=== PATIENT | female | born 1935 | race Caucasian/White ===

== ENCOUNTER → 2017-11-30 15:26 | Outpatient (CLI) | payer MEDICARE, OTHER, SELFPAY ==
[2017-11-30 17:16] LABS: ALT 29 U/L (12-78); AST 21 U/L (15-37); Albumin 3.9 g/dL (3.4-5.0); Alkaline Phosphatase 59 U/L (46-116); Amylase 102 U/L (25-115); Anion Gap 7.5 mmol/L (3-11); BUN 20 mg/dL (7-18); Bilirubin, Total 0.5 mg/dL (0.2-1.0); CO2 27.5 mmol/L (21.0-32.0); Calcium 9.3 mg/dL (8.5-10.1); Chloride 103 mmol/L (98-107); Estimated GFR 53.08 (mL/min/1.73m2); Glucose 88 mg/dL (70-100); Lipase 180 U/L (73-393); Magnesium 2.6 mg/dL (1.8-2.4); Potassium 4.2 mmol/L (3.5-5.1); Sodium 138 mmol/L (136-145); TSH (W/Ref FT4) 1.77 uIU/mL (0.358-3.74); Total Protein 6.9 g/dL (6.4-8.2)
[2017-11-30 17:19] LABS: Abs Immature Grans 0.01 k/cumm (0.0-0.09); Absolute Basophil Count 0.04 k/cumm (0.0-0.2); Absolute Eosinophil Count 0.11 k/cumm (0.0-0.7); Absolute Lymphocyte Count 2.36 k/cumm (1.2-3.4); Absolute Monocyte Count 0.49 k/cumm (0.11-0.7); Absolute Neutrophil Count 2.89 k/cumm (1.2-6.7); Basophils % 0.7; Eosinophils % 1.9; HCT 38.2 % (36.0-46.0); HGB 12.8 g/dL (12.0-15.5); Immature Grans % 0.2; Mean Corp. HGB Concentration 33.5 g/dL (32.0-36.0); Mean Corpuscular Hemoglobin 32.2 pg (27.0-33.0); Monocytes % 8.3; Neutrophils % 48.9; Platelet Count 210 x1000/uL (130-400); RBC 3.98 m/cumm (4.00-5.20); RBC Distribution Width 13.2 % (11.7-14.6)
[2017-12-01 16:42] LABS: CRP, High Sensitivity 0.15 mg/L
== END ==
PROVIDERS: PCP Family Medicine; Visit Provider Nurse Practitioner Adult Health
DX: R10.9 Unspecified abdominal pain (principal); R11.0 Nausea; R10.12 Left upper quadrant pain; R61 Generalized hyperhidrosis; I10 Essential (primary) hypertension; N18.9 Chronic kidney disease, unspecified; R53.83 Other fatigue
CPT/HCPCS: 36415; 80053; 83690; 86141; 82150; 83735; 84443; 85025

== ENCOUNTER → 2017-12-07 10:30 | Outpatient (CLI) | payer MEDICARE, OTHER, SELFPAY | PROVIDERS: PCP Family Medicine; Visit Provider Nurse Practitioner Gerontology | DX: N32.89 Other specified disorders of bladder (principal); R31.9 Hematuria, unspecified | CPT/HCPCS: 81003; 99213 ==

== ENCOUNTER → 2017-12-16 14:33 | Outpatient (CLI) | payer MEDICARE, OTHER, SELFPAY ==
--- NOTE | 2017-12-16 14:33 | DI.REPORT_ITS ---
SYMPTOMS/DIAGNOSIS: RADICULOPATHY, M54.17 LUMBOSACRAL SPINE: Five views were obtained. There is mild disc space narrowing at L 4 - 5 and L 5 - S 1. There are prominent hypertrophic degenerative changes involving the facet joints in the mid to lower lumbar spine. There is minimal pseudospondylolisthesis of L 4 on L 5. No evidence of spondylolysis. The intervertebral disc spaces appear narrowed throughout the lumbar region. CONCLUSION: DJD of the lumbar spine.
== END ==
PROVIDERS: PCP Family Medicine; Visit Provider Student in an Organized Health Care Education/Training Program
DX: M54.17 Radiculopathy, lumbosacral region (principal); M51.17 Intervertebral disc disorders with radiculopathy, lumbosacral region
CPT/HCPCS: 72110

== ENCOUNTER 2018-03-15 07:14 | Outpatient (CLI) | payer MEDICARE, OTHER, SELFPAY ==
[2018-03-15 07:46] LABS: HGB 13.1 g/dL (12.0-15.5); Mean Corp. HGB Concentration 32.8 g/dL (32.0-36.0); Mean Corpuscular Hemoglobin 31.6 pg (27.0-33.0); Mean Corpuscular Volume 96.4 fL (80-95); Mean Platelet Volume 10.2 fL (8.0-11.0); Platelet Count 212 x1000/uL (130-400); RBC 4.15 m/cumm (4.00-5.20); RBC Distribution Width 12.8 % (11.7-14.6); White Blood Cell Count 4.87 k/cumm (4.4-10.8)
[2018-03-15 09:10] LABS: Anion Gap 8.2 mmol/L (3-11); BUN 21 mg/dL (7-18); CO2 28.8 mmol/L (21.0-32.0); CREATININE 0.97 mg/dL (0.55-1.02); Calcium 9.8 mg/dL (8.5-10.1); Chloride 106 mmol/L (98-107); Cholesterol 201 mg/dL (50-200); Estimated GFR 54.98 (mL/min/1.73m2); Glucose 88 mg/dL (70-100); HDL Cholesterol 73 mg/dL (40-60); LDL CHOLESTEROL 113 mg/dL (<100); Potassium 4.4 mmol/L (3.5-5.1); Sodium 143 mmol/L (136-145); Triglyceride 118 mg/dL (30-150)
== END 2018-03-15 07:34 ==
PROVIDERS: PCP Student in an Organized Health Care Education/Training Program; Visit Provider Student in an Organized Health Care Education/Training Program
DX: I10 Essential (primary) hypertension (principal); Z13.220 Encounter for screening for lipoid disorders; R53.83 Other fatigue; R00.2 Palpitations
CPT/HCPCS: 36415; 80048; 80061; 83721; 85027

== ENCOUNTER 2018-07-06 04:50 | Emergency (ER) | payer MEDICARE, OTHER, SELFPAY ==
[2018-07-06 04:54] VITALS: BP 143/67; PULSE 96; RESP 22; TEMP 36.7; O2SAT 99
--- NOTE | 2018-07-06 05:00 | W.ED.GENAD ---
Discharge Plan Disposition Patient Disposition: HOME Condition: Stable Discharge Details Chief Complaint: Palpitatns Clinical Impression: Ventricular ectopic beats Primary Care Provider: Dyan Puga ED Provider: Salvador Bejarano Home Meds and New Rx's Prescriptions: No Action losartan 50 mg tablet 50 mg PO DAILY Qty: 90 RF: 3 atorvastatin 20 mg tablet 20 mg PO .daily at bedtime Qty: 90 RF: 3 cholecalciferol (vitamin D3) 1,000 UNIT tablet 1,000 unit PO DAILY RF: 0 calcium carbonate [Tums] 200 MG tablet,chewable 200 mg PO PRN RF: 0 mirtazapine 7.5 mg tablet 7.5 mg PO .daily at bedtime Qty: 90 RF: 3 amlodipine 2.5 mg tablet 2.5 mg PO DAILY Qty: 90 RF: 3 metoprolol tartrate 25 mg tablet 25 mg PO BID Qty: 180 RF: 3 aspirin [Aspirin Low-Strength] 81 MG tablet,chewable 81 mg PO DAILY RF: 0 Fish Oil 500 MG capsule,delayed release(DR/EC) 1,000 mg PO DAILY RF: 0 Discharge Instructions Additional Instructions: You were found to have premature ventricular beats on your ekg and monitor. This is likely causing your symptoms Your lab work did not show any concerning findings Follow up with your trim setter If you feel your symptoms are worsening, if you have difficulty breathing or chest pain return to the emergency department Medical Decision Making 82 yo female with hx of htn, hld, gerd, who comes in with cc of palpitations. She states since last night she has had a sensation of her heart skipping beats. She has had this in the past per pt with negative outpatient holters. She denies any chest pain, sob, dizziness or lightheadedness. Tele and ekg shows sinus rhythm with ectopic ventricular beats that I suspect is what is causing her symptoms. No chest pain or pressure and appears in no distress, laughing during exam, so doubt entities such as acs or PE. Will eval for electrolyte abnormalities and monitor pt's lab work shows no acute findings. She remains stable with only ectopic ventricular beats on tele. Will have her f/u with her trim setter, return precautions given. Do not feel holter indicated given she has had this in the past and her tele here showed the reason why she was having her palpitations Differential Diagnosis ectopic ventricular beats, pvc's, afib, Lab Data Lab results reviewed: Yes I reviewed the patient's lab results. ECG Data Attestation: I personally reviewed and interpreted this ECG (s) as follows: Prior ECG tracings: available for review Interpretation: sinus rhythm, rate of 90, pr 206, no acute st t wave changes, frequent ectopic ventricular beats HPI General Mode of arrival: ambulatory. Date/Time Provider Initiated Documentation: 07/06/18 04:52. Limitations to Documentation: no limitations. Information obtained by: patient. History of Present Illness 82 year old F presents to the emergency department with the chief complaint of palpitations, described as mild, and is localized to the chest. Patient reports no radiation. Patient started experiencing this day(s) (1) and it has been intermittent. No relieving factors improve symptom(s), No exacerbating factors reported . Patient notes no other symptoms.. Patient did receive the following treatments prior to arrival, none Related Data Home Medications Medication Instructions Recorded Confirmed aspirin [Aspirin Low-Strength] 81 mg PO DAILY 08/18/14 07/06/18 omega 1-mnq-xaq-fish oil [Fish Oil] 1,000 mg PO DAILY 08/18/14 07/06/18 cholecalciferol (vitamin D3) 1,000 unit PO DAILY 09/05/14 07/06/18 calcium carbonate [Tums] 200 mg PO PRN tab.chew 01/02/16 07/06/18 atorvastatin 20 mg tablet 20 mg PO .daily at bedtime #90 tab 12/29/17 07/06/18 losartan 50 mg tablet 50 mg PO DAILY #90 tab 12/29/17 07/06/18 mirtazapine 7.5 mg tablet 7.5 mg PO .daily at bedtime #90 tab 02/05/18 07/06/18 amlodipine 2.5 mg tablet 2.5 mg PO DAILY #90 tab-cap 05/14/18 07/06/18 metoprolol tartrate 25 mg tablet 25 mg PO BID #180 tab-cap 05/14/18 07/06/18 Previous Rx's Medication Instructions Recorded atorvastatin 20 mg tablet 20 mg PO .daily at bedtime #90 tab 12/29/17 losartan 50 mg tablet 50 mg PO DAILY #90 tab 12/29/17 mirtazapine 7.5 mg tablet 7.5 mg PO .daily at bedtime #90 tab 02/05/18 amlodipine 2.5 mg tablet 2.5 mg PO DAILY #90 tab-cap 05/14/18 metoprolol tartrate 25 mg tablet 25 mg PO BID #180 tab-cap 05/14/18 Allergies Allergy/AdvReac Type Severity Reaction Status Date / Time Penicillins Allergy Intermediate mouth Verified 07/06/18 04:59 swells Sulfa (Sulfonamide Allergy Intermediate mouth Verified 07/06/18 04:59 Antibiotics) swells adhesive AdvReac Intermediate rash and Verified 07/06/18 04:59 blisters amoxicillin AdvReac Intermediate Swelling/Ed Verified 07/06/18 04:59 aleksandr amoxicillin trihydrate AdvReac Intermediate Swelling/Ed Verified 07/06/18 04:59 [From Prevpac] aleksandr clarithromycin [From Biaxin] AdvReac Unknown Verified 07/06/18 04:59 ibandronate sodium AdvReac Unknown Verified 07/06/18 04:59 [From Boniva] lansoprazole [From Prevpac] AdvReac Unknown Verified 07/06/18 04:59 lisinopril AdvReac Unknown Verified 07/06/18 04:59 General Stated Complaint: Palpitatns RAJESH: 3 Review of Systems Review of Systems All systems reviewed & are unremarkable except as noted in HPI and below Constitutional Denies chills and Denies fever(s) ENT Denies change in voice Cardiovascular Denies chest pain and Denies dyspnea Respiratory Denies cough and Denies dyspnea Gastrointestinal Denies abdominal pain, Denies nausea and Denies vomiting Integumentary/Breasts Denies rash Psychiatric Denies depression PFSH Medical History H/O echocardiogram (Resolved) Surgical History Arthroplasty of knee (~2008) EGD (02/26/16) Vaginal hysterectomy (~2005) colonoscopy (02/26/16) Family History Mother Essential hypertension Heart disease Father Essential hypertension Heart disease Maternal Grandfather FH: mental illness Heart disease Maternal Aunt FH: mental illness Social History household members: spouse marital status details: Callie current occupational status: retired Smoking and Tabacco status: Never alcohol intake: never substance use type: does not use Exam Const General: no acute distress Orientation: alert HENMT Head: normal to inspection Ears: external ears normal General nose exam: external nose normal Mouth: moist mucous membranes Eyes General: appearance normal, both eyes and all related structures Neck Neck: normal visual inspection Resp Effort & Inspection: normal respiratory effort and able to speak in complete sentences Cardio Rate: regular rate Skin General skin exam: no rashes or lesions noted Neuro General: alert and oriented x3 Extrem General: normal to inspection Psych Mental Status: mental status grossly normal Course Vital Signs Temperature 36.7 C 07/06/18 04:54 Pulse 96 H 07/06/18 04:54 Respiratory Rate 22 07/06/18 04:54 Blood Pressure 143/67 H 07/06/18 04:54 Pulse Oximetry 99 07/06/18 04:54 Temperature 36.7 C 07/06/18 04:54 Temperature Source Skin 07/06/18 04:54 Pulse 96 H 07/06/18 04:54 Respiratory Rate 22 07/06/18 04:54 Respiratory Effort 07/06/18 04:57 Blood Pressure 143/67 H 07/06/18 04:54 Blood Pressure Position Sitting 07/06/18 04:54 Pulse Oximetry 99 07/06/18 04:54 Oxygen Delivery Method Room Air 07/06/18 04:54 Oxygen Flow Rate 0 07/06/18 04:54 Pain Level 0 07/06/18 04:54
[2018-07-06 05:02] VITALS: BP 143/61; PULSE 83; PULSE 84; RESP 23; O2SAT 97
--- NOTE | 2018-07-06 05:05 | ED.GENADUL_ITS ---
Discharge Plan Disposition Patient Disposition: HOME Condition: Stable Discharge Details Chief Complaint: Palpitatns Clinical Impression: Ventricular ectopic beats Primary Care Provider: Dyan Puga ED Provider: Salvador Bejarano Home Meds and New Rx's Prescriptions: No Action losartan 50 mg tablet 50 mg PO DAILY Qty: 90 RF: 3 atorvastatin 20 mg tablet 20 mg PO .daily at bedtime Qty: 90 RF: 3 cholecalciferol (vitamin D3) 1,000 UNIT tablet 1,000 unit PO DAILY RF: 0 calcium carbonate [Tums] 200 MG tablet,chewable 200 mg PO PRN RF: 0 mirtazapine 7.5 mg tablet 7.5 mg PO .daily at bedtime Qty: 90 RF: 3 amlodipine 2.5 mg tablet 2.5 mg PO DAILY Qty: 90 RF: 3 metoprolol tartrate 25 mg tablet 25 mg PO BID Qty: 180 RF: 3 aspirin [Aspirin Low-Strength] 81 MG tablet,chewable 81 mg PO DAILY RF: 0 Fish Oil 500 MG capsule,delayed release(DR/EC) 1,000 mg PO DAILY RF: 0 Discharge Instructions Additional Instructions: You were found to have premature ventricular beats on your ekg and monitor. This is likely causing your symptoms Your lab work did not show any concerning findings Follow up with your awake overnight monitor If you feel your symptoms are worsening, if you have difficulty breathing or chest pain return to the emergency department Medical Decision Making 82 yo female with hx of htn, hld, gerd, who comes in with cc of palpitations. She states since last night she has had a sensation of her heart skipping beats. She has had this in the past per pt with negative outpatient holters. She denies any chest pain, sob, dizziness or lightheadedness. Tele and ekg shows sinus rhythm with ectopic ventricular beats that I suspect is what is causing her symptoms. No chest pain or pressure and appears in no distress, laughing during exam, so doubt entities such as acs or PE. Will eval for electrolyte abnormalities and monitor pt's lab work shows no acute findings. She remains stable with only ectopic ventricular beats on tele. Will have her f/u with her awake overnight monitor, return precautions given. Do not feel holter indicated given she has had this in the past and her tele here showed the reason why she was having her palpitations Differential Diagnosis ectopic ventricular beats, pvc's, afib, Lab Data Lab results reviewed: Yes I reviewed the patient's lab results. ECG Data Attestation: I personally reviewed and interpreted this ECG (s) as follows: Prior ECG tracings: available for review Interpretation: sinus rhythm, rate of 90, pr 206, no acute st t wave changes, frequent ectopic ventricular beats HPI General Mode of arrival: ambulatory . Date/Time Provider Initiated Documentation: 07/06/18 04:52 . Limitations to Documentation: no limitations . Information obtained by: patient . History of Present Illness 82 year old F presents to the emergency department with the chief complaint of palpitations, described as mild, and is localized to the chest. Patient reports no radiation. Patient started experiencing this day(s) (1) and it has been intermittent. No relieving factors improve symptom(s), No exacerbating factors reported . Patient notes no other symptoms.. Patient did receive the following treatments prior to arrival, none Related Data Home Medications Medication Instructions Recorded Confirmed aspirin [Aspirin Low-Strength] 81 mg PO DAILY 08/18/14 07/06/18 omega 8-epm-lkm-fish oil [Fish Oil] 1,000 mg PO DAILY 08/18/14 07/06/18 cholecalciferol (vitamin D3) 1,000 unit PO DAILY 09/05/14 07/06/18 calcium carbonate [Tums] 200 mg PO PRN tab.chew 01/02/16 07/06/18 atorvastatin 20 mg tablet 20 mg PO .daily at bedtime #90 tab 12/29/17 07/06/18 losartan 50 mg tablet 50 mg PO DAILY #90 tab 12/29/17 07/06/18 mirtazapine 7.5 mg tablet 7.5 mg PO .daily at bedtime #90 tab 02/05/18 07/06/18 amlodipine 2.5 mg tablet 2.5 mg PO DAILY #90 tab-cap 05/14/18 07/06/18 metoprolol tartrate 25 mg tablet 25 mg PO BID #180 tab-cap 05/14/18 07/06/18 Previous Rx's Medication Instructions Recorded atorvastatin 20 mg tablet 20 mg PO .daily at bedtime #90 tab 12/29/17 losartan 50 mg tablet 50 mg PO DAILY #90 tab 12/29/17 mirtazapine 7.5 mg tablet 7.5 mg PO .daily at bedtime #90 tab 02/05/18 amlodipine 2.5 mg tablet 2.5 mg PO DAILY #90 tab-cap 05/14/18 metoprolol tartrate 25 mg tablet 25 mg PO BID #180 tab-cap 05/14/18 Allergies Allergy/AdvReac Type Severity Reaction Status Date / Time Penicillins Allergy Intermediate mouth Verified 07/06/18 04:59 swells Sulfa (Sulfonamide Allergy Intermediate mouth Verified 07/06/18 04:59 Antibiotics) swells adhesive AdvReac Intermediate rash and Verified 07/06/18 04:59 blisters amoxicillin AdvReac Intermediate Swelling/Ed Verified 07/06/18 04:59 aleksandr amoxicillin trihydrate AdvReac Intermediate Swelling/Ed Verified 07/06/18 04:59 [From Prevpac] aleksandr clarithromycin [From Biaxin] AdvReac Unknown Verified 07/06/18 04:59 ibandronate sodium AdvReac Unknown Verified 07/06/18 04:59 [From Boniva] lansoprazole [From Prevpac] AdvReac Unknown Verified 07/06/18 04:59 lisinopril AdvReac Unknown Verified 07/06/18 04:59 General Stated Complaint: Palpitatns RAJESH: 3 Review of Systems Review of Systems All systems reviewed & are unremarkable except as noted in HPI and below Constitutional Denies chills and Denies fever(s) ENT Denies change in voice Cardiovascular Denies chest pain and Denies dyspnea Respiratory Denies cough and Denies dyspnea Gastrointestinal Denies abdominal pain, Denies nausea and Denies vomiting Integumentary/Breasts Denies rash Psychiatric Denies depression PFSH Medical History H/O echocardiogram (Resolved) Surgical History Arthroplasty of knee (~2008) EGD (02/26/16) Vaginal hysterectomy (~2005) colonoscopy (02/26/16) Family History Mother Essential hypertension Heart disease Father Essential hypertension Heart disease Maternal Grandfather FH: mental illness Heart disease Maternal Aunt FH: mental illness Social History household members: spouse marital status details: Callie current occupational status: retired Smoking and Tabacco status: Never alcohol intake: never substance use type: does not use Exam Const General: no acute distress Orientation: alert HENMT Head: normal to inspection Ears: external ears normal General nose exam: external nose normal Mouth: moist mucous membranes Eyes General: appearance normal, both eyes and all related structures Neck Neck: normal visual inspection Resp Effort & Inspection: normal respiratory effort and able to speak in complete sentences Cardio Rate: regular rate Skin General skin exam: no rashes or lesions noted Neuro General: alert and oriented x3 Extrem General: normal to inspection Psych Mental Status: mental status grossly normal Course Vital Signs Temperature 36.7 C 07/06/18 04:54 Pulse 96 H 07/06/18 04:54 Respiratory Rate 22 07/06/18 04:54 Blood Pressure 143/67 H 07/06/18 04:54 Pulse Oximetry 99 07/06/18 04:54 Temperature 36.7 C 07/06/18 04:54 Temperature Source Skin 07/06/18 04:54 Pulse 96 H 07/06/18 04:54 Respiratory Rate 22 07/06/18 04:54 Respiratory Effort 07/06/18 04:57 Blood Pressure 143/67 H 07/06/18 04:54 Blood Pressure Position Sitting 07/06/18 04:54 Pulse Oximetry 99 07/06/18 04:54 Oxygen Delivery Method Room Air 07/06/18 04:54 Oxygen Flow Rate 0 07/06/18 04:54 Pain Level 0 07/06/18 04:54
[2018-07-06] MEDS: Normal Saline Flush 10 ML SYR IVP (05:11)
[2018-07-06 05:13] LABS: Abs Immature Grans 0.02 k/cumm (0.0-0.09); Absolute Basophil Count 0.04 k/cumm (0.0-0.2); Absolute Lymphocyte Count 2.89 k/cumm (1.2-3.4); Absolute Monocyte Count 0.54 k/cumm (0.11-0.7); Absolute Neutrophil Count 2.32 k/cumm (1.2-6.7); Basophils % 0.7; Eosinophils % 3.3; HCT 39.4 % (36.0-46.0); HGB 13.3 g/dL (12.0-15.5); Immature Grans % 0.3; Lymphocytes % 48.1; Mean Corp. HGB Concentration 33.8 g/dL (32.0-36.0); Mean Corpuscular Volume 94.7 fL (80-95); Mean Platelet Volume 10.1 fL (8.0-11.0); Neutrophils % 38.6; Platelet Count 231 x1000/uL (130-400); RBC 4.16 m/cumm (4.00-5.20); White Blood Cell Count 6.01 k/cumm (4.4-10.8)
[2018-07-06 05:17] VITALS: BP 132/68; PULSE 75; PULSE 77; RESP 32; O2SAT 98
[2018-07-06 05:29] LABS: ALT 24 U/L (12-78); AST 18 U/L (15-37); Albumin 3.7 g/dL (3.4-5.0); Alkaline Phosphatase 67 U/L (46-116); Anion Gap 9.9 mmol/L (3-11); BUN 23 mg/dL (7-18); Bilirubin, Total 0.6 mg/dL (0.2-1.0); CO2 28.1 mmol/L (21.0-32.0); Calcium 9.8 mg/dL (8.5-10.1); Chloride 104 mmol/L (98-107); Estimated GFR 43.01 (mL/min/1.73m2); Glucose 107 mg/dL (70-100); Potassium 3.8 mmol/L (3.5-5.1); Sodium 142 mmol/L (136-145); Total Protein 6.9 g/dL (6.4-8.2); Troponin I < 0.02 ng/mL (0.00-0.06)
[2018-07-06 05:31] VITALS: BP 121/90; PULSE 69; PULSE 80; RESP 15
== END 2018-07-06 05:45 | disposition home or self-care (01) ==
PROVIDERS: Emergency Provider Emergency Medicine; PCP Student in an Organized Health Care Education/Training Program
DX: I49.3 Ventricular premature depolarization (principal); I10 Essential (primary) hypertension
CPT/HCPCS: 36415; 80053; 93005; 99284; 83735; 84484; 85025; 93010; 99283; J3490

== ENCOUNTER → 2018-08-04 10:54 | Outpatient (BNVA) | payer MEDICARE, OTHER, SELFPAY | PROVIDERS: PCP Student in an Organized Health Care Education/Training Program; Visit Provider Nurse Practitioner Gerontology | DX: R31.29 Other microscopic hematuria (principal); R19.7 Diarrhea, unspecified | CPT/HCPCS: 81003; 99213 ==

== ENCOUNTER 2019-01-17 08:36 | Outpatient (CLI) | payer MEDICARE, OTHER, SELFPAY ==
[2019-01-17 09:04] LABS: HCT 37.7 % (36.0-46.0); HGB 12.4 g/dL (12.0-15.5); Mean Corp. HGB Concentration 32.9 g/dL (32.0-36.0); Mean Corpuscular Hemoglobin 31.4 pg (27.0-33.0); Mean Corpuscular Volume 95.4 fL (80-95); Platelet Count 240 x1000/uL (130-400); RBC 3.95 m/cumm (4.00-5.20); White Blood Cell Count 4.71 k/cumm (4.4-10.8)
[2019-01-17 10:07] LABS: ALT 27 U/L (14-59); AST 19 U/L (15-37); Albumin 3.5 g/dL (3.4-5.0); Alkaline Phosphatase 60 U/L (46-116); Anion Gap 7.1 mmol/L (3-11); BUN 19 mg/dL (7-18); Bilirubin, Total 0.6 mg/dL (0.2-1.0); CO2 26.9 mmol/L (21.0-32.0); CREATININE 1.06 mg/dL (0.55-1.02); Calcium 9.4 mg/dL (8.5-10.1); Chloride 108 mmol/L (98-107); Estimated GFR 49.51 (mL/min/1.73m2); Glucose 94 mg/dL (70-100); Magnesium 2.2 mg/dL (1.8-2.4); Potassium 4.7 mmol/L (3.5-5.1); Sodium 142 mmol/L (136-145); TSH (W/Ref FT4) 1.56 uIU/mL (0.36-3.74); Total Protein 6.4 g/dL (6.4-8.2)
[2019-01-19 11:26] LABS: IgA 66 mg/dL (85-499); Interpretation SEE COMMENTS; Tissue Transglutaminase IgA <1.2 U/mL (<4.0)
[2019-01-22 21:10] LABS: Gliadin (Deamidated) Ab, IgG <10.0 U
== END 2019-01-17 08:56 ==
PROVIDERS: PCP Nurse Practitioner Adult Health; Visit Provider Nurse Practitioner Adult Health
DX: I10 Essential (primary) hypertension (principal); R00.2 Palpitations; R19.7 Diarrhea, unspecified; E78.5 Hyperlipidemia, unspecified; D80.2 Selective deficiency of immunoglobulin A [IgA]
CPT/HCPCS: 36415; 80053; 82784; 83516; 85027; 83735; 84443

== ENCOUNTER 2019-01-18 01:19 | Outpatient (CLI) | payer MEDICARE, OTHER, SELFPAY ==
--- NOTE | 2019-01-18 13:00 | DI.MAMMO_ITS ---
EXAM: MG MAMMO SCREENING CLINICAL HISTORY: screening cancer, Z12.31. TECHNIQUE: Mammograms were interpreted according to the usual protocol including computer analysis w [employer] CAD system, tomosynthesis and C-view imaging. COMPARISON: No exams were available for comparison FINDINGS: The breast tissue is of moderate radiodensity. There is no mass and there are no suspicious calcifica tions and there has been no appreciable interval change when compared with prior images. IMPRESSION: No evidence of malignancy. Category 1, yearly screening mammography is recommended. BI-RADS categor y B. BI-RADS Cat 1 - Negative Breast Density - Category B - Scattered areas of fibroglandular density
[2019-01-19 11:52] LABS: Campylobacter PCR SEE COMMENTS; Salmonella PCR SEE COMMENTS; Shiga Toxin PCR SEE COMMENTS; Shigella/Enteroinvasive Ecoli SEE COMMENTS
== END 2019-01-18 01:39 ==
PROVIDERS: PCP Nurse Practitioner Adult Health; Visit Provider Student in an Organized Health Care Education/Training Program
DX: Z12.31 Encounter for screening mammogram for malignant neoplasm of breast (principal); R19.7 Diarrhea, unspecified
CPT/HCPCS: 77063; 77067; 87046; 87329; 87505; 83630; 87206

== ENCOUNTER 2019-05-26 07:56 | Emergency (ER) | payer MEDICARE, OTHER, SELFPAY ==
[2019-05-26] VITALS (8 sets, daily range): BP systolic 108–173; BP diastolic 53–93; PULSE 55–83; RESP 18; TEMP 36.8; O2SAT 96–99
--- NOTE | 2019-05-26 08:13 | ED.GENADUL_ITS ---
Discharge Plan Disposition Patient Disposition: HOME Condition: Good Discharge Details Chief Complaint: Abd Prob Clinical Impression: Diarrhea, Nausea Primary Care Provider: Ginette Vaca ED Provider: Charlene Tellez Home Meds and New Rx's Prescriptions: New ondansetron 4 mg tablet,disintegrating 4 mg PO Q6H PRN (Reason: nausea and vomiting) Qty: 10 RF: 0 Continued magnesium oxide 400 mg capsule 400 mg PO DAILY RF: 0 atorvastatin 20 mg tablet 20 mg PO .daily at bedtime Qty: 90 RF: 3 losartan 50 mg tablet 50 mg PO DAILY Qty: 90 RF: 3 Metamucil (sugar) Powder 1 tbs PO DAILY RF: 0 cholecalciferol (vitamin D3) 1,000 UNIT tablet 1,000 unit PO DAILY RF: 0 calcium carbonate [Tums] 200 MG tablet,chewable 200 mg PO PRN RF: 0 mirtazapine 7.5 mg tablet 7.5 mg PO .daily at bedtime Qty: 90 RF: 3 amlodipine 2.5 mg tablet 2.5 mg PO DAILY Qty: 90 RF: 3 metoprolol tartrate 25 mg tablet 25 mg PO BID Qty: 180 RF: 3 aspirin [Aspirin Low-Strength] 81 MG tablet,chewable 81 mg PO DAILY RF: 0 Fish Oil 500 MG capsule,delayed release(DR/EC) 1,000 mg PO DAILY RF: 0 Discharge Instructions Instructions: Acute Nausea and Vomiting (ED), Chronic Diarrhea (ED) Additional Instructions: Encourage water intake. You may use the Zofran as prescribed if you have any recurrence of your nausea. Please follow-up with primary care in 1 week for reevaluation. You may contact gastroenterology to see if this sooner appointment is available. If you develop fever/chills, abdominal pain or other new/worsening symptoms please seek care urgently once again. Referrals: Ginette Vaca, REGIONAL WILDLIFE AGENT [Primary Care Provider] - Discharge Data Discharge Date/Time-TO BE ENTERED AT DEPARTURE: 05/26/19 10:34 Medical Decision Making Patient is a pleasant 83-year-old female presents today with chief complaint of chronic diarrhea. She reports she is had diarrhea for the past 7 months. Reports that she had 1 bowel movement today but only is able to control the number of bowel movement she has per day with oral Metamucil. She is also had some nausea the Betagan approximately 5 months ago but increased in recent days. She has been evaluated by her primary care historically including stool studies. She has been referred to gastroenterology and has an appointment with them on 04/08/2020. States associated with this diarrhea, she has had chronic left-sided abdominal tenderness. Last had CT imaging on 06/10/2017. At that time, patient did have incidental finding of small quantity of free fluid in the pelvis. On exam, patient appears in no acute distress. She is hypertensive with a blood pressure of 173/84, vital signs otherwise within normal limits. Patient has no discomfort with palpation of the area of discomfort but she does indicate the entire left side of the abdomen is area of discomfort. Lungs are clear, normal cardiac exam. This patient has had chronic diarrhea, will perform laboratory evaluation primarily to evaluate for any electrolyte abnormalities. As the patient's diarrhea is relatively well controlled at this time with Metamucil, we will not repeat any stool studies. No recent travel. No recent antibiotics. With the chronic left-sided abdominal pain, we did discuss imaging which patient declines. Prefers to wait for the GI appointment on 09 June. EKG was reviewed by Dr. Garcia. Patient's normal sinus rhythm no acute ischemic changes noted. T wave depressions are noted but this is stable compared to EKG dated 06/2018. Labs reviewed. No acute abnormalities are noted. Urine was reviewed. Patient does have trace leukocyte esterase, few epithelial cells moderate bacteria. Again, I reviewed urinary symptoms and patient continues to decline any of these. I do not feel that treating her for UTI is appropriate at this time and will wait with culture pending. We will contact her with any positive results. She will contact gastroenterology to see if she can move up her upcoming appointment. Patient continues to decline any imaging. She was given return precautions. Will prescribe Zofran in the event that nausea recurs. All of her questions concerns were addressed and she is agreement this plan. HPI General Mode of arrival: ambulatory . Date/Time Provider Initiated Documentation: 05/26/19 08:13 . Limitations to Documentation: no limitations . Information obtained by: patient, RN notes reviewed and old records reviewed . History of Present Illness 83 year old F presents to the emergency department with the chief complaint of nausea and diarrhea, described as moderate (denies any pain, 1 episode of diarrhea today, not currently nauseated), and is loca lized to the abdomen. Patient reports no radiation. Patient started experiencing this month(s) (7) and it has been constant. No relieving factors improve symptom(s), No exacerbating factors reported . Patient notes nausea/vomiting (endorses nausea, primarily at night, no vomiting); denies chest pain, cough, diaphoresis, fever/chills, loss of appetite, rash, shortness of breath and weakness. Patient did receive the following treatments prior to arrival, none Related Data Home Medications Medication Instructions Recorded Confirmed Fish Oil 1,000 mg PO DAILY 08/18/14 05/26/19 aspirin [Aspirin Low-Strength] 81 mg PO DAILY 08/18/14 05/26/19 cholecalciferol (vitamin D3) 1,000 unit PO DAILY 09/05/14 05/26/19 calcium carbonate [Tums] 200 mg PO PRN tab.chew 01/02/16 05/26/19 magnesium oxide 400 mg PO DAILY cap 07/12/18 05/26/19 atorvastatin 20 mg tablet 20 mg PO .daily at bedtime #90 tab 01/07/19 05/26/19 losartan 50 mg tablet 50 mg PO DAILY #90 tab 01/07/19 05/26/19 mirtazapine 7.5 mg tablet 7.5 mg PO .daily at bedtime #90 tab 01/27/19 05/26/19 psyllium seed (sugar) 1 tbs PO DAILY 02/11/19 05/26/19 amlodipine 2.5 mg tablet 2.5 mg PO DAILY #90 tab-cap 04/22/19 05/26/19 metoprolol tartrate 25 mg tablet 25 mg PO BID #180 tab-cap 04/22/19 05/26/19 ondansetron 4 mg PO Q6H PRN #10 tab 05/26/19 Previous Rx's Medication Instructions Recorded atorvastatin 20 mg tablet 20 mg PO .daily at bedtime #90 tab 01/07/19 losartan 50 mg tablet 50 mg PO DAILY #90 tab 01/07/19 mirtazapine 7.5 mg tablet 7.5 mg PO .daily at bedtime #90 tab 01/27/19 amlodipine 2.5 mg tablet 2.5 mg PO DAILY #90 tab-cap 04/22/19 metoprolol tartrate 25 mg tablet 25 mg PO BID #180 tab-cap 04/22/19 ondansetron 4 mg PO Q6H PRN #10 tab 05/26/19 Allergies Allergy/AdvReac Type Severity Reaction Status Date / Time Penicillins Allergy Intermediate mouth Verified 05/06/19 14:12 swells Sulfa (Sulfonamide Allergy Intermediate mouth Verified 05/06/19 14:12 Antibiotics) swells adhesive AdvReac Intermediate rash and Verified 05/06/19 14:12 blisters amoxicillin AdvReac Intermediate Swelling/Ed Verified 05/06/19 14:12 aleksandr amoxicillin trihydrate AdvReac Intermediate Swelling/Ed Verified 05/06/19 14:12 [From Prevpac] aleksandr clarithromycin [From Biaxin] AdvReac Unknown Verified 05/06/19 14:12 ibandronate sodium AdvReac Unknown Verified 05/06/19 14:12 [From Boniva] lansoprazole [From Prevpac] AdvReac Unknown Verified 05/06/19 14:12 lisinopril AdvReac Unknown Verified 05/06/19 14:12 General Stated Complaint: Abd Prob RAJESH: 3 Review of Systems Constitutional Constitutional: Reports as per HPI, Denies chills, Denies fatigue, Denies fever(s) and Denies headache(s) ENT Ears, Nose, Mouth, and Throat: Denies headache(s) Cardiovascular Cardiovascular: Reports as per HPI, Denies chest pain and Denies dyspnea Respiratory Respiratory: Reports as per HPI, Denies cough and Denies dyspnea Gastrointestinal Gastrointestinal: Reports as per HPI Musculoskeletal Musculoskeletal: Reports as per HPI and Denies back pain Integumentary/Breasts Skin/Breast: Reports as per HPI and Denies rash Neurologic Neurologic: Reports as per HPI and Denies headache(s) Endocrine Endocrine: Denies fatigue [facility] Medical History Anxiety (Inactive 07/17/17) Tolerating Lexapro, Exercising more which seems to help general anxiousness (06/2017). Bladder spasm (Inactive 06/03/17) Diarrhea (Acute) 11/2018--persistent, Metamucil 12/2018--stool studies NEG 01/2019--monitor,improved on metamucil H/O echocardiogram (Resolved) 11/02/12 preserved LV, EF 65% Microscopic hematuria (Inactive) Saw urol, ok 08/2018, ik Sinoatrial node dysfunction (Inactive 08/29/14) Surgical History Arthroplasty of knee (~2008) left colonoscopy (02/26/16) EGD (02/26/16) Vaginal hysterectomy (~2005) Social History Smoking/Tobacco Use Status: Never Alcohol Intake: never Drug use: Never Substance use type: does not use Household members: spouse and other Housing: house Communication Needs: Hard of Hearing Do you need help understanding health information?: Never What type of physical activity do you participate in: walking Frequency: 5-6 times per week Exam Const General: cooperative, healthy appearing, comfortable, no acute distress and well developed Nutritional Appearance: average body habitus and well nourished Orientation: alert and awake HENMT Head: normal to inspection Mouth: moist mucous membranes Resp Effort & Inspection: normal respiratory effort, able to speak in complete sentences and no respiratory distress Auscultation: clear to auscultation bilaterally, no rales, no rhonchi and no wheezes Cardio Rate: regular rate Rhythm: regular rhythm Heart Sounds: S1 normal and S2 normal GI Inspection: normal to inspection Palpation: soft, no hepatosplenomegaly, not firm, no guarding, not rigid and nontender Percussion: normal to percussion Auscultation: normal bowel sounds Back/Spine/Pelvis Back: no CVA tenderness Skin General skin exam: no rashes or lesions noted Trauma: no lacerations or abrasions Neuro General: alert and awake Cognition: normal cognition Speech: speech normal Gait: normal gait Psych Appearance: grossly normal and well kempt Mental Status: mental status grossly normal Speech and Movement: speech and movement normal Course Vital Signs Vital signs: Vital Signs Temperature 36.8 C 05/26/19 08:01 Pulse 83 05/26/19 08:01 Respiratory Rate 18 05/26/19 08:01 Blood Pressure 173/84 H 05/26/19 08:01 Pulse Oximetry 98 05/26/19 08:01 Temperature 36.8 C 05/26/19 08:01 Temperature Source Skin 05/26/19 08:01 Pulse 83 05/26/19 08:01 Respiratory Rate 18 05/26/19 08:01 Blood Pressure 173/84 H 05/26/19 08:01 Pulse Oximetry 98 05/26/19 08:01 Oxygen Delivery Method Room Air 05/26/19 08:01 Oxygen Flow Rate 0 05/26/19 08:01 Pain Level 0 05/26/19 08:01
[2019-05-26] MEDS: Normal Saline Flush 10 ML SYR IVP (08:49)
[2019-05-26] MEDS: Normal Saline 1,000 ML 500 ML IV (08:49)
[2019-05-26 08:59] LABS: Abs Immature Grans 0.01 k/cumm (0.0-0.09); Absolute Basophil Count 0.04 k/cumm (0.0-0.2); Absolute Eosinophil Count 0.08 k/cumm (0.0-0.7); Absolute Lymphocyte Count 1.22 k/cumm (1.2-3.4); Absolute Neutrophil Count 2.47 k/cumm (1.2-6.7); Eosinophils % 1.9; HCT 40.7 % (36.0-46.0); HGB 13.6 g/dL (12.0-15.5); Immature Grans % 0.2 %; Lymphocytes % 29.6; Mean Corp. HGB Concentration 33.4 g/dL (32.0-36.0); Mean Corpuscular Hemoglobin 31.8 pg (27.0-33.0); Mean Corpuscular Volume 95.1 fL (80-95); Mean Platelet Volume 10.2 fL (8.0-11.0); Monocytes % 7.3; Platelet Count 249 x1000/uL (130-400); RBC 4.28 m/cumm (4.00-5.20); RBC Distribution Width 13.2 % (11.7-14.6); White Blood Cell Count 4.12 k/cumm (4.4-10.8)
[2019-05-26 09:15] LABS: ALT 26 U/L (14-59); AST 21 U/L (15-37); Albumin 3.7 g/dL (3.4-5.0); Alkaline Phosphatase 58 U/L (46-116); Anion Gap 7.8 mmol/L (3-11); BUN 16 mg/dL (7-18); Bilirubin, Total 0.6 mg/dL (0.2-1.0); CO2 29.2 mmol/L (21.0-32.0); CREATININE 0.99 mg/dL (0.55-1.02); Calcium 9.7 mg/dL (8.5-10.1); Chloride 105 mmol/L (98-107); Estimated GFR 53.57 (mL/min/1.73m2); Glucose 115 mg/dL (74-106); Magnesium 2.1 mg/dL (1.8-2.4); Potassium 4.4 mmol/L (3.5-5.1); Sodium 142 mmol/L (136-145); Total Protein 6.9 g/dL (6.4-8.2)
[2019-05-26 09:16] LABS: Troponin I < 0.05 ng/Ml (<0.06)
[2019-05-26 09:59] LABS: Bilirubin Negative (Negative); Blood Negative (Negative); Clarity Clear (Clear); Glucose Negative (Negative); Ketones Negative (Negative); Leukocyte Esterase Trace (Negative); Nitrite Negative (Negative); Urobilinogen 0.2 EU/dL (Up TO 0.2); pH 8.5 (5-8)
[2019-05-26 10:24] LABS: Bacteria Moderate HPF (Negative); C & S Indicated? Yes; Casts Negative LPF (Negative); Crystals Few Amorphous HPF (Negative); Epithelial Cells Few HPF (Negative); Mucus Negative (Negative); Other Cells Negative (Negative)
== END 2019-05-26 10:34 | disposition home or self-care (01) ==
PROVIDERS: Emergency Provider Physician Assistant; PCP Nurse Practitioner Adult Health
DX: R11.0 Nausea (principal); R19.7 Diarrhea, unspecified
CPT/HCPCS: 36415; 80053; 93005; 96360; 99284; 81003; 81015; 83735; 84484; 85025; 87086; 93010

== ENCOUNTER → 2019-09-20 10:14 | Outpatient (BNVA) | payer MEDICARE, OTHER, SELFPAY | PROVIDERS: PCP Nurse Practitioner Adult Health; Visit Provider Nurse Practitioner Gerontology | DX: R10.32 Left lower quadrant pain (principal); R31.29 Other microscopic hematuria | CPT/HCPCS: 81003; 99213 ==

== ENCOUNTER 2019-09-23 07:12 | Emergency (ER) | payer MEDICARE, OTHER, SELFPAY ==
[2019-09-23 07:16] VITALS: BP 156/66; PULSE 65; RESP 18; TEMP 36.7; O2SAT 96
--- NOTE | 2019-09-23 07:25 | W.ED.GENAD ---
Discharge Plan Disposition Patient Disposition: HOME Condition: Stable Discharge Details Chief Complaint: Orthopedic Clinical Impression: Back pain Primary Care Provider: Ginette Vaca ED Provider: Georges Crawford Home Meds and New Rx's Prescriptions: New gabapentin 100 mg capsule 100 mg PO TID Qty: 20 RF: 0 lidocaine [Lidoderm] 5 % adhesive patch,medicated 1 patch TP DAILY Qty: 7 RF: 0 Continued magnesium oxide 400 mg capsule 400 mg PO DAILY RF: 0 atorvastatin 20 mg tablet 20 mg PO .daily at bedtime Qty: 90 RF: 3 losartan 50 mg tablet 50 mg PO DAILY Qty: 90 RF: 3 Metamucil (sugar) Powder 1 tbs PO DAILY RF: 0 dicyclomine 20 mg tablet 20 mg PO QID RF: 0 cholecalciferol (vitamin D3) 1,000 UNIT tablet 1,000 unit PO DAILY RF: 0 calcium carbonate [Tums] 200 MG tablet,chewable 200 mg PO PRN RF: 0 mirtazapine 7.5 mg tablet 7.5 mg PO .daily at bedtime Qty: 90 RF: 3 amlodipine 2.5 mg tablet 2.5 mg PO DAILY Qty: 90 RF: 3 metoprolol tartrate 25 mg tablet 25 mg PO BID Qty: 180 RF: 3 aspirin [Aspirin Low-Strength] 81 MG tablet,chewable 81 mg PO DAILY RF: 0 Fish Oil 500 MG capsule,delayed release(DR/EC) 1,000 mg PO DAILY RF: 0 Discharge Instructions Instructions: Back Pain (ED) Additional Instructions: Gabapentin taper, Lidoderm patch, [id number] Tylenol as directed for discomfort. Gentle stretching as tolerated. Cool and/or warm compresses every 2 hours for 20 minutes. Please watch for new or worsening symptoms and return to the ER for any concerns. I would like you to reach out to your primary care provider later today or tomorrow for prompt outpatient reevaluation. I would discuss at that time outpatient physical therapy as it seems that this has helped you in the past. Medical Decision Making <Brian Patel MD - Last Filed: 09/23/19 07:57> Patient presenting with left lower lumbar pain and hip pain that is chronic but has become worse and now seems associated with a sharp stabbing intermittent pain which certainly sounds neuropathic. In review of her records she has had problems like this in the past. She has had benefit from physical therapy. She denies any recent trauma. She did try some Tylenol and [id number] pain patches. She is unsure the name of the pain patches. She presents this morning because she is unable to tolerate the pain especially the sharp stabbing pain. Will give more Tylenol as she only took 325 this morning. Will try Lidoderm patch here. Will start low-dose gabapentin. Will obtain x-ray of the LS-spine and pelvis left hip to rule out any evidence of metastatic disease. 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 There is no history of cancer but given the continuous/insidious constant pain reasonable for plain films. Care will be signed over to RAINA Crawford to follow-up on films and response to medications. Medical Records Medical records reviewed: Yes I reviewed the patient's medical records. <RAINA Chen - Last Filed: 09/23/19 09:22> I assumed care of this pleasant 83-year-old female from Dr. Patel at shift change. She reports chronic back issues, however worse over the last few days, she reports that this may have occurred when trying to open a stuck window. She reports that this feels like her nerve pain. She denies any abdominal pain, chest pain. Reports that that pain is primarily in her back and hip, does not radiate down her entire leg. Denies numbness, tingling, weakness. Plain films pending, she was given low-dose gabapentin, Lidoderm patch. Upon my evaluation patient is resting comfortably, head normocephalic, moist mucous membranes, heart regular rate and rhythm, lungs clear to auscultation, abdomen soft, nontender, no pulsatile mass. Patient with mild lower left lumbar discomfort to palpation, no midline point tenderness. There is no erythema, warmth, ecchymosis. Bilateral negative straight leg raise. Subjectively she reports feeling significant improvement with the Lidoderm patch and gabapentin. X-rays of lumbar spine read as showing no changes, no acute abnormality by virtual radiology. X-ray of left hip and pelvis read by radiology as mild to moderate degenerative changes, no acute abnormality. I discussed the x-ray with patient. She is relieved and has no additional questions or concerns. She is able to ambulate slowly but steadily here in the ER. Reports that her pain has improved. Will follow through with the initial plan set forth by Dr. Patel, will provide gabapentin taper, prescription for Lidoderm patches, and patient will contact her primary care provider later today or tomorrow for prompt outpatient reevaluation. She understands that she may need a refill of her medications and she has responded well to physical therapy in the past. Upon discharge patient appears well, nontoxic, neurologically intact, no acute distress. Ambulates steadily. Medical Records Medical records reviewed: Yes I reviewed the patient's medical records. HPI <Brian Patel MD - Last Filed: 09/23/19 07:57> General Mode of arrival: ambulatory. Date/Time Provider Initiated Documentation: 09/23/19 07:21. Limitations to Documentation: no limitations. Information obtained by: patient, RN notes reviewed and old records reviewed. HPI Narrative: Patient presents to ED with worsening left-sided lumbar pain and hip pain. Patient reports increasing pain with sharp shooting pain intermittently in the left lower back/left buttock area. She denies any numbness, weakness, bladder or bowel dysfunction. She denies any abdominal pain. She has had previous problems with similar pain over the years. Tried [id number] pain patches and did take a Tylenol this morning. She is called primary care but they were not able to get her in. 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 She has difficulty getting around because of the pain and is now walking with a limp. She denies any direct trauma or falls. Related Data Home Medications Medication Instructions Recorded Confirmed Fish Oil 1,000 mg PO DAILY 08/18/14 09/23/19 aspirin [Aspirin Low-Strength] 81 mg PO DAILY 08/18/14 09/23/19 cholecalciferol (vitamin D3) 1,000 unit PO DAILY 09/05/14 09/23/19 calcium carbonate [Tums] 200 mg PO PRN tab.chew 01/02/16 09/23/19 magnesium oxide 400 mg PO DAILY cap 07/12/18 09/23/19 atorvastatin 20 mg tablet 20 mg PO .daily at bedtime #90 tab 01/07/19 09/23/19 losartan 50 mg tablet 50 mg PO DAILY #90 tab 01/07/19 09/23/19 mirtazapine 7.5 mg tablet 7.5 mg PO .daily at bedtime #90 tab 01/27/19 09/23/19 psyllium seed (sugar) 1 tbs PO DAILY 02/11/19 09/23/19 amlodipine 2.5 mg tablet 2.5 mg PO DAILY #90 tab-cap 04/22/19 09/23/19 metoprolol tartrate 25 mg tablet 25 mg PO BID #180 tab-cap 04/22/19 09/23/19 dicyclomine 20 mg tablet 20 mg PO QID tab 08/19/19 09/23/19 gabapentin 100 mg PO TID #20 cap 09/23/19 lidocaine [Lidoderm] 1 patch TP DAILY #7 each 09/23/19 Previous Rx's Medication Instructions Recorded atorvastatin 20 mg tablet 20 mg PO .daily at bedtime #90 tab 01/07/19 losartan 50 mg tablet 50 mg PO DAILY #90 tab 01/07/19 mirtazapine 7.5 mg tablet 7.5 mg PO .daily at bedtime #90 tab 01/27/19 amlodipine 2.5 mg tablet 2.5 mg PO DAILY #90 tab-cap 04/22/19 metoprolol tartrate 25 mg tablet 25 mg PO BID #180 tab-cap 04/22/19 gabapentin 100 mg PO TID #20 cap 09/23/19 lidocaine [Lidoderm] 1 patch TP DAILY #7 each 09/23/19 Allergies Allergy/AdvReac Type Severity Reaction Status Date / Time Penicillins Allergy Intermediate mouth Verified 09/23/19 07:19 swells Sulfa (Sulfonamide Allergy Intermediate mouth Verified 09/23/19 07:19 Antibiotics) swells adhesive AdvReac Intermediate rash and Verified 09/23/19 07:19 blisters amoxicillin AdvReac Intermediate Swelling/Ed Verified 09/23/19 07:19 aleksandr amoxicillin trihydrate AdvReac Intermediate Swelling/Ed Verified 09/23/19 07:19 [From Prevpac] aleksandr clarithromycin [From Biaxin] AdvReac Unknown Verified 09/23/19 07:19 ibandronate sodium AdvReac Unknown Verified 09/23/19 07:19 [From Boniva] lansoprazole [From Prevpac] AdvReac Unknown Verified 09/23/19 07:19 lisinopril AdvReac Unknown Verified 09/23/19 07:19 General Stated Complaint: Orthopedic RAJESH: 4 Review of Systems <Brian Patel MD - Last Filed: 09/23/19 07:57> Narrative: As documented in HPI otherwise negative as below. Const: no fever, chills, weakness Resp: no cough, SOB, pleuritic pain CV: no CP, diaphoresis, edema, syncope GI: no abdominal pain, nausea, vomiting, diarrhea Neuro: no headache, numbness, focal weakness, confusion PFSH <Brian Patel MD - Last Filed: 09/23/19 07:57> Medical History Anxiety (Inactive 07/17/17) Tolerating Lexapro, Exercising more which seems to help general anxiousness (06/2017). Bladder spasm (Inactive 06/03/17) Diarrhea (Acute) 11/2018--persistent, Metamucil 12/2018--stool studies NEG 01/2019--monitor,improved on metamucil 05/2019--GI stool studies again NEG 05/2019--CT-abd/pelvis NEG for acute GI issues ([facility]) H/O echocardiogram (Resolved) 11/02/12 preserved LV, EF 65% Microscopic hematuria (Inactive) Saw urol, ok 08/2018, ik Sinoatrial node dysfunction (Inactive 08/29/14) Surgical History Arthroplasty of knee (~2008) left colonoscopy (02/26/16) EGD (02/26/16) Vaginal hysterectomy (~2005) Social History Smoking/Tobacco Use Status: Never Alcohol Intake: never Drug use: Never Substance use type: does not use Household members: spouse and other Housing: house Communication Needs: Hard of Hearing Do you need help understanding health information?: Never What type of physical activity do you participate in: walking Frequency: 5-6 times per week Do you feel safe at home: Yes Do you feel safe in your relationship?: Yes Exam <Brian Patel MD - Last Filed: 09/23/19 07:57> Narrative Exam Narrative: Vitals: Afebrile. Slightly elevated blood pressure. Otherwise normal vitals normal room air pulse ox. Const: WDWN elderly female in NAD. HEENT: NC/AT. Normal facial exam. Eyes: Normal conjunctiva and sclera. Neck: Supple. Trachea midline. Lungs: Normal respiratory effort. Back: No midline tenderness. Minimal tenderness left lower lumbar area. Neuro: A+O x 3. Normal speech, mentation. Ambulates with limp. Cranial nerves II - XII grossly intact. 5 out of 5 strength in lower extremities. Normal sensation. No saddle anesthesia. Ext: No C/C/E. Skin: Warm and dry without rash. Course <Brian Patel MD - Last Filed: 09/23/19 07:57> Vital Signs Vital signs: Vital Signs Temperature 98.1 F 09/23/19 07:16 Pulse 65 09/23/19 07:16 Respiratory Rate 18 09/23/19 07:16 Blood Pressure 156/66 H 09/23/19 07:16 Pulse Oximetry 96 09/23/19 07:16 Temperature 98.1 F 09/23/19 07:16 Temperature Source Skin 09/23/19 07:16 Pulse 65 09/23/19 07:16 Respiratory Rate 18 09/23/19 07:16 Respiratory Effort Non-Labored 09/23/19 07:22 Blood Pressure 156/66 H 09/23/19 07:16 Blood Pressure Position Sitting 09/23/19 07:16 Pulse Oximetry 96 09/23/19 07:16 Oxygen Delivery Method Room Air 09/23/19 07:16 Oxygen Flow Rate 0 09/23/19 07:16 Pain Level 6 09/23/19 07:16 Sign Out <Brian Patel MD - Last Filed: 09/23/19 07:57> Sign Out Data: Sign Out Comment: follow up on imaging/pain relief Last updated by Brian Patel MD at 09/23/19 08:10
[2019-09-23] MEDS: Lidocaine 5% Patch 1 PATCH TP (07:45)
[2019-09-23] MEDS: Acetaminophen 500 MG TAB PO (07:47)
[2019-09-23] MEDS: Gabapentin 100 MG CAP PO (07:47)
--- NOTE | 2019-09-23 07:52 | DI.RAD_ITS ---
EXAM: XR HIP LT COMPLETE AP PELVIS INDICATION: worsening pain. COMPARISON: CR LUMBAR SPINE COMPLETE from 12/16/2017 TECHNIQUE: 2D digital imaging was performed. FINDINGS: No fracture or dislocation is seen. The there is bilateral acetabular spurring, left greater than ri ght. There is slight hip joint space narrowing. Spurring is also seen at the pubic symphysis and SI joints. IMPRESSION: Rhgg-ez-wexifgce degenerative changes. No acute abnormality. DATA REPOSITORY: RADIATION DOSE DELIVERED:
--- NOTE | 2019-09-23 07:54 | DI.RAD_ITS ---
EXAM: XR LUMBAR SPINE AP, LAT CLINICAL HISTORY: worsening pain TECHNIQUE: 2D digital imaging was performed. COMPARISON: CR LUMBAR SPINE COMPLETE from 12/16/2017 FINDINGS: No compression fracture is seen. Facet degenerative changes and degenerative disc changes are again noted. The facet degenerative changes are greatest at L4-5, causing mild anterolisthesis. Small en dplate osteophytes are seen throughout. There has been no change from the previous exam. Spurring i s also noted at the SI joints. IMPRESSION: Degenerative changes. No acute abnormality.
--- NOTE | 2019-09-23 08:28 | DI.VRAD_ITS ---
PROCEDURE INFORMATION: Exam: XR Lumbosacral Spine, 2 or 3 Views Exam date and time: 09/23/2019 7:54 AM Age: 83 years old Clinical indication: Low back pain; Patient HX: Worsening pain TECHNIQUE: Imaging protocol: XR of the lumbosacral spine, 2 or 3 views. COMPARISON: CR LUMBAR SPINE COMPLETE 12/16/2017 2:36 PM FINDINGS: Vertebrae: Moderate degenerative disc disease diffusely reflected as decrease in disc space height and anterior endplate osteophytosis. No spondylolisthesis No pars defect. No fracture. Moderate facet hypertrophic changes most pronounced L3-L4, L4-L5, L5-S1. Mild 4 mm degenerative anterior listhesis of L4 with respect to L5 Soft tissues: Normal. IMPRESSION: Moderate diffuse degenerative disc disease. Dictated and Authenticated by: Clarence Sims MD. Ordering:CARMEN Torres MD
--- NOTE | 2019-09-23 08:29 | DI.VRAD_ITS ---
PROCEDURE INFORMATION: Exam: XR Left Hip with Pelvis when Performed Exam date and time: 09/23/2019 7:52 AM Age: 83 years old Clinical indication: Hip pain; Left hip; Patient HX: Worsening pain TECHNIQUE: Imaging protocol: XR Left hip with pelvis when performed. Views: 2 or 3 views. COMPARISON: No relevant prior studies available. FINDINGS: Bones/joints: osseous structures of the pelvis without an acute process. rami are intact. Sacroiliac joints without separation/diastases/fracture. Iliac bones unremarkable/noncontributory Degenerative changes within the visualized portions of the caudal aspect of the lumbar spine. Mild degenerative changes within the hip including mild joint space narrowing and early osteophyte formation. No fracture. The trabecular stress markings normal. Soft tissues: Unremarkable. IMPRESSION: Mild degenerative changes within the hip. Dictated and Authenticated by: Clarence Sims MD. Ordering:CARMEN Torres MD
== END 2019-09-23 09:30 | disposition home or self-care (01) ==
PROVIDERS: Emergency Provider Physician Assistant; PCP Nurse Practitioner Adult Health
DX: M54.5 Low back pain (principal); M25.552 Pain in left hip
CPT/HCPCS: 99284; 72100; 73502

== ENCOUNTER 2019-12-24 13:44 | Emergency (ER) | payer MEDICARE, OTHER, SELFPAY ==
[2019-12-24] VITALS (18 sets, daily range): BP systolic 120–152; BP diastolic 52–86; PULSE 80–103; RESP 8–20; TEMP 37; O2SAT 96–100
--- NOTE | 2019-12-24 13:45 | RT.EKG_ITS ---
APPROVED REPORT Exam: Resting ECG Patient Location: E HR:91 bpm ECG Measurements Heart Rate 91 AXIS CO 217 P 35 QRSd 85 QRS -9 QT 366 T 47 QTc 452 Conclusion Sinus rhythm...normal P axis, V-rate 60- 99 Prolonged CO interval...CO >215, V-rate 91-120
--- NOTE | 2019-12-24 13:50 | ED.GENADUL_ITS ---
Discharge Plan Disposition Patient Disposition: HOME Condition: Stable Discharge Details Chief Complaint: Abd Prob Clinical Impression: Abdominal pain, No ST-T wave changes on electrocardiography, Dehydration Primary Care Provider: Ginette Vaca ED Provider: Charlene Tellez Home Meds and New Rx's Prescriptions: Continued magnesium oxide 400 mg capsule 400 mg PO DAILY RF: 0 atorvastatin 20 mg tablet 20 mg PO .daily at bedtime Qty: 90 RF: 3 losartan 50 mg tablet 50 mg PO DAILY Qty: 90 RF: 3 cholecalciferol (vitamin D3) 1,000 UNIT tablet 1,000 unit PO DAILY RF: 0 mirtazapine 7.5 mg tablet 7.5 mg PO .daily at bedtime Qty: 90 RF: 3 amlodipine 2.5 mg tablet 2.5 mg PO DAILY Qty: 90 RF: 3 metoprolol tartrate 25 mg tablet 25 mg PO BID Qty: 180 RF: 3 dicyclomine 10 mg capsule 10 mg PO .2-3X/DAY PRNRF: 0 aspirin [Aspirin Low-Strength] 81 MG tablet,chewable 81 mg PO DAILY RF: 0 Fish Oil 500 MG capsule,delayed release(DR/EC) 1,000 mg PO DAILY RF: 0 Discharge Instructions Instructions: Dehydration (ED), Abdominal Pain (ED) Additional Instructions: Please encourage water intake. Your imaging is reassuring here today. You have some dehydration on your labs. Also have some red blood cells in your urine. Please follow-up with your primary care to have this reevaluated. You have some change in your EKG at this time, your history and exam are not consistent with you having a heart attack. However, I would like for you to follow-up closely with your primary care and plastic sheeting cutter. I have asked her care management to recheck to Dr. Vang to see if you can combine your upcoming echocardiogram with a stress test. Please do not hesitate to reach out to our care managers or your plastic sheeting cutter to discuss this further. If you develop shortness of breath, chest pain, palpitations, increased abdominal pain or other new/worsening symptom please seek care urgently once again. The seem quite stressed today, please try to partake in activities that you enjoy, try to reduce stress as much as possible, and close contact with your children. Referrals: Ginette Vaca, [facility] [Primary Care Provider] - Discharge Data Discharge Date/Time-TO BE ENTERED AT DEPARTURE: 12/24/19 16:52 Medical Decision Making Patient is a pleasant 84-year-old female presenting today with chief complaint of left-sided abdominal pain began yesterday. Pain is been intermittent. She denies any nausea vomiting. States she chronically has loose stools and these are unchanged. No hematemesis, melena, hematochezia. She is not currently endorsing any discomfort. No change in her appetite. She denies any chest pain or shortness of breath. However, she does report that she did have an episode of palpitations last night during which time my heart was racing a mile a minute. She states that she has had this issue multiple times historically and has discussed this with the plastic sheeting cutter with no known diagnosis. She states that this episode was no different than her previous and that it did spontaneously resolve. She also is reporting generalized fatigue but no focal neurologic complaint. On exam, patient is resting comfortably. Her lungs are clear. She does have a systolic murmur but this was noted in her chart from previous. Abdominal exam is benign. No CVA tenderness. No evidence of abnormality on her skin. Neuro exam is intact. EKG was reviewed by Dr. Garcia. Patient does have ST depressions that do appear to be new compared to previous. She is not endorsing any chest pain or shortness of breath. Pain is not near the chest or epigastric region, much more inferior and lateral. However, I will plan for troponin for further evaluation. Patient is scheduled for outpatient echo in the end of December. Labs reviewed, CBC without significant abnormality. CMP signficiant for elevated creatinine at 1.18. She has been elevated like this historically and is receiving hydration currently. FINDINGS: Liver: The hepatic dome is not completely included on the exam. As shown no abnormalities are seen. Gallbladder and bile ducts: Gallbladder partially contracted. Pancreas: Normal. No ductal dilation. Spleen: Normal. No splenomegaly. Adrenals: Normal. No mass. Kidneys and ureters: Normal. No hydronephrosis. Stomach and bowel: Unremarkable. No obstruction. No mucosal thickening. Appendix: No evidence of appendicitis. Intraperitoneal space: Trace free fluid seen in the deep pelvis. Vasculature: Moderate atherosclerotic change seen in the vasculature. Lymph nodes: Unremarkable. No enlarged lymph nodes. Bladder: There has been interval development of inferior, mild eventration of the bladder which is more distended on the current exam than prior study. Reproductive: Status post hysterectomy. Bones/joints: Lumbar spondylosis with lower lumbar stenosis. Soft tissues: There is a small, fat containing left inferior spigelian hernia series 5, images [id number]. There is no soft tissue stranding. This is unchanged from previous exam. IMPRESSION: 1. Trace free fluid seen in the deep pelvis. This was present on previous exam, uncertain etiology. 2. Small, fat containing left inferior spigelian hernia. No definite evidence to suggest strangulation. UA significant for RBCs. Again, patient has no CVA tenderness. I discussed with patient and advised she f/u with PCP regarding this. I rechecked with lab multiple times, there was a delay in the troponin being completed. Troponin <0.05. Discussed labs with the patient. Discussed imaging findings. We discussed her elevated creatinine. Discussed the RBCs noted in the urine. Lipase is normal, no leukocytosis. Reevaluated and reexamined the patient. She remains completely asymptomatic. Is now reporting I think is just my nerves. Her did pass away recently she states that this is increased her anxiety and has made her worry much more. She states I could cry all the time and does become quite teary on exam. However, she is also quick to report that she does have good family support. She is not a threat to herself or others at this time. Seems more situational and she is seem to be well aware of this. She continues to deny any SOB or CP. In regard to the palpitations she experienced, this sounds to be a clinical clearing issue and was unchanged from her normal. I did discuss with her the change of the EKG in the setting of her palpitations that she continues to report that these are normal for her. I do feel the patient would benefit from continued monitoring for this but feel that likely a longer. Of evaluation, such as a ZIO Patch, would likely be of benefit. I have also recommended stress testing. Patient follows with cardiology at [facility]. She does have upcoming echo for continued monitoring of her murmur. She would like to be able to combine echo as well as a stress test, have asked her respiratory care specialist to help with this. Patient was given strict return precautions. I did encourage good social behaviors and encouraged him to try to find more hobbies to keep her busy. All of her questions and concerns were addressed and she is in agreement this plan. HPI General Mode of arrival: ambulatory . Date/Time Provider Initiated Documentation: 12/24/19 13:50 . Limitations to Documentation: no limitations . Information obtained by: patient, RN notes reviewed and old records reviewed . HPI Narrative: Patient is a very pleasant 84-year-old female presenting to complaint of left sided abdominal pain. She reports the pain began last night, has been intermittent. Currently, her pain is improved. She denies any fevers or chills. She does report that she has chronic gurgling in her stomach which she states is been follow-up the results. No change in appetite. Urinating. No change in bowel habits. She does report that she has chronically loose stools. No blood in her stool. She denies any dysuria, increased frequency urgency of urination. Patient also reports that she had episode of palpitations last night. States that these lasted a few minutes and resolve spontaneously. Reports that this did wake her up from sleep. States that she has these intermittently and has had these for the past several years. Reports that she does routinely see cardiology, scheduled for an echocardiogram at the end of next month. She denies any chest pain or shortness of breath. This is not changed from her baseline does not seem to be a complaint of hers today. Past surgical history pertinent for hysterectomy. Past medical history significant for CKD, GERD, hyperlipidemia, hypertension, diarrhea, palpitations. Patient is not anticoagulated. No recent change in medications. She denies any alcohol intake. Has had normal p.o. intake throughout the course the day today. She also reports that she has had some fatigue noted today, denies any focal weakness, headache, visual changes. Related Data Home Medications Medication Instructions Recorded Confirmed Fish Oil 1,000 mg PO DAILY 08/18/14 10/24/19 aspirin [Aspirin Low-Strength] 81 mg PO DAILY 08/18/14 10/24/19 cholecalciferol (vitamin D3) 1,000 unit PO DAILY 09/05/14 12/24/19 magnesium oxide 400 mg PO DAILY cap 07/12/18 12/24/19 atorvastatin 20 mg tablet 20 mg PO .daily at bedtime #90 tab 01/07/19 10/24/19 losartan 50 mg tablet 50 mg PO DAILY #90 tab 01/07/19 12/24/19 mirtazapine 7.5 mg tablet 7.5 mg PO .daily at bedtime #90 tab 01/27/19 12/24/19 amlodipine 2.5 mg tablet 2.5 mg PO DAILY #90 tab-cap 04/22/19 10/24/19 metoprolol tartrate 25 mg tablet 25 mg PO BID #180 tab-cap 04/22/19 12/24/19 dicyclomine 10 mg capsule 10 mg PO .2-3X/DAY PRN cap 10/26/19 12/24/19 Previous Rx's Medication Instructions Recorded atorvastatin 20 mg tablet 20 mg PO .daily at bedtime #90 tab 01/07/19 losartan 50 mg tablet 50 mg PO DAILY #90 tab 01/07/19 mirtazapine 7.5 mg tablet 7.5 mg PO .daily at bedtime #90 tab 01/27/19 amlodipine 2.5 mg tablet 2.5 mg PO DAILY #90 tab-cap 04/22/19 metoprolol tartrate 25 mg tablet 25 mg PO BID #180 tab-cap 04/22/19 Allergies Allergy/AdvReac Type Severity Reaction Status Date / Time Penicillins Allergy Intermediate mouth Verified 12/24/19 14:33 swells Sulfa (Sulfonamide Allergy Intermediate mouth Verified 12/24/19 14:33 Antibiotics) swells adhesive AdvReac Intermediate rash and Verified 12/24/19 14:33 blisters amoxicillin AdvReac Intermediate Swelling/Ed Verified 12/24/19 14:33 aleksandr amoxicillin trihydrate AdvReac Intermediate Swelling/Ed Verified 12/24/19 14:33 [From Prevpac] aleksandr clarithromycin [From Biaxin] AdvReac Unknown Verified 12/24/19 14:33 ibandronate sodium AdvReac Unknown Verified 12/24/19 14:33 [From Boniva] lansoprazole [From Prevpac] AdvReac Unknown Verified 12/24/19 14:33 lisinopril AdvReac Unknown Verified 12/24/19 14:33 General RAJESH: 4 Review of Systems Constitutional Constitutional: Reports as per HPI, Denies chills, Denies fatigue, Denies fever(s) and Denies headache(s) ENT Ears, Nose, Mouth, and Throat: Denies headache(s) Cardiovascular Cardiovascular: Reports as per HPI, Denies chest pain, Reports palpitations, D enies dyspnea and Denies dyspnea on exertion Respiratory Respiratory: Reports as per HPI, Denies cough, Denies pain with cough, Denies dyspnea, Denies dyspnea on exertion and Denies wheezing Gastrointestinal Gastrointestinal: Reports as per HPI Musculoskeletal Musculoskeletal: Reports as per HPI and Denies back pain Integumentary/Breasts Skin/Breast: Reports as per HPI and Denies rash Neurologic Neurologic: Reports as per HPI and Denies headache(s) Endocrine Endocrine: Denies fatigue and Reports palpitations Allergic/Immunologic Allergic/Immunologic: Denies wheezing PFSH Medical History Anxiety (Inactive 07/17/17) Tolerating Lexapro, Exercising more which seems to help general anxiousness (06/2017). Bladder spasm (Inactive 06/03/17) CKD (chronic kidney disease) (Chronic 08/29/14) moderately decreased GFR from old records RH Diarrhea (Acute) 11/2018--persistent, Metamucil 12/2018--stool studies NEG 01/2019--monitor,improved on metamucil 05/2019--GI stool studies again NEG 05/2019--CT-abd/pelvis NEG for acute GI issues ([facility]) DJD (degenerative joint disease), lumbar (Chronic 04/17/15) Moderate DJD lumbar region. GERD (gastroesophageal reflux disease) (Chronic 08/29/14) 03/14/16 reflux esophagitis- Dr Mccracken EGD. Tolerates TUMs. H/O echocardiogram (Resolved) 11/02/12 preserved LV, EF 65% Hip pain, left (Acute) X-ray 08/2019; mild to mod OA Hyperlipidemia (Chronic 08/29/14) Hypertension (Chronic 08/29/14) meds tolerated Impacted cerumen of both ears (Inactive) Microscopic hematuria (Inactive) Saw urol, ok 08/2018, ik Sinoatrial node dysfunction (Inactive 08/29/14) Surgical History Arthroplasty of knee (~2008) left colonoscopy (02/26/16) EGD (02/26/16) Vaginal hysterectomy (~2005) Family History Mother , age 94 Essential hypertension Heart disease Father , heart issues at age 70. Essential hypertension Heart disease Maternal Grandfather FH: mental illness Heart disease spent life in [facility] Maternal Aunt FH: mental illness anxiety and depression electric shock therapy Social History Smoking/Tobacco Use Status: Never Drug use: Never Substance use type: does not use Household members: spouse and other Housing: house Communication Needs: Hard of Hearing Do you need help understanding health information?: Never What type of physical activity do you participate in: walking Frequency: 5-6 times per week Do you feel safe at home: Yes Do you feel safe in your relationship?: Yes Exam Const General: cooperative, healthy appearing, comfortable, no acute distress and well developed Nutritional Appearance: average body habitus and well nourished Orientation: alert and awake [facility] Head: normal to inspection, normocephalic and atraumatic Ears: hearing grossly normal bilaterally Face and sinus: normal facial exam Mouth: oral mucosae normal and moist mucous membranes Teeth and gingiva: dentition normal Throat: posterior oropharynx normal Eyes General: appearance normal, both eyes and all related structures Resp Effort & Inspection: normal respiratory effort, able to speak in complete sentences and no respiratory distress Auscultation: clear to auscultation bilaterally, no rales, no rhonchi and no wheezes Cardio Rate: regular rate Rhythm: regular rhythm Heart Sounds: S1 normal, S2 normal and murmur GI Inspection: normal to inspection, no visible herniation and no visible pulsation Palpation: soft, no hepatosplenomegaly, not firm, no guarding, no hernias, not rigid and nontender Percussion: normal to percussion Auscultation: normal bowel sounds Abdomen image: 1. area indicated for pain, none elicited with palpation Back/Spine/Pelvis Back: no CVA tenderness Skin General skin exam: no rashes or lesions noted Trauma: no lacerations or abrasions Neuro General: patient alert, patient awake and patient oriented x3 Cranial Nerves: CN's II-XI intact bilaterally Cognition: normal cognition Speech: speech normal Gait: normal gait Motor: muscle tone normal throughout, strength 5/5 throughout, no pronator drift, no movement abnormalities noted and no fasciculations Extrem General: normal to inspection, full ROM, capillary refill normal, no joint enlargement, no clubbing, cyanosis or edema, no calf tenderness and normal gait Psych Appearance: grossly normal and well kempt Mental Status: mental status grossly normal Speech and Movement: speech and movement normal
--- NOTE | 2019-12-24 14:00 | RT.EKG_ITS ---
APPROVED REPORT Exam: Resting ECG Patient Location: E HR:83 bpm ECG Measurements Heart Rate 83 AXIS ND 226 P 25 QRSd 85 QRS -3 QT 366 T 37 QTc 430 Conclusion Sinus rhythm...normal P axis, V-rate 60- 99 Prolonged ND interval...ND >220, V-rate 50- [address] dep v4-6
--- NOTE | 2019-12-24 14:00 | DI.CT_ITS ---
EXAM: CT ABDOMEN PELVIS W CLINICAL HISTORY: left sided pain TECHNIQUE: Imaging Protocol: Axial computed tomography images with coronal and sagittal reformatted images were created and reviewed CONTRAST MATERIAL: Intravenous: Omnipaque 350 Contrast volume:100 mL Oral: No COMPARISON: CT ABD/PELVIS WO W CONTRAST from 06/10/2017 FINDINGS: Patient motion artifact. ABDOMEN: Lung Bases: Normal where visualized. Liver: Normal density. No measurable mass. The dome of the liver was not included on this examination . Portal, Superior Mesenteric, and Splenic Veins: Unremarkable. Gallbladder and Biliary Tract: No radiodense calculus or dilation. Pancreas: Normal density, no abnormal calcifications or inflammatory process. Spleen: Normal. Adrenals: No masses seen. Kidneys: Normal size, contour and axis. No radiodense stones or obstructive uropathy. No masses seen. Abdominal Aorta: Abdominal portion non-dilated. Atherosclerosis. Bowel: No obstruction or bowel wall thickening. No evidence of acute appendicitis. Peritoneal Cavity: Trace amount of free fluid in the pelvis. No pneumoperitoneum. Lymph Nodes: Within normal limits. Bones: Degenerative changes in the spine. Grade 1 pseudo spondylolisthesis of L4 on L5. Soft Tissues: Small fat containing left lower anterior abdominal wall hernia. This is unchanged. PELVIS: Bladder: Symmetric distention, no gross wall thickening. Reproductive Organs: Status post hysterectomy. Lymph Nodes: Within normal limits. Bones: Please see above. IMPRESSION: No acute abdominal or pelvic process. RADIATION DOSE DELIVERED: 825.87mGy.cm Total DLP DATA REPOSITORY: All CT scans at this facility are submitted to the National Radiology Data Registry (NRDR) Dose Index Registry (DIR) with the [employer] (ACR). RADIATION OPTIMIZATION: All CT scans at this facility use at least one of these dose optimization te chniques: automated exposure control; mA and/or kV adjustment per patient size (includes targeted exa ms where dose is matched to clinical indication); or iterative reconstruction.
[2019-12-24 14:20] LABS: Abs Immature Grans 0.02 10^3/uL (0.0-0.06); Absolute Basophil Count 0.05 10^3/uL (0.0-0.2); Absolute Eosinophil Count 0.06 10^3/uL (0.0-0.7); Absolute Lymphocyte Count 1.98 10^3/uL (1.2-3.4); Absolute Monocyte Count 0.49 10^3/uL (0.1-0.8); Absolute Neutrophil Count 4.07 10^3/uL (1.2-6.7); Basophils % 0.7; Eosinophils % 0.9; HCT 40.5 % (36.0-46.0); HGB 13.5 g/dL (11.2-15.7); Immature Grans % 0.3; Lymphocytes % 29.7; MCH 31.5 pg (27.0-33.0); MCHC 33.3 % (32.0-36.0); MCV 94.6 fL (80-95); MPV 10.3 fL (8.0-11.0); Monocytes % 7.3; Neutrophils % 61.1; Nucleated RBC 0 %; Platelet Count 248 10^3/uL (130-400); RBC 4.28 10^6/uL (3.93-5.22); RDW 12.8 % (11.7-14.6); RDW-SD 44.4 fL; WBC 6.67 10^3/uL (4.4-10.8)
[2019-12-24] MEDS: Lactated Ringers 1,000 ML 125 ML IV (14:24)
[2019-12-24 14:36] LABS: ALT 27 U/L (14-59); AST 18 U/L (15-37); Albumin 3.8 g/dL (3.4-5.0); Alkaline Phosphatase 68 U/L (46-116); Anion Gap 9.7 mmol/L (3-11); BUN 16 mg/dL (7-18); Bilirubin, Total 0.5 mg/dL (0.2-1.0); CO2 27.3 mmol/L (21.0-32.0); CREATININE 1.18 mg/dL (0.55-1.02); Calcium 9.7 mg/dL (8.5-10.1); Chloride 103 mmol/L (98-107); Estimated GFR 43.64 (mL/min/1.73m2); Glucose 122 mg/dL (74-106); Lipase 123 U/L (73-393); Potassium 3.7 mmol/L (3.5-5.1); Sodium 140 mmol/L (136-145); Total Protein 7.2 g/dL (6.4-8.2)
[2019-12-24 14:57] LABS: Bilirubin Negative (Negative); Blood Small (Negative); Clarity Clear (Clear); Glucose Negative (Negative); Ketones Negative (Negative); Leukocyte Esterase Negative (Negative); Nitrite Negative (Negative); Specific Gravity 1.025 (1.005-1.025); Urobilinogen 0.2 EU/dL (Up TO 0.2)
[2019-12-24] MEDS: Omnipaque 350 MG/ML 100 ML BTL IJ (15:04)
[2019-12-24] MEDS: Normal Saline - Diluent 50 ML VIAL IV (15:05)
[2019-12-24] MEDS: Normal Saline Flush 10 ML SYR IVP (15:05)
[2019-12-24 15:11] LABS: Bacteria Negative HPF (Negative); C & S Indicated? No; Casts Negative LPF (Negative); Crystals Negative HPF (Negative); Epithelial Cells Few HPF (Negative); Mucus Negative (Negative); Other Cells Negative (Negative); WBC 0-2 HPF (0-5)
--- NOTE | 2019-12-24 15:37 | DI.VRAD_ITS ---
PROCEDURE INFORMATION: Exam: CT Abdomen And Pelvis With Contrast Exam date and time: 12/24/2019 2:12 PM Age: 84 years old Clinical indication: Other: Lt sided anterior pain TECHNIQUE: Imaging protocol: Computed tomography of the abdomen and pelvis with intravenous contrast. Contrast material: OMNIPAQUE 350; Contrast volume: 100 ml; Contrast route: INTRAVENOUS (IV); COMPARISON: CT ABD/PELVIS WO W CONTRAST 06/10/2017 9:06 AM FINDINGS: Liver: The hepatic dome is not completely included on the exam. As shown no abnormalities are seen. Gallbladder and bile ducts: Gallbladder partially contracted. Pancreas: Normal. No ductal dilation. Spleen: Normal. No splenomegaly. Adrenals: Normal. No mass. Kidneys and ureters: Normal. No hydronephrosis. Stomach and bowel: Unremarkable. No obstruction. No mucosal thickening. Appendix: No evidence of appendicitis. Intraperitoneal space: Trace free fluid seen in the deep pelvis. Vasculature: Moderate atherosclerotic change seen in the vasculature. Lymph nodes: Unremarkable. No enlarged lymph nodes. Bladder: There has been interval development of inferior, mild eventration of the bladder which is more distended on the current exam than prior study. Reproductive: Status post hysterectomy. Bones/joints: Lumbar spondylosis with lower lumbar stenosis. Soft tissues: There is a small, fat containing left inferior spigelian hernia series 5, images [id number]. There is no soft tissue stranding. This is unchanged from previous exam. IMPRESSION: 1. Trace free fluid seen in the deep pelvis. This was present on previous exam, uncertain etiology. 2. Small, fat containing left inferior spigelian hernia. No definite evidence to suggest strangulation. Dictated and Authenticated by: Brea Phillips MD. Ordering:ARTHUR Chang MD
--- NOTE | 2019-12-24 16:25 | NUR.NOTE ---
Referral to Care Management to get appt with Cardiology [facility]. Dr. Balderas.Nursing Note:
[2019-12-24 16:31] LABS: Troponin I < 0.05 ng/mL (<0.06)
--- NOTE | 2019-12-26 13:14 | CMPROGNOTE_ITS ---
- If Service Date Differs Date of service: 12/26/19 Time of Service: 13:14 Care Management Progress Note At the request of ED provider, CM contacts Dr. Browne, psychiatric specialist, to ask if the upcoming echocardiogram can be combined with a stress test. His office will outreach to patient directly to further discuss.
== END 2019-12-24 16:52 | disposition home or self-care (01) ==
PROVIDERS: Emergency Provider Physician Assistant; PCP Nurse Practitioner Adult Health
DX: E86.0 Dehydration (principal); R94.31 Abnormal electrocardiogram [ECG] [EKG]; R10.12 Left upper quadrant pain; R00.2 Palpitations; I12.9 Hypertensive chronic kidney disease with stage 1 through stage 4 chronic kidney disease, or unspecified chronic kidney disease; N18.9 Chronic kidney disease, unspecified
CPT/HCPCS: 36415; 80053; 83690; 93005; 96360; 96361; 99285; 74177; 81003; 81015; 84484; 85025; 93010; 99284; J3490

== ENCOUNTER 2020-01-05 03:03 | Outpatient (CLI) | payer MEDICARE, OTHER, SELFPAY ==
[2020-01-05 11:14] LABS: Bilirubin Negative (Negative); Blood Trace-intact (Negative); Clarity Clear (Clear); Glucose Negative (Negative); Ketones Negative (Negative); Leukocyte Esterase Negative (Negative); Nitrite Negative (Negative); Specific Gravity 1.015 (1.005-1.025); Urobilinogen 0.2 EU/dL (Up TO 0.2)
[2020-01-05 11:25] LABS: Bacteria Negative HPF (Negative); C & S Indicated? No; Casts Negative LPF (Negative); Crystals Negative HPF (Negative); Epithelial Cells Few HPF (Negative); Mucus Negative (Negative); WBC 0-2 HPF (0-5)
== END 2020-01-05 03:23 ==
PROVIDERS: PCP Nurse Practitioner Adult Health; Visit Provider Nurse Practitioner Adult Health
DX: R31.29 Other microscopic hematuria (principal)
CPT/HCPCS: 81003; 81015

== ENCOUNTER 2020-02-10 11:12 | Outpatient (REF) | payer MEDICARE, OTHER, SELFPAY ==
[2020-02-10 12:41] LABS: Bilirubin Negative (Negative); Blood Trace-intact (Negative); Clarity Clear (Clear); Glucose Negative (Negative); Ketones Negative (Negative); Leukocyte Esterase Negative (Negative); Nitrite Negative (Negative); Urobilinogen 0.2 EU/dL (Up TO 0.2)
[2020-02-10 12:57] LABS: Epithelial Cells Few HPF (Negative); WBC 0-2 HPF (0-5)
[2020-02-10 12:58] LABS: Bacteria Rare HPF (Negative); Crystals Negative HPF (Negative); Mucus Negative (Negative); Other Cells Rare Transitional (Negative)
[2020-02-10 12:59] LABS: C & S Indicated? No; Casts Negative LPF (Negative)
== END 2020-02-10 11:32 ==
LOC: LBN 11:12
PROVIDERS: PCP Nurse Practitioner Adult Health; Visit Provider Nurse Practitioner Adult Health
DX: R31.29 Other microscopic hematuria (principal)
CPT/HCPCS: 81003; 81015

== ENCOUNTER 2020-05-11 11:01 | Outpatient (REF) | payer MEDICARE, OTHER, SELFPAY ==
[2020-05-11 14:07] LABS: HCT 40.3 % (36.0-46.0); HGB 13.4 g/dL (11.2-15.7); MCH 31.5 pg (27.0-33.0); MCHC 33.3 % (32.0-36.0); MCV 94.6 fL (80-95); MPV 11.3 fL (8.0-11.0); Platelet Count 288 10^3/uL (130-400); RBC 4.26 10^6/uL (3.93-5.22); RDW 12.8 % (11.7-14.6); RDW-SD 44.6 fL; WBC 6.46 10^3/uL (4.4-10.8)
[2020-05-11 14:46] LABS: ALT 24 U/L (14-59); AST 15 U/L (15-37); Albumin 3.9 g/dL (3.4-5.0); Alkaline Phosphatase 67 U/L (46-116); Anion Gap 7.2 mmol/L (3-11); BUN 15 mg/dL (7-18); Bilirubin, Total 0.7 mg/dL (0.2-1.0); CO2 28.8 mmol/L (21.0-32.0); CREATININE 1.09 mg/dL (0.55-1.02); Calcium 10.1 mg/dL (8.5-10.1); Chloride 101 mmol/L (98-107); Estimated GFR 47.82 (mL/min/1.73m2); Glucose 115 mg/dL (74-106); Potassium 4.9 mmol/L (3.5-5.1); Sodium 137 mmol/L (136-145); Total Protein 7.2 g/dL (6.4-8.2)
== END 2020-05-11 11:21 ==
LOC: LBO 11:01
PROVIDERS: PCP Nurse Practitioner Adult Health; Visit Provider Nurse Practitioner Adult Health
DX: R19.7 Diarrhea, unspecified (principal); K21.9 Gastro-esophageal reflux disease without esophagitis; M47.816 Spondylosis without myelopathy or radiculopathy, lumbar region; Z51.81 Encounter for therapeutic drug level monitoring
CPT/HCPCS: 80053; 85027

== ENCOUNTER 2020-05-15 10:11 | Outpatient (REF) | payer MEDICARE, OTHER, SELFPAY ==
[2020-05-17 14:59] LABS: Helicobacter pylori Ag, Feces Negative (Negative)
== END 2020-05-15 10:31 ==
LOC: LBN 10:11
PROVIDERS: PCP Nurse Practitioner Adult Health; Visit Provider Nurse Practitioner Adult Health
DX: R19.7 Diarrhea, unspecified (principal); K21.9 Gastro-esophageal reflux disease without esophagitis
CPT/HCPCS: 87338

== ENCOUNTER → 2020-09-25 13:18 | Outpatient (BNVA) | payer MEDICARE, OTHER, SELFPAY | PROVIDERS: PCP Nurse Practitioner Adult Health; Referring Provider Nurse Practitioner Adult Health; Visit Provider Nurse Practitioner Gerontology | DX: R31.29 Other microscopic hematuria (principal) | CPT/HCPCS: 81003; 99214 ==

== ENCOUNTER 2020-09-25 18:09 | Outpatient (REF) | payer MEDICARE, OTHER, SELFPAY ==
[2020-09-25 16:14] LABS: Bilirubin Negative (Negative); Blood Trace-intact (Negative); Clarity Clear (Clear); Glucose Negative (Negative); Ketones Negative (Negative); Leukocyte Esterase Negative (Negative); Nitrite Negative (Negative); Specific Gravity 1.015 (1.005-1.025); Urobilinogen 0.2 EU/dL (Up TO 0.2)
[2020-09-25 16:25] LABS: Bacteria Negative HPF (Negative); C & S Indicated? No; Casts Negative LPF (Negative); Crystals Negative HPF (Negative); Epithelial Cells Rare HPF (Negative); Mucus Negative (Negative); Other Cells Negative (Negative); RBC 0-2 HPF (0-2); WBC 0-2 HPF (0-5)
== END 2020-09-25 18:10 | disposition home or self-care (01) ==
LOC: LBN 18:09
PROVIDERS: PCP Nurse Practitioner Adult Health; Visit Provider Nurse Practitioner Gerontology
DX: R31.21 Asymptomatic microscopic hematuria (principal)
CPT/HCPCS: 81003; 81015

== ENCOUNTER 2020-11-01 02:50 | Outpatient (CLI) | payer MEDICARE, OTHER, SELFPAY ==
[2020-11-01 07:21] LABS: Abs Immature Grans 0.01 10^3/uL (0.0-0.06); Absolute Basophil Count 0.05 10^3/uL (0.0-0.2); Absolute Lymphocyte Count 1.69 10^3/uL (1.2-3.4); Absolute Monocyte Count 0.48 10^3/uL (0.1-0.8); Basophils % 1.1; Eosinophils % 4.4; HCT 39.8 % (36.0-46.0); HGB 13.2 g/dL (11.2-15.7); Immature Grans % 0.2; Lymphocytes % 37.3; MCH 31.2 pg (27.0-33.0); MCHC 33.2 % (32.0-36.0); MCV 94.1 fL (80-95); MPV 9.7 fL (8.0-11.0); Monocytes % 10.6; Neutrophils % 46.4; Nucleated RBC 0 %; Platelet Count 209 10^3/uL (130-400); RBC 4.23 10^6/uL (3.93-5.22); RDW 12.9 % (11.7-14.6); RDW-SD 44.6 fL; WBC 4.53 10^3/uL (4.4-10.8)
[2020-11-01 08:42] LABS: Calculated LDL 101 mg/dL (<100); Cholesterol 208 mg/dL (<200); HDL Cholesterol 85 mg/dL (40-60); Triglyceride 114 mg/dL (<150)
[2020-11-02 11:36] LABS: Lyme Ab w Rflx to Lyme Confirm Negative (Negative)
[2020-11-03 00:02] LABS: Anaplasma phagocytophilum Negative (Negative); B. miyamotoi PCR Negative (Negative); Babesia divergens/MO-1 Negative (Negative); Babesia duncani Negative (Negative); Babesia microti Negative (Negative); Ehrlichia chaffeensis Negative (Negative); Ehrlichia ewingii/canis Negative (Negative); Ehrlichia muris eauclairensis Negative (Negative)
== END 2020-11-01 02:51 | disposition home or self-care (01) ==
LOC: LBO 02:50
PROVIDERS: PCP Nurse Practitioner Adult Health; Visit Provider Nurse Practitioner Adult Health
DX: E78.5 Hyperlipidemia, unspecified (principal); M47.816 Spondylosis without myelopathy or radiculopathy, lumbar region; R53.83 Other fatigue; R68.83 Chills (without fever); W57.XXXA Bitten or stung by nonvenomous insect and other nonvenomous arthropods, initial encounter; S30.861A Insect bite (nonvenomous) of abdominal wall, initial encounter
CPT/HCPCS: 36415; 80061; 87798; 85025; 86618

== ENCOUNTER 2020-12-10 02:05 | Outpatient (CLI) | payer MEDICARE, OTHER, SELFPAY ==
--- NOTE | 2020-12-10 06:45 | DI.RAD_ITS ---
Exam(s) XR KNEE LT 3V AP,LAT,LILLIANA EXAM: XR KNEE LT 3V AP,LAT,LILLIANA CLINICAL HISTORY: worsening knee pain, impaiRED GAIT,M25.562,R26.89,H/O OA SPINE,SI AND LT. TECHNIQUE: 2D digital imaging was performed. COMPARISON: No exams were available for comparison FINDINGS: There is no evidence of fracture or obvious joint effusion. However, there are advanced degenerative changes in the medial compartment with almost [id number] apposition and marginal osteophytes. Lat eral compartment exhibits normal height. Moderate degenerative changes in the patellofemoral compart ment are noted. Bone density is age-appropriate. No ominous osseous lesions evident. IMPRESSION: DATA REPOSITORY: RADIATION DOSE DELIVERED:
== END 2020-12-10 02:25 ==
PROVIDERS: PCP Nurse Practitioner Adult Health; Visit Provider Nurse Practitioner Adult Health
DX: M17.12 Unilateral primary osteoarthritis, left knee (principal); R26.89 Other abnormalities of gait and mobility
CPT/HCPCS: 73562

== ENCOUNTER 2020-12-21 01:59 | Outpatient (CLI) | payer MEDICARE, OTHER, SELFPAY ==
[2020-12-22 17:34] LABS: COVID-19 RT-PCR UVMMC Result Positive (Negative)
== END 2020-12-21 02:00 | disposition home or self-care (01) ==
LOC: LBO 01:59
PROVIDERS: PCP Nurse Practitioner Adult Health; Visit Provider Family Medicine
DX: Z20.822 Contact with and (suspected) exposure to COVID-19 (principal)
CPT/HCPCS: U0003; U0005

== ENCOUNTER 2021-01-04 07:39 | Emergency (ER) | payer MEDICARE, OTHER, SELFPAY ==
[2021-01-04 07:44] VITALS: BP 154/90; PULSE 105; RESP 18; TEMP 36.4; O2SAT 97
--- NOTE | 2021-01-04 07:56 | W.ED.GENAD ---
Discharge Plan Disposition Patient Disposition: HOME Condition: Improving Discharge Details Clinical Impression: Diarrhea Primary Care Provider: Ginette Vaca ED Provider: Nawaf Ware Home Meds and New Rx's Prescriptions: New ciprofloxacin HCl 250 mg tablet 250 mg PO BID 3 Days Qty: 6 RF: 0 Continued magnesium oxide 400 mg capsule 400 mg PO DAILY RF: 0 dicyclomine 10 mg capsule 10 mg PO TID Qty: 90 RF: 3 atorvastatin 20 mg tablet 20 mg PO .daily at bedtime Qty: 90 RF: 3 losartan 50 mg tablet 50 mg PO DAILY Qty: 90 RF: 3 amlodipine 2.5 mg tablet 2.5 mg PO DAILY Qty: 90 RF: 3 metoprolol tartrate 25 mg tablet 25 mg PO BID Qty: 180 RF: 3 cholecalciferol (vitamin D3) 1,000 UNIT tablet 1,000 unit PO DAILY RF: 0 aspirin [Aspirin Low-Strength] 81 MG tablet,chewable 81 mg PO DAILY RF: 0 Fish Oil 500 MG capsule,delayed release(DR/EC) 1,000 mg PO DAILY RF: 0 mirtazapine 7.5 mg tablet 7.5 mg PO QHS RF: 0 Discharge Instructions Instructions: Acute Diarrhea (ED) Additional Instructions: Please take ciprofloxacin twice daily as prescribed for 3 days. [place] diet. Please follow-up with primary care if not improving in 5 days for recheck. Return to the emergency department for any acute concerns. Medical Decision Making 85-year-old female who has had weeks of progressive upper quadrant/left flank discomfort now with worsening left abdomen and back discomfort over a few days, and worse last night, who was seen in clinic yesterday with plans for outpatient CT to rule out diverticulitis. She presents slightly tachycardic with reproducible pain in her left upper quadrant. Would consider diverticulitis, pyelonephritis, must rule out mass. IV access established, screening labs obtained patient referred for CT imaging Urinalysis appears contaminated mixed cells, negative nitrite. Laboratories otherwise note normal CBC, reassuring chemistries, noted BUN 18, creatinine 1.2, normal LFTs. Imaging: No acute inflammatory or other process appreciated. Repeat urinalysis does not reveal acute cystitis. Patient subsequently developed fairly profuse diarrhea. Fecal lactoferrin ordered and is pending. Discussed with her they would consider this a complicated diarrhea and will treat with 3 days of azithromycin. She will follow-up with primary care. We discussed that she has no resolution of symptoms that she should consider further work-up/consultation with surgery for colonoscopy. [facility] General Mode of arrival: ambulatory. Date/Time Provider Initiated Documentation: 01/04/21 07:46. Limitations to Documentation: no limitations. Information obtained by: patient. History of Present Illness 85 year old F presents to the emergency department with the chief complaint of Left side back and abdomen pain, described as moderate, Quality is described as dull, and is localized to the back, abdomen and left. Patient started experiencing this week(s) and it has been intermittent. other things that improve symptom(s), (Positioning) Patient notes other (Loose stools). Patient did receive the following treatments prior to arrival, none Related Data Home Medications Medication Instructions Recorded Confirmed Fish Oil 1,000 mg PO DAILY 08/18/14 01/04/21 aspirin [Aspirin Low-Strength] 81 mg PO DAILY 08/18/14 01/04/21 cholecalciferol (vitamin D3) 1,000 unit PO DAILY 09/05/14 01/04/21 magnesium oxide 400 mg PO DAILY cap 07/12/18 01/04/21 metoprolol tartrate 25 mg tablet 25 mg PO BID #180 tab-cap 07/09/20 01/04/21 amlodipine 2.5 mg tablet 2.5 mg PO DAILY #90 tab-cap 01/03/21 01/04/21 atorvastatin 20 mg tablet 20 mg PO .daily at bedtime #90 tab 01/03/21 01/04/21 dicyclomine 10 mg capsule 10 mg PO TID #90 cap 01/03/21 01/03/21 losartan 50 mg tablet 50 mg PO DAILY #90 tab 01/03/21 01/04/21 ciprofloxacin HCl 250 mg PO BID 3 Days #6 tab 01/04/21 mirtazapine 7.5 mg PO QHS 01/04/21 01/04/21 Previous Rx's Medication Instructions Recorded metoprolol tartrate 25 mg tablet 25 mg PO BID #180 tab-cap 07/09/20 amlodipine 2.5 mg tablet 2.5 mg PO DAILY #90 tab-cap 01/03/21 atorvastatin 20 mg tablet 20 mg PO .daily at bedtime #90 tab 01/03/21 dicyclomine 10 mg capsule 10 mg PO TID #90 cap 01/03/21 losartan 50 mg tablet 50 mg PO DAILY #90 tab 01/03/21 ciprofloxacin HCl 250 mg PO BID 3 Days #6 tab 01/04/21 Allergies Allergy/AdvReac Type Severity Reaction Status Date / Time Penicillins Allergy Intermediate mouth Verified 01/04/21 07:49 swells Sulfa (Sulfonamide Allergy Intermediate mouth Verified 01/04/21 07:49 Antibiotics) swells adhesive AdvReac Intermediate rash and Verified 01/04/21 07:49 blisters amoxicillin AdvReac Intermediate Swelling/Ed Verified 01/04/21 07:49 aleksandr amoxicillin trihydrate AdvReac Intermediate Swelling/Ed Verified 01/04/21 07:49 [From Prevpac] aleksandr clarithromycin [From Biaxin] AdvReac Unknown Verified 01/04/21 07:49 ibandronate sodium AdvReac Unknown Verified 01/04/21 07:49 [From Boniva] lansoprazole [From Prevpac] AdvReac Unknown Verified 01/04/21 07:49 lisinopril AdvReac Unknown Verified 01/04/21 07:49 General Stated Complaint: Abd Prob RAJESH: 3 Review of Systems Narrative: Plan for outpatient CT in 10 days at yesterday's clinic visit. No respiratory symptoms.7 systems reviewed and otherwise neg PFSH Medical History Abdominal pain, left upper quadrant Worse @ night, described as busy carrying on and discomfort vs pain .. concerning as she does not complain Acute stasis dermatitis of left lower extremity Anxiety (07/17/17) Mirtazapine helpful; H/O Lexapro use Bladder spasm (06/03/17) Bunion of left foot Cardiac murmur (03/15/15) CKD (chronic kidney disease) (08/29/14) moderately decreased GFR from old records RH Diarrhea 11/2018--persistent, Metamucil 12/2018--stool studies NEG 01/2019--monitor,improved on metamucil 05/2019--GI stool studies again NEG 05/2019--CT-abd/pelvis NEG for acute GI issues ([facility]) DJD (degenerative joint disease), lumbar (04/17/15) Moderate DJD lumbar region. GERD (gastroesophageal reflux disease) (08/29/14) 03/14/16 reflux esophagitis- Dr Mccracken EGD. Tolerates TUMs. H/O echocardiogram 11/02/12 preserved LV, EF 65% Hip pain, left X-ray 08/2019; mild to mod OA Hyperlipidemia (08/29/14) Hypertension (08/29/14) Impacted cerumen of both ears Microscopic hematuria Saw urol, ok 08/2018, [place] Osteoarthritis of left knee Posterior tibial tendon dysfunction (PTTD) of both lower extremities Sinoatrial node dysfunction (08/29/14) Tinea pedis Tinea unguium Surgical History Arthroplasty of knee (~2008) left colonoscopy (02/26/16) EGD (02/26/16) Vaginal hysterectomy (~2005) Family History Mother , age 94 Essential hypertension Heart disease Father , heart issues at age 70. Essential hypertension Heart disease Maternal Grandfather FH: mental illness Heart disease spent life in [facility] Maternal Aunt FH: mental illness anxiety and depression electric shock therapy Social History Smoking/Tobacco Use Status: Never Smoking risk assessment performed?: Yes Alcohol Intake: current Alcohol Intake frequency: holidays/special occasions only Drug use: Never Substance use type: does not use Household members: spouse and other Housing: house Communication Needs: Hard of Hearing Do you need help understanding health information?: Never What type of physical activity do you participate in: walking Frequency: 5-6 times per week Do you feel safe at home: Yes Do you feel safe in your relationship?: Yes Exam Narrative Exam Narrative: GEN: awake, alert, oriented 3. Pleasant, well groomed, interactive. HEAD: Normocephalic, atraumatic ENT: Mucous membranes moist, oropharynx unremarkable, External ear exam unremarkable EYES: PERRL, EOMI NECK: Full ROM, no JOHNNIE, no menigismus CHEST/RESP: Nontender, clear to auscultation bilateral, no wheeze/rhonchi/rales CARDIOVASCULAR: RRR, no murmur, rub tamra. 2+ Rad pulse bilateral ABDOMEN: Soft, left lower quadrant and left upper quadrant tenderness to palpation, no mass. +Bowel sounds EXT: Full ROM, no edema, no rash Neuro: Grossly normal neurologic exam, conversant, interactive. Psych: Speech fluent, thoughts congruent, affect normal Course Vital Signs Vital signs: Vital Signs Temperature 36.4 C L 01/04/21 07:44 Pulse 105 H 01/04/21 07:44 Respiratory Rate 18 01/04/21 07:44 Blood Pressure 154/90 H 01/04/21 07:44 Pulse Oximetry 97 01/04/21 07:44 Temperature 36.4 C L 01/04/21 07:44 Temperature Source Temporal Artery Scan 01/04/21 07:44 Pulse 105 H 01/04/21 07:44 Respiratory Rate 18 01/04/21 07:44 Respiratory Effort Non-Labored 01/04/21 07:50 Blood Pressure 154/90 H 01/04/21 07:44 Blood Pressure Position Sitting 01/04/21 07:44 Pulse Oximetry 97 01/04/21 07:44 Oxygen Delivery Method Room Air 01/04/21 07:44 Oxygen Flow Rate 0 01/04/21 07:44 Pain Level 5 01/04/21 07:44
--- NOTE | 2021-01-04 08:00 | DI.CT_ITS ---
Exam(s) CT ABDOMEN PELVIS W EXAM: CT ABDOMEN PELVIS W CLINICAL HISTORY: L: flank, LUQ pain, diarrhea. TECHNIQUE: Imaging Protocol: Axial computed tomography images with coronal and sagittal reformatted images were created and reviewed CONTRAST MATERIAL: Intravenous: Omnipaque 350 Contrast volume:100 ml Oral: yes / COMPARISON: CT CT ABDOMEN PELVIS W from 12/24/2019 FINDINGS: ABDOMEN: Lung Bases: Normal where visualized. Liver: Normal density. No measurable mass. Gallbladder and biliary tract: No radiodense calculus or dilation. Pancreas: Normal density, no abnormal calcifications or inflammatory process. Spleen: Normal. Kidneys: Normal size, contour and axis. No radiodense stones or obstructive uropathy. No masses seen. Adrenal glands: No masses seen. Abdominal Aorta: Abdominal portion non-dilated. PELVIS: Bladder: No gross wall thickening. No calculi.No focal mass. Bowel: Contrast in stomach, small bowel and ascending colon. Descending and sigmoid colon empty. No obstruction or bowel wall thickening. Peritoneal cavity: No ascites, collection or mesenteric inflammatory response. Bones: Degenerative changes. Within normal limits for age. Reproductive organs: Status post hysterectomy. Lymph nodes: Unremarkable. Impression: Unremarkable CT scan of the abdomen and pelvis. RADIATION DOSE DELIVERED: 825.13mGy.cm Total DLP DATA REPOSITORY: All CT scans at this facility are submitted to the National Radiology Data Registry (NRDR) Dose Index Registry (DIR) with the [employer] ([employer]). RADIATION OPTIMIZATION: All CT scans at this facility use at least one of these dose optimization te chniques: automated exposure control; mA and/or kV adjustment per patient size (includes targeted exa ms where dose is matched to clinical indication); or iterative reconstruction.
[2021-01-04 08:25] LABS: Abs Immature Grans 0.02 10^3/uL (0.0-0.06); Absolute Basophil Count 0.05 10^3/uL (0.0-0.2); Absolute Eosinophil Count 0.07 10^3/uL (0.0-0.7); Absolute Lymphocyte Count 1.62 10^3/uL (1.2-3.4); Absolute Monocyte Count 0.44 10^3/uL (0.1-0.8); Basophils % 0.8; Eosinophils % 1.2; HCT 39.1 % (36.0-46.0); HGB 13.2 g/dL (11.2-15.7); Immature Grans % 0.3; MCH 31.5 pg (27.0-33.0); MCHC 33.8 % (32.0-36.0); MCV 93.3 fL (80-95); MPV 9.8 fL (8.0-11.0); Monocytes % 7.3; Neutrophils % 63.4; Nucleated RBC 0 %; Platelet Count 308 10^3/uL (130-400); RBC 4.19 10^6/uL (3.93-5.22); RDW 12.6 % (11.7-14.6); RDW-SD 43.6 fL
[2021-01-04 08:29] LABS: Bilirubin Negative (Negative); Blood Small (Negative); Clarity Sl Cloudy (Clear); Glucose Negative (Negative); Ketones Trace mg/dL (Negative); Leukocyte Esterase Trace (Negative); Nitrite Negative (Negative); Urobilinogen 0.2 EU/dL (Up TO 0.2); pH 6.5 (5-8)
[2021-01-04 08:33] LABS: Magnesium 2.3 mg/dL (1.8-2.4)
[2021-01-04 08:36] LABS: ALT 24 U/L (14-59); AST 18 U/L (15-37); Alkaline Phosphatase 74 U/L (46-116); Anion Gap 7.1 mmol/L (3-11); BUN 15 mg/dL (7-18); Bilirubin, Total 0.9 mg/dL (0.2-1.0); CO2 28.9 mmol/L (21.0-32.0); CREATININE 1.2 mg/dL (0.55-1.02); Calcium 9.9 mg/dL (8.5-10.1); Chloride 101 mmol/L (98-107); Glucose 164 mg/dL (74-106); Potassium 3.8 mmol/L (3.5-5.1); Sodium 137 mmol/L (136-145); Total Protein 7.7 g/dL (6.4-8.2)
[2021-01-04 08:40] LABS: RBC 0-2 HPF (0-2); WBC 0-2 HPF (0-5)
[2021-01-04 08:41] LABS: Bacteria Few HPF (Negative); Crystals Negative HPF (Negative); Epithelial Cells Moderate HPF (Negative); Mucus Moderate (Negative)
[2021-01-04 08:42] LABS: C & S Indicated? No/Sq. Contamination
[2021-01-04] MEDS: Omnipaque 350 MG/ML 50 ML BTL PO (08:43)
[2021-01-04] MEDS: Breeza Beverage 473 ML BTL PO ×2 (08:43→08:44)
[2021-01-04 09:15] VITALS: BP 153/74; PULSE 67; RESP 18; TEMP 36.3; O2SAT 98
[2021-01-04] MEDS: Omnipaque 350 MG/ML 100 ML BTL IJ (09:52)
[2021-01-04] MEDS: Normal Saline 1,000 ML 125 ML IV (10:08)
[2021-01-04 10:53] LABS: Bilirubin Negative (Negative); Blood Trace-intact (Negative); Clarity Clear (Clear); Glucose Negative (Negative); Ketones Negative (Negative); Leukocyte Esterase Negative (Negative); Nitrite Negative (Negative); Specific Gravity 1.015 (1.005-1.025); Urobilinogen 0.2 EU/dL (Up TO 0.2); pH 7.5 (5-8)
[2021-01-04 11:08] LABS: Bacteria Rare HPF (Negative); C & S Indicated? No; Casts Negative LPF (Negative); Crystals Negative HPF (Negative); Epithelial Cells Negative HPF (Negative); Mucus Negative (Negative); Other Cells Negative (Negative); RBC 0-2 HPF (0-2); WBC Negative HPF (0-5)
[2021-01-04 12:00] VITALS: BP 130/52; PULSE 77; RESP 18; O2SAT 99
[2021-01-04] MEDS: Ciprofloxacin 250 MG TAB PO (12:03)
== END 2021-01-04 12:30 | disposition home or self-care (01) ==
PROVIDERS: Emergency Provider Emergency Medicine; PCP Nurse Practitioner Adult Health
DX: R19.7 Diarrhea, unspecified (principal); R10.12 Left upper quadrant pain
CPT/HCPCS: 36415; 80053; 96360; 96361; 99285; 74177; 81003; 81015; 83630; 83735; 85025; 99284; J3490; Q9967

== ENCOUNTER 2021-01-20 16:12 | Emergency (ER) | payer MEDICARE, OTHER, SELFPAY ==
[2021-01-20 16:17] VITALS: BP 151/86; PULSE 98; RESP 18; TEMP 36.8; O2SAT 97
--- NOTE | 2021-01-20 16:30 | RT.EKG_ITS ---
APPROVED REPORT Exam: Resting ECG Reason for Exam: LUQ pain Patient Location: E HR:87 bpm ECG Measurements Heart Rate 87 AXIS AR 222 P 43 QRSd 87 QRS -7 QT 352 T 45 QTc 423 Conclusion Sinus rhythm...normal P axis, V-rate 60- 99 Prolonged AR interval...AR >220, V-rate 50- 90 Abnrm T, consider ischemia, anterolateral lds...T <-0.20mV, I aVL V2-V6
--- NOTE | 2021-01-20 16:46 | ED.GENADUL_ITS ---
Discharge Plan Disposition Patient Disposition: HOME Condition: Stable Discharge Details Clinical Impression: Weakness, Abdominal pain Primary Care Provider: Ginette Vaca ED Provider: Georges Crawford Home Meds and New Rx's Prescriptions: Continued magnesium oxide 400 mg capsule 400 mg PO DAILY RF: 0 dicyclomine 10 mg capsule 10 mg PO TID Qty: 90 RF: 3 metoprolol tartrate 25 mg tablet 25 mg PO BID Qty: 180 RF: 3 cholecalciferol (vitamin D3) 1,000 UNIT tablet 1,000 unit PO DAILY RF: 0 ciclopirox 0.77 % cream 1 applic topical BID RF: 0 aspirin [Aspirin Low-Strength] 81 MG tablet,chewable 81 mg PO DAILY RF: 0 Fish Oil 500 MG capsule,delayed release(DR/EC) 1,000 mg PO DAILY RF: 0 No Action atorvastatin 20 mg tablet 20 mg PO .daily at bedtime Qty: 90 RF: 3 losartan 50 mg tablet 50 mg PO DAILY Qty: 90 RF: 3 amlodipine 2.5 mg tablet 2.5 mg PO DAILY Qty: 90 RF: 3 trazodone 50 mg tablet 25 - 50 mg PO QHS PRN (Reason: sleep) Qty: 30 RF: 0 Discharge Instructions Instructions: Weakness (ED), Abdominal Pain (ED) Additional Instructions: Laboratory values today do not reveal any obvious emergent process. Your urinalysis is pending a culture, you are currently asymptomatic and we will only treat if your culture is positive. Please watch for new or worsening symptoms and return to the ER for any concerns. Otherwise follow-up with your primary care provider tomorrow as already scheduled, please discuss a GI consultation at that time given your primary concern is left upper quadrant pain and you are concerned this may be related to your stomach Discharge Data Discharge Date/Time-TO BE ENTERED AT DEPARTURE: 01/20/21 20:25 Medical Decision Making 85-year-old female with multiple comorbidities, with multiple vague symptoms persistent for 1 month, told this was residual symptoms from her COVID-19 infection. She is in the process of establishing a GI referral and she has a primary care provider appointment tomorrow for presents tonight for further evaluation. She currently has no pain whatsoever. Clinically she appears well, nontoxic, and is afebrile, O2 sats 97% on room air, abdomen is soft, nontender, nonsurgical. Given her complaint of left upper quadrant discomfort, in the setting of already having a thorough abdominal work-up, I would like to repeat those labs also obtain a cardiac work-up and D-dimer for potential referred pleuritic pain, PE, etc. She is agreeable to this plan. Given the duration of her symptoms I believe a single troponin is reasonable. Given she is currently without discomfort, no medications given Laboratory values are grossly unremarkable. No leukocytosis or anemia, D-dimer is within normal range, will not pursue CTA, electrolytes unremarkable, creatinine 1.1 with a GFR of 47.21, troponin less than 0.05, urinalysis negative nitrate, small leuk esterase, 10-20 white cells, few epithelials, culture pen ding. Patient denies any lower abdominal pain, nausea, vomiting, dysuria or hematuria. No urinary tract infection-like symptoms, will await culture before treating with antibiotics. Discussed her work-up here in the ER, she is relieved, and comfortable discharge. She has follow-up with her primary care provider tomorrow. She remains asymptomatic. Clinically she appears well, nontoxic. Standard discharge and return precautions provided. This documentation was generated using [employer] dictation system, please disregard any oddities of phrase or misspellings. Medical Records Medical records reviewed: Yes I reviewed the patient's medical records. Imaging Data Radiologic Study: Attestation: I personally reviewed and interpreted this imaging study as follows: Imaging: X-Ray Radiologist's impression: PROCEDURE INFORMATION: Exam: XR Chest Exam date and time: 01/20/2021 17:15 Age: 85 years old Clinical indication: Left-sided; Patient HX: Luq pain. TECHNIQUE: Imaging protocol: XR of the chest. Views: 2 views. COMPARISON: CR ABD FLAT UPRIGHT PA CHEST 04/03/2017 09:56 FINDINGS: Lungs: No consolidation. Pleural spaces: No pleural effusion. No pneumothorax. Heart/Mediastinum: No significant cardiomegaly. Vasculature: Tortuous aorta. Bones/joints: No acute fracture. Intraperitoneal space: No pneumoperitoneum under the diaphragm. IMPRESSION: No acute cardiopulmonary pathology. Lab Data Lab results reviewed: Yes I reviewed the patient's lab results. Labs: 01/20/21 17:40 Urine - Reflex from Ua Urine Culture - Pending Laboratory Tests Range/Units 01/20/21 01/20/21 01/20/21 17:35 17:35 17:35 WBC (4.4-10.8) 10^3/uL 6.43 RBC (3.93-5.22) 10^6/uL 4.06 Hgb (11.2-15.7) g/dL 12.7 Hct (36.0-46.0) % 38.2 MCV (80-95) fL 94.1 MCH (27.0-33.0) pg 31.3 MCHC (32.0-36.0) % 33.2 RDW (11.7-14.6) % 13.1 Plt Count (130-400) 10^3/uL 217 MPV (8.0-11.0) fL 9.8 Immature Gran % 0.3 Neutrophils % 61.0 Lymphocytes % 28.1 Monocytes % 8.2 Eosinophils % 1.6 Basophils % 0.8 Nucleated RBC % % 0 Absolute Neutrophils (1.2-6.7) 10^3/uL 3.92 Absolute Lymphocytes (1.2-3.4) 10^3/uL 1.81 Absolute Monocytes (0.1-0.8) 10^3/uL 0.53 Absolute Eosinophils (0.0-0.7) 10^3/uL 0.10 Absolute Basophils (0.0-0.2) 10^3/uL 0.05 D-Dimer (<500) ng/mlFEU 446 Sodium (136-145) mmol/L 136 Potassium (3.5-5.1) mmol/L 3.8 Chloride (98-107) mmol/L 100 Carbon Dioxide (21.0-32.0) mmol/L 30.4 Anion Gap (3-11) mmol/L 5.6 BUN (7-18) mg/dL 14 Creatinine (0.55-1.02) mg/dL 1.1 H Estimated GFR/1.73 m2 (mL/min/1.73m2) 47.21 Glucose (74-106) mg/dL 103 Calcium (8.5-10.1) mg/dL 10.0 Total Bilirubin (0.2-1.0) mg/dL 0.6 AST (15-37) U/L 15 ALT (14-59) U/L 23 Alkaline Phosphatase (46-116) U/L 60 Troponin I (<0.06) ng/mL < 0.05 Total Protein (6.4-8.2) g/dL 7.2 Albumin (3.4-5.0) g/dL 3.9 Lipase (73-393) U/L 112 Urine Color (Yellow) Urine Clarity (Clear) Urine pH (5-8) Ur Specific [place] (1.005-1.025) Urine Protein (Negative) mg/dL Urine Ketones (Negative) mg/dL Urine Blood (Negative) Urine Nitrite (Negative) Urine Bilirubin (Negative) Urine Urobilinogen (Up TO 0.2) EU/dL Ur Leukocyte Esterase (Negative) Urine RBC (0-2) HPF Urine WBC (0-5) HPF Ur Epithelial Cells (Negative) HPF Urine Crystals (Negative) HPF Urine Bacteria (Negative) HPF Urine Casts (Negative) LPF Urine Mucus (Negative) Ur Culture Indicated? Urine Glucose (Negative) mg/dL Range/Units 01/20/21 17:40 WBC (4.4-10.8) 10^3/uL RBC (3.93-5.22) 10^6/uL Hgb (11.2-15.7) g/dL Hct (36.0-46.0) % MCV (80-95) fL MCH (27.0-33.0) pg MCHC (32.0-36.0) % RDW (11.7-14.6) % Plt Count (130-400) 10^3/uL MPV (8.0-11.0) fL Immature Gran % Neutrophils % Lymphocytes % Monocytes % Eosinophils % Basophils % Nucleated RBC % % Absolute Neutrophils (1.2-6.7) 10^3/uL Absolute Lymphocytes (1.2-3.4) 10^3/uL Absolute Monocytes (0.1-0.8) 10^3/uL Absolute Eosinophils (0.0-0.7) 10^3/uL Absolute Basophils (0.0-0.2) 10^3/uL D-Dimer (<500) ng/mlFEU Sodium (136-145) mmol/L Potassium (3.5-5.1) mmol/L Chloride (98-107) mmol/L Carbon Dioxide (21.0-32.0) mmol/L Anion Gap (3-11) mmol/L BUN (7-18) mg/dL Creatinine (0.55-1.02) mg/dL Estimated GFR/1.73 m2 (mL/min/1.73m2) Glucose (74-106) mg/dL Calcium (8.5-10.1) mg/dL Total Bilirubin (0.2-1.0) mg/dL AST (15-37) U/L ALT (14-59) U/L Alkaline Phosphatase (46-116) U/L Troponin I (<0.06) ng/mL Total Protein (6.4-8.2) g/dL Albumin (3.4-5.0) g/dL Lipase (73-393) U/L Urine Color (Yellow) Yellow Urine Clarity (Clear) Clear Urine pH (5-8) 6.0 Ur Specific [place] (1.005-1.025) 1.015 Urine Protein (Negative) mg/dL Negative Urine Ketones (Negative) mg/dL Negative Urine Blood (Negative) Small H Urine Nitrite (Negative) Negative Urine Bilirubin (Negative) Negative Urine Urobilinogen (Up TO 0.2) EU/dL 0.2 Ur Leukocyte Esterase (Negative) Small H Urine RBC (0-2) HPF 3-5 H Urine WBC (0-5) HPF 10-20 H Ur Epithelial Cells (Negative) HPF Few Urine Crystals (Negative) HPF Negative Urine Bacteria (Negative) HPF Moderate Urine Casts (Negative) LPF 0-2 Hyaline Urine Mucus (Negative) Negative Ur Culture Indicated? Yes Urine Glucose (Negative) mg/dL Negative ECG Data Attestation: I personally reviewed and interpreted this ECG (s) as follows: Interpretation: Please see official report by Dr. Garcia. Sinus rhythm, ventricular rate of 87. Prolonged PA interval. Nonspecific T wave abnormal HPI General Mode of arrival: ambulatory . Date/Time Provider Initiated Documentation: 01/20/21 16:38 . Limitations to Documentation: no limitations . Information obtained by: patient . HPI Narrative: This is an 85-year-old female, past medical history that includes anxiety, bladder spasms, CKD, GERD, hyperlipidemia, hypertension, COVID-19, presents to the ER for evaluation today complaining of left upper quadrant pain for 1 month, worse when she lies down, reports increased belching and flatulence, a bad taste in her mouth, generalized weakness and fatigue. Patient states that she has been evaluated in the ER and by her primary care provider for this, she was told that it is likely just lingering effects of her COVID-19 infection. Patient is concerned that there is something specifically going on with her stomach, states that she is in the process of a GI referral through her primary care provider, who she is actually scheduled to be seen by tomorrow. She has already had CT imaging of her abdomen pelvis without any etiology of her symptoms. Patient denies any pain currently. Denies any new or changing symptoms over the past month. She denies headache, fever, chest pain, breath, cough, diarrhea or constipation Related Data Home Medications Medication Instructions Recorded Confirmed Fish Oil 1,000 mg PO DAILY 08/18/14 01/21/21 aspirin [Aspirin Low-Strength] 81 mg PO DAILY 08/18/14 01/21/21 cholecalciferol (vitamin D3) 1,000 unit PO DAILY 09/05/14 01/21/21 magnesium oxide 400 mg PO DAILY cap 07/12/18 01/21/21 metoprolol tartrate 25 mg tablet 25 mg PO BID #180 tab-cap 07/09/20 01/21/21 dicyclomine 10 mg capsule 10 mg PO TID #90 cap 01/03/21 01/21/21 ciclopirox 0.77 % topical cream 1 applic TOPICAL BID 01/17/21 01/21/21 amlodipine 2.5 mg tablet 2.5 mg PO DAILY #90 tab-cap 01/21/21 01/21/21 atorvastatin 20 mg tablet 20 mg PO .daily at bedtime #90 tab 01/21/21 01/21/21 losartan 50 mg tablet 50 mg PO DAILY #90 tab 01/21/21 01/21/21 trazodone 50 mg tablet 25 - 50 mg PO QHS PRN #30 tab 01/21/21 01/21/21 Previous Rx's Medication Instructions Recorded metoprolol tartrate 25 mg tablet 25 mg PO BID #180 tab-cap 07/09/20 dicyclomine 10 mg capsule 10 mg PO TID #90 cap 01/03/21 amlodipine 2.5 mg tablet 2.5 mg PO DAILY #90 tab-cap 01/21/21 atorvastatin 20 mg tablet 20 mg PO .daily at bedtime #90 tab 01/21/21 losartan 50 mg tablet 50 mg PO DAILY #90 tab 01/21/21 trazodone 50 mg tablet 25 - 50 mg PO QHS PRN #30 tab 01/21/21 Allergies Allergy/AdvReac Type Severity Reaction Status Date / Time Penicillins Allergy Intermediate mouth Verified 01/21/21 09:12 swells Sulfa (Sulfonamide Allergy Intermediate mouth Verified 01/21/21 09:12 Antibiotics) swells adhesive AdvReac Intermediate rash and Verified 01/21/21 09:12 blisters amoxicillin AdvReac Intermediate Swelling/Ed Verified 01/21/21 09:12 aleksandr amoxicillin trihydrate AdvReac Intermediate Swelling/Ed Verified 01/21/21 09:12 [From Prevpac] aleksandr clarithromycin [From Biaxin] AdvReac Unknown Verified 01/21/21 09:12 ibandronate sodium AdvReac Unknown Verified 01/21/21 09:12 [From Boniva] lansoprazole [From Prevpac] AdvReac Unknown Verified 01/21/21 09:12 lisinopril AdvReac Unknown Verified 01/21/21 09:12 General Stated Complaint: Abd Prob RAJESH: 3 Review of Systems Constitutional Constitutional: Reports fatigue, Denies fever(s) and Denies headache(s) ENT Ears, Nose, Mouth, and Throat: Denies headache(s) and Denies neck pain Cardiovascular Cardiovascular: Denies chest pain and Denies dyspnea Respiratory Respiratory: Denies cough and Denies dyspnea Gastrointestinal Gastrointestinal: Reports abdominal pain, Reports belching, Denies nausea and Denies vomiting Genitourinary Genitourinary: Denies dysuria Musculoskeletal Musculoskeletal: Denies back pain, Denies myalgias, Denies neck pain, Denies numbness and Denies tingling Integumentary/Breasts Skin/Breast: Denies rash Neurologic Neurologic: Denies headache(s), Denies numbness, Denies tingling and Reports weakness (Generalized) Endocrine Endocrine: Reports fatigue Hematologic/Lymphatic Hematologic/Lymphatic: Denies easy bleeding and Denies easy bruising [facility] Medical History Abdominal pain, left upper quadrant Worse @ night, described as busy carrying on and discomfort vs pain Acute stasis dermatitis of left lower extremity Anxiety (07/17/17) Mirtazapine helpful; H/O Lexapro use Bladder spasm (06/03/17) Bunion of left foot Cardiac murmur (03/15/15) CKD (chronic kidney disease) (08/29/14) moderately decreased GFR from old records RH COVID-19 12/21/2020 Diarrhea 11/2018--persistent, Metamucil 12/2018--stool studies NEG 01/2019--monitor,improved on metamucil 05/2019--GI stool studies again NEG 05/2019--CT-abd/pelvis NEG for acute GI issues ([facility]) DJD (degenerative joint disease), lumbar (04/17/15) Moderate DJD lumbar region. GERD (gastroesophageal reflux disease) (08/29/14) 03/14/16 reflux esophagitis- Dr Mccracken EGD. Tolerates TUMs. H/O echocardiogram 11/02/12 preserved LV, EF 65% Hip pain, left X-ray 08/2019; mild to mod OA Hyperlipidemia (08/29/14) Hypertension (08/29/14) Impacted cerumen of both ears Microscopic hematuria Saw urol, [place] 08/2018, [place] Osteoarthritis of left knee Posterior tibial tendon dysfunction (PTTD) of both lower extremities Sinoatrial node dysfunction (08/29/14) Tinea pedis Tinea unguium Surgical History Arthroplasty of knee (~2008) left colonoscopy (02/26/16) EGD (02/26/16) Vaginal hysterectomy (~2005) Family History Mother , age 94 Essential hypertension Heart disease Father , heart issues at age 70. Essential hypertension Heart disease Maternal Grandfather FH: mental illness Heart disease spent life in the [facility] Maternal Aunt FH: mental illness anxiety and depression electric shock therapy Social History Smoking/Tobacco Use Status: Never Smoking risk assessment performed?: Yes Alcohol Intake: current Alcohol Intake frequency: holidays/special occasions only Drug use: Never Substance use type: does not use Household members: spouse and other Housing: house Communication Needs: Hard of Hearing Do you need help understanding health information?: Never What type of physical activity do you participate in: walking Frequency: 5-6 times per week Do you feel safe at home: Yes Do you feel safe in your relationship?: Yes Exam Const General: cooperative, healthy appearing, comfortable and no acute distress Orientation: alert, awake and oriented x3 HENMT Head: normal to inspection, normocephalic and atraumatic Face and sinus: normal facial exam Mouth: moist mucous membranes Eyes General: appearance normal, both eyes and all related structures Conjunctivae: conjunctivae normal Neck Neck: normal visual inspection, full ROM, trachea midline, supple and nontender Resp Effort & Inspection: normal respiratory effort and able to speak in complete sentences Auscultation: clear to auscultation bilaterally Cardio Rate: regular rate Rhythm: regular rhythm GI Palpation: soft, not firm, no guarding, no pulsatile masses and nontender Auscultation: normal bowel sounds Back/Spine/Pelvis Back: No back tenderness Skin General skin exam: no rashes or lesions noted Neuro General: patient alert, patient awake, moves all extremities and no focal motor deficits Cognition: normal cognition Speech: speech normal Gait: normal gait Motor: muscle tone normal throughout Sensory Exam: no sensory deficits noted Extrem General: normal to inspection, full ROM and capillary refill normal Psych Appearance: grossly normal Mental Status: mental status grossly normal Course Vital Signs Vital signs: Vital Signs Temperature 36.8 C 01/20/21 16:17 Pulse 98 H 01/20/21 16:17 Respiratory Rate 18 01/20/21 16:17 Blood Pressure 151/86 H 01/20/21 16:17 Pulse Oximetry 97 01/20/21 16:17 Temperature 36.8 C 01/20/21 16:17 Temperature Source Temporal Artery Scan 01/20/21 16:17 Pulse 98 H 01/20/21 16:17 Respiratory Rate 18 01/20/21 16:17 Respiratory Effort Non-Labored 01/20/21 16:23 Blood Pressure 151/86 H 01/20/21 16:17 Blood Pressure Position Sitting 01/20/21 16:17 Pulse Oximetry 97 01/20/21 16:17 Oxygen Delivery Method Room Air 01/20/21 16:17 Oxygen Flow Rate 0 01/20/21 16:17 Pain Level 3 01/20/21 16:17
[2021-01-20 17:45] LABS: Abs Immature Grans 0.02 10^3/uL (0.0-0.06); Absolute Basophil Count 0.05 10^3/uL (0.0-0.2); Absolute Lymphocyte Count 1.81 10^3/uL (1.2-3.4); Absolute Monocyte Count 0.53 10^3/uL (0.1-0.8); Absolute Neutrophil Count 3.92 10^3/uL (1.2-6.7); Basophils % 0.8; Eosinophils % 1.6; HCT 38.2 % (36.0-46.0); HGB 12.7 g/dL (11.2-15.7); Immature Grans % 0.3; Lymphocytes % 28.1; MCH 31.3 pg (27.0-33.0); MCHC 33.2 % (32.0-36.0); MCV 94.1 fL (80-95); MPV 9.8 fL (8.0-11.0); Monocytes % 8.2; Nucleated RBC 0 %; Platelet Count 217 10^3/uL (130-400); RBC 4.06 10^6/uL (3.93-5.22); RDW 13.1 % (11.7-14.6); RDW-SD 45.2 fL; WBC 6.43 10^3/uL (4.4-10.8)
[2021-01-20] MEDS: Normal Saline 1,000 ML 1000 ML IV (17:49)
[2021-01-20 17:56] LABS: Bilirubin Negative (Negative); Blood Small (Negative); Clarity Clear (Clear); Glucose Negative (Negative); Ketones Negative (Negative); Leukocyte Esterase Small (Negative); Nitrite Negative (Negative); Specific Gravity 1.015 (1.005-1.025); Urobilinogen 0.2 EU/dL (Up TO 0.2)
[2021-01-20 17:59] LABS: ALT 23 U/L (14-59); AST 15 U/L (15-37); Albumin 3.9 g/dL (3.4-5.0); Alkaline Phosphatase 60 U/L (46-116); Anion Gap 5.6 mmol/L (3-11); BUN 14 mg/dL (7-18); Bilirubin, Total 0.6 mg/dL (0.2-1.0); CO2 30.4 mmol/L (21.0-32.0); CREATININE 1.1 mg/dL (0.55-1.02); Chloride 100 mmol/L (98-107); Estimated GFR 47.21 (mL/min/1.73m2); Glucose 103 mg/dL (74-106); Lipase 112 U/L (73-393); Potassium 3.8 mmol/L (3.5-5.1); Sodium 136 mmol/L (136-145); Total Protein 7.2 g/dL (6.4-8.2)
[2021-01-20 18:00] LABS: Troponin I < 0.05 ng/mL (<0.06)
--- NOTE | 2021-01-20 18:05 | DI.RAD_ITS ---
Exam(s) XR CHEST 2V PA LATERAL EXAM: XR CHEST 2V PA LATERAL CLINICAL HISTORY: LUQ pain. TECHNIQUE: 2D digital imaging was performed. COMPARISON: CR ABD FLAT UPRIGHT PA CHEST from 04/03/2017 FINDINGS: Heart size is normal. The mediastinum is not widened. Lungs are clear. No infiltrates nor pleural effusions. IMPRESSION: No acute pulmonary findings.No significant change compared to March 2017. DATA REPOSITORY: RADIATION DOSE DELIVERED:
[2021-01-20 18:06] LABS: Bacteria Moderate HPF (Negative); C & S Indicated? Yes; Casts 0-2 Hyaline LPF (Negative); Crystals Negative HPF (Negative); Epithelial Cells Few HPF (Negative); Mucus Negative (Negative)
[2021-01-20 18:17] LABS: D-Dimer 446 ng/mlFEU (<500)
[2021-01-20 18:31] VITALS: BP 155/67; PULSE 84; RESP 15; TEMP 36.6; O2SAT 99
--- NOTE | 2021-01-20 19:10 | DI.VRAD_ITS ---
PROCEDURE INFORMATION: Exam: XR Chest Exam date and time: 01/20/2021 17:15 Age: 85 years old Clinical indication: Left-sided; Patient HX: Luq pain. TECHNIQUE: Imaging protocol: XR of the chest. Views: 2 views. COMPARISON: CR ABD FLAT UPRIGHT PA CHEST 04/03/2017 09:56 FINDINGS: Lungs: No consolidation. Pleural spaces: No pleural effusion. No pneumothorax. Heart/Mediastinum: No significant cardiomegaly. Vasculature: Tortuous aorta. Bones/joints: No acute fracture. Intraperitoneal space: No pneumoperitoneum under the diaphragm. IMPRESSION: No acute cardiopulmonary pathology. Dictated and Authenticated by: Iris Do MD. Ordering:KRYSTIN Su MD
[2021-01-20 19:41] VITALS: BP 145/60; PULSE 84; RESP 16; TEMP 36.6; O2SAT 98
== END 2021-01-20 20:25 | disposition home or self-care (01) ==
PROVIDERS: Emergency Provider Physician Assistant; PCP Nurse Practitioner Adult Health
DX: R53.1 Weakness (principal); R10.12 Left upper quadrant pain
CPT/HCPCS: 36415; 80053; 83690; 93005; 96360; 99284; 71046; 81003; 81015; 84484; 85025; 85379; 87086; 93010

== ENCOUNTER → 2021-03-04 08:51 | Outpatient (BNVA) | payer MEDICARE, OTHER, SELFPAY | PROVIDERS: PCP Nurse Practitioner Adult Health; Referring Provider Nurse Practitioner Adult Health; Visit Provider Student in an Organized Health Care Education/Training Program | DX: M17.12 Unilateral primary osteoarthritis, left knee (principal) | CPT/HCPCS: 99214 ==

== ENCOUNTER 2021-04-03 21:39 | Emergency (ER) | payer MEDICARE, OTHER, SELFPAY ==
[2021-04-03] VITALS (20 sets, daily range): BP systolic 132–162; BP diastolic 56–117; PULSE 74–92; RESP 11–26; TEMP 36.7; O2SAT 97–100
--- NOTE | 2021-04-03 21:15 | RT.EKG_ITS ---
APPROVED REPORT Exam: Resting ECG Reason for Exam: dizzy Patient Location: E HR:85 bpm ECG Measurements Heart Rate 85 AXIS KS 218 P 49 QRSd 86 QRS -10 QT 356 T 35 QTc 423 Conclusion Sinus rhythm...normal P axis, V-rate 60- 99 Borderline prolonged KS interval...KS >212, V-rate 50- 90. Sinus. No STEMI. I have reviewed and interpreted ECG and agree with software generated interpretation.
--- NOTE | 2021-04-03 21:46 | ED.GENADUL_ITS ---
Discharge Plan Disposition Patient Disposition: HOME Condition: Stable Discharge Details Clinical Impression: Lightheadedness, Acute UTI Primary Care Provider: Ginette Vaca ED Provider: Benjie Ash Home Meds and New Rx's Prescriptions: New levofloxacin 750 mg tablet 750 mg PO DAILY 4 Days Qty: 4 RF: 0 Continued magnesium oxide 400 mg capsule 400 mg PO DAILY RF: 0 metoprolol tartrate 25 mg tablet 25 mg PO BID Qty: 180 RF: 3 atorvastatin 20 mg tablet 20 mg PO .daily at bedtime Qty: 90 RF: 3 Hold Instructions: Home Medication placed on hold at Doctor's office losartan 50 mg tablet 50 mg PO DAILY Qty: 90 RF: 3 amlodipine 2.5 mg tablet 2.5 mg PO DAILY Qty: 90 RF: 3 trazodone 50 mg tablet 25 - 50 mg PO QHS PRN (Reason: sleep) Qty: 30 RF: 0 mirtazapine 7.5 mg tablet 37.5 mg PO DAILY RF: 0 dicyclomine 10 mg capsule 10 mg PO BID Qty: 90 RF: 0 cholecalciferol (vitamin D3) 1,000 UNIT tablet 1,000 unit PO DAILY RF: 0 omeprazole 40 mg capsule,delayed release(DR/EC) 40 mg PO DAILY RF: 0 Hold Instructions: Home Medication placed on hold at Doctor's office ondansetron HCl [Zofran] 4 mg tablet 4 mg PO QHS RF: 0 Hold Instructions: Home Medication placed on hold at Doctor's office aspirin [Aspirin Low-Strength] 81 MG tablet,chewable 81 mg PO DAILY RF: 0 Fish Oil 500 MG capsule,delayed release(DR/EC) 1,000 mg PO DAILY RF: 0 Discharge Instructions Instructions: Urinary Tract Infection in Women (ED) Additional Instructions: At this time you have evidence of a mild urinary tract infection. This is likely the primary cause of your mild weakness. Please stay well-hydrated, drink cranberry juice concentrate, and take the antibiotic as directed. The antibiotic has been sent to your pharmacy on file. You can pick it up tomorrow. If you notice any worsening of your symptoms, or any new symptoms such as vomiting, diarrhea, fever, chills, shortness of breath, chest pain, numbness, weakness, or fainting , please return immediately to the emergency department for reevaluation. Please follow up with your primary care provider as soon as possible for reassessment and reevaluation. As always, it was a pleasure participating in your medical care today. Referrals: iGnette Vaca NP [Primary Care Provider] - Discharge Data Discharge Date/Time-TO BE ENTERED AT DEPARTURE: 04/04/21 02:10 Medical Decision Making <RAINA Chen - Last Filed: 04/04/21 17:13> This is a 85-year-old female, presenting reporting feeling lightheadedness, generalized weakness, simply not feeling herself. She denies recent illness or trauma. She denies headache, dizziness, vertigo-like symptoms, visual changes, neck pain, fever, chest pain, shortness of breath, focal weakness. Symptoms have been present for at least 2 weeks. Patient denies any significant cardiac history, she is not anticoagulated, no history of TIA or CVA. Clinically she appears well, nontoxic and is neurologically intact. She presents slightly hypertensive at 150/72 pulse in the 90s, afebrile, O2 sat 100% on room air. Will obtain head CT given her complaints of low low suspicion for CVA or TIA. We will also obtain a cardiac work-up given she reports increased palpitations. Will obtain routine medical screening laboratory values as well as a urinalysis for potential UTI. Given her increase in palpitations and her vagueness of the exact timeline of her symptoms, I do believe obtaining a delta troponin is reasonable. Patient is comfortable with this plan and has no additional questions or concerns. Initial laboratory values do not reveal any obvious emergent process. Patient is requesting a drink of water, tolerates p.o. intake without difficulty. She is agreeable to awaiting a delta troponin. At this time awaiting urinalysis, CT imaging of the brain, and trial ambulation. Patient does state that she feels well enough to be discharged home and would prefer to go home as opposed to be admitted if at all possible. She appears well, nontoxic, neurologically intact. No focal weakness identified. We did discuss a Holter monitor. Patient states that she has worn a Holter monitor before but had difficulty with it because she is allergic to adhesives. She is willing to discuss a Holter monitor again with her primary care provider. Medical Records Medical records reviewed: Yes I reviewed the patient's medical records. Lab Data Lab results reviewed: Yes I reviewed the patient's lab results. Labs: 04/03/21 23:25 Urine - Reflex from Ua Urine Culture - Pending Laboratory Tests Range/Units 04/03/21 04/03/21 04/03/21 21:50 21:50 21:50 WBC (4.4-10.8) 10^3/uL 7.97 RBC (3.93-5.22) 10^6/uL 3.89 L Hgb (11.2-15.7) g/dL 12.4 Hct (36.0-46.0) % 37.3 MCV (80-95) fL 95.9 H MCH (27.0-33.0) pg 31.9 MCHC (32.0-36.0) % 33.2 RDW (11.7-14.6) % 13.2 Plt Count (130-400) 10^3/uL 254 MPV (8.0-11.0) fL 9.8 Immature Gran % 0.3 Neutrophils % 52.0 Lymphocytes % 35.8 Monocytes % 8.0 Eosinophils % 3.4 Basophils % 0.5 Nucleated RBC % % 0 Absolute Neutrophils (1.2-6.7) 10^3/uL 4.15 Absolute Lymphocytes (1.2-3.4) 10^3/uL 2.85 Absolute Monocytes (0.1-0.8) 10^3/uL 0.64 Absolute Eosinophils (0.0-0.7) 10^3/uL 0.27 Absolute Basophils (0.0-0.2) 10^3/uL 0.04 Sodium (136-145) mmol/L 138 Potassium (3.5-5.1) mmol/L 3.9 Chloride (98-107) mmol/L 102 Carbon Dioxide (21.0-32.0) mmol/L 29.9 Anion Gap (3-11) mmol/L 6.1 BUN (7-18) mg/dL 20 H Creatinine (0.55-1.02) mg/dL 1.1 H Estimated GFR/1.73 m2 (mL/min/1.73m2) 47.21 Glucose (74-106) mg/dL 115 H Calcium (8.5-10.1) mg/dL 9.6 Magnesium (1.8-2.4) mg/dL 2.4 Total Bilirubin (0.2-1.0) mg/dL 0.3 AST (15-37) U/L 16 ALT (14-59) U/L 27 Alkaline Phosphatase (46-116) U/L 71 Troponin I (<0.06) ng/mL < 0.05 Total Protein (6.4-8.2) g/dL 7.1 Albumin (3.4-5.0) g/dL 3.7 TSH (0.36-3.74) uIU/mL 3.41 Urine Color (Yellow) Urine Clarity (Clear) Urine pH (5-8) Ur Specific [place] (1.005-1.025) Urine Protein (Negative) mg/dL Urine Ketones (Negative) mg/dL Urine Blood (Negative) Urine Nitrite (Negative) Urine Bilirubin (Negative) Urine Urobilinogen (Up TO 0.2) EU/dL Ur Leukocyte Esterase (Negative) Urine RBC (0-2) HPF Urine WBC (0-5) HPF Ur Epithelial Cells (Negative) HPF Urine Crystals (Negative) HPF Urine Bacteria (Negative) HPF Urine Casts (Negative) LPF Urine Mucus (Negative) Ur Culture Indicated? Urine Glucose (Negative) mg/dL Range/Units 04/03/21 04/04/21 23:25 00:55 WBC (4.4-10.8) 10^3/uL RBC (3.93-5.22) 10^6/uL Hgb (11.2-15.7) g/dL Hct (36.0-46.0) % MCV (80-95) fL MCH (27.0-33.0) pg MCHC (32.0-36.0) % RDW (11.7-14.6) % Plt Count (130-400) 10^3/uL MPV (8.0-11.0) fL Immature Gran % Neutrophils % Lymphocytes % Monocytes % Eosinophils % Basophils % Nucleated RBC % % Absolute Neutrophils (1.2-6.7) 10^3/uL Absolute Lymphocytes (1.2-3.4) 10^3/uL Absolute Monocytes (0.1-0.8) 10^3/uL Absolute Eosinophils (0.0-0.7) 10^3/uL Absolute Basophils (0.0-0.2) 10^3/uL Sodium (136-145) mmol/L Potassium (3.5-5.1) mmol/L Chloride (98-107) mmol/L Carbon Dioxide (21.0-32.0) mmol/L Anion Gap (3-11) mmol/L BUN (7-18) mg/dL Creatinine (0.55-1.02) mg/dL Estimated GFR/1.73 m2 (mL/min/1.73m2) Glucose (74-106) mg/dL Calcium (8.5-10.1) mg/dL Magnesium (1.8-2.4) mg/dL Total Bilirubin (0.2-1.0) mg/dL AST (15-37) U/L ALT (14-59) U/L Alkaline Phosphatase (46-116) U/L Troponin I (<0.06) ng/mL < 0.05 Total Protein (6.4-8.2) g/dL Albumin (3.4-5.0) g/dL TSH (0.36-3.74) uIU/mL Urine Color (Yellow) Yellow Urine Clarity (Clear) Clear Urine pH (5-8) 7.0 Ur Specific [place] (1.005-1.025) 1.020 Urine Protein (Negative) mg/dL Negative Urine Ketones (Negative) mg/dL Negative Urine Blood (Negative) Trace-intact H Urine Nitrite (Negative) Negative Urine Bilirubin (Negative) Negative Urine Urobilinogen (Up TO 0.2) EU/dL 0.2 Ur Leukocyte Esterase (Negative) Small H Urine RBC (0-2) HPF 3-5 H Urine WBC (0-5) HPF 5-10 Ur Epithelial Cells (Negative) HPF Few Urine Crystals (Negative) HPF Negative Urine Bacteria (Negative) HPF Moderate Urine Casts (Negative) LPF Negative Urine Mucus (Negative) Negative Ur Culture Indicated? Yes Urine Glucose (Negative) mg/dL Negative ECG Data Attestation: I personally reviewed and interpreted this ECG (s) as follows: Interpretation: Please see official report by Dr. Leija. Sinus rhythm, ventricular rate of 85. Borderline prolonged NC interval. No STEMI <Benjie Ash DO - Last Filed: 04/04/21 01:20> 1:45 AM Patient was signed out to me by my colleague Georges Crawford, please refer to his HPI, physical exam, assessment and plan. At time of signout we are awaiting urinalysis, reassessment and repeat troponin. Repeat troponin is returned unremarkable. Patient has no chest pain whatsoever. EKG shows no evidence of STEMI. After hydration the patient is feeling much better. She ambulated around the emergency department well without any signs of weakness, focal deficit, ataxia, or neurologic abnormality. Patient feels well and would like to go home. Urinalysis has returned and shows evidence of a mild urinary tract infection. Patient does have multiple antibiotic allergies. We will give levofloxacin has the antibiotic of choice at this time. QTC is normal for the patient. We will send prescription for Levaquin to her pharmacy. With no signs of significant abnormality, neurologic deficit, or others concerning clinical exam findings including sepsis or severe systemic illness I do feel that the patient at this time is appropriate for discharge home. Patient agrees with this plan. Discussed red flags which to return. I have extensively reviewed the treatment plan and discharge instructions with the patient. I have addressed all patient concerns at this time. The patient was made aware of what symptoms to monitor for that would warrant a return to the emergency department. Discussed the plan with the patient, they demonstrate verbal understanding and agreement with our assessment and plan at this time. The documentation in this chart was dictated using [facility] dictation software. Please excuse any dictation errors. HPI <RAINA Chen - Last Filed: 04/04/21 17:13> General Mode of arrival: EMS . Date/Time Provider Initiated Documentation: 04/03/21 21:42 . Limitations to Documentation: no limitations . Information obtained by: patient and EMS . HPI Narrative: This is an 85-year-old female, past medical history that includes anxiety, GERD, hypertension, palpitations, not anticoagulated, presenting to the ER via EMS for evaluation reporting lightheadedness fairly consistently over the past roughly 2 weeks. Unfortunately she is a vague historian and has a hard time explaining exactly what she feels. Upon further discussion she is reporting that she simply does not feel like herself and has generalized weakness but no focal this. She denies recent illness or trauma. She denies any headache, visual changes, sensation of the room spinning, neck pain, chest pain, shortness of breath abdominal pain, nausea, vomiting, dysuria, numbness, tingling, focal weakness. Nothing makes her symptoms worse or better. Patient states that her symptoms have not caused her to fall. She denies any symptoms like this previously. She has not contacted her primary care provider for these ongoing symptoms. She denies having taken any [id number] medications for her ongoing symptoms. Patient does tell me that she has a history of palpitations and feels like she is having more frequent palpitations as of late. Related Data Home Medications Medication Instructions Recorded Confirmed Fish Oil 1,000 mg PO DAILY 08/18/14 04/03/21 aspirin [Aspirin Low-Strength] 81 mg PO DAILY 08/18/14 04/03/21 cholecalciferol (vitamin D3) 1,000 unit PO DAILY 09/05/14 04/03/21 magnesium oxide 400 mg PO DAILY cap 07/12/18 04/03/21 metoprolol tartrate 25 mg tablet 25 mg PO BID #180 tab-cap 07/09/20 04/03/21 amlodipine 2.5 mg tablet 2.5 mg PO DAILY #90 tab-cap 01/21/21 04/03/21 atorvastatin 20 mg tablet 20 mg PO .daily at bedtime #90 tab 01/21/21 04/03/21 losartan 50 mg tablet 50 mg PO DAILY #90 tab 01/21/21 04/03/21 trazodone 50 mg tablet 25 - 50 mg PO QHS PRN #30 tab 01/21/21 04/03/21 omeprazole 40 mg capsule,delayed 40 mg PO DAILY 01/23/21 03/28/21 release ondansetron HCl 4 mg tablet 4 mg PO QHS tab 02/04/21 03/28/21 dicyclomine 10 mg capsule 10 mg PO BID #90 cap 02/18/21 04/03/21 mirtazapine 7.5 mg tablet 37.5 mg PO DAILY tab 02/18/21 03/28/21 levofloxacin 750 mg PO DAILY 4 Days #4 tab 04/04/21 Previous Rx's Medication Instructions Recorded metoprolol tartrate 25 mg tablet 25 mg PO BID #180 tab-cap 07/09/20 amlodipine 2.5 mg tablet 2.5 mg PO DAILY #90 tab-cap 01/21/21 atorvastatin 20 mg tablet 20 mg PO .daily at bedtime #90 tab 01/21/21 losartan 50 mg tablet 50 mg PO DAILY #90 tab 01/21/21 trazodone 50 mg tablet 25 - 50 mg PO QHS PRN #30 tab 01/21/21 dicyclomine 10 mg capsule 10 mg PO BID #90 cap 02/18/21 levofloxacin 750 mg PO DAILY 4 Days #4 tab 04/04/21 Allergies Allergy/AdvReac Type Severity Reaction Status Date / Time Penicillins Allergy Intermediate mouth Verified 04/03/21 21:37 swells Sulfa (Sulfonamide Allergy Intermediate mouth Verified 04/03/21 21:37 Antibiotics) swells adhesive AdvReac Intermediate rash and Verified 04/03/21 21:37 blisters amoxicillin AdvReac Intermediate Swelling/Ed Verified 04/03/21 21:37 aleksandr amoxicillin trihydrate AdvReac Intermediate Swelling/Ed Verified 04/03/21 21:37 [From Prevpac] aleksandr clarithromycin [From Biaxin] AdvReac Unknown Verified 04/03/21 21:37 ibandronate sodium AdvReac Unknown Verified 04/03/21 21:37 [From Boniva] lansoprazole [From Prevpac] AdvReac Unknown Verified 04/03/21 21:37 lisinopril AdvReac Unknown Verified 04/03/21 21:37 General Stated Complaint: Dizzy/Sync RAJESH: 3 Review of Systems <RAINA Chen - Last Filed: 04/04/21 17:13> Constitutional Constitutional: Denies fatigue, Denies fever(s), Denies frequent falls and Denies headache(s) Eyes Eyes: Denies change in vision ENT Ears, Nose, Mouth, and Throat: Denies vertigo, Denies dizziness, Denies headache(s), Denies neck pain and Denies disequilibrium Cardiovascular Cardiovascular: Denies chest pain, Denies syncope and Denies dyspnea Respiratory Respiratory: Denies cough and Denies dyspnea Gastrointestinal Gastrointestinal: Denies abdominal pain, Denies nausea and Denies vomiting Genitourinary Genitourinary: Denies dysuria Musculoskeletal Musculoskeletal: Denies abnormal gait, Denies back pain, Denies neck pain, Denies numbness and Denies tingling Integumentary/Breasts Skin/Breast: Denies rash Neurologic Neurologic: Denies abnormal speech, Denies abnormal gait, Denies confusion, Denies vertigo, Denies dizziness, Denies syncope, Denies frequent falls, Denies headache(s), Denies lack of coordination, Denies numbness, Denies tingling, Denies disequilibrium and Reports weakness (Generalized) Psychiatric Psychiatric: Denies confusion Endocrine Endocrine: Denies fatigue Hematologic/Lymphatic Hematologic/Lymphatic: Denies easy bleeding and Denies easy bruising PFSH <RAINA Chen - Last Filed: 04/04/21 17:13> Medical History Acute stasis dermatitis of left lower extremity Bladder spasm (06/03/17) Bunion of left foot Cardiac murmur (03/15/15) H/O echocardiogram 11/02/12 preserved LV, EF 65% Impacted cerumen of both ears Microscopic hematuria Saw urol, [place] 08[place], [place] Posterior tibial tendon dysfunction (PTTD) of both lower extremities Sinoatrial node dysfunction (08/29/14) Tinea pedis Tinea unguium Surgical History colonoscopy (02/26/16) EGD (02/26/16) Vaginal hysterectomy (~2005) Family History Mother , age 94 Essential hypertension Heart disease Father , heart issues at age 70. Essential hypertension Heart disease Maternal Grandfather FH: mental illness Heart disease spent life in [facility] Maternal Aunt FH: mental illness anxiety and depression electric shock therapy Social History Smoking/Tobacco Use Status: Never Smoking risk assessment performed?: Yes Alcohol Intake: current Alcohol Intake frequency: holidays/special occasions only Drug use: Never Substance use type: does not use Household members: spouse and other Housing: house Communication Needs: Hard of Hearing Do you need help understanding health information?: Never What type of physical activity do you participate in: walking Frequency: 5-6 times per week Do you feel safe at home: Yes Do you feel safe in your relationship?: Yes Exam <RAINA Chen - Last Filed: 04/04/21 17:13> Const General: cooperative, healthy appearing, comfortable and no acute distress Orientation: alert, awake and oriented x3 HENMT Head: normal to inspection, normocephalic and atraumatic Ears: hearing grossly normal bilaterally Face and sinus: normal facial exam Mouth: moist mucous membranes Throat: posterior oropharynx normal Eyes General: appearance normal, both eyes and all related structures Alignment and Position: alignment normal Periorbital: periorbital findings normal Eyelids: eyelids normal Conjunctivae: conjunctivae normal Sclera: sclerae normal Cornea: corneas normal Pupils: PERRL EOM: EOM intact bilaterally Direct ophthalmoscopy: normal light reflex Neck Neck: normal visual inspection, full ROM, no meningeal signs, trachea midline, supple and nontender Resp Effort & Inspection: normal respiratory effort and able to speak in complete sentences Auscultation: clear to auscultation bilaterally Cardio Rate: regular rate Rhythm: regular rhythm GI Palpation: soft, not firm, no guarding, no pulsatile masses and nontender Back/Spine/Pelvis Back: No back tenderness Skin General skin exam: no rashes or lesions noted Neuro General: patient alert, patient awake, patient oriented x3, moves all extremities and no focal motor deficits Cranial Nerves: CN's II-XI intact bilaterally Cognition: normal cognition Speech: speech normal Motor: muscle tone normal throughout, strength 5/5 throughout, no pronator drift, no movement abnormalities noted and no fasciculations Sensory Exam: no sensory deficits noted Coordination: Does not sway with eyes open Extrem General: normal to inspection, full ROM, capillary refill normal, no pedal edema and no calf tenderness Psych Appearance: grossly normal Mental Status: mental status grossly normal Course <RAINA Chen - Last Filed: 04/04/21 17:13> Vital Signs Vital signs: Vital Signs Temperature 36.7 C 04/03/21 21:32 Pulse 92 H 04/03/21 21:32 Respiratory Rate 18 04/03/21 21:32 Blood Pressure 150/72 H 04/03/21 21:32 Pulse Oximetry 100 04/03/21 21:32 Temperature 36.7 C 04/03/21 21:32 Pulse 92 H 04/03/21 21:32 Respiratory Rate 16 04/03/21 21:41 Respiratory Effort Non-Labored 04/03/21 21:41 Blood Pressure 150/72 H 04/03/21 21:32 Pulse Oximetry 100 04/03/21 21:32 Pain Level 5 04/03/21 21:32 Sign Out <RAINA Chen - Last Filed: 04/04/21 17:13> Sign Out Data: Sign Out Comment: Reports lightheadedness, generalized weakness, and increased palpitations for the last 2 weeks or so. Work-up thus far benign. Patient is neurologically intact. Awaiting urinalysis, head CT, and delta troponin. Patient will likely benefit from a trial ambulation, reevaluation and if steady with a negative work-up likely can be discharged with close outpatient follow-up Last updated by Georges Crawford PA at 04/03/21 23:26
[2021-04-03 21:59] LABS: Abs Immature Grans 0.02 10^3/uL (0.0-0.06); Absolute Basophil Count 0.04 10^3/uL (0.0-0.2); Absolute Eosinophil Count 0.27 10^3/uL (0.0-0.7); Absolute Lymphocyte Count 2.85 10^3/uL (1.2-3.4); Absolute Monocyte Count 0.64 10^3/uL (0.1-0.8); Absolute Neutrophil Count 4.15 10^3/uL (1.2-6.7); Basophils % 0.5; Eosinophils % 3.4; HCT 37.3 % (36.0-46.0); HGB 12.4 g/dL (11.2-15.7); Immature Grans % 0.3; Lymphocytes % 35.8; MCH 31.9 pg (27.0-33.0); MCHC 33.2 % (32.0-36.0); MCV 95.9 fL (80-95); MPV 9.8 fL (8.0-11.0); Nucleated RBC 0 %; Platelet Count 254 10^3/uL (130-400); RBC 3.89 10^6/uL (3.93-5.22); RDW 13.2 % (11.7-14.6); RDW-SD 46.9 fL; WBC 7.97 10^3/uL (4.4-10.8)
--- NOTE | 2021-04-03 22:00 | DI.CT_ITS ---
Exam(s) CT HEAD WO EXAM: CT HEAD WO CLINICAL HISTORY: Lightheaded, general weakness. TECHNIQUE: Imaging Protocol: Axial computed tomography images with coronal and sagittal reformatted images were created and reviewed COMPARISON: CT HEAD WITHOUT CONTRAST from 04/02/2015 FINDINGS: There are no skull fractures nor fluid in the visualized paranasal sinuses. There is no evidence of intracranial hemorrhage, mass effect, or shift of midline structures. There are no extra-axial fluid collections. The ventricles are not enlarged or shifted and there is no blo od within the ventricular system nor within the basal cisterns. Mild symmetrical periventricular hypodensity consistent with chronic small vessel disease IMPRESSION: No acute intracranial findings on this noninfused CT scan of the brain. RADIATION DOSE DELIVERED: 780.6mGy.cm Total DLP DATA REPOSITORY: All CT scans at this facility are submitted to the National Radiology Data Registry (NRDR) Dose Index Registry (DIR) with the [employer] (A[employer]). RADIATION OPTIMIZATION: All CT scans at this facility use at least one of these dose optimization te chniques: automated exposure control; mA and/or kV adjustment per patient size (includes targeted exa ms where dose is matched to clinical indication); or iterative reconstruction.
[2021-04-03 22:37] LABS: ALT 27 U/L (14-59); AST 16 U/L (15-37); Albumin 3.7 g/dL (3.4-5.0); Alkaline Phosphatase 71 U/L (46-116); Anion Gap 6.1 mmol/L (3-11); BUN 20 mg/dL (7-18); Bilirubin, Total 0.3 mg/dL (0.2-1.0); CO2 29.9 mmol/L (21.0-32.0); CREATININE 1.1 mg/dL (0.55-1.02); Calcium 9.6 mg/dL (8.5-10.1); Chloride 102 mmol/L (98-107); Estimated GFR 47.21 (mL/min/1.73m2); Glucose 115 mg/dL (74-106); Magnesium 2.4 mg/dL (1.8-2.4); Potassium 3.9 mmol/L (3.5-5.1); Sodium 138 mmol/L (136-145); Total Protein 7.1 g/dL (6.4-8.2)
[2021-04-03 22:38] LABS: Troponin I < 0.05 ng/mL (<0.06)
[2021-04-03 22:42] LABS: TSH (W/Ref FT4) 3.41 uIU/mL (0.36-3.74)
--- NOTE | 2021-04-03 23:05 | DI.VRAD_ITS ---
PROCEDURE INFORMATION: Exam: CT Head Without Contrast Exam date and time: 04/03/2021 10:08 PM Age: 85 years old Clinical indication: Other: Lightheaded, general weakness TECHNIQUE: Imaging protocol: Computed tomography of the head without contrast. COMPARISON: CT HEAD WITHOUT CONTRAST 04/02/2015 11:17 AM FINDINGS: Brain: Slight prominence of cerebral sulci reflects cerebral atrophy. Poorly marginated hypodensities seen throughout the deep and periventricular white matter of both cerebral hemispheres are consistent with microvascular ischemic changes. Brainstem and cerebellum are normal in appearance and there is no evidence of acute infarct or recent intracranial hemorrhage. Cerebral ventricles: No midline shift or hydrocephalus. Paranasal sinuses: Paranasal sinuses are clear throughout and their bony margins are intact at the levels imaged. Mastoid air cells: Normally pneumatized and clear bilaterally. Bones/joints: Bony calvarium and skull base are intact and no acute fractures are detected. Soft tissues: Unremarkable. IMPRESSION: Mild cerebral atrophy and probable microvascular ischemic changes with no evidence of acute infarct, recent hemorrhage or hydrocephalus. No acute intracranial process is detected. Dictated and Authenticated by: Jose Diallo MD. Ordering:KRYSTIN Su MD
[2021-04-03 23:33] LABS: Bilirubin Negative (Negative); Blood Trace-intact (Negative); Clarity Clear (Clear); Glucose Negative (Negative); Ketones Negative (Negative); Leukocyte Esterase Small (Negative); Nitrite Negative (Negative); Urobilinogen 0.2 EU/dL (Up TO 0.2)
[2021-04-03 23:46] LABS: Bacteria Moderate HPF (Negative); C & S Indicated? Yes; Casts Negative LPF (Negative); Crystals Negative HPF (Negative); Epithelial Cells Few HPF (Negative); Mucus Negative (Negative)
[2021-04-04] VITALS (7 sets, daily range): BP systolic 132–143; BP diastolic 60–68; PULSE 78–90; RESP 10–19; O2SAT 96–100
[2021-04-04] MEDS: levoFLOXacin 750 MG/150 ML BAG 100 MG IVPB (00:10)
[2021-04-04 01:13] LABS: Troponin I < 0.05 ng/mL (<0.06)
== END 2021-04-04 02:10 | disposition home or self-care (01) ==
PROVIDERS: Physician Assistant; Emergency Provider Student in an Organized Health Care Education/Training Program; PCP Nurse Practitioner Adult Health
DX: R42 Dizziness and giddiness (principal); N39.0 Urinary tract infection, site not specified; I10 Essential (primary) hypertension; R53.1 Weakness; R00.2 Palpitations
CPT/HCPCS: 80053; 93005; 96365; 96366; 99284; 70450; 81003; 81015; 83735; 84443; 84484; 85025; 87086; 93010; J1956

== ENCOUNTER 2021-07-12 09:27 | Outpatient (CLI) | payer MEDICARE, OTHER, SELFPAY ==
--- NOTE | 2021-07-12 09:15 | DI.RAD_ITS ---
Exam(s) XR KNEE LT 3V AP,LAT,LILLIANA EXAM: XR KNEE LT 3V AP,LAT,LILLIANA CLINICAL HISTORY: L knee pain TECHNIQUE: COMPARISON: CR XR KNEE LT 3V AP,LAT,LILLIANA from 12/10/2020 FINDINGS: Four views were obtained. There is severe loss of the cartilaginous joint space of the medial tibiof emoral joint. There is subchondral bony sclerosis and irregularity of the articular surfaces of the femur and tibia appears to be present. There are mild marginal osteophytes. Mild marginal osteophytes also noted at patellofemoral joint. No gross joint effusion seen. IMPRESSION: DJD predominantly involving medial tibiofemoral joint. RADIATION DOSE DELIVERED: Total DLP
== END 2021-07-12 09:28 | disposition home or self-care (01) ==
LOC: DIORS 09:27
PROVIDERS: PCP Nurse Practitioner Adult Health; Referring Provider Nurse Practitioner Adult Health; Visit Provider Physician Assistant
DX: M25.562 Pain in left knee (principal); M17.12 Unilateral primary osteoarthritis, left knee; D17.23 Benign lipomatous neoplasm of skin and subcutaneous tissue of right leg
CPT/HCPCS: 20610; 73562; 99214; J1040

== ENCOUNTER 2021-07-15 16:21 | Outpatient (REF) | payer MEDICARE, OTHER, SELFPAY ==
[2021-07-15 19:51] LABS: Calculated LDL 112 mg/dL (<100); Cholesterol 238 mg/dL (<200); HDL Cholesterol 87 mg/dL (40-60); Triglyceride 195 mg/dL (<150)
== END 2021-07-15 16:22 | disposition home or self-care (01) ==
LOC: LBN 16:21
PROVIDERS: PCP Nurse Practitioner Adult Health; Visit Provider Nurse Practitioner Adult Health
DX: E78.5 Hyperlipidemia, unspecified (principal)
CPT/HCPCS: 80061

== ENCOUNTER → 2021-09-30 09:34 | Outpatient (BNVA) | payer MEDICARE, OTHER, SELFPAY | PROVIDERS: PCP Nurse Practitioner Adult Health; Referring Provider Nurse Practitioner Adult Health; Visit Provider Urology | DX: R31.29 Other microscopic hematuria (principal) | CPT/HCPCS: 81003; 99213 ==

== ENCOUNTER 2021-12-07 06:55 | Emergency (ER) | payer MEDICARE, OTHER, SELFPAY ==
--- NOTE | 2021-12-07 07:00 | RT.EKG_ITS ---
APPROVED REPORT Exam: Resting ECG Reason for Exam: weakness Patient Location: E HR:90 bpm ECG Measurements Heart Rate 90 AXIS AR 242 P 48 QRSd 85 QRS -4 QT 340 T 66 QTc 416 Conclusion Sinus rhythm...normal P axis, V-rate 60- 99 Prolonged AR interval...AR >220, V-rate 50- 90 Physician: no stemi, minimal ant/lat depressions. No elevations
[2021-12-07 07:04] VITALS: BP 149/64; PULSE 99; RESP 18; TEMP 36.7; O2SAT 99
[2021-12-07 07:07] VITALS: RESP 18
--- NOTE | 2021-12-07 07:08 | W.ED.GENAD ---
Discharge Plan Disposition Patient Disposition: STILL A PATIENT Condition: Stable Discharge Details Chief Complaint: GenMedical Clinical Impression: Abdominal discomfort Primary Care Provider: Ginette Vaca ED Provider: Benjie Ash Home Meds and New Rx's Prescriptions: No Action magnesium oxide 400 mg capsule 400 mg PO DAILY famotidine [Pepcid AC] 20 mg tablet 20 mg PO DAILY escitalopram oxalate [Lexapro] 5 mg tablet 5 mg PO DAILY Qty: 90 0RF Rx Instructions: Take (1) daily x 1 week, then (2) daily and check in with PCP metoprolol tartrate 25 mg tablet 25 mg PO BID Qty: 180 3RF dicyclomine 10 mg capsule 10 mg PO BID Qty: 180 3RF Rx Instructions: per GI atorvastatin 20 mg tablet 20 mg PO DAILY Hold Instructions: Home Medication placed on hold at Doctor's office amlodipine 2.5 mg tablet 2.5 mg PO DAILY Qty: 90 3RF Rx Instructions: For Blood pressure mirtazapine 7.5 mg tablet 3.75 mg PO DAILY Qty: 45 1RF Rx Instructions: pt takes 1/2 at hs prn. losartan 50 mg tablet 50 mg PO DAILY Qty: 90 3RF cholecalciferol (vitamin D3) 1,000 UNIT tablet 1,000 unit PO DAILY aspirin [Aspirin Low-Strength] 81 MG tablet,chewable 81 mg PO DAILY Fish Oil 500 MG capsule,delayed release(DR/EC) 1,000 mg PO DAILY Medical Decision Making This is an 86-year-old female with a past medical history of arthritis, mild anxiety, GERD, hypertension, high cholesterol, chronic kidney disease, who presents today for evaluation of weakness and nondescript abdominal findings. Patient is a good historian but very poor at describing how she feels. She states that for the last week or so she has had a feeling in her stomach that she describes as feeling sick. However she very specifically denies nausea, vomiting, stabbing pain, burning pain, aching pain, bloating. She states she does feel intermittent shortness of breath. The sick feeling sometimes slightly goes towards the epigastric region but she denies any chest pain, chest tightness, or chest heaviness. She states that the sick feeling sometimes feels like a heaviness but it is notably nonexertional related. It is not worsened with activity or improved by rest. There does not appear to be a food related component. She denies any urinary discomfort, frequency, or dysuria. She was seen by her primary care provider within the last month or 2, at which time there was some concern for mild gastric irritation, potentially secondary to her anxiety, but no other significant abnormalities were noted on exam at that time. Patient also states that she feels generally weak. She states that she is able to perform all of her activities fine, but she just feels like she is weak in general with life. She denies any other complaints. She is notably unable to add any other specific focuses or descriptors to her current history. Exam demonstrates a remarkably well-appearing 86-year-old female, no significant abnormalities noted on exam. Peripheral pulses are all intact, no pitting edema. No signs of acute surgical abdomen, minimal achiness on palpation of the abdomen. Differential is broad, unsure if this is an atypical cardiac etiology, intestinal problem, pancreatitis, or UTI. AAA is less likely on the differential based on benign component of exam. We will gently rehydrate, I will perform a bedside ultrasound to evaluate for any clear abnormality for the heart or aorta, we will evaluate for metabolic causes of weakness. We will monitor closely and reassess. Patient demonstrates no focal neurologic deficits on exam otherwise, and no clinical evidence of stroke at this time. 8:56 AM Patient feels well, she has her symptoms notably improved after GI cocktail. Laboratory work-up demonstrates normal CBC, D-dimer mildly elevated, electrolytes normal, renal function normal, Troponin normal, EKG stable. Thyroid function normal. Urinalysis negative aside from mild RBCs. COVID test is negative. The elevated D-dimer, the RBCs noted in the urine, I do feel that CT imaging is indicated at this time however my differential is certainly higher for just mild gastric irritation as she had notable improvement after the GI cocktail. CT scan has been ordered, patient will be signed out to my colleague Dr. Nawaf Ware for follow-up on imaging. However if she continues to feel well, with her negative work-up, negative cardiac work-up so far, I do feel that discharge would be a reasonable option if the CT imaging is unremarkable. HPI General Date/Time Provider Initiated Documentation: 12/07/21 06:57. HPI Narrative: This is an 86-year-old female with a past medical history of arthritis, mild anxiety, GERD, hypertension, high cholesterol, chronic kidney disease, who presents today for evaluation of weakness and nondescript abdominal findings. Patient is a good historian but very poor at describing how she feels. She states that for the last week or so she has had a feeling in her stomach that she describes as feeling sick. However she very specifically denies nausea, vomiting, stabbing pain, burning pain, aching pain, bloating. She states she does feel intermittent shortness of breath. The sick feeling sometimes slightly goes towards the epigastric region but she denies any chest pain, chest tightness, or chest heaviness. She states that the sick feeling sometimes feels like a heaviness but it is notably nonexertional related. It is not worsened with activity or improved by rest. There does not appear to be a food related component. She denies any urinary discomfort, frequency, or dysuria. She was seen by her primary care provider within the last month or 2, at which time there was some concern for mild gastric irritation, potentially secondary to her anxiety, but no other significant abnormalities were noted on exam at that time. Patient also states that she feels generally weak. She states that she is able to perform all of her activities fine, but she just feels like she is weak in general with life. She denies any other complaints. She is notably unable to add any other specific focuses or descriptors to her current history. Related Data Home Medications Medication Instructions Recorded Confirmed aspirin 81 mg chewable tablet 81 mg PO DAILY 08/18/14 12/07/21 (Aspirin Low-Strength) omega 3-dha 60 mg-epa 90 mg-fish 1,000 mg PO DAILY 08/18/14 12/07/21 oil 500 mg capsule, delayed release (Fish Oil) cholecalciferol (vitamin D3) 25 1,000 unit PO DAILY 09/05/14 12/07/21 mcg (1,000 unit) tablet magnesium oxide 400 mg PO DAILY 07/12/18 12/07/21 amlodipine 2.5 mg tablet 2.5 mg PO DAILY #90 tab-caps 01/21/21 12/07/21 mirtazapine 7.5 mg tablet 3.75 mg PO DAILY #45 tabs 04/15/21 12/02/21 atorvastatin 20 mg tablet 20 mg PO DAILY 07/15/21 12/07/21 dicyclomine 10 mg capsule 10 mg PO BID #180 caps 07/15/21 12/07/21 metoprolol tartrate 25 mg tablet 25 mg PO BID #180 tab-caps 07/15/21 12/07/21 famotidine 20 mg tablet (Pepcid AC) 20 mg PO DAILY 11/13/21 12/07/21 losartan 50 mg tablet 50 mg PO DAILY #90 tabs 11/22/21 12/07/21 escitalopram oxalate 5 mg tablet 5 mg PO DAILY #90 tabs 12/02/21 12/02/21 (Lexapro) Previous Rx's Medication Instructions Recorded amlodipine 2.5 mg tablet 2.5 mg PO DAILY #90 tab-caps 01/21/21 mirtazapine 7.5 mg tablet 3.75 mg PO DAILY #45 tabs 04/15/21 dicyclomine 10 mg capsule 10 mg PO BID #180 caps 07/15/21 metoprolol tartrate 25 mg tablet 25 mg PO BID #180 tab-caps 07/15/21 losartan 50 mg tablet 50 mg PO DAILY #90 tabs 11/22/21 escitalopram oxalate 5 mg tablet 5 mg PO DAILY #90 tabs 12/02/21 (Lexapro) Allergies Allergy/AdvReac Type Severity Reaction Status Date / Time Penicillins Allergy Intermediate mouth Verified 12/02/21 13:57 swells Sulfa (Sulfonamide Allergy Intermediate mouth Verified 12/02/21 13:57 Antibiotics) swells adhesive AdvReac Intermediate rash and Verified 12/02/21 13:57 blisters amoxicillin AdvReac Intermediate Swelling/Ed Verified 12/02/21 13:57 aleksandr amoxicillin trihydrate AdvReac Intermediate Swelling/Ed Verified 12/02/21 13:57 [From Prevpac] aleksandr clarithromycin [From Biaxin] AdvReac Unknown Verified 12/02/21 13:57 ibandronate sodium AdvReac Unknown Verified 12/02/21 13:57 [From Boniva] lansoprazole [From Prevpac] AdvReac Unknown Verified 12/02/21 13:57 lisinopril AdvReac Unknown Verified 12/02/21 13:57 General Stated Complaint: GenMedical RAJESH: 2 Review of Systems All systems reviewed & are unremarkable except as noted in HPI and below PFSH All Active Problems (Updated 12/07/21 @ 08:58 by Benjie Ash DO) Abdominal discomfort (Acute) Queasiness (Acute) Nervously anxious (Acute) Gastro-esophageal reflux disease without esophagitis (Chronic) 01/23/21-[facility] GI note: unspecified whether esophagitis present. 03/14/16 reflux esophagitis- Dr Mccracken EGD. Tolerates TUMs. Osteoarthritis of left knee (Acute) Injection: 07/12/2021 Arthritis of left sacroiliac joint (Acute) Advance directive in chart (Acute) DNR/DNI; would want antibiotics Microscopic hematuria (Chronic) Urology, [place] 08/2019; managing Anxiety (Chronic 07/17/17) Mirtazapine helpful; H/O Lexapro use Hip pain, left (Acute) X-ray 08/2019; mild to mod OA CKD (chronic kidney disease) (Chronic 08/29/14) moderately decreased GFR from old records RH DJD (degenerative joint disease), lumbar (Chronic 04/17/15) Moderate DJD lumbar region. 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 No treatment Sensorineural hearing loss, bilateral Sinoatrial node dysfunction (08/29/14) Sleep disorder mirtazepine helping Tinea pedis Tinea unguium Surgical History colonoscopy (02/26/16) EGD (02/26/16) Vaginal hysterectomy (~2005) Family History Mother , age 94 Essential hypertension Heart disease Father , heart issues at age 70. Essential hypertension Heart disease Maternal Grandfather FH: mental illness Heart disease spent life in [facility] Maternal Aunt FH: mental illness anxiety and depression electric shock therapy Social History Smoking/Tobacco Use Status: Never Smoking risk assessment performed?: Yes Alcohol Intake: current Alcohol Intake frequency: holidays/special occasions only Drug use: Never Substance use type: does not use Household members: spouse and other Housing: house Communication Needs: Hard of Hearing Do you need help understanding health information?: Never What type of physical activity do you participate in: walking Frequency: 5-6 times per week Do you feel safe at home: Yes Do you feel safe in your relationship?: Yes Exam Narrative Exam Narrative: 1.Const: Well-nourished, Well-developed, appearing stated age 2.Eyes: PERRL, no conjunctival injection, and symmetrical lids. 3.ENT: Atraumatic external nose and ears. Moist MM. Neck: Symmetric, trachea midline, No thyromegaly. 4.CVS: +S1/S2, No murmurs or gallops. Peripheral pulses 2+ and equal in all extremities. Brisk capillary refill in all extremities. 5.RESP: Unlabored respiratory effort. Clear to auscultation bilaterally. No wheezes rales or rhonchi 6.GI: Soft, Nontender/Nondistended, No hepatosplenomegaly. No guarding or rebound. Minimal achiness on deep palpation of the mid abdominal region. No large pulsatile mass that I can palpate, but she does have something slightly firm in the umbilical region on deep palpation. This may be just her bony structures in her aorta in general. No pain or McBurney's point, negative Chong sign. 7.MSK: Normocephalic/Atraumatic, Extremities w/o deformity or ttp No cyanosis or clubbing, Normal movement of all extremities, no pitting edema, no calf tenderness 8.Skin: Warm, Dry. No rashes or lesions. 9.Neuro: quality assurance director II-XII grossly intact. Sensation grossly intact, no focal neurologic deficits. 10.Psych: (AAO) x3. Appropriate mood and affect Course Vital Signs Vital signs: Vital Signs Temperature 36.7 C 12/07/21 07:04 Pulse 99 H 12/07/21 07:04 Respiratory Rate 18 12/07/21 07:04 Blood Pressure 149/64 H 12/07/21 07:04 Pulse Oximetry 99 12/07/21 07:04 Temperature 36.7 C 12/07/21 07:04 Temperature Source Temporal Artery Scan 12/07/21 07:04 Pulse 99 H 12/07/21 07:04 Respiratory Rate 18 12/07/21 07:04 Blood Pressure 149/64 H 12/07/21 07:04 Blood Pressure Position Sitting 12/07/21 07:04 Pulse Oximetry 99 12/07/21 07:04 Oxygen Delivery Method Room Air 12/07/21 07:04 Oxygen Flow Rate 0 12/07/21 07:04 Pain Level 0 12/07/21 07:04
[2021-12-07] MEDS: Normal Saline 1,000 ML 1000 ML IV (07:23)
[2021-12-07 07:34] LABS: Source Nasal/Nares
[2021-12-07 07:38] LABS: Abs Immature Grans 0.02 10^3/uL (0.0-0.06); Absolute Basophil Count 0.06 10^3/uL (0.0-0.2); Absolute Lymphocyte Count 1.95 10^3/uL (1.2-3.4); Absolute Monocyte Count 0.36 10^3/uL (0.1-0.8); Absolute Neutrophil Count 2.47 10^3/uL (1.2-6.7); Basophils % 1.2; HCT 39.3 % (36.0-46.0); HGB 13.3 g/dL (11.2-15.7); Immature Grans % 0.4; Lymphocytes % 38.5; MCH 31.8 pg (27.0-33.0); MCHC 33.8 % (32.0-36.0); MCV 94 fL (80-95); MPV 9.9 fL (8.0-11.0); Monocytes % 7.1; Neutrophils % 48.8; Platelet Count 226 10^3/uL (130-400); RBC 4.18 10^6/uL (3.93-5.22); RDW-SD 45.3 fL; WBC 5.06 10^3/uL (4.4-10.8)
[2021-12-07 07:48] LABS: Bilirubin Negative (Negative); Blood Small (Negative); Clarity Clear (Clear); Glucose Negative (Negative); Ketones Negative (Negative); Leukocyte Esterase Trace (Negative); Nitrite Negative (Negative); Specific Gravity 1.025 (1.005-1.025); Urobilinogen 0.2 EU/dL (Up TO 0.2); pH 6.5 (5-8)
[2021-12-07 07:56] LABS: Bacteria Few HPF (Negative); C & S Indicated? No/Sq. Contamination; Casts Negative LPF (Negative); Crystals Negative HPF (Negative); Epithelial Cells Moderate HPF (Negative); Mucus Trace (Negative)
[2021-12-07 08:00] LABS: ALT 21 U/L (14-59); AST 15 U/L (15-37); Albumin 3.8 g/dL (3.4-5.0); Alkaline Phosphatase 65 U/L (46-116); BUN 15 mg/dL (7-18); Bilirubin, Total 0.7 mg/dL (0.2-1.0); Calcium 9.5 mg/dL (8.5-10.1); Chloride 105 mmol/L (98-107); Estimated GFR 52.57 (mL/min/1.73m2); Glucose 125 mg/dL (74-106); Lipase 120 U/L (73-393); Potassium 3.8 mmol/L (3.5-5.1); Sodium 142 mmol/L (136-145); TSH (W/Ref FT4) 1.83 uIU/mL (0.36-3.74); Total Protein 7.2 g/dL (6.4-8.2); Troponin I < 50 ng/L (<or=60)
[2021-12-07 08:05] LABS: D-Dimer 676 ng/mlFEU (<500)
[2021-12-07 08:16] LABS: COVID-19 PCR Negative (Negative)
[2021-12-07] MEDS: Omnipaque 350 MG/ML 100 ML BTL IJ (09:11)
[2021-12-07] MEDS: Normal Saline Flush 10 ML SYR IVP (09:12)
--- NOTE | 2021-12-07 09:12 | DI.CT_ITS ---
Exam(s) CT THORAX ABDOMEN CTA EXAM: CT THORAX ABDOMEN CTA CLINICAL HISTORY: sob, epigastric abdominal pain, elevated d-dimer. TECHNIQUE: Imaging Protocol: Axial CT angiography was performed with multi-slice acquisition and m ulti-planar and/or 3D reconstructions. CONTRAST MATERIAL: Intravenous: Omnipaque 350 Contrast volume:100 cc Oral: / no COMPARISON: CT CT ABDOMEN PELVIS W from 01/04/2021 FINDINGS: CHEST: Pulmonary Arteries: No evidence of filling defect to suggest pulmonary emboli. Tracheobronchial tree: Patent where visualized. Mediastinum and [place]: No dominant adenopathy or fluid collection. Pulmonary parenchyma: No consolidation or dominant measurable mass. No architectural distortion. Pleura: No effusion or pneumothorax. Heart: The heart is mildly dilated. Mild coronary artery calcifications are seen. Aorta: There is motion at the aortic root. There is no evidence of dissection. Thoracic aorta non-d ilated. Bones: Degenerative changes. ABDOMEN Abdomen: Celiac axis/mesenteric arteries: No evidence of occlusion or significant stenosis. Renal Arteries: No evidence of occlusion or significant stenosis. There is a single renal artery per fusing each kidney. Aorta: Atherosclerotic calcification. No evidence of occlusion or significant stenosis. No aneurysm or dissection. ABDOMEN: Liver: Normal density. No measurable mass. Portal, Superior Mesenteric, and Splenic Veins: Unremarkable. Gallbladder and Biliary Tract: No radiodense calculus or dilation. Pancreas: Normal density, no abnormal calcifications or inflammatory process. Spleen: Normal. Adrenals: No masses seen. Kidneys: Normal size, contour and axis. No radiodense stones or obstructive uropathy. No masses seen. Bowel: No obstruction or bowel wall thickening. No evidence of appendicitis. Peritoneal Cavity: No ascites, collection or mesenteric inflammatory response. Lymph Nodes: Within normal limits. Bones: Degenerative disc changes and facet degenerative changes. Degenerative spondylolisthesis at L 4-5. Soft Tissues: Unremarkable. IMPRESSION: No evidence of pulmonary emboli, aortic dissection or aneurysm. Atherosclerotic changes greater in t he abdominal aorta. No significant luminal narrowing. Branch vessels are patent . RADIATION DOSE DELIVERED: 600.89mGy.cm Total DLP DATA REPOSITORY: All CT scans at this facility are submitted to the National Radiology Data Registry (NRDR) Dose Index Registry (DIR) with the [employer] (ACR). RADIATION OPTIMIZATION: All CT scans at this facility use at least one of these dose optimization te chniques: automated exposure control; mA and/or kV adjustment per patient size (includes targeted exa ms where dose is matched to clinical indication); or iterative reconstruction.
--- NOTE | 2021-12-07 09:27 | DI.VRAD_ITS ---
PROCEDURE INFORMATION: Preliminary report Exam: CTA Chest With Contrast CTA Abdomen With Contrast Exam date and time: 12/07/2021 9:02 AM Age: 86 years old Clinical indication: Fever and other: SOB, epigastric abdominal pain, elevated d-dimer TECHNIQUE: Imaging protocol: Computed tomographic angiography of the chest with contrast. Computed tomographic angiography of the abdomen with contrast. 3D rendering (Not supervised by radiologist): MIP and/or 3D reconstructed images were created by the technologist. Radiation optimization: All CT scans at this facility use at least one of these dose optimization techniques: automated exposure control; mA and/or kV adjustment per patient size (includes targeted exams where dose is matched to clinical indication); or iterative reconstruction. Contrast material: OMNIPAQUE 350; Contrast volume: 100 ml; Contrast route: INTRAVENOUS (IV); COMPARISON: CT ABDOMEN PELVIS W 01/04/2021 9:56 AM FINDINGS: VASCULATURE: Pulmonary arteries: No pulmonary embolus in the opacified pulmonary arteries. Thoracic aorta: Uniform opacification of the ectatic thoracic aorta, without focal aneurysm or dissection. Abdominal aorta: No abdominal aortic aneurysm. Vascular calcification. Patency of the celiac, mesenteric, renal, and common iliac arteries. CHEST: Lungs: Interstitial prominence and mild dependent airspace disease. Pleural spaces: No significant pleural effusion. Heart: No cardiomegaly or significant coronary artery calcification. ABDOMEN AND PELVIS: Liver: Fatty infiltration of the liver. Gallbladder and bile ducts: Unremarkable gallbladder. Pancreas: No pancreatic mass or ductal dilatation. Spleen: No splenomegaly. Adrenal glands: Unremarkable adrenals. Kidneys and ureters: Normal renal morphology. No hydronephrosis. Stomach and bowel: Wall thickening in the nondistended stomach. Prominent stool. Diverticula. Radiopaque tablet in the transverse colon. Intraperitoneal space: No free fluid in the visualized abdomen. Lymph nodes: Subcentimeter lymph nodes. Bones/joints: Schmorl's nodes. Degenerative change , disc bulging, and scoliosis. Grade 1 anterolisthesis of L4 on L5. Soft tissues: Small umbilical hernia. IMPRESSION: 1. No pulmonary embolus in the opacified pulmonary arteries. 2. No aortic aneurysm. 3. Additional findings as described above. Dictated and Authenticated by: Jacob Gutierrez MD. Ordering:NAHUM Waldrop MD
[2021-12-07 10:03] VITALS: BP 142/105; PULSE 88; RESP 16; TEMP 36.4; O2SAT 98
--- NOTE | 2021-12-07 10:24 | ED.PROG_ITS ---
Date of service: 12/07/21 Time of Service: 10:24 Medical Decision Making Received signout from Dr. Ash. Please see his note regarding details of initial presentation, exam and plan of care. Underwent CT imaging which showed no PE, no aortic aneurysm, note of wall thickening in the nondistended stomach. Prominent stool present. Repeat troponin negative, pt remains better. Will DC to home. Sign Out Sign Out Data: Sign Out Comment: Abdominal discomfort. Improved after GI cocktail. Work-up benign. Pending CT scan. Last updated by Benjie Ash DO at 12/07/21 09:00 Discharge Plan Disposition Patient Disposition: HOME Condition: Stable Discharge Details Clinical Impression: Abdominal discomfort Primary Care Provider: Ginette Vaca ED Provider: Nawaf Ware Home Meds and New Rx's Prescriptions: Continued magnesium oxide 400 mg capsule 400 mg PO DAILY famotidine [Pepcid AC] 20 mg tablet 20 mg PO DAILY escitalopram oxalate [Lexapro] 5 mg tablet 5 mg PO DAILY Qty: 90 0RF Rx Instructions: Take (1) daily x 1 week, then (2) daily and check in with PCP metoprolol tartrate 25 mg tablet 25 mg PO BID Qty: 180 3RF dicyclomine 10 mg capsule 10 mg PO BID Qty: 180 3RF Rx Instructions: per GI atorvastatin 20 mg tablet 20 mg PO DAILY Hold Instructions: Home Medication placed on hold at Doctor's office amlodipine 2.5 mg tablet 2.5 mg PO DAILY Qty: 90 3RF Rx Instructions: For Blood pressure mirtazapine 7.5 mg tablet 3.75 mg PO DAILY Qty: 45 1RF Rx Instructions: pt takes 1/2 at hs prn. losartan 50 mg tablet 50 mg PO DAILY Qty: 90 3RF cholecalciferol (vitamin D3) 1,000 UNIT tablet 1,000 unit PO DAILY aspirin [Aspirin Low-Strength] 81 MG tablet,chewable 81 mg PO DAILY Fish Oil 500 MG capsule,delayed release(DR/EC) 1,000 mg PO DAILY Discharge Instructions Additional Instructions: May continue Tums if needed. Sebastian diet today. Home to rest. Continue all routine medication Discharge Data Discharge Date/Time-TO BE ENTERED AT DEPARTURE: 12/07/21 11:27
[2021-12-07 11:00] LABS: Troponin I < 50 ng/L (<or=60)
[2021-12-07 11:23] VITALS: BP 148/56; PULSE 68; RESP 16; TEMP 36.4; O2SAT 99
== END 2021-12-07 11:27 | disposition home or self-care (01) ==
PROVIDERS: Student in an Organized Health Care Education/Training Program; Emergency Provider Emergency Medicine; PCP Nurse Practitioner Adult Health
DX: R06.02 Shortness of breath (principal); R10.13 Epigastric pain; R79.1 Abnormal coagulation profile; R53.1 Weakness
CPT/HCPCS: 36415; 71275; 74175; 80053; 83690; 87635; 93005; 96361; 99284; 99285; 81003; 81015; 84443; 84484; 85025; 85379; 93010; J3490

== ENCOUNTER 2022-05-30 11:00 | Outpatient (CLI) | payer MEDICARE, OTHER, SELFPAY ==
--- NOTE | 2022-05-30 10:45 | DI.RAD_ITS ---
Exam(s) XR KNEE RT 3V AP,LAT,LILLIANA EXAM: XR KNEE RT 3V AP,LAT,LILLIANA CLINICAL HISTORY: right knee pain. TECHNIQUE: 2D digital imaging was performed. COMPARISON: CR XR KNEE LT 3V AP,LAT,LILLIANA from 07/12/2021 FINDINGS: 3 views There no evidence of fracture. Small joint effusion noted. Mild narrowing of the medial compartment noted and marginal osteophytes. Lateral compartment exhibits normal height. Minimal degenerative c hanges patellofemoral compartment. IMPRESSION: Mild joint space narrowing of the medial compartment. Small joint effusion. DATA REPOSITORY: RADIATION DOSE DELIVERED:
== END 2022-05-30 11:01 | disposition home or self-care (01) ==
LOC: DIORS 11:01
PROVIDERS: PCP Nurse Practitioner Adult Health; Referring Provider Nurse Practitioner Adult Health; Visit Provider Physician Assistant
DX: M17.11 Unilateral primary osteoarthritis, right knee (principal)
CPT/HCPCS: 20610; 73562; J1040

== ENCOUNTER 2022-07-01 02:17 | Outpatient (CLI) | payer MEDICARE, OTHER, SELFPAY ==
--- NOTE | 2022-07-01 07:45 | DI.DEXA_ITS ---
Exam(s) XR DEXA BONE DENSITY W/WO HUGO EXAM: XR DEXA BONE DENSITY W/WO HUGO CLINICAL HISTORY: assess bones,SCREENING FOR OSTEOPOROSIS IN POSTMENOPAUSAL WOMAN,Z78.0 TECHNIQUE: Routine DEXA evaluation of the lumbar spine, hip, or forearm. COMPARISON: No exams were available for comparison FINDINGS: Performed on a Hologic unit. Lateral image: No compression fracture evident. Lumbar Spine total T-score: -0.9 Hip total T-score:2.4 Independent reading at the level of the femoral neck yields T-score of -2.8 Forearm total T-score: -2.2 IMPRESSION: Bone mineral density measures in the osteopenia range. Fracture risk is moderate. Note: Any spine fracture indicates 5x risk for subsequent spine fracture and 2x risk for subsequent h ip fracture. World Health Organization criteria for BMD interpretation classify patients: Normal...... T- Score at or above -1.0 Osteopenic... T- Score between -1.0 and -2.5 Osteoporosis... T-Score at or below -2.5
== END 2022-07-01 02:37 ==
LOC: DI 02:17
PROVIDERS: PCP Nurse Practitioner Adult Health; Visit Provider Nurse Practitioner Adult Health
DX: M85.88 Other specified disorders of bone density and structure, other site (principal); Z78.0 Asymptomatic menopausal state
CPT/HCPCS: 77080

== ENCOUNTER → 2022-07-11 10:15 | Outpatient (BNVA) | payer MEDICARE, OTHER, SELFPAY | PROVIDERS: PCP Nurse Practitioner Adult Health; Referring Provider Nurse Practitioner Adult Health; Visit Provider Student in an Organized Health Care Education/Training Program | DX: M17.11 Unilateral primary osteoarthritis, right knee (principal) | CPT/HCPCS: 20610; J1040 ==

== ENCOUNTER 2022-07-16 03:03 | Outpatient (CLI) | payer MEDICARE, OTHER, SELFPAY ==
[2022-07-16 08:31] LABS: Anion Gap 5.8 mmol/L (3-11); BUN 18 mg/dL (7-18); CO2 31.2 mmol/L (21.0-32.0); CREATININE 1.1 mg/dL (0.55-1.02); Calcium 10.1 mg/dL (8.5-10.1); Calculated LDL 143 mg/dL (<100); Chloride 102 mmol/L (98-107); Cholesterol 271 mg/dL (<200); Estimated GFR 48.94 (mL/min/1.73m2); Glucose 103 mg/dL (74-106); HDL Cholesterol 98 mg/dL (40-60); Magnesium 2.4 mg/dL (1.8-2.4); Potassium 4.2 mmol/L (3.5-5.1); Sodium 139 mmol/L (136-145); Triglyceride 152 mg/dL (<150)
== END 2022-07-16 03:04 | disposition home or self-care (01) ==
LOC: LBO 03:04
PROVIDERS: PCP Nurse Practitioner Adult Health; Referring Provider Nurse Practitioner Adult Health; Visit Provider Nurse Practitioner Adult Health
DX: E78.5 Hyperlipidemia, unspecified (principal); I10 Essential (primary) hypertension; F41.8 Other specified anxiety disorders; K21.9 Gastro-esophageal reflux disease without esophagitis; N18.31 Chronic kidney disease, stage 3a
CPT/HCPCS: 36415; 80048; 80061; 82306; 83735

== ENCOUNTER → 2022-07-25 10:00 | Outpatient (BNVA) | payer MEDICARE, OTHER, SELFPAY | PROVIDERS: PCP Nurse Practitioner Adult Health; Referring Provider Nurse Practitioner Adult Health; Visit Provider Student in an Organized Health Care Education/Training Program | DX: M17.11 Unilateral primary osteoarthritis, right knee (principal) | CPT/HCPCS: 99213 ==

== ENCOUNTER 2022-09-17 02:18 | Outpatient (CLI) | payer MEDICARE, OTHER, SELFPAY ==
--- NOTE | 2022-09-17 07:45 | DI.MRI_ITS ---
Exam(s) MR LOWER JOINT RT WO EXAM: MR LOWER JOINT RT WO CLINICAL HISTORY: degenerative joint disease of right knee,M17.11 TECHNIQUE: Multiplanar multisequence MRI of the knee was performed. COMPARISON: CR XR KNEE RT 3V AP,LAT,LILLIANA from 05/30/2022 FINDINGS: EFFUSION: There is a prominent knee joint effusion. Synovial thickening is noted. No Michele cyst in the popliteal fossa there is subcutaneous edema anterior to the lower patella and patellar ligament. MARROW:There is prominent subarticular bone edema evident in the medial femoral condyle and subjacent medial tibial plateau. No abnormal intraosseous signal in the subarticular lateral femoral condyle lateral tibial plateau nor in the patella. However, there is a non expansile bone lesion in the post erior aspect of the metaphysis of the distal femur which is probably a non enchondroma, this measurin g approximately 1.4 x 1 point 3 cm. No cortical breakthrough at this level. No other osseous lesion s identified. PATELLOFEMORAL COMPARTMENT: The quadriceps tendon is intact. The patellar ligament is intact. There is relative preservation of the thickness of the retropatellar cartilage.No osteochondral defec t at this level. No intraosseous signal to suggest recent patellar dislocation. CRUCIATE LIGAMENTS: The anterior cruciate ligament is intact.The posterior cruciate ligament is intac t. MEDIAL COMPARTMENT/MEDIAL MENISCUS: There is tear of the posterior horn of the medial meniscus althou gh correlation to prior instrumentation-surgery recommended. There is extrusion of the anterior horn .. There is significant full-thickness cartilage loss over the medial femoral condyle and a large chondr al defect/osteochondral defect which measures slightly over 1 cm wide by a 2.2 cm AP x 0.3 cm deep. There is prominent overlying subarticular edema in the medial condyle. Also small subarticular cysts averaging 2 millimeters size noted in the medial condyle at this level. Cartilage loss is also seen over the subjacent tibial plateau and bone edema in the medial tibial plateau is also noted. Margin al osteophytes noted medial compartment MEDIAL COLLATERAL LIGAMENT: Partial tearing anteriorly in the region of attachment to the outer aspec t of the medial femoral condyle. LATERAL COMPARTMENT/LATERAL MENISCUS: There is no evidence of lateral meniscal tear.Minimal cartilage loss. No large chondral defects. No osteochondral defects. No osteophytes. ILIOTIBIAL BAND: Intact LATERAL COLLATERAL LIGAMENT COMPLEX: The fibular collateral ligament is intact. The biceps femoris t endon is intact.Popliteus muscle and tendon are intact. IMPRESSION: 1. The main findings here in the medial compartment where there is prominent tear of the posterior ho rn medial meniscus and a large overlying osteochondral defect in the main weight-bearing surface of t he medial femoral condyle with abundant subarticular edema at this level, both in the medial femoral condyle and in the underlying medial tibial plateau. Some extrusion of the anterior horn of medial m eniscus noted. 2. No tears of the lateral meniscus and there are minimal if any significant degenerative changes in the lateral compartment. 3. Partial tearing of the superior aspect of the MCL noted. Lateral collateral ligament complex is i ntact. 4. There are no cruciate ligament tears. Iliotibial band is intact. 5. Prominent joint effusion with synovial thickening evident. DATA REPOSITORY:
== END 2022-09-17 02:38 ==
LOC: DI 02:18
PROVIDERS: PCP Nurse Practitioner Adult Health; Visit Provider Student in an Organized Health Care Education/Training Program
DX: M17.11 Unilateral primary osteoarthritis, right knee (principal); S83.231A Complex tear of medial meniscus, current injury, right knee, initial encounter; M25.461 Effusion, right knee; X58.XXXA Exposure to other specified factors, initial encounter
CPT/HCPCS: 73721

== ENCOUNTER → 2022-09-24 13:22 | Outpatient (BNVA) | payer MEDICARE, OTHER, SELFPAY | PROVIDERS: PCP Nurse Practitioner Adult Health; Referring Provider Nurse Practitioner Adult Health; Visit Provider Student in an Organized Health Care Education/Training Program | DX: M17.11 Unilateral primary osteoarthritis, right knee (principal); M17.12 Unilateral primary osteoarthritis, left knee | CPT/HCPCS: 20610; 99214; J1030 ==

== ENCOUNTER → 2022-10-20 09:32 | Outpatient (BNVA) | payer MEDICARE, OTHER, SELFPAY | PROVIDERS: PCP Nurse Practitioner Adult Health; Visit Provider Student in an Organized Health Care Education/Training Program | DX: M17.11 Unilateral primary osteoarthritis, right knee (principal) | CPT/HCPCS: 99213 ==

== ENCOUNTER 2022-11-20 06:11 | Emergency (ER) | payer MEDICARE, OTHER, SELFPAY ==
[2022-11-20 06:14] VITALS: BP 170/87; PULSE 107; RESP 16; TEMP 36.6; O2SAT 95
--- NOTE | 2022-11-20 06:15 | DI.RAD_ITS ---
Exam(s) XR KNEE RT 3V AP,LAT,LILLIANA EXAM: XR KNEE RT 3V AP,LAT,LILLIANA CLINICAL HISTORY: right lateral knee pain after fall. TECHNIQUE: 2D digital imaging was performed. COMPARISON: CR XR KNEE RT 3V AP,LAT,LILLIANA from 05/30/2022 FINDINGS: 3 views No evidence of acute fracture. Prominent joint effusion noted. There is advanced narrowing of the medial compartment noted and there is a prominent osteochondral de fect at the articular surface of medial femoral condyle, as described on recent MRI. Lateral compart ment exhibits normal height. IMPRESSION: Degenerative changes in the medial compartment. Large osteochondral defect again noted in the medial compartment there is a large pleural effusion. Please see MRI report of 09/17/2022. DATA REPOSITORY: RADIATION DOSE DELIVERED:
--- NOTE | 2022-11-20 06:15 | DI.RAD_ITS ---
Exam(s) XR TIB/FIB RT EXAM: XR TIB/FIB RT CLINICAL HISTORY: Pain. TECHNIQUE: 2D digital imaging was performed. COMPARISON: No exams were available for comparison FINDINGS: Two views. Osteochondral defect in the medial femoral condyle articular surface noted. Previously documented. Significant narrowing of the medial compartment of the knee noted. There are no fractures of the tib ial plateau. No other osseous findings. IMPRESSION: As above. Please note that the entire ankle is not included in the field of view here. If clinicall y indicated dedicated ankle study can be performed. DATA REPOSITORY: RADIATION DOSE DELIVERED:
--- NOTE | 2022-11-20 06:20 | ED.GENADUL_ITS ---
Discharge Plan Disposition Patient Disposition: Home Condition: Good Discharge Details Chief Complaint: Orthopedic Clinical Impression: Contusion of knee, right Primary Care Provider: Ginette Vaca ED Provider: Benjie Ash Home Meds and New Rx's Prescriptions: No Action magnesium oxide 400 mg capsule 400 mg PO DAILY mirtazapine 7.5 mg tablet 3.75 mg PO DAILY PRN (Reason: anxiety or diff sleeping) Qty: 45 3RF amlodipine 2.5 mg tablet 2.5 mg PO DAILY Qty: 90 3RF Rx Instructions: For Blood pressure escitalopram oxalate 5 mg tablet 5 mg PO DAILY Qty: 90 3RF atorvastatin 20 mg tablet 20 mg PO DAILY Qty: 90 3RF Hold Instructions: Home Medication placed on hold at Doctor's office omeprazole 20 mg capsule,delayed release(DR/EC) 20 mg PO DAILY Qty: 90 3RF Rx Instructions: Take in AM on empty stomach, 30min prior to food and other medications. losartan 50 mg tablet 50 mg PO DAILY Qty: 90 3RF metoprolol tartrate 25 mg tablet 25 mg PO BID Qty: 180 3RF cholecalciferol (vitamin D3) 1,000 UNIT tablet 1,000 unit PO DAILY ibuprofen [Advil Liqui-Gel] 200 mg capsule 200 mg PO Q6H PRN dicyclomine 10 mg capsule 10 mg PO BID Qty: 180 3RF Rx Instructions: per GI aspirin [Aspirin Low-Strength] 81 MG tablet,chewable 81 mg PO DAILY Fish Oil 500 MG capsule,delayed release(DR/EC) 1,000 mg PO DAILY Discharge Instructions Instructions: Contusion in Adults (ED) Additional Instructions: At this time the x-ray shows no evidence of fracture. You have certainly bruised the knee though. With your previous injuries to the knee it is likely that you will have some moderate soreness for quite some time. However if the pain is not improving at all after 1 or 2 weeks of Tylenol, ice, and use of crutches as needed, then you may need further radiographic imaging with MRI for further assessment. If you notice any worsening of your symptoms, or any new symptoms such as vomiting, diarrhea, fever, chills, shortness of breath, chest pain, numbness, weakness, or fainting , please return immediately to the emergency department for reevaluation. Please follow up with your primary care provider as soon as possible for reassessment and reevaluation. As always, it was a pleasure participating in your medical care today. Referrals: Ginette Vaca, SURGICAL GARMENT INSPECTOR [Primary Care Provider] - Medical Decision Making This is an 87-year-old female with a past medical history of arthritis, mild anxiety, GERD, hypertension, high cholesterol, chronic kidney disease, who presents today for right knee pain. The patient states that last night she was walking up a hill slipped and hit her right knee. She has had pain ever since. Pain was slightly improved with Tylenol. Pain is made worse with movement. She denies any numbness or tingling. She did not hit anything else. She did not hit her head neck chest abdomen or pelvis or upper extremities. No other complaints at this time. M demonstrates tenderness at the proximal fibula as well as the lateral aspect of the right knee. No significant joint instability. Concern for sprain, contusion, or fracture. We will get x-ray to rule out fracture. Will give Tylenol for pain. 7:43 AM X-ray shows no evidence of acute process on the knee. Questionable medial malleolus fracture however patient has no tenderness there whatsoever. Symptoms clinically inconsistent with fracture. Patient does have evidence of an osteochondral injury to the medial femoral condyle, as seen on previous MRI, it is otherwise stable. Patient has no medial tenderness. Tenderness is located on the lateral aspect. X-rays are otherwise negative. Patient ambulates well with minimal limp. Symptoms do not appear overly consistent with tibial plateau fracture. We will recommend crutches, continued NSAIDs rest and ice for the next week. If the patient has persistent pain she may need follow-up MRI imaging. Discussed red flags for which to return. I have extensively reviewed the treatment plan and discharge instructions with the patient and their family. I have addressed all patient concerns at this time. The patient and family was made aware of what symptoms to monitor for that would warrant a return to the emergency department. Discussed the plan with the patient and family, they demonstrate verbal understanding and agreement with our assessment and plan at this time. The documentation in this chart was dictated using [employer] dictation software. Please excuse any dictation errors. FINDINGS: Bones/joints: Redemonstrated is evidence of an osteochondral injury to the medial femoral condyle. No fracture is identified elsewhere. The joint spaces are normally aligned. The medial compartment is mildly narrowed and with very mild periarticular osteophyte formation. There is also very mild osteophyte formation about the patellofemoral compartment. A small superior patellar enthesophyte is present. There is no osseous erosion or cortical destruction. Soft tissues: Moderate fullness of the soft tissues in the suprapatellar region is noted. Vasculature: Atherosclerotic vascular calcifications are noted. IMPRESSION: 1. Osteochondral injury to the medial femoral condyle, as on MRI of 09/17/2022. No fracture identified elsewhere. 2. Moderate suprapatellar soft tissue fullness suggesting effusion and/or synovial hypertrophy. 3. Degenerative changes as described. Thank you for allowing us to participate in the care of your patient FINDINGS: Bones/joints: There is again osteochondral injury of the medial femoral condyle. Question fracture of the medial malleolus, not completely included. No other fracture is identified. Soft tissues: Grossly unremarkable. IMPRESSION: Question medial malleolar fracture, not completely included. Suggest dedicated ankle radiographs. Thank you for allowing us to participate in the care of your patient. Dictated and Authenticated by: Salvador Rodríguez MD 11/20/2022 7:42 AM Eastern Time ([place] & [place]) HPI General Date/Time Provider Initiated Documentation: 11/20/22 06:15 . HPI Narrative: This is an 87-year-old female with a past medical history of arthritis, mild anxiety, GERD, hypertension, high cholesterol, chronic kidney disease, who presents today for right knee pain. The patient states that last night she was walking up a hill slipped and hit her right knee. She has had pain ever since. Pain was slightly improved with Tylenol. Pain is made worse with movement. She denies any numbness or tingling. She did not hit anything else. She did not hit her head neck chest abdomen or pelvis or upper extremities. No other complaints at this time. Related Data Home Medications Medication Instructions Recorded Confirmed aspirin 81 mg chewable tablet 81 mg PO DAILY 08/18/14 11/20/22 (Aspirin Low-Strength) omega 3-dha 60 mg-epa 90 mg-fish 1,000 mg PO DAILY 08/18/14 11/20/22 oil 500 mg capsule, delayed release (Fish Oil) cholecalciferol (vitamin D3) 25 1,000 unit PO DAILY 09/05/14 11/20/22 mcg (1,000 unit) tablet magnesium oxide 400 mg PO DAILY 07/12/18 11/20/22 losartan 50 mg tablet 50 mg PO DAILY #90 tabs 01/03/22 11/20/22 amlodipine 2.5 mg tablet 2.5 mg PO DAILY #90 tab-caps 01/31/22 11/20/22 atorvastatin 20 mg tablet 20 mg PO DAILY #90 tabs 01/31/22 11/20/22 escitalopram oxalate 5 mg tablet 5 mg PO DAILY #90 tabs 01/31/22 11/20/22 omeprazole 20 mg capsule,delayed 20 mg PO DAILY #90 caps 01/31/22 11/20/22 release metoprolol tartrate 25 mg tablet 25 mg PO BID #180 tab-caps 05/01/22 11/20/22 ibuprofen 200 mg capsule (Advil 200 mg PO Q6H PRN 07/02/22 11/20/22 Liqui-Gel) dicyclomine 10 mg capsule 10 mg PO BID #180 caps 07/23/22 11/20/22 mirtazapine 7.5 mg tablet 3.75 mg PO DAILY PRN anxiety or 10/02/22 11/20/22 diff sleeping #45 tabs Previous Rx's Medication Instructions Recorded losartan 50 mg tablet 50 mg PO DAILY #90 tabs 01/03/22 amlodipine 2.5 mg tablet 2.5 mg PO DAILY #90 tab-caps 01/31/22 atorvastatin 20 mg tablet 20 mg PO DAILY #90 tabs 01/31/22 escitalopram oxalate 5 mg tablet 5 mg PO DAILY #90 tabs 01/31/22 omeprazole 20 mg capsule,delayed 20 mg PO DAILY #90 caps 01/31/22 release metoprolol tartrate 25 mg tablet 25 mg PO BID #180 tab-caps 05/01/22 dicyclomine 10 mg capsule 10 mg PO BID #180 caps 07/23/22 mirtazapine 7.5 mg tablet 3.75 mg PO DAILY PRN anxiety or 10/02/22 diff sleeping #45 tabs Allergies Allergy/AdvReac Type Severity Reaction Status Date / Time Penicillins Allergy Intermediate mouth Verified 11/20/22 06:19 swells Sulfa (Sulfonamide Allergy Intermediate mouth Verified 11/20/22 06:19 Antibiotics) swells adhesive AdvReac Intermediate rash and Verified 11/20/22 06:19 blisters amoxicillin AdvReac Intermediate Swelling/Ed Verified 11/20/22 06:19 aleksandr amoxicillin trihydrate AdvReac Intermediate Swelling/Ed Verified 11/20/22 06:19 [From Prevpac] aleksandr clarithromycin [From Biaxin] AdvReac Unknown Verified 11/20/22 06:19 ibandronate sodium AdvReac Unknown Verified 11/20/22 06:19 [From Boniva] lansoprazole [From Prevpac] AdvReac Unknown Verified 11/20/22 06:19 lisinopril AdvReac Unknown Verified 11/20/22 06:19 General Stated Complaint: Orthopedic RAJESH: 4 Review of Systems All systems reviewed & are unremarkable except as noted in HPI and below PFSH All Active Problems (Updated 11/20/22 @ 07:45 by Benjie Ash DO) Contusion of knee, right (Acute) Arthritis of knee, left (Acute) Arthritis of knee, right (Acute) Irritable bowel syndrome with diarrhea (Chronic ~2019) Bentyl RX Osteopenia determined by x-ray (Acute ~06/2022) Antalgic gait (Acute) Right medial knee pain (Acute) depo medrol 07/11/22 Degenerative joint disease of right knee (Acute) Depo-Medrol injection: 07/08/2022; 05/30/2022 Posterior tibial tendonitis (Acute) Venous insufficiency of left lower extremity (Acute) Nervously anxious (Chronic) Gastro-esophageal reflux disease without esophagitis (Chronic) 01/23/21-[facility] GI note: unspecified whether esophagitis present. 03/14/16 reflux esophagitis- Dr Mccracken EGD. Tolerates TUMs. Osteoarthritis of left knee (Acute) Injection: 07/12/2021 Advance directive in chart (Acute) DNR/DNI; would want antibiotics Microscopic hematuria (Chronic) Urology, [facility] 08/2019; managing Anxiety (Chronic 07/17/17) Mirtazapine helpful; H/O Lexapro use CKD (chronic kidney disease) (Chronic 08/29/14) moderately decreased GFR from old records RH DJD (degenerative joint disease), lumbar (Chronic 04/17/15) Moderate DJD lumbar region. 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) COVID-19 12/21/2020 Diarrhea 11/2018--persistent, Metamucil 12/2018--stool studies NEG 01/2019--monitor,improved on metamucil 05/2019--GI stool studies again NEG 05/2019--CT-abd/pelvis NEG for acute GI issues ([facility]) H/O echocardiogram 11/02/12 preserved LV, EF 65%; ECHO 2021-->diastolic function Hip pain, left X-ray 08/2019; mild to mod OA History of excessive cerumen Impacted cerumen of both ears Lipoma of right lower extremity Right knee Microscopic hematuria Saw urol, [place] 08/2018, [place] Onychomycosis 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 No treatment Sensorineural hearing loss, bilateral Sinoatrial node dysfunction (08/29/14) Sleep disorder mirtazepine helping Tinea pedis Tinea unguium Surgical History colonoscopy (02/26/16) EGD (02/26/16) Vaginal hysterectomy (~2005) Family History Mother , age 94 Essential hypertension Heart disease Father , heart issues at age 70. Essential hypertension Heart disease Maternal Grandfather FH: mental illness [facility] M[facility] Aunt FH: mental illness anxiety and depression electric shock therapy Social History Smoking/Tobacco Use Status: Never Smoking risk assessment performed?: Yes Alcohol Intake: current Alcohol Intake frequency: holidays/special occasions only Drug use: Never Substance use type: does not use Household members: spouse and other Housing: house Communication Needs: Hard of Hearing Do you need help understanding health information?: Never Current gender identity: female What type of physical activity do you participate in: walking Frequency: 5-6 times per week Do you feel safe at home: Yes Do you feel safe in your relationship?: Yes Exam Narrative Exam Narrative: 1.Const: Well-nourished, Well-developed, appearing stated age 2.Eyes: PERRL, no conjunctival injection, and symmetrical lids. 3.ENT: Atraumatic external nose and ears. Moist MM. Neck: Symmetric, trachea midline, No thyromegaly. 4.CVS: +S1/S2, No murmurs or gallops. Peripheral pulses 2+ and equal in all extremities. Brisk capillary refill in all extremities. 5.RESP: Unlabored respiratory effort. Clear to auscultation bilaterally. No wheezes rales or rhonchi 6.GI: Soft, Nontender/Nondistended, No hepatosplenomegaly. No guarding or rebound. 7.MSK: Right knee demonstrates tenderness over the proximal fibula. Mild pain with flexion. No pain with extension. Mild pain with both varus and valgus stressing of the lateral component of the right knee. Mild pain with Jay's test. No patellar tenderness. Mild right lateral tibial plateau tenderness. 8.Skin: Warm, Dry. No rashes or lesions. 9.Neuro: monument mason II-XII grossly intact. Sensation grossly intact, no focal neurologic deficits. 10.Psych: (AAO) x3. Appropriate mood and affect Course Vital Signs Vital signs: Vital Signs Temperature 36.6 C 11/20/22 06:14 Pulse 107 H 11/20/22 06:14 Respiratory Rate 16 11/20/22 06:14 Blood Pressure 170/87 H 11/20/22 06:14 Pulse Oximetry 95 11/20/22 06:14 Temperature 36.6 C 11/20/22 06:14 Temperature Source Temporal Artery Scan 11/20/22 06:14 Pulse 107 H 11/20/22 06:14 Respiratory Rate 16 11/20/22 06:14 Respiratory Effort Normal 11/20/22 06:14 Blood Pressure 170/87 H 11/20/22 06:14 Pulse Oximetry 95 11/20/22 06:14 Oxygen Delivery Method Room Air 11/20/22 06:14 Oxygen Flow Rate 0 11/20/22 06:14
[2022-11-20] MEDS: Acetaminophen 500 MG TAB 1000 MG PO (06:28)
--- NOTE | 2022-11-20 07:40 | DI.VRAD_ITS ---
PROCEDURE INFORMATION: Exam: XR Right Knee Exam date and time: 11/20/2022 6:37 AM Age: 87 years old Clinical indication: Pain; Knee; Right; Additional info: Right lateral knee pain after fall TECHNIQUE: Imaging protocol: Radiologic exam of the right knee. Views: 3 views. COMPARISON: 1. MR LOWER JOINT RT WO 09/17/2022 2:53 PM 2. CR XR KNEE RT 3V AP,LAT,LILLIANA 05/30/2022 11:03 AM FINDINGS: Bones/joints: Redemonstrated is evidence of an osteochondral injury to the medial femoral condyle. No fracture is identified elsewhere. The joint spaces are normally aligned. The medial compartment is mildly narrowed and with very mild periarticular osteophyte formation. There is also very mild osteophyte formation about the patellofemoral compartment. A small superior patellar enthesophyte is present. There is no osseous erosion or cortical destruction. Soft tissues: Moderate fullness of the soft tissues in the suprapatellar region is noted. Vasculature: Atherosclerotic vascular calcifications are noted. IMPRESSION: 1. Osteochondral injury to the medial femoral condyle, as on MRI of 09/17/2022. No fracture identified elsewhere. 2. Moderate suprapatellar soft tissue fullness suggesting effusion and/or synovial hypertrophy. 3. Degenerative changes as described. Dictated and Authenticated by: Salvador Rodríguez MD. Ordering:NAHUM Waldrop MD
--- NOTE | 2022-11-20 07:42 | DI.VRAD_ITS ---
PROCEDURE INFORMATION: Exam: XR Right Tibia and Fibula Exam date and time: 11/20/2022 6:39 AM Age: 87 years old Clinical indication: Pain; Lower leg; Right; Additional info: Right prox and mid fib pain after fall TECHNIQUE: Imaging protocol: Radiologic exam of the right tibia and fibula. Views: 2 views. COMPARISON: CR XR KNEE RT 3V AP,LAT,LILLIANA 11/20/2022 6:37 AM FINDINGS: Bones/joints: There is again osteochondral injury of the medial femoral condyle. Question fracture of the medial malleolus, not completely included. No other fracture is identified. Soft tissues: Grossly unremarkable. IMPRESSION: Question medial malleolar fracture, not completely included. Suggest dedicated ankle radiographs. Dictated and Authenticated by: Salvador Rodríguez MD. Ordering:NAHUM Waldrop MD
[2022-11-20 07:59] VITALS: BP 154/55; PULSE 70; RESP 18; O2SAT 97
== END 2022-11-20 08:00 | disposition home or self-care (01) ==
PROVIDERS: Emergency Provider Student in an Organized Health Care Education/Training Program; PCP Nurse Practitioner Adult Health
DX: S80.01XA Contusion of right knee, initial encounter (principal); I12.9 Hypertensive chronic kidney disease with stage 1 through stage 4 chronic kidney disease, or unspecified chronic kidney disease; N18.9 Chronic kidney disease, unspecified; W01.0XXA Fall on same level from slipping, tripping and stumbling without subsequent striking against object, initial encounter; Y93.01 Activity, walking, marching and hiking
CPT/HCPCS: 73562; 99283; 73590

== ENCOUNTER 2022-11-27 03:55 | Outpatient (CLI) | payer MEDICARE, OTHER, SELFPAY ==
[2022-11-27 09:46] LABS: Calculated LDL 122 mg/dL (<100); Cholesterol 222 mg/dL (<200); HDL Cholesterol 76 mg/dL (40-60); Triglyceride 122 mg/dL (<150)
== END 2022-11-27 03:56 | disposition home or self-care (01) ==
LOC: LBO 03:55
PROVIDERS: PCP Nurse Practitioner Adult Health; Visit Provider Nurse Practitioner Adult Health
DX: E78.5 Hyperlipidemia, unspecified (principal)
CPT/HCPCS: 36415; 80061

== ENCOUNTER → 2022-12-22 09:07 | Outpatient (BNVA) | payer MEDICARE, OTHER, SELFPAY | PROVIDERS: PCP Nurse Practitioner Adult Health; Referring Provider Nurse Practitioner Adult Health; Visit Provider Student in an Organized Health Care Education/Training Program | DX: M17.11 Unilateral primary osteoarthritis, right knee (principal); M17.12 Unilateral primary osteoarthritis, left knee | CPT/HCPCS: 20610; J1040 ==

== ENCOUNTER → 2023-04-29 02:11 | Outpatient (CLI) | payer MEDICARE, OTHER, SELFPAY ==
--- NOTE | 2023-04-29 07:36 | DI.CT_ITS ---
Exam(s) CT HEAD WO EXAM: CT HEAD WO CLINICAL HISTORY: lac of head,fell. TECHNIQUE: Imaging Protocol: Axial computed tomography images with coronal and sagittal reformatted images were created and reviewed COMPARISON: CT CT HEAD WO from 04/03/2021 FINDINGS: Ventricles and Extra axial spaces: Normal in size and morphology for the patient's age. Hemorrhage: None. Cerebral parenchyma: No evidence of acute infarct or mass. Mild white matter changes of small vesse l disease. Minimal atrophy consistent with the patient's age. Midline shift: None. Brainstem/Cerebellum: Normal. Calvarium: Normal. Visualized Paranasal sinuses/Mastoids: Clear. Soft Tissues: Unremarkable. IMPRESSION: No acute intracranial process. RADIATION DOSE DELIVERED: Total DLP DATA REPOSITORY: All CT scans at this facility are submitted to the National Radiology Data Registry (NRDR) Dose Index Registry (DIR) with the [employer] (A[employer]). RADIATION OPTIMIZATION: All CT scans at this facility use at least one of these dose optimization te chniques: automated exposure control; mA and/or kV adjustment per patient size (includes targeted exa ms where dose is matched to clinical indication); or iterative reconstruction.
--- NOTE | 2023-04-29 07:58 | DI.RAD_ITS ---
Exam(s) XR SACRUM COCCYX EXAM: XR SACRUM COCCYX CLINICAL HISTORY: eval sacrum; SI Joints, post fall,sacral pain,[id number],bruise. TECHNIQUE: 2D digital imaging was performed. COMPARISON: No exams were available for comparison FINDINGS: BONES: No acute fracture is present. No bony destructive lesion is seen. JOINTS: No dislocation present. Degenerative changes at the SI joints and pubic symphysis as well a s lower lumbar spine. SOFT TISSUE: Normal. IMPRESSION: No evidence of fracture. DATA REPOSITORY: RADIATION DOSE DELIVERED:
== END ==
PROVIDERS: PCP Nurse Practitioner Adult Health; Visit Provider Student in an Organized Health Care Education/Training Program
DX: M17.11 Unilateral primary osteoarthritis, right knee (principal); M53.3 Sacrococcygeal disorders, not elsewhere classified; W19.XXXA Unspecified fall, initial encounter
CPT/HCPCS: 70450; 72220

== ENCOUNTER → 2023-06-10 08:19 | Outpatient (BNVA) | payer MEDICARE, OTHER, SELFPAY | PROVIDERS: PCP Nurse Practitioner Adult Health; Referring Provider Nurse Practitioner Adult Health | DX: M17.11 Unilateral primary osteoarthritis, right knee (principal) | CPT/HCPCS: 20610; J1040 ==

== ENCOUNTER 2023-07-03 21:00 | Emergency (ER) | payer MEDICARE, OTHER, SELFPAY ==
--- NOTE | 2023-07-03 21:00 | RT.EKG_ITS ---
APPROVED REPORT Exam: Resting ECG Reason for Exam: dizziness Patient Location: E HR:84 bpm ECG Measurements Heart Rate 84 AXIS IN 245 P 35 QRSd 88 QRS -14 QT 374 T 30 QTc 443 Conclusion Sinus rhythm...normal P axis, V-rate 60- 99 Prolonged IN interval...IN >220, V-rate 50- 90 Physician: no stemi
[2023-07-03 21:05] VITALS: BP 182/68; PULSE 94; RESP 20; O2SAT 97
[2023-07-03 21:08] VITALS: RESP 20
--- NOTE | 2023-07-03 21:20 | W.ED.GENAD ---
Discharge Plan Disposition Patient Disposition: Home Condition: Good Discharge Details Clinical Impression: Weakness, Acute UTI, Dehydration Primary Care Provider: Ginette Vaca ED Provider: Benjie Ash Home Meds and New Rx's Prescriptions: New ciprofloxacin HCl [Cipro] 500 mg tablet 500 mg PO BID 7 Days Qty: 14 0RF Premarin 0.625 mg/gram cream 0.625 mg vaginal DAILY Qty: 30 0RF Rx Instructions: Apply vaginally 1g daily for 2 weeks, then 1g Two times per week No Action magnesium oxide 400 mg capsule 400 mg PO DAILY atorvastatin 20 mg tablet 20 mg PO DAILY Qty: 90 3RF Hold Instructions: Home Medication placed on hold at Doctor's office losartan 50 mg tablet 50 mg PO DAILY Qty: 90 3RF omeprazole 20 mg capsule,delayed release(DR/EC) 20 mg PO DAILY Qty: 90 3RF Rx Instructions: Take in AM on empty stomach, 30min prior to food and other medications. mirtazapine 7.5 mg tablet 3.75 mg PO DAILY PRN (Reason: anxiety or diff sleeping) Qty: 45 3RF amlodipine 5 mg tablet 5 mg PO DAILY Qty: 90 3RF Rx Instructions: Dose increase 12/04/22 for goal BP <140/90 metoprolol tartrate 25 mg tablet 25 mg PO BID Qty: 180 3RF escitalopram oxalate 5 mg tablet 5 mg PO DAILY cholecalciferol (vitamin D3) 1,000 UNIT tablet 1,000 unit PO DAILY ibuprofen [Advil Liqui-Gel] 200 mg capsule 200 mg PO Q6H PRN dicyclomine 10 mg capsule 10 mg PO BID Qty: 180 3RF Rx Instructions: per GI aspirin [Aspirin Low-Strength] 81 MG tablet,chewable 81 mg PO DAILY Fish Oil 500 MG capsule,delayed release(DR/EC) 1,000 mg PO DAILY Discharge Instructions Instructions: Urinary Tract Infection in Women (ED), Weakness (ED) Additional Instructions: At this time your workup shows no evidence of stroke, significant electrolyte abnormality, or other change. There does appear to be evidence of a mild urinary tract infection. Please take the antibiotic as directed. Please apply the estrogen cream vaginally to help reduce the incidence of repeat urinary tract infection. If you notice any worsening of your symptoms, or any new symptoms such as vomiting, diarrhea, fever, chills, shortness of breath, chest pain, numbness, weakness, or fainting , please return immediately to the emergency department for reevaluation. Please follow up with your primary care provider as soon as possible for reassessment and reevaluation. As always, it was a pleasure participating in your medical care today. Referrals: Ginette Vaca NP [Primary Care Provider] - [facility] General Date/Time Provider Initiated Documentation: 07/03/23 21:03. HPI Narrative: This is a pleasant 57-year-old female with a past medical history of arthritis, mild anxiety, GERD, hypertension, high cholesterol, chronic kidney disease, who presents today for evaluation of dizziness and weakness. Patient states that she woke up this morning felt very dizzy. She describes it as generalized weakness, not feeling well. She denies any headache, chest pain or shortness of breath. She denies any room spinning sensation. She is not able to describe any particular aggravating or relieving factors. Symptoms are not necessarily made worse with movement or activity. She denies any ringing. She denies any symptoms like this in the past. No new medications. No new foods. No other complaints at this time. No other modifying factors. Related Data Home Medications Medication Instructions Recorded Confirmed aspirin 81 mg chewable tablet 81 mg PO DAILY 08/18/14 07/03/23 (Aspirin Low-Strength) omega 3-dha 60 mg-epa 90 mg-fish 1,000 mg PO DAILY 08/18/14 07/03/23 oil 500 mg capsule, delayed release (Fish Oil) cholecalciferol (vitamin D3) 25 1,000 unit PO DAILY 09/05/14 07/03/23 mcg (1,000 unit) tablet magnesium oxide 400 mg PO DAILY 07/12/18 07/03/23 ibuprofen 200 mg capsule (Advil 200 mg PO Q6H PRN 07/02/22 07/03/23 Liqui-Gel) dicyclomine 10 mg capsule 10 mg PO BID #180 caps 07/23/22 07/03/23 mirtazapine 7.5 mg tablet 3.75 mg (1/2 x 7.5 mg) PO DAILY 10/02/22 07/03/23 PRN anxiety or diff sleeping #45 tabs atorvastatin 20 mg tablet 20 mg PO DAILY #90 tabs 12/04/22 07/03/23 losartan 50 mg tablet 50 mg PO DAILY #90 tabs 12/04/22 07/03/23 omeprazole 20 mg capsule,delayed 20 mg PO DAILY #90 caps 12/04/22 07/03/23 release escitalopram oxalate 5 mg tablet 5 mg PO DAILY 04/08/23 07/03/23 amlodipine 5 mg tablet 5 mg PO DAILY #90 tabs 05/04/23 07/03/23 metoprolol tartrate 25 mg tablet 25 mg PO BID #180 tab-caps 05/04/23 07/03/23 ciprofloxacin HCl 500 mg tablet 500 mg PO BID 7 days #14 tabs 07/03/23 (Cipro) conjugated estrogens 0.625 mg/gram 0.625 mg vaginal DAILY #30 grams 07/04/23 vaginal cream (Premarin) Previous Rx's Medication Instructions Recorded dicyclomine 10 mg capsule 10 mg PO BID #180 caps 07/23/22 mirtazapine 7.5 mg tablet 3.75 mg (1/2 x 7.5 mg) PO DAILY 10/02/22 PRN anxiety or diff sleeping #45 tabs atorvastatin 20 mg tablet 20 mg PO DAILY #90 tabs 12/04/22 losartan 50 mg tablet 50 mg PO DAILY #90 tabs 12/04/22 omeprazole 20 mg capsule,delayed 20 mg PO DAILY #90 caps 12/04/22 release amlodipine 5 mg tablet 5 mg PO DAILY #90 tabs 05/04/23 metoprolol tartrate 25 mg tablet 25 mg PO BID #180 tab-caps 05/04/23 ciprofloxacin HCl 500 mg tablet 500 mg PO BID 7 days #14 tabs 07/03/23 (Cipro) conjugated estrogens 0.625 mg/gram 0.625 mg vaginal DAILY #30 grams 07/04/23 vaginal cream (Premarin) Allergies Allergy/AdvReac Type Severity Reaction Status Date / Time Penicillins Allergy Intermediate mouth Verified 07/03/23 09:53 swells Sulfa (Sulfonamide Allergy Intermediate mouth Verified 07/03/23 09:53 Antibiotics) swells adhesive AdvReac Intermediate rash and Verified 07/03/23 09:53 blisters amoxicillin AdvReac Intermediate Swelling/Ed Verified 07/03/23 09:53 aleksandr amoxicillin trihydrate AdvReac Intermediate Swelling/Ed Verified 07/03/23 09:53 [From Prevpac] aleksandr clarithromycin [From Biaxin] AdvReac Unknown Other (See Verified 07/03/23 09:53 Comment) ibandronate sodium AdvReac Unknown Other (See Verified 07/03/23 09:53 [From Boniva] Comment) lansoprazole [From Prevpac] AdvReac Unknown Other (See Verified 07/03/23 09:53 Comment) lisinopril AdvReac Unknown Other (See Verified 07/03/23 09:53 Comment) General Stated Complaint: Dizzy/Sync RAJESH: 3 Review of Systems All systems reviewed & are unremarkable except as noted in HPI and below Exam Narrative Exam Narrative: 1.Const: Well-nourished, Well-developed, appearing stated age 2.Eyes: PERRL, no conjunctival injection, and symmetrical lids. No vertical, rotatory or horizontal nystagmus. 3.ENT: Atraumatic external nose and ears. Moist MM. Neck: Symmetric, trachea midline, No thyromegaly. 4.CVS: +S1/S2, No murmurs or gallops. Peripheral pulses 2+ and equal in all extremities. Brisk capillary refill in all extremities. 5.RESP: Unlabored respiratory effort. Clear to auscultation bilaterally. No wheezes rales or rhonchi 6.GI: Soft, Nontender/Nondistended, No hepatosplenomegaly. No guarding or rebound. 7.MSK: Normocephalic/Atraumatic, Extremities w/o deformity or ttp No cyanosis or clubbing, Normal movement of all extremities 8.Skin: Warm, Dry. No rashes or lesions. 9.Neuro: shop helper II-XII grossly intact. Sensation grossly intact, no focal neurologic deficits. All 6 cardinal planes of vision are fully intact. No evidence of rotatory or vertical nystagmus. The patient demonstrated a normal rqcgaq-smnh-ziotaq, good dexterity. There was no evidence of dysdiadochokinesia. Patient was able to ambulate without difficulty. There was no wide-based gait. Romberg testing was normal. Bviz-ds-vafa testing was normal. Sensation was intact bilaterally as well as muscle strength bilaterally for all extremities. Patient was able to verbalize butter cup with no slurring, or miss pronunciation. 10.Psych: (AAO) x3. Appropriate mood and affect Course Vital Signs Vital signs: Vital Signs Pulse 94 H 07/03/23 21:05 Respiratory Rate 20 03/08/24 21:05 Blood Pressure 182/68 H 07/03/23 21:05 Pulse Oximetry 97 07/03/23 21:05 Pulse 94 H 07/03/23 21:05 Respiratory Rate 20 07/03/23 21:08 Respiratory Effort Normal 07/03/23 21:08 Respiratory Depth Normal 07/03/23 21:08 Respiratory Pattern Normal 07/03/23 21:08 Blood Pressure 182/68 H 07/03/23 21:05 Blood Pressure Position Supine 07/03/23 21:05 Pulse Oximetry 97 07/03/23 21:05 Oxygen Delivery Method Room Air 07/03/23 21:05 Oxygen Flow Rate 0 07/03/23 21:05 Pain Level 0 07/03/23 21:05 Medical Decision Making This is a pleasant 57-year-old female with a past medical history of arthritis, mild anxiety, GERD, hypertension, high cholesterol, chronic kidney disease, who presents today for evaluation of dizziness and weakness. Patient states that she woke up this morning felt very dizzy. She describes it as generalized weakness, not feeling well. She denies any headache, chest pain or shortness of breath. She denies any room spinning sensation. She is not able to describe any particular aggravating or relieving factors. Symptoms are not necessarily made worse with movement or activity. She denies any ringing. She denies any symptoms like this in the past. No new medications. No new foods. No other complaints at this time. No other modifying factors. Exam demonstrates well-appearing female, vital signs stable, no significant abnormalities. Neurologic assessment is benign, no ataxia, significant nystagmus, or deficit. Differential is broad, but includes BPPV, dehydration or electrolyte abnormality, cardiac dysrhythmia, stroke, or other abnormality. Will get CT imaging, gently rehydrate, give meclizine, evaluate for concerning etiologies, monitor closely and reassess. 12:20 AM Laboratory workup has returned, no white count bandemia or left shift. Electrolytes stable. Renal function baseline. Thyroid function stable. Troponin normal. Urinalysis does show evidence of mild UTI, after rehydration and meclizine Zofran patient's symptoms notably improved. CT of the head neck negative for acute process. Symptoms over the superior and consisted for cerebellar stroke. I suspect mild dehydration and mild UTI are likely culprits to her current symptomatology which is notably improved after rehydration. Patient will be given Cipro for home use, and vaginal estrogen to help reduce recurrence of UTIs. Patient stable for discharge. Patient was asking for discharge much earlier and she had a notable clinical improvement but we did need to wait an additional [address] results to return. I have extensively reviewed the treatment plan and discharge instructions with the patient and their family. I have addressed all patient concerns at this time. The patient and family was made aware of what symptoms to monitor for that would warrant a return to the emergency department. Discussed the plan with the patient and family, they demonstrate verbal understanding and agreement with our assessment and plan at this time. The documentation in this chart was dictated using [employer] dictation software. Please excuse any dictation errors. FINDINGS: ANTERIOR CIRCULATION: Right internal carotid artery: Intracranial segment is patent with no significant stenosis. No aneurysm. Right middle cerebral artery: No occlusion or significant stenosis. No aneurysm. Right anterior cerebral artery: No occlusion or significant stenosis. No aneurysm. Left internal carotid artery: Intracranial segment is patent with no significant stenosis. No aneurysm. Left middle cerebral artery: No occlusion or significant stenosis. No aneurysm. Left anterior cerebral artery: No occlusion or significant stenosis. No aneurysm. POSTERIOR CIRCULATION: Right vertebral artery: No occlusion or significant stenosis. No aneurysm. Left vertebral artery: No occlusion or significant stenosis. No aneurysm. Basilar artery: No occlusion or significant stenosis. No aneurysm. Right posterior cerebral artery: origin. No occlusion or significant stenosis. No aneurysm. Left posterior cerebral artery: No occlusion or significant stenosis. No aneurysm. Brain: No definite mass, mass effect, or midline shift. There are moderate confluent periventricular hypodensities consistent with chronic microischemic changes of white matter. Cerebral ventricles: No ventriculomegaly. Bones/joints: Unremarkable. No acute fracture. Soft tissues: Unremarkable. IMPRESSION: 1. No large vessel stenosis or occlusion. 2. Brain: Stable moderate chronic microischemic changes of white matter. FINDINGS: Right common carotid artery: No significant stenosis. No dissection or occlusion. Right internal carotid artery: Mild stenosis of the proximal extracranial segment. No dissection or occlusion. Right external carotid artery: Moderate the by the stenosis of the origin. Left common carotid artery: No significant stenosis. No dissection or occlusion. Left internal carotid artery: No significant stenosis of the extracranial segment. No dissection or occlusion. Left external carotid artery: No occlusion or significant stenosis of the origin. Right vertebral artery: No significant stenosis. No dissection or occlusion. A patent small caliber vessel. Left vertebral artery: Moderate stenosis at the origin of the dominant left vertebral artery the in. No dissection or occlusion. Soft tissues: No significant soft tissue swelling. Bones/joints: No acute fracture. Multilevel degenerative disc disease without significant spinal canal stenosis. IMPRESSION: 1. The mid extracranial segment of the right internal carotid artery shows mild stenosis by NASCET criteria. 2. Normal left extracranial internal carotid artery by NASCET criteria. 3. Moderate stenosis at the origin of the dominant left vertebral artery. 4. No significant stenosis of the non dominant, small caliber right vertebral artery. REFERENCES: NASCET CRITERIA. The degree of stenosis in the cervical segment of the internal carotid artery is based on NASCET criteria. Normal is no stenosis. Mild is less than 50% stenosis. Moderate is 50- 69% stenosis. Severe is 70% to 99% stenosis. Total occlusion is no detectable patent lumen. Thank you for allowing us to participate in the care of your patient. Dictated and Authenticated by: Yuri Pleitez MD 07/04/2023 12:13 AM Eastern Time ([place] & [place]) Quality:SDOH Health Related Social Needs: No Data to Display PFSH All Active Problems (Updated 07/04/23 @ 00:23 by Benjie Ash DO) Dehydration (Acute) Acute UTI (Acute) Weakness (Acute) Dizziness (Acute) Spinning this am, with episodes of dizziness .. thought to be orthostatic/dehydration (media consultant 07/03/23) Pain in sacrum (Acute) Arthritis of knee, left (Acute) Arthritis of knee, right (Acute) Most recent DEPO MEDROL: 06/10/2023; 12/22/22 Irritable bowel syndrome with diarrhea (Chronic ~2019) Bentyl RX Osteopenia determined by x-ray (Acute ~06/2022) Antalgic gait (Acute) Right medial knee pain (Acute) depo medrol 07/11/22 Degenerative joint disease of right knee (Acute) Depo-Medrol injection: 07/08/2022; 05/30/2022 Posterior tibial tendonitis (Acute) Venous insufficiency of left lower extremity (Acute) Nervously anxious (Chronic) Gastro-esophageal reflux disease without esophagitis (Chronic) 01/23/21-[facility] note: unspecified whether esophagitis present. 03/14/16 reflux esophagitis- Dr Mccracken EGD. Tolerates TUMs. Osteoarthritis of left knee (Acute) Injection: 07/12/2021 Advance directive in chart (Acute) DNR/DNI; would want antibiotics Microscopic hematuria (Chronic) Urology, [place] 08/2019; managing Anxiety (Chronic 07/17/17) Mirtazapine helpful; H/O Lexapro use (qHS for anx/sleep, but trial qOD due to am diziness & wt gain, ik, 07/03/23) CKD (chronic kidney disease) (Chronic 08/29/14) moderately decreased GFR from old records RH DJD (degenerative joint disease), lumbar (Chronic 04/17/15) Moderate DJD lumbar region. Hyperlipidemia (Chronic 08/29/14) Hypertension (Chronic 08/29/14) Palpitations (Chronic 07/17/15) SVT Dr Aaron Balderas, Cardiology; 2021 SVT & PVCs & VTach run 8 beats max rate 203 Osteoarthritis of both hands (Chronic 06/19/15) Medical History Laceration of head Fall Onychomycosis History of excessive cerumen Sensorineural hearing loss, bilateral Chronic venous insufficiency of lower extremity Left, Podiatry Bilateral tibialis tendinitis podiatry, Weeks, bunion left foot Lipoma of right lower extremity Right knee COVID-19 12/21/2020 Arthritis of left sacroiliac joint Bunion of left foot Acute stasis dermatitis of left lower extremity Tinea pedis Tinea unguium 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 No treatment Diarrhea 11/2018--persistent, Metamucil 12/2018--stool studies NEG 01/2019--monitor,improved on metamucil 05/2019--GI stool studies again NEG 05/2019--CT-abd/pelvis NEG for acute GI issues (LR) Sinoatrial node dysfunction (08/29/14) Microscopic hematuria Saw urol, ok 08/2018, ik Sleep disorder mirtazepine helping Conductive hearing loss, external ear (09/24/17) Cardiac murmur (03/15/15) Bladder spasm (06/03/17) H/O echocardiogram 11/02/12 preserved LV, EF 65%; ECHO 2021-->diastolic function Surgical History colonoscopy (02/26/16) Vaginal hysterectomy (~2005) EGD (02/26/16) Family History Mother , age 94 Essential hypertension Heart disease Father , heart issues at age 70. Essential hypertension Heart disease Maternal Grandfather FH: mental illness Heart disease spent life in [facility] Maternal Aunt FH: mental illness anxiety and depression electric shock therapy Social History Smoking/Tobacco Use Status: Never Smoking risk assessment performed?: Yes Alcohol Intake: current Alcohol Intake frequency: holidays/special occasions only Drug use: Never Substance use type: does not use Household members: spouse and other Housing: house Communication Needs: Hard of Hearing Do you need help understanding health information?: Never Current gender identity: female What type of physical activity do you participate in: walking Frequency: 5-6 times per week Do you feel safe at home: Yes Do you feel safe in your relationship?: Yes
[2023-07-03] MEDS: Meclizine 25 MG TAB PO (21:27)
[2023-07-03] MEDS: Normal Saline 500 ML IV (21:27)
[2023-07-03 21:49] LABS: INR 0.9 (0.9-1.1); PTT Activated 24.5 sec (23.6-32.8); Prothrombin Time 9.2 sec (9.1-11.1)
[2023-07-03 21:53] LABS: Abs Immature Grans 0.02 10^3/uL (0.0-0.06); Absolute Basophil Count 0.05 10^3/uL (0.0-0.2); Absolute Eosinophil Count 0.22 10^3/uL (0.0-0.7); Absolute Lymphocyte Count 3.22 10^3/uL (1.2-3.4); Absolute Monocyte Count 0.68 10^3/uL (0.1-0.8); Absolute Neutrophil Count 3.46 10^3/uL (1.2-6.7); Basophils % 0.7; Eosinophils % 2.9; HCT 36.4 % (36.0-46.0); HGB 12.2 g/dL (11.2-15.7); Immature Grans % 0.3; Lymphocytes % 42.1; MCH 30.7 pg (27.0-33.0); MCHC 33.5 % (32.0-36.0); MCV 92 fL (80-95); MPV 9.9 fL (8.0-11.0); Monocytes % 8.9; Neutrophils % 45.1; Platelet Count 256 10^3/uL (130-400); RBC 3.98 10^6/uL (3.93-5.22); RDW-SD 43.7 fL; WBC 7.65 10^3/uL (4.4-10.8)
[2023-07-03 22:01] LABS: ALT 25 U/L (14-59); AST 18 U/L (15-37); Albumin 3.8 g/dL (3.4-5.0); Alkaline Phosphatase 102 U/L (46-116); Anion Gap 10.5 mmol/L (3-11); BUN 21 mg/dL (7-18); Bilirubin, Total 0.4 mg/dL (0.2-1.0); CO2 27.5 mmol/L (21.0-32.0); CREATININE 1.1 mg/dL (0.55-1.02); Calcium 9.9 mg/dL (8.5-10.1); Chloride 103 mmol/L (98-107); Estimated GFR 48.63 (mL/min/1.73m2); Glucose 119 mg/dL (74-106); Potassium 4.1 mmol/L (3.5-5.1); Sodium 141 mmol/L (136-145); TSH (W/Ref FT4) 4.08 uIU/mL (0.36-3.74); Total Protein 7.4 g/dL (6.4-8.2); Troponin I < 50 ng/L (< or =60)
--- NOTE | 2023-07-03 22:16 | DI.CT_ITS ---
Exam(s) CT BRAIN NECK CTA EXAM: CT BRAIN NECK CTA CLINICAL HISTORY: dizzy, eval for stroke. TECHNIQUE: Imaging Protocol: Axial CT angiography was performed with multi-slice acquisition and mu lti-planar and/or 3D reconstructions. CONTRAST MATERIAL: Intravenous: Omnipaque 350 contrast volume:85 mL COMPARISON: CT CT HEAD WO from 04/03/[address] HEAD WO from 04/29/2023 FINDINGS: CT Head W/O and W: Ventricles and Extra axial spaces: Normal in size and morphology for the patient's age. Hemorrhage: None. Cerebral parenchyma: There are areas of decreased attenuation in the white matter consistent with chr onic microvascular ischemic disease. There is no mass effect. There are stable areas of hyperdensit y seen in the basal ganglia bilaterally which are chronic. Midline shift: None. Brainstem/Cerebellum: Normal. Calvarium: Normal. Visualized Paranasal sinuses/Mastoids: Clear. Soft Tissues: Unremarkable. Enhancement: Unremarkable. CTA Neck W: Common Carotid: Right: No dissection, occlusion or significant stenosis. Mild calcification in the distal common car otid artery without significant stenosis. Left: No dissection, occlusion or significant stenosis. Mild atherosclerotic calcification in the di stal common carotid artery without significant stenosis. There is also mild calcification at the henry gin of the common carotid artery without significant stenosis. External Carotid: Right: No occlusion or significant stenosis. Left: No occlusion or significant stenosis. Internal Carotid: Right: No dissection, occlusion or significant stenosis. Left: No dissection, occlusion or significant stenosis. Minimal atherosclerotic calcification at the origin without significant stenosis. Vertebral Artery: Right: No dissection, occlusion or significant stenosis. There is a non dominant right vertebral art tameka. Left: No dissection, occlusion or significant stenosis. There is a dominant left vertebral artery. There is mild narrowing at the origin of the left vertebral artery. Lung Apices: Normal. Bones: Within normal limits for the patient's age. Soft Tissues: Normal. Thyroid gland: Unremarkable. CTA Brain W: Internal Carotid Arteries: There is atherosclerotic calcification present but no significant stenosis . There is no occlusion or aneurysm. Anterior Cerebral Arteries: Right: No aneurysm, occlusion or significant stenosis. Left: No aneurysm, occlusion or significant stenosis. Middle Cerebral Arteries: Right: No aneurysm, occlusion or significant stenosis. Left: No aneurysm, occlusion or significant stenosis. Posterior Cerebral Arteries: Right: No aneurysm, occlusion or significant stenosis. The right posterior cerebral artery arises pr edominantly from the PCOM which is a normal variant. Left: No aneurysm, occlusion or significant stenosis. Vertebral Arteries: Right: No aneurysm, occlusion or significant stenosis. Left: No aneurysm, occlusion or significant stenosis. Basilar Artery: No aneurysm, occlusion or significant stenosis. IMPRESSION: 1. No large vessel occlusion or significant stenosis on the CT angiography of the head. 2. No acute intracranial process. 3. There is mild narrowing of the origin of the left vertebral artery in the distal right common diana tid artery. 4. No significant stenosis or occlusion is seen on the CT angiography of the neck. RADIATION DOSE DELIVERED: Total DLP DATA REPOSITORY: All CT scans at this facility are submitted to the National Radiology Data Registry (NRDR) Dose Index Registry (DIR) with the [employer] (ACR). RADIATION OPTIMIZATION: All CT scans at this facility use at least one of these dose optimization te chniques: automated exposure control; mA and/or kV adjustment per patient size (includes targeted exa ms where dose is matched to clinical indication); or iterative reconstruction.
[2023-07-03 22:18] LABS: FREE T4 0.94 ng/dL (0.76-1.46)
[2023-07-03] MEDS: Ondansetron 4 MG/2 ML VIAL IVP (22:25)
[2023-07-03] MEDS: Normal Saline - Diluent 50 ML VIAL IJ (22:30)
[2023-07-03] MEDS: Omnipaque 350 MG/ML 100 ML BTL IJ (22:30)
[2023-07-03 22:55] LABS: Bilirubin Negative (Negative); Blood Small (Negative); Clarity Clear (Clear); Glucose Negative (Negative); Ketones Negative (Negative); Leukocyte Esterase Small (Negative); Nitrite Negative (Negative); Urobilinogen 0.2 mg/dL (Up to 0.2)
[2023-07-03 23:02] LABS: Bacteria Few HPF (Negative); C & S Indicated? No/Sq. Contamination; Casts Negative LPF (Negative); Crystals Negative HPF (Negative); Epithelial Cells Moderate HPF (Negative); Mucus Negative (Negative)
[2023-07-04] MEDS: Ciprofloxacin 500 MG TAB PO (00:04)
--- NOTE | 2023-07-04 00:13 | DI.VRAD_ITS ---
PROCEDURE INFORMATION: Exam: CTA Head With Contrast, Arteriography Exam date and time: 07/03/2023 10:42 PM Age: 87 years old Clinical indication: Stroke-like symptoms; Dizziness/giddiness; Additional info: Dizzy, eval for stroke TECHNIQUE: Imaging protocol: Computed tomographic angiography of the head with contrast. Exam focused on the arteries. 3D rendering (Not supervised by radiologist): MIP and/or 3D reconstructed images were created by the technologist. Contrast material: OMNI 350; Contrast volume: 85 ml; Contrast route: INTRAVENOUS (IV); COMPARISON: CT HEAD WO 04/29/2023 7:32 AM FINDINGS: ANTERIOR CIRCULATION: Right internal carotid artery: Intracranial segment is patent with no significant stenosis. No aneurysm. Right middle cerebral artery: No occlusion or significant stenosis. No aneurysm. Right anterior cerebral artery: No occlusion or significant stenosis. No aneurysm. Left internal carotid artery: Intracranial segment is patent with no significant stenosis. No aneurysm. Left middle cerebral artery: No occlusion or significant stenosis. No aneurysm. Left anterior cerebral artery: No occlusion or significant stenosis. No aneurysm. POSTERIOR CIRCULATION: Right vertebral artery: No occlusion or significant stenosis. No aneurysm. Left vertebral artery: No occlusion or significant stenosis. No aneurysm. Basilar artery: No occlusion or significant stenosis. No aneurysm. Right posterior cerebral artery: origin. No occlusion or significant stenosis. No aneurysm. Left posterior cerebral artery: No occlusion or significant stenosis. No aneurysm. Brain: No definite mass, mass effect, or midline shift. There are moderate confluent periventricular hypodensities consistent with chronic microischemic changes of white matter. Cerebral ventricles: No ventriculomegaly. Bones/joints: Unremarkable. No acute fracture. Soft tissues: Unremarkable. IMPRESSION: 1. No large vessel stenosis or occlusion. 2. Brain: Stable moderate chronic microischemic changes of white matter. PROCEDURE INFORMATION: Exam: CTA Neck With Contrast Exam date and time: 07/03/2023 10:42 PM Age: 87 years old Clinical indication: Stroke-like symptoms; Dizziness/giddiness; Additional info: Dizzy, eval for stroke TECHNIQUE: Imaging protocol: Computed tomographic angiography of the neck with contrast. Exam focused on the cervical segments of the vasculature. 3D rendering (Not supervised by radiologist): MIP and/or 3D reconstructed images were created by the technologist. Contrast material: OMNI 350; Contrast volume: 100 ml; Contrast route: INTRAVENOUS (IV); COMPARISON: CT THORAX ABDOMEN CTA 12/07/2021 9:02 AM FINDINGS: Right common carotid artery: No significant stenosis. No dissection or occlusion. Right internal carotid artery: Mild stenosis of the proximal extracranial segment. No dissection or occlusion. Right external carotid artery: Moderate the by the stenosis of the origin. Left common carotid artery: No significant stenosis. No dissection or occlusion. Left internal carotid artery: No significant stenosis of the extracranial segment. No dissection or occlusion. Left external carotid artery: No occlusion or significant stenosis of the origin. Right vertebral artery: No significant stenosis. No dissection or occlusion. A patent small caliber vessel. Left vertebral artery: Moderate stenosis at the origin of the dominant left vertebral artery the in. No dissection or occlusion. Soft tissues: No significant soft tissue swelling. Bones/joints: No acute fracture. Multilevel degenerative disc disease without significant spinal canal stenosis. IMPRESSION: 1. The mid extracranial segment of the right internal carotid artery shows mild stenosis by NASCET criteria. 2. Normal left extracranial internal carotid artery by NASCET criteria. 3. Moderate stenosis at the origin of the dominant left vertebral artery. 4. No significant stenosis of the non dominant, small caliber right vertebral artery. REFERENCES: NASCET CRITERIA. The degree of stenosis in the cervical segment of the internal carotid artery is based on NASCET criteria. Normal is no stenosis. Mild is less than 50% stenosis. Moderate is 50-69% stenosis. Severe is 70% to 99% stenosis. Total occlusion is no detectable patent lumen. Dictated and Authenticated by: Yuri Pleitez MD. Ordering:NAHUM Waldrop MD
[2023-07-04 00:14] VITALS: BP 140/81; PULSE 86; RESP 18; TEMP 37; O2SAT 96
== END 2023-07-04 00:22 | disposition home or self-care (01) ==
PROVIDERS: Emergency Provider Student in an Organized Health Care Education/Training Program; PCP Nurse Practitioner Adult Health
DX: N39.0 Urinary tract infection, site not specified (principal); E86.0 Dehydration; I11.0 Hypertensive heart disease with heart failure; I50.9 Heart failure, unspecified; E78.5 Hyperlipidemia, unspecified; Z79.82 Long term (current) use of aspirin
CPT/HCPCS: 70496; 70498; 80053; 93005; 96360; 99285; 81003; 81015; 84439; 84443; 84484; 85025; 85610; 85730; 93010; 99284; J2405; J3490

== ENCOUNTER 2023-08-03 04:12 | Outpatient (CLI) | payer MEDICARE, OTHER, SELFPAY ==
[2023-08-03 08:42] LABS: Anion Gap 7.4 mmol/L (3-11); BUN 18 mg/dL (7-18); CO2 29.6 mmol/L (21.0-32.0); CREATININE 1.1 mg/dL (0.55-1.02); Calcium 9.9 mg/dL (8.5-10.1); Calculated LDL 122 mg/dL (<100); Chloride 106 mmol/L (98-107); Cholesterol 238 mg/dL (<200); Estimated GFR 48.63 (mL/min/1.73m2); Glucose 100 mg/dL (74-106); HDL Cholesterol 83 mg/dL (40-60); Potassium 4.3 mmol/L (3.5-5.1); Sodium 143 mmol/L (136-145); Triglyceride 166 mg/dL (<150)
== END 2023-08-03 04:13 | disposition home or self-care (01) ==
PROVIDERS: PCP Nurse Practitioner Adult Health; Referring Provider Nurse Practitioner Adult Health; Visit Provider Nurse Practitioner Adult Health
DX: N18.9 Chronic kidney disease, unspecified (principal); I10 Essential (primary) hypertension; E78.5 Hyperlipidemia, unspecified
CPT/HCPCS: 36415; 80048; 80061

== ENCOUNTER → 2023-10-05 09:41 | Outpatient (BNVA) | payer MEDICARE, OTHER, SELFPAY | PROVIDERS: PCP Nurse Practitioner Adult Health; Referring Provider Nurse Practitioner Adult Health; Visit Provider Student in an Organized Health Care Education/Training Program | DX: M17.11 Unilateral primary osteoarthritis, right knee (principal) | CPT/HCPCS: 20610; J1010 ==

== ENCOUNTER 2023-11-09 13:12 | Outpatient (CLI) | payer MEDICARE, OTHER, SELFPAY ==
[2023-11-09 12:34] LABS: Abs Immature Grans 0.04 10^3/uL (0.0-0.06); Absolute Basophil Count 0.06 10^3/uL (0.0-0.2); Absolute Eosinophil Count 0.07 10^3/uL (0.0-0.7); Absolute Lymphocyte Count 1.57 10^3/uL (1.2-3.4); Absolute Monocyte Count 0.57 10^3/uL (0.1-0.8); Absolute Neutrophil Count 4.99 10^3/uL (1.2-6.7); Basophils % 0.8 %; HCT 38.2 % (36.0-46.0); HGB 12.9 g/dL (11.2-15.7); Immature Grans % 0.5 %; Lymphocytes % 21.5 %; MCH 31.3 pg (27.0-33.0); MCHC 33.8 % (32.0-36.0); MCV 93 fL (80-95); MPV 9.5 fL (8.0-11.0); Monocytes % 7.8 %; Neutrophils % 68.4 %; Platelet Count 278 10^3/uL (130-400); RBC 4.12 10^6/uL (3.93-5.22); RDW 13.2 % (11.7-14.6); RDW-SD 44.9 fL
[2023-11-09 14:05] LABS: ALT 28 U/L (14-59); AST 19 U/L (15-37); Albumin 3.7 g/dL (3.4-5.0); Alkaline Phosphatase 87 U/L (46-116); Anion Gap 10.5 mmol/L (3-11); BUN 9 mg/dL (7-18); Bilirubin, Total 0.47 mg/dL (0.2-1.0); CO2 27.5 mmol/L (21.0-32.0); CREATININE 1.1 mg/dL (0.55-1.02); Calcium 9.6 mg/dL (8.5-10.1); Chloride 97 mmol/L (98-107); Estimated GFR 48.33 (mL/min/1.73m2); Folate > 20.0 ng/mL (8.6-20.0); Glucose 99 mg/dL (74-106); Magnesium 2.3 mg/dL (1.8-2.4); Potassium 4.4 mmol/L (3.5-5.1); Sodium 135 mmol/L (136-145); Total Protein 7.2 g/dL (6.4-8.2); Vitamin B12 1067 pg/mL (193-986)
[2023-11-09 15:15] LABS: Lab Add On Test DONE
[2023-11-09 15:37] LABS: TSH (W/Ref FT4) 1.01 uIU/mL (0.36-3.74)
== END 2023-11-09 13:13 | disposition home or self-care (01) ==
LOC: LBO 13:13
PROVIDERS: PCP Nurse Practitioner Adult Health; Visit Provider Nurse Practitioner Adult Health
DX: R42 Dizziness and giddiness (principal); R20.2 Paresthesia of skin; E87.1 Hypo-osmolality and hyponatremia
CPT/HCPCS: 36415; 80053; 82607; 82746; 83735; 84443; 85025

== ENCOUNTER 2023-11-10 05:20 | Emergency (ER) | payer MEDICARE, OTHER, SELFPAY ==
[2023-11-10 05:21] VITALS: BP 173/69; PULSE 86; RESP 16; TEMP 36.8; O2SAT 97
--- NOTE | 2023-11-10 05:25 | W.ED.GENAD ---
Discharge Plan Disposition Patient Disposition: Home Condition: Good Discharge Details Clinical Impression: Nausea Primary Care Provider: Ginette Vaca ED Provider: Brian Patel [facility]s and New Rx's Prescriptions: New ondansetron 4 mg tablet,disintegrating 4 mg PO Q8H PRN (Reason: nausea and vomiting) Qty: 10 0RF Continued magnesium oxide 400 mg capsule 400 mg PO DAILY metoprolol tartrate 25 mg tablet 25 mg PO BID Qty: 180 3RF dicyclomine 10 mg capsule 10 mg PO BID Qty: 180 3RF Rx Instructions: per GI atorvastatin 20 mg tablet 20 mg PO DAILY Qty: 90 3RF losartan 50 mg tablet 50 mg PO DAILY Qty: 90 3RF mirtazapine 7.5 mg tablet 3.75 mg PO DAILY PRN (Reason: anxiety or diff sleeping) Qty: 45 3RF omeprazole 20 mg capsule,delayed release(DR/EC) 20 mg PO DAILY Qty: 90 3RF Rx Instructions: Take in AM on empty stomach, 30min prior to food and other medications. acetaminophen 325 mg capsule 325 mg PO ONCE PRN (Reason: fever or pain) cholecalciferol (vitamin D3) 1,000 UNIT tablet 1,000 unit PO DAILY aspirin [Aspirin Low-Strength] 81 MG tablet,chewable 81 mg PO DAILY Fish Oil 500 MG capsule,delayed release(DR/EC) 1,000 mg PO DAILY No Action amlodipine 5 mg tablet 5 mg PO DAILY Qty: 90 3RF Rx Instructions: Dose increase 12/04/22 for goal BP <140/90 Discharge Instructions Additional Instructions: You were seen for persistent nausea. Your laboratory studies performed yesterday by your PCP are reassuring with no significant abnormalities. Your exam here is unremarkable as well. Your improvement of your nausea with ondansetron. A prescription for 10 of these have been sent to your pharmacy for use in the morning if needed. You should be receiving a phone call to schedule coming in for your heart monitor. Follow-up with your primary care as planned. Return to ED for any syncope, neurologic change, chest pain, shortness of breath, abdominal pain, other concerns. Referrals: Ginette Vaca, [employer] [Primary Care Provider] - HPI General Mode of arrival: EMS. Date/Time Provider Initiated Documentation: 11/10/23 05:25. Limitations to Documentation: no limitations. Information obtained by: patient, RN notes reviewed and old records reviewed. HPI Narrative: Patient presenting to ED by ambulance with complaint of nausea. Patient reports waking up with nausea every day. She was seen by primary care couple weeks ago as well as yesterday. She states that they are supposed to be scheduling her for a heart monitor test. She had lab work done yesterday. She woke up this morning still having nausea. Called EMS and requested to be transported to the emergency department so that we could figure out what is going on with her. She denies having any headache, dizziness, chest pain or pressure, shortness of breath, abdominal pain, fever, urinary symptoms, vomiting, any neurologic change. She reports that the nausea does get better as the morning goes on. She reports that she has had this problem intermittently for a while. Related Data Home Medications ?Medication ?Instructions ?Recorded ?Confirmed aspirin 81 mg chewable tablet 81 mg PO DAILY 08/18/14 11/10/23 (Aspirin Low-Strength) omega 3-dha 60 mg-epa 90 mg-fish 1,000 mg PO DAILY 08/18/14 11/10/23 oil 500 mg capsule, delayed release (Fish Oil) cholecalciferol (vitamin D3) 25 1,000 unit PO DAILY 09/05/14 11/10/23 mcg (1,000 unit) tablet magnesium oxide 400 mg PO DAILY 07/12/18 11/10/23 amlodipine 5 mg tablet 5 mg PO DAILY #90 tabs 05/04/23 11/10/23 metoprolol tartrate 25 mg tablet 25 mg PO BID #180 tab-caps 05/04/23 11/10/23 dicyclomine 10 mg capsule 10 mg PO BID #180 caps 07/10/23 11/10/23 atorvastatin 20 mg tablet 20 mg PO DAILY #90 tabs 10/21/23 11/10/23 losartan 50 mg tablet 50 mg PO DAILY #90 tabs 10/21/23 11/10/23 mirtazapine 7.5 mg tablet 3.75 mg (1/2 x 7.5 mg) PO DAILY 10/21/23 11/10/23 PRN anxiety or diff sleeping #45 tabs omeprazole 20 mg capsule,delayed 20 mg PO DAILY #90 caps 10/21/23 11/10/23 release acetaminophen 325 mg capsule 325 mg PO ONCE PRN fever or pain 11/09/23 11/10/23 ondansetron 4 mg disintegrating 4 mg PO Q8H PRN nausea and 11/10/23 tablet vomiting #10 tabs Previous Rx's ?Medication ?Instructions ?Recorded amlodipine 5 mg tablet 5 mg PO DAILY #90 tabs 05/04/23 metoprolol tartrate 25 mg tablet 25 mg PO BID #180 tab-caps 05/04/23 dicyclomine 10 mg capsule 10 mg PO BID #180 caps 07/10/23 atorvastatin 20 mg tablet 20 mg PO DAILY #90 tabs 10/21/23 losartan 50 mg tablet 50 mg PO DAILY #90 tabs 10/21/23 mirtazapine 7.5 mg tablet 3.75 mg (1/2 x 7.5 mg) PO DAILY 10/21/23 PRN anxiety or diff sleeping #45 tabs omeprazole 20 mg capsule,delayed 20 mg PO DAILY #90 caps 10/21/23 release ondansetron 4 mg disintegrating 4 mg PO Q8H PRN nausea and 11/10/23 tablet vomiting #10 tabs Allergies Allergy/AdvReac Type Severity Reaction Status Date / Time Penicillins Allergy Intermediate mouth Verified 11/10/23 05:30 swells Sulfa (Sulfonamide Allergy Intermediate mouth Verified 11/10/23 05:30 Antibiotics) swells adhesive AdvReac Intermediate rash and Verified 11/10/23 05:30 blisters amoxicillin AdvReac Intermediate Swelling/Ed Verified 11/10/23 05:30 aleksandr amoxicillin trihydrate (From AdvReac Intermediate Swelling/Ed Verified 11/10/23 05:30 Prevpac) aleksandr clarithromycin (From Biaxin) AdvReac Unknown Other (See Verified 11/10/23 05:30 Comment) ibandronate sodium (From AdvReac Unknown Other (See Verified 11/10/23 05:30 Boniva) Comment) lansoprazole (From Prevpac) AdvReac Unknown Other (See Verified 11/10/23 05:30 Comment) lisinopril AdvReac Unknown Other (See Verified 11/10/23 05:30 Comment) General RAJESH: 3 Review of Systems Narrative: Per HPI Exam Narrative Exam Narrative: Const: WDWN elderly female in NAD. VS per triage. HEENT: NC/AT. Normal facial exam. Neck: Supple. Trachea midline. Lungs: Normal respiratory effort. Lungs are clear. Cor: RRR without murmur. Good radial pulses. GI: Soft/ND/NT. Neuro: A+O x 3. Normal speech, mentation, gait. Cranial nerves II - XII grossly intact. No gross motor or sensory deficit. Ext: No C/C/E. Medical Decision Making Patient presenting to ED with chief complaint of nausea. This has been an ongoing problem every morning for the last few weeks but she has had this issue intermittently for some time. She was seen by her primary care yesterday as well as a couple of weeks ago she states for similar reason. Reviewing these records suggest that she is complaining of lightheadedness to PCP. There is no comment regarding nausea. Patient states that she is not having dizziness, spinning. Maybe feels lightheaded but the reason she came to ED by ambulance was because she is tired of having nausea every morning. Reviewed her labs that were done yesterday after she saw her PCP. She had CBC, CMP, magnesium, TSH, folate and B12 levels. These are all unremarkable and reassuring. She has normal sinus rhythm on the monitor here. There is an order placed for her to have a Holter monitor in the near future. Really not sure what we can do for her other than treat her nausea symptomatically with ondansetron. Can check a urine though she is not having any urinary symptoms. 06:45 - Patient's nausea resolved with ondansetron. She is unable to urinate. She is not having urinary symptoms. She would like to go home. We did discuss use of ondansetron if needed in the morning which she is agreeable to. She will otherwise follow-up with primary care and should be getting a phone call regarding the Holter monitor. Return precautions provided. Medical Records Medical records reviewed: Yes I reviewed the patient's medical records. Medical records narrative: PCP notes over the last couple of visits, see [facility] Lab Data Lab results reviewed: Yes I reviewed the patient's lab results. Lab results narrative: Per [facility] All Active Problems (Updated 11/10/23 @ 06:09 by Brian Patel MD) Nausea (Acute) Hyponatremia (Acute) Pain in sacrum (Acute) Arthritis of knee, left (Acute) Arthritis of knee, right (Acute) Most recent DEPO MEDROL: 10/05/23; 06/10/2023; 12/22/22 Irritable bowel syndrome with diarrhea (Chronic ~2019) Bentyl RX Osteopenia determined by x-ray (Acute ~06/2022) Right medial knee pain (Acute) depo medrol 07/11/22 Degenerative joint disease of right knee (Acute) Depo-Medrol injection: 07/08/2022; 05/30/2022 Posterior tibial tendonitis (Acute) Venous insufficiency of left lower extremity (Acute) Nervously anxious (Chronic) Gastro-esophageal reflux disease without esophagitis (Chronic) 01/23/[facility] GI note: unspecified whether esophagitis present. 03/14/16 reflux esophagitis- Dr Mccracken EGD. Tolerates TUMs. 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 Palpitations (Chronic 07/17/15) SVT Dr Aaron Balderas, Cardiology; o 2021 SVT & PVCs & VTach run 8 beats max rate 203 Osteoarthritis of both hands (Chronic 06/19/15) Medical History Hypertension (08/29/14) Hyperlipidemia (08/29/14) CKD (chronic kidney disease) (08/29/14) moderately decreased GFR from old records RH Onychomycosis History of excessive cerumen Sensorineural hearing loss, bilateral Chronic venous insufficiency of lower extremity Left, Podiatry Bilateral tibialis tendinitis podiatry, Weeks, bunion left foot Lipoma of right lower extremity Right knee Arthritis of left sacroiliac joint Bunion of left foot Acute stasis dermatitis of left lower extremity Tinea pedis Tinea unguium 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 Essential hypertension Heart disease Maternal Grandfather FH: mental illness Heart disease spent life in [facility] Maternal Aunt FH: mental illness anxiety and depression electric shock therapy Other Weakness Social History Smoking/Tobacco Use Status: Never Smoking risk assessment performed?: Yes Alcohol Intake: current Alcohol Intake frequency: holidays/special occasions only Drug use: Never Substance use type: does not use Household members: spouse and other Housing: house Communication Needs: Hard of Hearing Do you need help understanding health information?: Never Current gender identity: female What type of physical activity do you participate in: walking Frequency: 5-6 times per week Do you feel safe at home: Yes Do you feel safe in your relationship?: Yes
[2023-11-10] MEDS: Ondansetron O.D.T. 4 MG TABEF PO (05:53)
--- NOTE | 2023-11-10 05:53 | NUR.NOTE ---
Pt went to the bathroom, unable to give a urine sample, ERASMO
== END 2023-11-10 07:00 | disposition home or self-care (01) ==
PROVIDERS: Emergency Provider Emergency Medicine; PCP Nurse Practitioner Adult Health
DX: R11.0 Nausea (principal); I12.9 Hypertensive chronic kidney disease with stage 1 through stage 4 chronic kidney disease, or unspecified chronic kidney disease; N18.9 Chronic kidney disease, unspecified; E78.5 Hyperlipidemia, unspecified
CPT/HCPCS: 36415; 99283

== ENCOUNTER 2023-11-13 15:22 | Outpatient (REF) | payer MEDICARE, OTHER, SELFPAY ==
[2023-11-13 16:05] LABS: Bilirubin Negative (Negative); Blood Negative (Negative); Clarity Clear (Clear); Glucose Negative (Negative); Ketones Negative (Negative); Leukocyte Esterase Negative (Negative); Nitrite Negative (Negative); Urobilinogen 0.2 mg/dL (Up to 0.2)
== END 2023-11-13 15:23 | disposition home or self-care (01) ==
LOC: NCHCN 15:22
PROVIDERS: Student in an Organized Health Care Education/Training Program; PCP Nurse Practitioner Adult Health; Visit Provider Nurse Practitioner Adult Health
DX: R39.89 Other symptoms and signs involving the genitourinary system (principal)
CPT/HCPCS: 81003

== ENCOUNTER 2023-11-17 16:01 | Emergency (ER) | payer MEDICARE, OTHER, SELFPAY ==
[2023-11-17 16:09] VITALS: BP 175/73; PULSE 105; RESP 16; TEMP 36.5; O2SAT 96
--- NOTE | 2023-11-17 17:32 | NUR.NOTE ---
Nursing Note: Received call from access staff that patients daughter took the patient home, pt left the department without being seen by the Provider
== END 2023-11-17 17:35 | disposition left against medical advice (07) ==
LOC: ER 16:34
PROVIDERS: PCP Nurse Practitioner Adult Health
DX: Z53.21 Procedure and treatment not carried out due to patient leaving prior to being seen by health care provider (principal)

== ENCOUNTER 2023-11-17 17:50 | Emergency (ER) | payer MEDICARE, OTHER, SELFPAY ==
[2023-11-17] VITALS (27 sets, daily range): BP systolic 113–181; BP diastolic 58–111; PULSE 82–108; RESP 9–23; TEMP 36.8; O2SAT 95–99
--- NOTE | 2023-11-17 18:07 | W.ED.GENAD ---
Discharge Plan Disposition Patient Disposition: Home Condition: Stable Discharge Details Clinical Impression: Dizziness of unknown cause Primary Care Provider: Ginette Vaca ED Provider: Benjie Swann Home Meds and New Rx's Prescriptions: No Action magnesium oxide 400 mg capsule 400 mg PO DAILY amlodipine 5 mg tablet 5 mg PO DAILY Qty: 90 3RF Rx Instructions: Dose increase 12/04/22 for goal BP <140/90 metoprolol tartrate 25 mg tablet 25 mg PO BID Qty: 180 3RF dicyclomine 10 mg capsule 10 mg PO BID Qty: 180 3RF Rx Instructions: per GI atorvastatin 20 mg tablet 20 mg PO DAILY Qty: 90 3RF losartan 50 mg tablet 50 mg PO DAILY Qty: 90 3RF mirtazapine 7.5 mg tablet 3.75 mg PO DAILY PRN (Reason: anxiety or diff sleeping) Qty: 45 3RF omeprazole 20 mg capsule,delayed release(DR/EC) 20 mg PO DAILY Qty: 90 3RF Rx Instructions: Take in AM on empty stomach, 30min prior to food and other medications. acetaminophen 325 mg capsule 325 mg PO ONCE PRN (Reason: fever or pain) cholecalciferol (vitamin D3) 1,000 UNIT tablet 1,000 unit PO DAILY aspirin [Aspirin Low-Strength] 81 MG tablet,chewable 81 mg PO DAILY Fish Oil 500 MG capsule,delayed release(DR/EC) 1,000 mg PO DAILY ondansetron 4 mg tablet,disintegrating 4 mg PO Q8H PRN (Reason: nausea and vomiting) Qty: 10 0RF Discharge Instructions Instructions: Dizziness, Adult ED Additional Instructions: You were seen in the emergency department for your not feeling yourself, the CTA of the vessels of your brain and neck showed no occlusive pathology, your EKG is normal, cardiac workup is negative, electrolytes are all within normal limits and there is no sign of infection on any of your labs. The x-ray of your chest is negative for any pneumonia. I do suspect an element of possible slow onset of debility versus polypharmacy. I think you need to try to have some medication adjustments performed by your primary care provider, there is no evidence of organ damage due to uncontrolled hypertension, please continue your blood pressure regimen I would advise that you take your amlodipine as your blood pressure readings were high here though this may need to be confirmed with further outpatient blood pressure readings. Please continue with your planned 48-hour order management specialist that is already ordered and scheduled. Please return to the emergency department for any emergent concerns including fainting, chest pain, increasing shortness of breath, cough, fever, altered mentation. Referrals: Ginette Vaca SURFACE WATER MANAGER [Primary Care Provider] - HPI General Date/Time Provider Initiated Documentation: 11/17/23 18:06. HPI Narrative: 88 year-old female presents to ED today by POV/ambulating with a chief complaint of not feeling well- just doesn't feel like herself, multiple ED and PCP visits- states mostly doesn't feel right in her head, nausea, mild dizziness, chronic palpitations with onset for weeks. Quality described as no focal symptom, no radiation to chest pain, syncope, intractable vomiting, black/bloody stools, constipation, cough, shortness of breath- patient was recommended medication changes which she has not performed, has stopped taking amlodipine of her own accord. Severity is described as unable to quantify. Palliating factors include nothing specific. Provoking factors include nothing specific. Events leading up to the incident/Associated Symptoms: Patient was seen by Cardiology, who suggested imaging of her arteries in her head, has a scheduled 48hr heart monitor that has not been performed yet. Patient not anticoagulated. Related Data Home Medications ?Medication ?Instructions ?Recorded ?Confirmed aspirin 81 mg chewable tablet 81 mg PO DAILY 08/18/14 11/17/23 (Aspirin Low-Strength) omega 3-dha 60 mg-epa 90 mg-fish 1,000 mg PO DAILY 08/18/14 11/17/23 oil 500 mg capsule, delayed release (Fish Oil) cholecalciferol (vitamin D3) 25 1,000 unit PO DAILY 09/05/14 11/17/23 mcg (1,000 unit) tablet magnesium oxide 400 mg PO DAILY 07/12/18 11/17/23 amlodipine 5 mg tablet 5 mg PO DAILY #90 tabs 05/04/23 11/17/23 metoprolol tartrate 25 mg tablet 25 mg PO BID #180 tab-caps 05/04/23 11/17/23 dicyclomine 10 mg capsule 10 mg PO BID #180 caps 07/10/23 11/17/23 atorvastatin 20 mg tablet 20 mg PO DAILY #90 tabs 10/21/23 11/17/23 losartan 50 mg tablet 50 mg PO DAILY #90 tabs 10/21/23 11/17/23 mirtazapine 7.5 mg tablet 3.75 mg (1/2 x 7.5 mg) PO DAILY 10/21/23 11/17/23 PRN anxiety or diff sleeping #45 tabs omeprazole 20 mg capsule,delayed 20 mg PO DAILY #90 caps 10/21/23 11/17/23 release acetaminophen 325 mg capsule 325 mg PO ONCE PRN fever or pain 11/09/23 11/17/23 ondansetron 4 mg disintegrating 4 mg PO Q8H PRN nausea and 11/10/23 11/17/23 tablet vomiting #10 tabs Previous Rx's ?Medication ?Instructions ?Recorded amlodipine 5 mg tablet 5 mg PO DAILY #90 tabs 05/04/23 metoprolol tartrate 25 mg tablet 25 mg PO BID #180 tab-caps 05/04/23 dicyclomine 10 mg capsule 10 mg PO BID #180 caps 07/10/23 atorvastatin 20 mg tablet 20 mg PO DAILY #90 tabs 10/21/23 losartan 50 mg tablet 50 mg PO DAILY #90 tabs 10/21/23 mirtazapine 7.5 mg tablet 3.75 mg (1/2 x 7.5 mg) PO DAILY 10/21/23 PRN anxiety or diff sleeping #45 tabs omeprazole 20 mg capsule,delayed 20 mg PO DAILY #90 caps 10/21/23 release ondansetron 4 mg disintegrating 4 mg PO Q8H PRN nausea and 11/10/23 tablet vomiting #10 tabs Allergies Allergy/AdvReac Type Severity Reaction Status Date / Time Penicillins Allergy Intermediate mouth Verified 11/17/23 18:01 swells Sulfa (Sulfonamide Allergy Intermediate mouth Verified 11/17/23 18:01 Antibiotics) swells adhesive AdvReac Intermediate rash and Verified 11/17/23 18:01 blisters amoxicillin AdvReac Intermediate Swelling/Ed Verified 11/17/23 18:01 aleksandr amoxicillin trihydrate (From AdvReac Intermediate Swelling/Ed Verified 11/17/23 18:01 Prevpac) aleksandr clarithromycin (From Biaxin) AdvReac Unknown Other (See Verified 11/17/23 18:01 Comment) ibandronate sodium (From AdvReac Unknown Other (See Verified 11/17/23 18:01 Boniva) Comment) lansoprazole (From Prevpac) AdvReac Unknown Other (See Verified 11/17/23 18:01 Comment) lisinopril AdvReac Unknown Other (See Verified 11/17/23 18:01 Comment) General Stated Complaint: GenMedical RAJESH: 3 Review of Systems All systems reviewed & are unremarkable except as noted in HPI and below Exam Narrative Exam Narrative: GENERAL APPEARANCE: Well-nourished, non-toxic, awake and alert, atraumatic, no acute distress. SKIN: Warm, pink, dry, intact, without rashes/lesions/ulcerations. HEAD: Normocephalic, atraumatic, normal hair distribution for gender/age. EYES: Pupils PERRLA, EOMs intact without nystagmus, normal conjunctiva, no exudates on lids/lashes. ENT: Nares patent, no circumoral cyanosis, no facial swelling NECK: Supple, trachea midline, painless cervical ROM. LUNGS/CHEST: Lungs CTA bilaterally- no rhonchi/rales/wheezes diffusely, non-labored respirations, normal A/P diameter, symmetrical expansion, no chest wall deformity HEART (CV/PV): Regular rate and rhythm without murmur, no peripheral edema, no JVD. ABDOMEN: Soft, non-distended, no guarding, no tenderness. MSK: Normal ROM, no swelling/deformity to bilateral UEs or LEs, moving all extremities without weakness, no cyanosis, spine midline without tenderness, normal curvature. NEURO: Mental Status AAOx4 - alert to person, place, time, events No facial droop, no forehead involvement, no dysmetria with FNF, HINTS exam negative for central vertigo Motor: No focal weakness - strength 5/5 in bilateral UEs and LEs, proximal and distal, symmetric. Sensory: sensation intact to light touch globally. Gait normal: patient ambulated without ataxia into ED room. PSYCH: euthymic, cooperative, pleasant, appropriate speech Course Vital Signs Vital signs: Vital Signs Temperature 36.8 C 11/17/23 18:02 Pulse 101 H 11/17/23 18:02 Respiratory Rate 16 11/17/23 18:02 Blood Pressure 181/78 H 11/17/23 18:02 Pulse Oximetry 97 11/17/23 18:02 Temperature 36.8 C 11/17/23 18:02 Temperature Source Temporal Artery Scan 11/17/23 18:02 Pulse 101 H 11/17/23 18:02 Respiratory Rate 16 11/17/23 18:02 Respiratory Effort Normal, Non-Labored 11/17/23 18:04 Blood Pressure 181/78 H 11/17/23 18:02 Blood Pressure Position Sitting 11/17/23 18:02 Pulse Oximetry 97 11/17/23 18:02 Oxygen Delivery Method Room Air 11/17/23 18:02 Oxygen Flow Rate 0 11/17/23 18:02 Pain Level 2 11/17/23 18:02 Medical Decision Making This dictation utilizes [id number] dictation software and may contain unedited grammatical errors. 88 year-old female presents to ED today by POV/ambulating with a chief complaint of not feeling well- just doesn't feel like herself, multiple ED and PCP visits- states mostly doesn't feel right in her head, nausea, mild dizziness, chronic palpitations with onset for weeks. Quality described as no focal symptom, no radiation to chest pain, syncope, intractable vomiting, black/bloody stools, constipation, cough, shortness of breath- patient was recommended medication changes which she has not performed, has stopped taking amlodipine of her own accord. Severity is described as unable to quantify. Palliating factors include nothing specific. Provoking factors include nothing specific. Events leading up to the incident/Associated Symptoms: Patient was seen by Cardiology, who suggested imaging of her arteries in her head, has a scheduled 48hr heart monitor that has not been performed yet. Patients' medical history: Hypertension, hyperlipidemia, CKD, chronic venous insufficiency, SA node dysfunction, anxiety, SVT. Family and social history: no recent travel, no sick contacts. Pertinent exam findings / vital signs include neuro intact with an NIH of 0, benign cardiopulmonary exam, hypertensive on arrival, benign abdomen, nontoxic. Differential / pathologies of concern include viral syndrome, tickborne illness, debility, unlikely CVA, vertigo, polypharmacy, poorly controlled hypertension, UTI. Diagnostic studies of: -CBC, CMP, lactate, procalcitonin, D-dimer, magnesium, TSH, troponin I, BNP, lipase, urinalysis, tick and Lyme panel, EKG, CTA brain and neck, XR chest. -CBC shows no leukocytosis, no anemia -CMP is benign save for mild anion gap of 14.8 -D-dimer 748 age-adjusted negative with low risk for PE on [place], negative years criteria -Magnesium within normal limits -Troponin negative with reliable onset -BNP negative -Lipase negative -Lactate and procalcitonin negative-do not suspect sepsis -TSH within normal limits -UA trace blood, no UTI -Tick and Lyme panel send out pending -EKG shows sinus rhythm at 96 bpm with P waves followed by narrow complex QRS with questionable left axis deviation with negative flexion and aVF, flattened possibly slightly inverted T waves in V2, no ST depressions or reciprocal elevations, normal QT QTc, prolonged KS interval-no STEMI -CTA brain and neck shows no acute occlusive pathology -XR Chest shows no acute findings or abnormality Interventions of: -500mL IVF NS Bolus. ED Course/Assessment/Plan: 88-year-old female presents with vague onset of intermittent dizziness, just not feeling right, has been worked up multiple times for her nausea as well as dizziness, has been recommended to adjust blood pressure medicines but has not done so, discontinued other medicines that were not advised to be discontinued due to subjective palpitations, workup for hypertensive emergency is negative as well as CTA of the brain and neck is negative for any large vessel occlusive pathology, there is no evidence of brain mass, there is no evidence of pneumonia, EKG shows no heart block or other pathology, electrolytes are all within normal limits and there is no evidence of infectious etiology, I suspect that there could be some element of debility occurring as well as polypharmacy and I recommend the patient follow-up with her primary care provider. Her D-dimer was mildly elevated though this is age-adjusted negative and negative years criteria and patient had no tachycardia or shortness of breath or hemoptysis to suspect PE. She did receive some IV hydration and counseled that her tick panel is pending though she endorses no tick exposures this summer, I do not feel there is any acute emergent pathology that warrants observation this evening the patient will be discharged home with strict return criteria for any emergent concerns. Findings not consistent with acute coronary syndrome, PE, major electrolyte abnormality, sepsis, syncope, hypertensive emergency. Disposition of Dizziness of Unknown Cause. Patient verbalized understanding of the plan and return to ED criteria and engaged in shared decision making. Medical Records Medical records reviewed: Yes I reviewed the patient's medical records. Imaging Data Radiologic Study: Attestation: I personally reviewed and interpreted this imaging study as follows: Imaging: CT Scan Radiologist's impression: Exam: CTA Head Without And With Contrast, Arteriography Exam date and time: 11/17/2023 8:03 PM Age: 88 years old Clinical indication: Condition or disease; Other: Intermittent dizziness TECHNIQUE: Imaging protocol: Computed tomographic angiography of the head without and with contrast. Exam focused on the arteries. 3D rendering (Not supervised by radiologist): MIP and/or 3D reconstructed images were created by the technologist. Contrast material: 350; Contrast volume: 100 ml; Contrast route: INTRAVENOUS (IV); COMPARISON: CT BRAIN NECK CTA 07/03/2023 10:42 PM FINDINGS: ANTERIOR CIRCULATION: Right internal carotid artery: Intracranial segment is patent with no significant stenosis or occlusion. No aneurysm. Right middle cerebral artery: No occlusion or significant stenosis. No aneurysm. Right anterior cerebral artery: No occlusion or significant stenosis. No aneurysm. Left internal carotid artery: Intracranial segment is patent with no significant stenosis. No aneurysm. Left middle cerebral artery: No occlusion or significant stenosis. No aneurysm. Left anterior cerebral artery: No occlusion or significant stenosis. No aneurysm. POSTERIOR CIRCULATION: Right vertebral artery: No occlusion or significant stenosis. No aneurysm. Left vertebral artery: No occlusion or significant stenosis. No aneurysm. Basilar artery: No occlusion or significant stenosis. No aneurysm. Right posterior cerebral artery: No occlusion or significant stenosis. No aneurysm. Left posterior cerebral artery: No occlusion or significant stenosis. No aneurysm. HEAD: Brain: Small vessel ischemic changes in the periventricular white matter. No evidence of an acute cortical infarct. Cerebral ventricles: Normal. No ventriculomegaly. Bones: Unremarkable. No acute fracture. Paranasal sinuses: Visualized sinuses are normal. No fluid levels. Mastoid air cells: Visualized mastoids are normal. No mastoid effusion. Soft tissues: Unremarkable. IMPRESSION: No large vessel stenosis or occlusion. PROCEDURE INFORMATION: Exam: CTA Neck Without And With Contrast Exam date and time: 11/17/2023 8:03 PM Age: 88 years old Clinical indication: Condition or disease; Other: Intermittent dizziness TECHNIQUE: Imaging protocol: Computed tomographic angiography of the neck without and with contrast. Exam focused on the cervical segments of the vasculature. 3D rendering (Not supervised by radiologist): MIP and/or 3D reconstructed images were created by the technologist. Contrast material: 350; Contrast volume: 100 ml; Contrast route: INTRAVENOUS (IV); COMPARISON: CT BRAIN NECK CTA 07/03/2023 10:42 PM FINDINGS: Right common carotid artery: No stenosis. No dissection or occlusion. Right internal carotid artery: No stenosis of the extracranial segment. No dissection or occlusion. Right external carotid artery: No occlusion or stenosis of the origin. Left common carotid artery: No stenosis. No dissection or occlusion. Left internal carotid artery: No stenosis of the extracranial segment. No dissection or occlusion. Left external carotid artery: No occlusion or stenosis of the origin. Right vertebral artery: No stenosis. No dissection or occlusion. Left vertebral artery: No stenosis. No dissection or occlusion. Soft tissues: Normal. No significant soft tissue swelling. Bones/joints: No acute fracture. IMPRESSION: No stenosis or occlusion. REFERENCES: NASCET CRITERIA. The degree of stenosis in the cervical segment of the internal carotid artery is based on NASCET criteria. Normal is no stenosis. Mild is less than 50% stenosis. Moderate is 50-69% stenosis. Severe is 70% to 99% stenosis. Total occlusion is no detectable patent lumen. Dictated and Authenticated by: Rodrigo Ramachandran MD. Radiologic Study #2: Attestation: I personally reviewed and interpreted this imaging study as follows: Imaging: X-Ray Radiologist's impression: Exam: XR Chest Exam date and time: 11/17/2023 8:03 PM Age: 88 years old Clinical indication: Other: Intermittent dizziness palpitations TECHNIQUE: Imaging protocol: Radiologic exam of the chest. Views: 2 views. COMPARISON: CT THORAX ABDOMEN CTA 12/07/2021 9:02 AM FINDINGS: Lungs: Unremarkable. No consolidation. Pleural spaces: Unremarkable. No pleural effusion. No pneumothorax. Heart/Mediastinum: Unremarkable. No cardiomegaly. Bones/joints: Unremarkable. IMPRESSION: No acute findings. Dictated and Authenticated by: Rodrigo Ramachandran MD. Lab Data Lab results reviewed: Yes I reviewed the patient's lab results. Labs: Laboratory Tests Range/Units 11/17/23 11/17/23 18:42 19:37 WBC (4.4-10.8) 10^3/uL 7.82 RBC (3.93-5.22) 10^6/uL 4.03 Hgb (11.2-15.7) g/dL 12.7 Hct (36.0-46.0) % 37.6 MCV (80-95) fL 93 MCH (27.0-33.0) pg 31.5 MCHC (32.0-36.0) % 33.8 RDW (11.7-14.6) % 13.6 Plt Count (130-400) 10^3/uL 284 MPV (8.0-11.0) fL 9.5 Immature Gran % % 0.4 Neutrophils % % 60.6 Lymphocytes % % 29.0 Monocytes % % 7.8 Eosinophils % % 1.3 Basophils % % 0.9 Nucleated RBC % (0.0-0.3) % 0.0 Absolute Neutrophils (1.2-6.7) 10^3/uL 4.74 Absolute Lymphocytes (1.2-3.4) 10^3/uL 2.27 Absolute Monocytes (0.1-0.8) 10^3/uL 0.61 Absolute Eosinophils (0.0-0.7) 10^3/uL 0.10 Absolute Basophils (0.0-0.2) 10^3/uL 0.07 D-Dimer (<500) ng/mlFEU 748 H VBG Lactate (0.6-1.4) mmol/L 0.7 Sodium (136-145) mmol/L 138 Potassium (3.5-5.1) mmol/L 4.1 Chloride (98-107) mmol/L 99 Carbon Dioxide (21.0-32.0) mmol/L 24.2 Anion Gap (3-11) mmol/L 14.8 H BUN (7-18) mg/dL 14 Creatinine (0.55-1.02) mg/dL 1.0 Est GFR (CKD-EPI 2020) (mL/min/1.73m2) 54.19 Glucose (74-106) mg/dL 100 Calcium (8.5-10.1) mg/dL 10.1 Magnesium (1.8-2.4) mg/dL 2.3 Total Bilirubin (0.2-1.0) mg/dL 0.49 AST (15-37) U/L 19 ALT (14-59) U/L 30 Alkaline Phosphatase (46-116) U/L 79 Troponin I (< or =60) ng/L < 50 NT-Pro-B Natriuret Pep (<300) pg/mL 223 Total Protein (6.4-8.2) g/dL 7.7 Albumin (3.4-5.0) g/dL 4.1 Lipase (16-77) U/L 38 Procalcitonin ng/mL < 0.1 TSH (0.36-3.74) uIU/mL 1.34 Urine Color (Yellow) Yellow Urine Clarity (Clear) Clear Urine pH (5-8) 6.5 Ur Specific [place]ott (1.005-1.025) 1.010 Urine Protein (Neg-Trace) mg/dL Negative Urine Ketones (Negative) mg/dL Negative Urine Blood (Negative) Trace-intact H Urine Nitrite (Negative) Negative Urine Bilirubin (Negative) Negative Urine Urobilinogen (Up to 0.2) mg/dL 0.2 Ur Leukocyte Esterase (Negative) Negative Urine RBC (0-2) HPF 0-2 Urine WBC (0-5) HPF 0-2 Ur Epithelial Cells (Negative) HPF Few Urine Crystals (Negative) HPF Negative Urine Bacteria (Negative) HPF Negative Urine Casts (Negative) LPF Negative Urine Mucus (Negative) Negative Ur Culture Indicated? No Urine Glucose (Negative) mg/dL Negative Quality:SDOH Health Related Social Needs: No Data to Display PFSH All Active Problems (Updated 11/17/23 @ 21:25 by RAINA Longoria) Dizziness of unknown cause (Acute) Nausea (Acute) Hyponatremia (Acute) Pain in sacrum (Acute) Arthritis of knee, left (Acute) Arthritis of knee, right (Acute) Most recent DEPO MEDROL: 10/05/23; 06/10/2023; 12/22/22 Irritable bowel syndrome with diarrhea (Chronic ~2019) Bentyl RX Osteopenia determined by x-ray (Acute ~06/2022) Right medial knee pain (Acute) depo medrol 07/11/22 Degenerative joint disease of right knee (Acute) Depo-Medrol injection: 07/08/2022; 05/30/2022 Posterior tibial tendonitis (Acute) Venous insufficiency of left lower extremity (Acute) Nervously anxious (Chronic) Gastro-esophageal reflux disease without esophagitis (Chronic) 01/23/21-[facility] GI note: unspecified whether esophagitis present. 03/14/16 reflux esophagitis- Dr Mccracken EGD. Tolerates TUMs. 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 Palpitations (Chronic 07/17/15) SVT Dr Aaron Balderas, Cardiology; o 2021 SVT & PVCs & VTach run 8 beats max rate 203 Osteoarthritis of both hands (Chronic 06/19/15) Medical History Hypertension (08/29/14) Hyperlipidemia (08/29/14) CKD (chronic kidney disease) (08/29/14) moderately decreased GFR from old records RH Onychomycosis History of excessive cerumen Sensorineural hearing loss, bilateral Chronic venous insufficiency of lower extremity Left, Podiatry Bilateral tibialis tendinitis podiatry, Weeks, bunion left foot Lipoma of right lower extremity Right knee Arthritis of left sacroiliac joint Bunion of left foot Acute stasis dermatitis of left lower extremity Tinea pedis Tinea unguium 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 Essential hypertension Heart disease Maternal Grandfather FH: mental illness Heart disease spent life in [facility] Maternal Aunt FH: mental illness anxiety and depression electric shock therapy Other Weakness Social History Smoking/Tobacco Use Status: Never Smoking risk assessment performed?: Yes Alcohol Intake: current Alcohol Intake frequency: holidays/special occasions only Drug use: Never Substance use type: does not use Household members: spouse and other Housing: house Communication Needs: Hard of Hearing Do you need help understanding health information?: Never Current gender identity: female What type of physical activity do you participate in: walking Frequency: 5-6 times per week Do you feel safe at home: Yes Do you feel safe in your relationship?: Yes
--- NOTE | 2023-11-17 18:30 | RT.EKG_ITS ---
APPROVED REPORT Exam: Resting ECG Reason for Exam: tachycardia Patient Location: E HR:96 bpm ECG Measurements Heart Rate 96 AXIS MA 223 P 50 QRSd 86 QRS -19 QT 346 T 19 QTc 438 Conclusion Sinus rhythm...normal P axis, V-rate 60- 99 Prolonged MA interval...MA >215, V-rate 91-120 Inferior infarct, old...Q >35mS, II III aVF
[2023-11-17 18:49] LABS: Lactate 0.7 mmol/L (0.6-1.4)
[2023-11-17 18:51] LABS: Abs Immature Grans 0.03 10^3/uL (0.0-0.06); Absolute Basophil Count 0.07 10^3/uL (0.0-0.2); Absolute Lymphocyte Count 2.27 10^3/uL (1.2-3.4); Absolute Monocyte Count 0.61 10^3/uL (0.1-0.8); Absolute Neutrophil Count 4.74 10^3/uL (1.2-6.7); Basophils % 0.9 %; Eosinophils % 1.3 %; HCT 37.6 % (36.0-46.0); HGB 12.7 g/dL (11.2-15.7); Immature Grans % 0.4 %; MCH 31.5 pg (27.0-33.0); MCHC 33.8 % (32.0-36.0); MCV 93 fL (80-95); MPV 9.5 fL (8.0-11.0); Monocytes % 7.8 %; Neutrophils % 60.6 %; Platelet Count 284 10^3/uL (130-400); RBC 4.03 10^6/uL (3.93-5.22); RDW 13.6 % (11.7-14.6); RDW-SD 46.6 fL; WBC 7.82 10^3/uL (4.4-10.8)
[2023-11-17] MEDS: Normal Saline 500 ML IV (18:58)
[2023-11-17 19:16] LABS: ALT 30 U/L (14-59); AST 19 U/L (15-37); Albumin 4.1 g/dL (3.4-5.0); Alkaline Phosphatase 79 U/L (46-116); BUN 14 mg/dL (7-18); Bilirubin, Total 0.49 mg/dL (0.2-1.0); Calcium 10.1 mg/dL (8.5-10.1); Chloride 99 mmol/L (98-107); Estimated GFR 54.19 (mL/min/1.73m2); Glucose 100 mg/dL (74-106); Lipase 38 U/L (16-77); Magnesium 2.3 mg/dL (1.8-2.4); NT-proBNP 223 pg/mL (<300); Potassium 4.1 mmol/L (3.5-5.1); Sodium 138 mmol/L (136-145); TSH (W/Ref FT4) 1.34 uIU/mL (0.36-3.74); Total Protein 7.7 g/dL (6.4-8.2); Troponin I < 50 ng/L (< or =60)
[2023-11-17 19:20] LABS: D-Dimer 748 ng/mlFEU (<500)
[2023-11-17 19:23] LABS: Anion Gap 14.8 mmol/L (3-11); CO2 24.2 mmol/L (21.0-32.0); Procalcitonin < 0.1 ng/mL
--- NOTE | 2023-11-17 19:30 | DI.CT_ITS ---
Exam(s) CT BRAIN NECK CTA EXAM: CT BRAIN NECK CTA CLINICAL HISTORY: intermittent dizziness. TECHNIQUE: Imaging Protocol: Axial CT angiography was performed with multi-slice acquisition and mu lti-planar and/or 3D reconstructions. CONTRAST MATERIAL: Intravenous: Omnipaque 350 contrast volume:100 mL COMPARISON: CT CT HEAD WO from 04/29/[address] BRAIN NECK CTA from 07/03/2023 FINDINGS: The examination is limited due to patient motion artifact. CT Head W/O and W: Ventricles and Extra axial spaces: Normal in size and morphology for the patient's age. Hemorrhage: None. Cerebral parenchyma: There are areas of decreased attenuation in the white matter consistent with chr onic microvascular ischemic disease. No mass effect is identified. Midline shift: None. Brainstem/Cerebellum: Normal. Calvarium: Normal. Visualized Paranasal sinuses/Mastoids: Clear. Soft Tissues: Unremarkable. Enhancement: Unremarkable. CTA Neck W: Common Carotid: Right: No dissection, occlusion or significant stenosis. There is mild atherosclerosis at the caroti d bulb. Left: No dissection, occlusion or significant stenosis. Mild atherosclerotic calcification of the ca rotid bulb and distal common carotid artery. External Carotid: Right: No occlusion or significant stenosis. Left: No occlusion or significant stenosis. Internal Carotid: Right: No dissection, occlusion or significant stenosis. Left: No dissection, occlusion or significant stenosis. Vertebral Artery: Right: No dissection, occlusion or significant stenosis. Left: No dissection, occlusion or significant stenosis. Lung Apices: Normal. Bones: Within normal limits for the patient's age. Soft Tissues: Normal. Thyroid gland: Unremarkable. CTA Brain W: Internal Carotid Arteries: Atherosclerotic calcification is seen in the carotid arteries bilaterally. No aneurysm, occlusion or significant stenosis. Anterior Cerebral Arteries: Right: No aneurysm, occlusion or significant stenosis. Left: No aneurysm, occlusion or significant stenosis. Middle Cerebral Arteries: Right: No aneurysm, occlusion or significant stenosis. Left: No aneurysm, occlusion or significant stenosis. Posterior Cerebral Arteries: Right: No aneurysm, occlusion or significant stenosis. The right posterior cerebral artery arises fr om the right posterior communicating artery. Left: No aneurysm, occlusion or significant stenosis. Vertebral Arteries: Right: No aneurysm, occlusion or significant stenosis. Left: No aneurysm, occlusion or significant stenosis. There is a dominant left vertebral artery. Basilar Artery: No aneurysm, occlusion or significant stenosis. IMPRESSION: 1. No large vessel occlusion or significant stenosis on the CT angiography of the head. 2. No acute intracranial process. 3. No occlusion or significant stenosis on the CT angiography of the neck. RADIATION DOSE DELIVERED: Total DLP DATA REPOSITORY: All CT scans at this facility are submitted to the National Radiology Data Registry (NRDR) Dose Index Registry (DIR) with the [employer] (ACR). RADIATION OPTIMIZATION: All CT scans at this facility use at least one of these dose optimization te chniques: automated exposure control; mA and/or kV adjustment per patient size (includes targeted exa ms where dose is matched to clinical indication); or iterative reconstruction.
--- NOTE | 2023-11-17 19:30 | DI.RAD_ITS ---
Exam(s) XR CHEST 2V PA LATERAL EXAM: XR CHEST 2V PA LATERAL CLINICAL HISTORY: intermittent dizziness palpitations TECHNIQUE: 2D digital imaging was performed of the chest. Two images were obtained. PA and lateral views were obtained. COMPARISON: CR,XR XR CHEST 2V PA LATERAL from 01/20/2021 FINDINGS: MEDIASTINUM: Normal. HEART: Normal. PULMONARY VASCULATURE: Normal. LUNGS: Clear. PLEURAL SPACE: No pleural effusion or pneumothorax. BONE:Within normal limits for the patient's age. OTHER FINDINGS:Normal. IMPRESSION: No acute pulmonary findings. DATA REPOSITORY: RADIATION DOSE DELIVERED:
[2023-11-17 19:47] LABS: Bilirubin Negative (Negative); Blood Trace-intact (Negative); Clarity Clear (Clear); Glucose Negative (Negative); Ketones Negative (Negative); Leukocyte Esterase Negative (Negative); Nitrite Negative (Negative); Urobilinogen 0.2 mg/dL (Up to 0.2); pH 6.5 (5-8)
[2023-11-17 19:52] LABS: Bacteria Negative HPF (Negative); C & S Indicated? No; Casts Negative LPF (Negative); Crystals Negative HPF (Negative); Epithelial Cells Few HPF (Negative); Mucus Negative (Negative); RBC 0-2 HPF (0-2); WBC 0-2 HPF (0-5)
[2023-11-17] MEDS: Normal Saline - Diluent 50 ML VIAL IJ (20:20)
[2023-11-17] MEDS: Omnipaque 350 MG/ML 500 ML BTL-Imaging package IJ (20:25)
--- NOTE | 2023-11-17 20:59 | DI.VRAD_ITS ---
PROCEDURE INFORMATION: Exam: XR Chest Exam date and time: 11/17/2023 8:03 PM Age: 88 years old Clinical indication: Other: Intermittent dizziness palpitations TECHNIQUE: Imaging protocol: Radiologic exam of the chest. Views: 2 views. COMPARISON: CT THORAX ABDOMEN CTA 12/07/2021 9:02 AM FINDINGS: Lungs: Unremarkable. No consolidation. Pleural spaces: Unremarkable. No pleural effusion. No pneumothorax. Heart/Mediastinum: Unremarkable. No cardiomegaly. Bones/joints: Unremarkable. IMPRESSION: No acute findings. Dictated and Authenticated by: Rodrigo Ramachandran MD. Ordering:DANA Waldrop MD
--- NOTE | 2023-11-17 21:12 | DI.VRAD_ITS ---
PROCEDURE INFORMATION: Exam: CTA Head Without And With Contrast, Arteriography Exam date and time: 11/17/2023 8:03 PM Age: 88 years old Clinical indication: Condition or disease; Other: Intermittent dizziness TECHNIQUE: Imaging protocol: Computed tomographic angiography of the head without and with contrast. Exam focused on the arteries. 3D rendering (Not supervised by radiologist): MIP and/or 3D reconstructed images were created by the technologist. Contrast material: 350; Contrast volume: 100 ml; Contrast route: INTRAVENOUS (IV); COMPARISON: CT BRAIN NECK CTA 07/03/2023 10:42 PM FINDINGS: ANTERIOR CIRCULATION: Right internal carotid artery: Intracranial segment is patent with no significant stenosis or occlusion. No aneurysm. Right middle cerebral artery: No occlusion or significant stenosis. No aneurysm. Right anterior cerebral artery: No occlusion or significant stenosis. No aneurysm. Left internal carotid artery: Intracranial segment is patent with no significant stenosis. No aneurysm. Left middle cerebral artery: No occlusion or significant stenosis. No aneurysm. Left anterior cerebral artery: No occlusion or significant stenosis. No aneurysm. POSTERIOR CIRCULATION: Right vertebral artery: No occlusion or significant stenosis. No aneurysm. Left vertebral artery: No occlusion or significant stenosis. No aneurysm. Basilar artery: No occlusion or significant stenosis. No aneurysm. Right posterior cerebral artery: No occlusion or significant stenosis. No aneurysm. Left posterior cerebral artery: No occlusion or significant stenosis. No aneurysm. HEAD: Brain: Small vessel ischemic changes in the periventricular white matter. No evidence of an acute cortical infarct. Cerebral ventricles: Normal. No ventriculomegaly. Bones: Unremarkable. No acute fracture. Paranasal sinuses: Visualized sinuses are normal. No fluid levels. Mastoid air cells: Visualized mastoids are normal. No mastoid effusion. Soft tissues: Unremarkable. IMPRESSION: No large vessel stenosis or occlusion. PROCEDURE INFORMATION: Exam: CTA Neck Without And With Contrast Exam date and time: 11/17/2023 8:03 PM Age: 88 years old Clinical indication: Condition or disease; Other: Intermittent dizziness TECHNIQUE: Imaging protocol: Computed tomographic angiography of the neck without and with contrast. Exam focused on the cervical segments of the vasculature. 3D rendering (Not supervised by radiologist): MIP and/or 3D reconstructed images were created by the technologist. Contrast material: 350; Contrast volume: 100 ml; Contrast route: INTRAVENOUS (IV); COMPARISON: CT BRAIN NECK CTA 07/03/2023 10:42 PM FINDINGS: Right common carotid artery: No stenosis. No dissection or occlusion. Right internal carotid artery: No stenosis of the extracranial segment. No dissection or occlusion. Right external carotid artery: No occlusion or stenosis of the origin. Left common carotid artery: No stenosis. No dissection or occlusion. Left internal carotid artery: No stenosis of the extracranial segment. No dissection or occlusion. Left external carotid artery: No occlusion or stenosis of the origin. Right vertebral artery: No stenosis. No dissection or occlusion. Left vertebral artery: No stenosis. No dissection or occlusion. Soft tissues: Normal. No significant soft tissue swelling. Bones/joints: No acute fracture. IMPRESSION: No stenosis or occlusion. REFERENCES: NASCET CRITERIA. The degree of stenosis in the cervical segment of the internal carotid artery is based on NASCET criteria. Normal is no stenosis. Mild is less than 50% stenosis. Moderate is 50-69% stenosis. Severe is 70% to 99% stenosis. Total occlusion is no detectable patent lumen. Dictated and Authenticated by: Rodrigo Ramachandran MD. Ordering:DANA Waldrop MD
[2023-11-19 11:02] LABS: Lyme Ab w Rflx to Lyme Confirm Negative (Negative)
[2023-11-20 19:00] LABS: Anaplasma phagocytophilum Negative (Negative); B. miyamotoi PCR Negative (Negative); Babesia divergens/MO-1 Negative (Negative); Babesia duncani Negative (Negative); Babesia microti Negative (Negative); Ehrlichia chaffeensis Negative (Negative); Ehrlichia ewingii/canis Negative (Negative); Ehrlichia muris eauclairensis Negative (Negative)
== END 2023-11-17 21:36 | disposition home or self-care (01) ==
PROVIDERS: Emergency Provider Physician Assistant; PCP Nurse Practitioner Adult Health
DX: R42 Dizziness and giddiness (principal); E78.5 Hyperlipidemia, unspecified; I12.9 Hypertensive chronic kidney disease with stage 1 through stage 4 chronic kidney disease, or unspecified chronic kidney disease; N18.9 Chronic kidney disease, unspecified; R94.31 Abnormal electrocardiogram [ECG] [EKG]; Z79.82 Long term (current) use of aspirin
CPT/HCPCS: 70496; 70498; 80053; 83690; 84145; 87798; 93005; 96360; 99285; 71046; 81003; 81015; 83605; 83735; 83880; 84443; 84484; 85025; 85379; 86618; 93010; 99284

== ENCOUNTER → 2023-11-23 09:19 | Outpatient (BNVA) | payer MEDICARE, OTHER, SELFPAY | PROVIDERS: PCP Nurse Practitioner Adult Health; Referring Provider Nurse Practitioner Adult Health; Visit Provider Podiatrist | DX: B35.1 Tinea unguium (principal); L60.3 Nail dystrophy; L84 Corns and callosities; M21.612 Bunion of left foot; B35.3 Tinea pedis; M85.89 Other specified disorders of bone density and structure, multiple sites; M17.0 Bilateral primary osteoarthritis of knee; R20.2 Paresthesia of skin | CPT/HCPCS: 99214 ==

== ENCOUNTER 2023-11-27 09:47 | Outpatient (RCR) | payer MEDICARE, OTHER, SELFPAY ==
--- NOTE | 2023-12-11 09:45 | HOLTER_ITS ---
APPROVED REPORT Conclusion This is a 48-hour Holter monitor Rhythm throughout was sinus with an average heart rate of 70. Minimum was 51, maximum 112 There were very rare isolated atrial and ventricular ectopic beats There was no atrial fibrillation, no high-grade AV block, no pauses greater than 3 seconds Symptoms were reported which had no definite correlation to any dysrhythmia
== END 2023-12-26 23:59 | disposition home or self-care (01) ==
LOC: CARDOPNVT 09:47
PROVIDERS: PCP Nurse Practitioner Adult Health; Visit Provider Internal Medicine Cardiovascular Disease
DX: R00.0 Tachycardia, unspecified (principal)
CPT/HCPCS: 93227; 93225; 93226

== ENCOUNTER 2024-01-04 01:11 | Outpatient (CLI) | payer MEDICARE, OTHER, SELFPAY ==
--- NOTE | 2024-01-04 08:00 | DI.CT_ITS ---
Exam(s) CT ABDOMEN PELVIS W EXAM: CT ABDOMEN PELVIS W CLINICAL HISTORY: ? acute process vs. mass,abd pain, nausea,r11.0,r10.84. TECHNIQUE: Imaging Protocol: Axial computed tomography images with coronal and sagittal reformatted images were created and reviewed CONTRAST MATERIAL: Intravenous: Omnipaque 350 Contrast volume:100 ml Oral: yes / COMPARISON: CT CT THORAX ABDOMEN CTA from 12/07/[address] BRAIN NECK CTA from 07/03/2023 FINDINGS: ABDOMEN and PELVIS: Lung Bases: No acute findings. Liver: Normal density. No suspicious mass. Gallbladder and biliary tract: No radiodense calculus. No biliary dilation. Pancreas: Normal density. No abnormal calcifications or inflammatory process. No evidence of mass. Spleen: Normal. Kidneys: Normal size, contour and axis. No radiodense stones. No obstructive uropathy. No suspicious masses seen. Adrenal glands: No masses seen. Vasculature: Abdominal aorta non-dilated. Soft tissues: Unremarkable. Bladder: Nearly empty. Unremarkable. Bowel: No obstruction. No bowel wall thickening. Appendix normal. Peritoneal cavity: No ascites. No focal collection. No mesenteric inflammatory response. Bones: Degenerative changes in the spine, greatest at L4-5. Reproductive organs: Status post hysterectomy. Lymph nodes: No pathologically enlarged lymph nodes. IMPRESSION:: No acute abnormality in the abdomen or pelvis. RADIATION DOSE DELIVERED: 378.38mGy.cm Total DLP DATA REPOSITORY: All CT scans at this facility are submitted to the National Radiology Data Registry (NRDR) Dose Index Registry (DIR) with the [employer] (ACR). RADIATION OPTIMIZATION: All CT scans at this facility use at least one of these dose optimization te chniques: automated exposure control; mA and/or kV adjustment per patient size (includes targeted exa ms where dose is matched to clinical indication); or iterative reconstruction.
[2024-01-04] MEDS: Barium Sulfate 2% W/V-Creamy Vanilla Smoothie 450 ML BTL PO ×2 (09:04→09:05)
[2024-01-04 09:16] LABS: CREATININE 1.1 mg/dL (0.55-1.02); Estimated GFR 48.33 (mL/min/1.73m2)
[2024-01-04] MEDS: Normal Saline - Diluent 50 ML VIAL IJ (11:05)
[2024-01-04] MEDS: Omnipaque 350 MG/ML 100 ML BTL IJ (11:06)
== END 2024-01-04 01:31 ==
LOC: DI 01:11
PROVIDERS: PCP Nurse Practitioner Adult Health; Visit Provider Nurse Practitioner Adult Health
DX: Z29.89 Encounter for other specified prophylactic measures (principal); K21.9 Gastro-esophageal reflux disease without esophagitis
CPT/HCPCS: 74177; 82565; J3490

== ENCOUNTER 2024-01-06 06:54 | Emergency (ER) | payer MEDICARE, OTHER, SELFPAY ==
[2024-01-06] VITALS (7 sets, daily range): BP systolic 160–202; BP diastolic 61–95; PULSE 63–97; RESP 14–23; TEMP 36.4–36.8; O2SAT 94–98
--- NOTE | 2024-01-06 06:45 | RT.EKG_ITS ---
APPROVED REPORT Exam: Resting ECG Reason for Exam: Rapid Heart Rate Patient Location: E HR:92 bpm ECG Measurements Heart Rate 92 AXIS MI 232 P 41 QRSd 87 QRS -17 QT 343 T 43 QTc 425 Conclusion Sinus rhythm...normal P axis, V-rate 60- 99 Prolonged MI interval...MI >215, V-rate 91-120
[2024-01-06 07:21] LABS: Abs Immature Grans 0.02 10^3/uL (0.0-0.06); Absolute Basophil Count 0.06 10^3/uL (0.0-0.2); Absolute Eosinophil Count 0.33 10^3/uL (0.0-0.7); Absolute Lymphocyte Count 2.23 10^3/uL (1.2-3.4); Absolute Monocyte Count 0.51 10^3/uL (0.1-0.8); Absolute Neutrophil Count 2.92 10^3/uL (1.2-6.7); Eosinophils % 5.4 %; HCT 38.1 % (36.0-46.0); HGB 12.9 g/dL (11.2-15.7); Immature Grans % 0.3 %; Lymphocytes % 36.7 %; MCH 31.8 pg (27.0-33.0); MCHC 33.9 % (32.0-36.0); MCV 94 fL (80-95); MPV 9.8 fL (8.0-11.0); Monocytes % 8.4 %; Neutrophils % 48.2 %; Platelet Count 271 10^3/uL (130-400); RBC 4.06 10^6/uL (3.93-5.22); RDW 13.2 % (11.7-14.6); RDW-SD 45.6 fL; WBC 6.07 10^3/uL (4.4-10.8)
--- NOTE | 2024-01-06 07:24 | W.ED.GENAD ---
Discharge Plan Disposition Patient Disposition: Home Condition: Stable Discharge Details Clinical Impression: Palpitations, Leg numbness Primary Care Provider: Ginette Vaca ED Provider: Salvador Bejarano Home Meds and New Rx's Prescriptions: Continued magnesium oxide 400 mg capsule 400 mg PO DAILY dicyclomine 10 mg capsule 10 mg PO BID Qty: 180 3RF Rx Instructions: per GI ketoconazole 2 % cream See Rx Instructions topical DAILY Qty: 30 6RF Rx Instructions: 1gram topically daily to thickened toenails, apply at a separate time from the Urea 40%. metoprolol tartrate 25 mg tablet 25 mg PO BID Qty: 180 3RF omeprazole 20 mg capsule,delayed release(DR/EC) 20 mg PO BID Qty: 180 3RF Rx Instructions: Take in AM on empty stomach, 30min prior to food and other medications. Dose increase 12/24/23 atorvastatin 20 mg tablet 20 mg PO DAILY Qty: 90 3RF losartan 50 mg tablet 50 mg PO DAILY Qty: 90 3RF mirtazapine 7.5 mg tablet 3.75 mg PO DAILY PRN (Reason: anxiety or diff sleeping) Qty: 45 3RF acetaminophen 325 mg capsule 325 mg PO ONCE PRN (Reason: fever or pain) cholecalciferol (vitamin D3) 1,000 UNIT tablet 1,000 unit PO DAILY aspirin [Aspirin Low-Strength] 81 MG tablet,chewable 81 mg PO DAILY Fish Oil 500 MG capsule,delayed release(DR/EC) 1,000 mg PO DAILY Discharge Instructions Additional Instructions: Your lab work and exam today did not show any concerning findings Follow-up with your primary care provider scheduled If you feel more ill or have new symptoms such as severe chest pain, difficulty breathing or persistent numbness or weakness in your extremities return to the emergency department for reevaluation HPI General Mode of arrival: wheelchair. Date/Time Provider Initiated Documentation: 01/06/24 06:55. Limitations to Documentation: no limitations. Information obtained by: patient. History of Present Illness 88 year old F presents to the emergency department with the chief complaint of numb legs, described as mild, Patient started experiencing this week(s) (1) and it has been intermittent and now resolved. No relieving factors improve symptom(s), No exacerbating factors reported . Patient notes denies chest pain and shortness of breath. Patient did receive the following treatments prior to arrival, none Related Data Home Medications ?Medication ?Instructions ?Recorded ?Confirmed aspirin 81 mg chewable tablet 81 mg PO DAILY 08/18/14 01/06/24 (Aspirin Low-Strength) omega 3-dha 60 mg-epa 90 mg-fish 1,000 mg PO DAILY 08/18/14 01/06/24 oil 500 mg capsule, delayed release (Fish Oil) cholecalciferol (vitamin D3) 25 1,000 unit PO DAILY 09/05/14 01/06/24 mcg (1,000 unit) tablet magnesium oxide 400 mg PO DAILY 07/12/18 01/06/24 dicyclomine 10 mg capsule 10 mg PO BID #180 caps 07/10/23 01/06/24 atorvastatin 20 mg tablet 20 mg PO DAILY #90 tabs 10/21/23 01/06/24 losartan 50 mg tablet 50 mg PO DAILY #90 tabs 10/21/23 01/06/24 mirtazapine 7.5 mg tablet 3.75 mg (1/2 x 7.5 mg) PO DAILY 10/21/23 01/06/24 PRN anxiety or diff sleeping #45 tabs acetaminophen 325 mg capsule 325 mg PO ONCE PRN fever or pain 11/09/23 01/06/24 ketoconazole 2 % topical cream See Rx Instructions topical DAILY 11/23/23 01/06/24 #30 grams metoprolol tartrate 25 mg tablet 25 mg PO BID #180 tab-caps 12/21/23 01/06/24 omeprazole 20 mg capsule,delayed 20 mg PO BID #180 caps 12/24/23 01/06/24 release Previous Rx's ?Medication ?Instructions ?Recorded dicyclomine 10 mg capsule 10 mg PO BID #180 caps 07/10/23 atorvastatin 20 mg tablet 20 mg PO DAILY #90 tabs 10/21/23 losartan 50 mg tablet 50 mg PO DAILY #90 tabs 10/21/23 mirtazapine 7.5 mg tablet 3.75 mg (1/2 x 7.5 mg) PO DAILY 10/21/23 PRN anxiety or diff sleeping #45 tabs ketoconazole 2 % topical cream See Rx Instructions topical DAILY 11/23/23 #30 grams metoprolol tartrate 25 mg tablet 25 mg PO BID #180 tab-caps 12/21/23 omeprazole 20 mg capsule,delayed 20 mg PO BID #180 caps 12/24/23 release General Stated Complaint: Palpitatns RAJESH: 3 Review of Systems All systems reviewed & are unremarkable except as noted in HPI and below Constitutional Constitutional: Denies chills, Denies fever(s) and Denies weakness Eyes Eyes: Denies loss of vision Cardiovascular Cardiovascular: Denies chest pain, Denies chest pain at rest, Denies claudication, Denies dyspnea and Reports other (palpitations) Respiratory Respiratory: Denies cough and Denies dyspnea Gastrointestinal Gastrointestinal: Denies abdominal pain, Denies nausea and Denies vomiting Genitourinary Genitourinary: Denies dysuria Musculoskeletal Musculoskeletal: Denies joint swelling Integumentary/Breasts Skin/Breast: Denies rash Neurologic Neurologic: Denies loss of vision and Denies weakness Exam Const General: no acute distress Orientation: alert HENMT Head: normal to inspection Ears: external ears normal General nose exam: external nose normal Mouth: moist mucous membranes Eyes General: appearance normal, both eyes and all related structures Neck Neck: normal visual inspection Resp Effort & Inspection: normal respiratory effort and able to speak in complete sentences Auscultation: clear to auscultation bilaterally Cardio Jugular venous pressure: no JVD Rate: regular rate GI Palpation: soft and nontender Skin General skin exam: no rashes or lesions noted Neuro General: patient alert and patient oriented x3 Extrem General: normal to inspection Psych Mental Status: mental status grossly normal Course Vital Signs Vital signs: Vital Signs Temperature 36.4 C L 01/06/24 06:58 Pulse 97 H 01/06/24 06:58 Respiratory Rate 01/06/24 06:58 Blood Pressure 202/95 H 01/06/24 06:58 Pulse Oximetry 97 01/06/24 06:58 Temperature 36.4 C L 01/06/24 06:58 Pulse 97 H 01/06/24 06:58 Respiratory Rate 01/06/24 06:58 Respiratory Effort Normal, Non-Labored 01/06/24 07:04 Blood Pressure 202/95 H 01/06/24 06:58 Pulse Oximetry 97 01/06/24 06:58 Oxygen Delivery Method Room Air 01/06/24 06:58 Oxygen Flow Rate 0 01/06/24 06:58 Pain Level 0 01/06/24 07:08 Medical Decision Making 88-year-old female with a history of SVT, has had palpitations and dizziness going on for most a year per patient, which is intermittent, comes in with feeling like her hearts been racing since last night and also complaining of numb legs for a week. She says that it has been going on for about a week intermittently cannot think of anything that makes it better or worse. She currently denies having any numbness in her legs. She denies any weakness, vision changes, chest pain, difficulty breathing, abdominal pain. She is alert and oriented x 4 on arrival and appears well, she is speaking in full sentences. She is no focal motor deficits, she localizes the numbness when she has a to the anterior distal lower legs. She has no swelling of the legs, intact sensation and pulses. She has no numbness on exam now. Unclear etiology for her numbness, she has no findings to suggest arterial occlusion, there is no swelling to suggest DVT. The numbness is intermittent and is only stayed in 1 spot so doubt entities such as Guillain-Grider?. It is bilaterally so doubt entities such as stroke. Will check a CBC and CMP to evaluate for possible electrolyte abnormality and less likely anemia. Her palpitations have resolved and she has had multiple workups for this including a Holter without any concerning findings. Will check a troponin. She is got no hypoxia no evidence of DVT said no PE and no tearing back pain to suggest dissection. Patient's labs are unremarkable and given she said her symptoms over 3 hours and feel additional troponin is indicated. She has no symptoms now and is stable. Discussed results with her and given reassuring workup feel she can follow-up with her PCP, return precautions given Differential Diagnosis Differential Diagnosis: electrolyte abnormality, anxiety Medical Records Medical records reviewed: Yes I reviewed the patient's medical records. Lab Data Lab results reviewed: Yes I reviewed the patient's lab results. ECG Data Attestation: I personally reviewed and interpreted this ECG (s) as follows: Prior ECG tracings: available for review Interpretation: sinus rate of 92 pr 232 no stemi Quality:SDOH Health Related Social Needs: No Data to Display PFSH All Active Problems (Updated 01/06/24 @ 09:29 by Salvador Bejarano MD) Leg numbness (Acute) Palpitations (Acute) CKD (chronic kidney disease) (Chronic 08/29/14) moderately decreased GFR from old records RH Hypertension (Chronic 08/29/14) SVT (supraventricular tachycardia) (Chronic ~2022) SVT Dr Aaron Balderas, Cardiology; [facility] 2021 SVT & PVCs & VTach run 8 beats max rate 203 Mixed hyperlipidemia (Acute ~10/2023) 11/16/23 Dr Baldersa Corns and callosities (Acute) Nail dystrophy (Acute) Hyponatremia (Acute) Pain in sacrum (Acute) Arthritis of knee, left (Acute) Arthritis of knee, right (Acute) Most recent DEPO MEDROL: 10/05/23; 06/10/2023; 12/22/22 Irritable bowel syndrome with diarrhea (Chronic ~2019) Bentyl RX Osteopenia determined by x-ray (Acute ~06/2022) Right medial knee pain (Acute) depo medrol 07/11/22 Degenerative joint disease of right knee (Acute) Depo-Medrol injection: 07/08/2022; 05/30/2022 Posterior tibial tendonitis (Acute) Venous insufficiency of left lower extremity (Acute) Nervously anxious (Chronic) Gastro-esophageal reflux disease without esophagitis (Chronic) 01/23/21-[facility] GI note: unspecified whether esophagitis present. 03/14/16 reflux esophagitis- Dr Mccracken EGD. Tolerates TUMs. 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 Essential hypertension Heart disease Maternal Grandfather FH: mental illness Heart disease spent life in [facility] Maternal Aunt FH: mental illness anxiety and depression electric shock therapy Other Weakness Social History Smoking/Tobacco Use Status: Never Smoking risk assessment performed?: Yes Alcohol Intake: current Alcohol Intake frequency: holidays/special occasions only Drug use: Never Substance use type: does not use Household members: spouse and other Housing: house Communication Needs: Hard of Hearing Do you need help understanding health information?: Never Current gender identity: female What type of physical activity do you participate in: walking Frequency: 5-6 times per week Do you feel safe at home: Yes Do you feel safe in your relationship?: Yes PAWSS Have you Been Recently Intoxicated or Drunk Within the Last 30 days?: No Have you Ever Experienced Previous Episodes of Alcohol Withdrawal?: No Have you ever Experienced Withdrawal Seizures?: No Have you ever Experienced Delirium Tremens(DT)s?: No Have you ever undergone Alcohol Rehabilitation Treatment (i.e, inpt ot outpatient treatment programs)?: No Have you ever Experienced Blackouts?: No Have you ever Combined Alcohol with other Downers within the last 90 days?: No Have you ever Combined Alcohol with any other Substance of Abuse during the last 90 days?: No Positive Blood Alcohol level on Presentation? [PCS.BAL]: No Evidence of Increased Autonomic Activity (i.e. HR>120, tremor, sweating, agitation, nausea)?: No Result: 0
[2024-01-06 08:02] LABS: Bilirubin Negative (Negative); Blood Small (Negative); Clarity Clear (Clear); Glucose Negative (Negative); Ketones Negative (Negative); Leukocyte Esterase Negative (Negative); Nitrite Negative (Negative); Specific Gravity 1.015 (1.005-1.025); Urobilinogen 0.2 mg/dL (Up to 0.2); pH 7.5 (5-8)
[2024-01-06 08:08] LABS: WBC 0-2 HPF (0-5)
[2024-01-06 08:09] LABS: Bacteria Few HPF (Negative); C & S Indicated? No; Casts Negative LPF (Negative); Crystals Negative HPF (Negative); Epithelial Cells Many HPF (Negative); Mucus Negative (Negative)
[2024-01-06 08:48] LABS: ALT 23 U/L (14-59); AST 16 U/L (15-37); Albumin 3.3 g/dL (3.4-5.0); Alkaline Phosphatase 78 U/L (46-116); Anion Gap 3.9 mmol/L (3-11); BUN 14 mg/dL (7-18); Bilirubin, Total 0.54 mg/dL (0.2-1.0); CO2 30.1 mmol/L (21.0-32.0); Calcium 9.8 mg/dL (8.5-10.1); Chloride 103 mmol/L (98-107); Estimated GFR 54.19 (mL/min/1.73m2); Glucose 99 mg/dL (74-106); Magnesium 2.2 mg/dL (1.8-2.4); Potassium 4.3 mmol/L (3.5-5.1); Sodium 137 mmol/L (136-145); TSH (W/Ref FT4) 1.42 uIU/mL (0.36-3.74); Total Protein 6.6 g/dL (6.4-8.2); Troponin I 20 ng/L (4-51)
[2024-01-06] MEDS: Normal Saline Flush 10 ML SYR IVP (09:15)
== END 2024-01-06 09:45 | disposition home or self-care (01) ==
PROVIDERS: Emergency Provider Emergency Medicine; PCP Nurse Practitioner Adult Health
DX: R42 Dizziness and giddiness (principal); R00.2 Palpitations; R20.0 Anesthesia of skin; R94.31 Abnormal electrocardiogram [ECG] [EKG]; E78.5 Hyperlipidemia, unspecified; Z79.82 Long term (current) use of aspirin
CPT/HCPCS: 36415; 80053; 93005; 99284; 81003; 81015; 83735; 84443; 84484; 85025; 93010; 99283

== ENCOUNTER 2024-01-27 21:53 | Emergency (ER) | payer MEDICARE, OTHER, SELFPAY ==
[2024-01-27] VITALS (18 sets, daily range): BP systolic 142–189; BP diastolic 60–150; PULSE 79–94; RESP 9–22; TEMP 36.1; O2SAT 96–100
--- NOTE | 2024-01-27 21:45 | RT.EKG_ITS ---
APPROVED REPORT Exam: Resting ECG Reason for Exam: afib Patient Location: E HR:94 bpm ECG Measurements Heart Rate 94 AXIS ME 215 P 44 QRSd 86 QRS -10 QT 354 T 62 QTc 443 Conclusion Sinus rhythm...normal P axis, V-rate 60- 99 Prolonged ME interval...ME >215, V-rate 91-[address] changes/depression is old and unchanged. There are no significant changes compared to prior EKG performed on 01/06/2024 at 07:01.
--- NOTE | 2024-01-27 22:00 | ED.GENADUL_ITS ---
Discharge Plan Disposition Patient Disposition: Home Condition: Good Discharge Details Clinical Impression: Mid back pain on left side, UTI (urinary tract infection) Primary Care Provider: Ginette Vaca ED Provider: Brian Patel and New Rx's Prescriptions: New cefpodoxime 200 mg tablet 200 mg PO BID Qty: 14 0RF Rx Instructions: must administer with a meal/food; begin 10/3 before bed Continued magnesium oxide 400 mg capsule 400 mg PO DAILY dicyclomine 10 mg capsule 10 mg PO BID Qty: 180 3RF Rx Instructions: per GI metoprolol tartrate 25 mg tablet 25 mg PO BID Qty: 180 3RF mirtazapine 7.5 mg tablet 7.5 mg PO QHS Qty: 90 3RF Rx Instructions: Anxiety & difficulty sleeping amlodipine 2.5 mg tablet 2.5 mg PO .bedtime Qty: 90 3RF Rx Instructions: For blood pressure omeprazole 20 mg capsule,delayed release(DR/EC) 20 mg PO BID Qty: 180 3RF Rx Instructions: Take in AM on empty stomach, 30min prior to food and other medications. Dose increase 12/24/23 atorvastatin 20 mg tablet 20 mg PO DAILY Qty: 90 3RF losartan 50 mg tablet 50 mg PO DAILY Qty: 90 3RF acetaminophen 325 mg capsule 325 mg PO ONCE PRN (Reason: fever or pain) cholecalciferol (vitamin D3) 1,000 UNIT tablet 1,000 unit PO DAILY aspirin [Aspirin Low-Strength] 81 MG tablet,chewable 81 mg PO DAILY Fish Oil 500 MG capsule,delayed release(DR/EC) 1,000 mg PO DAILY Discharge Instructions Instructions: Urinary Tract Infection, Adult ED Additional Instructions: You were seen for left mid back pain. Overall, exam and labs and imaging are reassuring. You do appear to have a urinary tract infection and given the left mid back pain should treat as possible kidney infection. You received a dose of IV antibiotics here. A prescription for oral antibiotic has been sent to the pharmacy. You should begin taking this before bed on the . Follow-up with your primary care next week. Return to ED for worsening pain, mental status change, persistent vomiting, shortness of breath, other concerns. Referrals: Ginette Vaca, [employer] [Primary Care Provider] - HPI General Mode of arrival: EMS . Date/Time Provider Initiated Documentation: 01/27/24 21:55 . Limitations to Documentation: no limitations . Information obtained by: patient, RN notes reviewed and old records reviewed . HPI Narrative: Patient presents to ED by ambulance with complaint of left thoracic back pain. Patient reports having episodes of pain just below the left scapula on and off for the last couple of days. States episodes only last seconds. They are not sharp or pleuritic. She has no shortness of breath. She has no chest discomfort. Does not think movement makes the pain any different. She has had no fever or cough or URI type symptoms. Denies any abdominal pain, vomiting. Denies any leg pain or leg swelling. States that it seemed worse tonight which worried her. Took her blood pressure at home and it was quite elevated. Decided to come in for evaluation. Related Data Home Medications ?Medication ?Instructions ?Recorded ?Confirmed aspirin 81 mg chewable tablet 81 mg PO DAILY 08/18/14 01/27/24 (Aspirin Low-Strength) omega 3-dha 60 mg-epa 90 mg-fish 1,000 mg PO DAILY 08/18/14 01/27/24 oil 500 mg capsule, delayed release (Fish Oil) cholecalciferol (vitamin D3) 25 1,000 unit PO DAILY 09/05/14 01/27/24 mcg (1,000 unit) tablet magnesium oxide 400 mg PO DAILY 07/12/18 01/27/24 dicyclomine 10 mg capsule 10 mg PO BID #180 caps 07/10/23 01/27/24 atorvastatin 20 mg tablet 20 mg PO DAILY #90 tabs 10/21/23 01/27/24 losartan 50 mg tablet 50 mg PO DAILY #90 tabs 10/21/23 01/27/24 acetaminophen 325 mg capsule 325 mg PO ONCE PRN fever or pain 11/09/23 01/27/24 metoprolol tartrate 25 mg tablet 25 mg PO BID #180 tab-caps 12/21/23 01/27/24 omeprazole 20 mg capsule,delayed 20 mg PO BID #180 caps 12/24/23 01/27/24 release amlodipine 2.5 mg tablet 2.5 mg PO .bedtime #90 tabs 01/06/24 01/27/24 mirtazapine 7.5 mg tablet 7.5 mg PO QHS anxiety or diff 01/06/24 01/27/24 sleeping #90 tabs cefpodoxime 200 mg tablet 200 mg PO BID #14 tabs 01/28/24 Previous Rx's ?Medication ?Instructions ?Recorded dicyclomine 10 mg capsule 10 mg PO BID #180 caps 07/10/23 atorvastatin 20 mg tablet 20 mg PO DAILY #90 tabs 10/21/23 losartan 50 mg tablet 50 mg PO DAILY #90 tabs 10/21/23 metoprolol tartrate 25 mg tablet 25 mg PO BID #180 tab-caps 12/21/23 omeprazole 20 mg capsule,delayed 20 mg PO BID #180 caps 12/24/23 release amlodipine 2.5 mg tablet 2.5 mg PO .bedtime #90 tabs 01/06/24 mirtazapine 7.5 mg tablet 7.5 mg PO QHS anxiety or diff 01/06/24 sleeping #90 tabs cefpodoxime 200 mg tablet 200 mg PO BID #14 tabs 01/28/24 Allergies Allergy/AdvReac Type Severity Reaction Status Date / Time No Known Allergies Allergy Verified 01/27/24 22:00 General Stated Complaint: FlankPain RAJESH: 3 Review of Systems Narrative: Per HPI Exam Narrative Exam Narrative: Const: WDWN elderly female in NAD. VS per triage. HEENT: NC/AT. Normal facial exam. Neck: Supple. Trachea midline. Lungs: Normal respiratory effort. Lungs are clear. Cor: RRR without murmur. Good distal pulses. GI: Soft/ND/NT. Neuro: A+O x 3. Normal speech, mentation, gait. Cranial nerves II - XII grossly intact. No gross motor or sensory deficit. Ext: No C/C/E. No calf tenderness. Course Vital Signs Vital signs: Temperature Source Temporal Artery Scan 01/27/24 21:50 Respiratory Effort Normal 01/27/24 21:56 Blood Pressure Position Sitting 01/27/24 21:50 Oxygen Delivery Method Room Air 01/27/24 21:50 Oxygen Flow Rate 0 01/27/24 21:50 Pain Level 0 01/27/24 21:50 Medical Decision Making Patient presenting to ED with concern for intermittent left mid to inferior scapular discomfort. No associated chest pain, shortness of breath, lightheadedness, nausea, diaphoresis. Pain is not pleuritic. Pain lasts only seconds at a time. No complaint of low back pain, flank pain, or abdominal pain. Blood pressure elevated tonight but my suspicion is more related to anxiety than anything else. Reportedly at home systolic greater than 200. Here systolic is down to 175 and I suspect over time will come down. Her EKG is sinus rhythm with nonspecific ST changes/depression in the lateral leads which are unchanged and old. Lungs are clear. Exam unremarkable. Likely musculoskeletal in nature. However, given the area of her pain and her age I will check a D-dimer, troponin, CBC/CMP. Chest imaging based on D-dimer results. Monitor blood pressure. No indication for meds or fluids at this time. 23:10 - Patient's labs overall are stable and unchanged. Initial troponin is normal. D-dimer is positive > 1000. CTA ordered. Repeat troponin and urine pending. 00:45 - Patient's urinalysis/micro is consistent with UTI. Second troponin remains flat. CTA without evidence of PE. Does have evidence of small airway disease and some mild groundglass findings that are nonspecific per preliminary radiology read. Given pain just below the left scapula with infected urine should consider possibility of pyelonephritis despite not having urinary symptoms. Will dose with IV ceftriaxone tonight and begin cefpodoxime tomorrow night. Follow-up with primary care next week. Return precautions provided. Discussed with patient and daughter. Medical Records Medical records reviewed: Yes I reviewed the patient's medical records. Medical records narrative: I have reviewed the last couple of months of office visits. Lab Data Lab results reviewed: Yes I reviewed the patient's lab results. Lab results narrative: See [facility] ECG Data Attestation: I personally reviewed and interpreted this ECG (s) as follows: Prior ECG tracings: available for review Interpretation: See EKG/MDM [facility] All Active Problems (Updated 01/28/24 @ 00:48 by Brian Patel MD) UTI (urinary tract infection) (Acute) Mid back pain on left side (Acute) Leg numbness (Acute) Palpitations (Acute) Metoprolol CKD (chronic kidney disease) (Chronic 08/29/14) moderately decreased GFR from old records RH Hypertension (Chronic 08/29/14) SVT (supraventricular tachycardia) (Chronic ~2021) SVT Dr Aaron Balderas, Cardiology; o 2021 SVT & PVCs & VTach run 8 beats max rate 203 Mixed hyperlipidemia (Acute ~10/2023) 11/16/23 Dr Andrey Carpios and callosities (Acute) Nail dystrophy (Acute) Hyponatremia (Acute) Pain in sacrum (Acute) Arthritis of knee, left (Acute) Arthritis of knee, right (Acute) Most recent DEPO MEDROL: 10/05/23; 06/10/2023; 12/22/22 Irritable bowel syndrome with diarrhea (Chronic ~2019) Bentyl RX Osteopenia determined by x-ray (Acute ~06/2022) Right medial knee pain (Acute) depo medrol 07/11/22 Degenerative joint disease of right knee (Acute) Depo-Medrol injection: 07/08/2022; 05/30/2022 Posterior tibial tendonitis (Acute) Venous insufficiency of left lower extremity (Acute) Nervously anxious (Chronic) Gastro-esophageal reflux disease without esophagitis (Chronic) 01/23/21-[facility] GI note: unspecified whether esophagitis present. 03/14/16 reflux esophagitis- Dr Mccracken EGD. Tolerates TUMs. 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 Essential hypertension Heart disease Maternal Grandfather FH: mental illness Heart disease spent life in [employer] Maternal Aunt FH: mental illness anxiety and depression electric shock therapy Other Weakness Social History Smoking/Tobacco Use Status: Never Smoking risk assessment performed?: Yes Alcohol Intake: current Alcohol Intake frequency: holidays/special occasions only Drug use: Never Substance use type: does not use Household members: spouse and other Housing: house Communication Needs: Hard of Hearing Do you need help understanding health information?: Never Current gender identity: female What type of physical activity do you participate in: walking Frequency: 5-6 times per week Do you feel safe at home: Yes Do you feel safe in your relationship?: Yes
[2024-01-27 22:40] LABS: Abs Immature Grans 0.03 10^3/uL (0.0-0.06); Absolute Basophil Count 0.09 10^3/uL (0.0-0.2); Absolute Eosinophil Count 0.41 10^3/uL (0.0-0.7); Absolute Lymphocyte Count 4.08 10^3/uL (1.2-3.4); Absolute Monocyte Count 0.84 10^3/uL (0.1-0.8); Basophils % 0.9 %; Eosinophils % 4.2 %; HCT 39.7 % (36.0-46.0); HGB 13.1 g/dL (11.2-15.7); Immature Grans % 0.3 %; Lymphocytes % 41.8 %; MCH 31.7 pg (27.0-33.0); MCV 96 fL (80-95); MPV 10.2 fL (8.0-11.0); Monocytes % 8.6 %; Neutrophils % 44.2 %; Platelet Count 296 10^3/uL (130-400); RBC 4.13 10^6/uL (3.93-5.22); RDW-SD 45.9 fL; WBC 9.75 10^3/uL (4.4-10.8)
[2024-01-27 22:47] LABS: ALT 28 U/L (14-59); AST 15 U/L (15-37); Albumin 3.9 g/dL (3.4-5.0); Alkaline Phosphatase 97 U/L (46-116); Anion Gap 7.8 mmol/L (3-11); BUN 19 mg/dL (7-18); Bilirubin, Total 0.31 mg/dL (0.2-1.0); CO2 28.2 mmol/L (21.0-32.0); CREATININE 1.1 mg/dL (0.55-1.02); Calcium 10.3 mg/dL (8.5-10.1); Chloride 99 mmol/L (98-107); Estimated GFR 48.33 (mL/min/1.73m2); Glucose 111 mg/dL (74-106); Potassium 3.9 mmol/L (3.5-5.1); Sodium 135 mmol/L (136-145); Total Protein 8.1 g/dL (6.4-8.2)
[2024-01-27 22:49] LABS: Lipase 51 U/L (16-77); Troponin I 17 ng/L (<or=51)
--- NOTE | 2024-01-27 23:00 | DI.CT_ITS ---
Exam(s) CT CHEST PE CTA EXAM: CT CHEST PE CTA CLINICAL HISTORY: left mid thoracic back pain with +d-dimer. TECHNIQUE: Imaging Protocol: Axial CT angiography was performed with multi-slice acquisition and mu lti-planar reconstructions as well as axial, coronal and sagittal MIP reconstructions. CONTRAST MATERIAL: Intravenous: Omnipaque 350 Contrast volume:100 ml COMPARISON: CR,XR XR CHEST 2V PA LATERAL from 11/17/2023 FINDINGS: Pulmonary Arteries: No evidence of filling defect to suggest pulmonary emboli. Tracheobronchial tree: No mucous plugging. Mediastinum and [place]: No dominant adenopathy or fluid collection. Pulmonary parenchyma: No consolidation or dominant measurable mass. Expiratory changes. Pleura: No effusion or pneumothorax. Heart: The heart is mildly dilated. Mild coronary artery calcifications are seen. Aorta: Thoracic aorta non-dilated. No dissection. Mild atherosclerotic changes. Upper abdomen: No acute findings. Bones: Unremarkable for age. Tubes, Catheters, and Lines: None Soft tissues: Unremarkable. IMPRESSION: No evidence of pulmonary embolism or other acute abnormality.. RADIATION DOSE DELIVERED: 71.05mGy.cm Total DLP DATA REPOSITORY: All CT scans at this facility are submitted to the National Radiology Data Registry (NRDR) Dose Index Registry (DIR) with the [employer] (ACR). RADIATION OPTIMIZATION: All CT scans at this facility use at least one of these dose optimization te chniques: automated exposure control; mA and/or kV adjustment per patient size (includes targeted exa ms where dose is matched to clinical indication); or iterative reconstruction.
[2024-01-27 23:02] LABS: D-Dimer 1048 ng/mlFEU (<500)
[2024-01-27 23:23] LABS: Bilirubin Negative (Negative); Blood Trace-lysed (Negative); Clarity Clear (Clear); Glucose Negative (Negative); Ketones Negative (Negative); Leukocyte Esterase Trace (Negative); Nitrite Negative (Negative); Specific Gravity 1.015 (1.005-1.025); Urobilinogen 0.2 mg/dL (Up to 0.2)
[2024-01-27 23:30] LABS: Bacteria Few HPF (Negative); C & S Indicated? Yes; Casts Negative LPF (Negative); Crystals Negative HPF (Negative); Epithelial Cells Few HPF (Negative); Mucus Trace (Negative)
[2024-01-27] MEDS: Normal Saline - Diluent 50 ML VIAL IJ (23:37)
[2024-01-27 23:38] LABS: Troponin I 18 ng/L (<or=51)
[2024-01-27] MEDS: Omnipaque 350 MG/ML 100 ML BTL IJ (23:38)
[2024-01-28] VITALS (7 sets, daily range): BP systolic 164; BP diastolic 70; PULSE 80–89; RESP 10–19; O2SAT 95–97
--- NOTE | 2024-01-28 00:39 | DI.VRAD_ITS ---
PROCEDURE INFORMATION: Exam: CTA Chest With Contrast Exam date and time: 01/27/2024 11:25 PM Age: 88 years old Clinical indication: Other: Left mid thoracic back pain with +d-dimer TECHNIQUE: Imaging protocol: Computed tomographic angiography of the chest with contrast. Exam focused on the arteries. 3D rendering (Not supervised by radiologist): MIP and/or 3D reconstructed images were created by the technologist. Contrast material: OMNI 350; Contrast volume: 65 ml; Contrast route: INTRAVENOUS (IV); COMPARISON: CT THORAX ABDOMEN CTA 12/07/2021 9:02 AM FINDINGS: Pulmonary arteries: The pulmonary arteries are normal in caliber. No evidence of acute pulmonary embolism. Great vessels off aortic arch: Minimal atherosclerosis of the great vessels. Aorta: Minimal atherosclerosis of the transverse thoracic aorta. The aorta is otherwise normal without evidence of aneurysmal dilatation, dissection or occlusive disease. Lungs: There is heterogeneous attenuation of the pulmonary parenchyma, consistent with air trapping from underlying small airways disease. Diffuse mild ground-glass opacities within the lungs. These findings are nonspecific and may represent hypoventilatory change,edema, hemorrhage, or an infectious/inflammatory process (acute or chronic). There is no evidence of focal pulmonary consolidation. No evidence of pulmonary parenchymal inflammatory changes. There is no evidence of pulmonary masses. Pleural spaces: There is no evidence of pneumothorax. There are no pleural effusions present. Heart: There is a small pericardial effusion. There is left ventricular hypertrophy. The cardiac structures are normal. The right ventricular to left ventricular ratio is abnormal measuring approximately 1.1. Consider early pulmonary hypertension Coronary arteries: There is mild atherosclerotic calcification of the coronary arteries. Lymph nodes: There is no evidence of lymphadenopathy. Bones/joints: The spine, sternum, ribs, and pectoral girdles show no evidence of acute abnormality. Soft tissues: There are no soft tissue masses or fluid collections. The upper abdominal viscera are unremarkable. Other findings: The mediastinal structures are normal. IMPRESSION: 1. No evidence of acute pulmonary embolism. 2. There is heterogeneous attenuation of the pulmonary parenchyma, consistent with air trapping from underlying small airways disease. 3. Diffuse mild ground-glass opacities within the lungs. These findings are nonspecific and may represent hypoventilatory change,edema, hemorrhage, or an infectious/inflammatory process (acute or chronic). 4. There is a small pericardial effusion. 5. There is left ventricular hypertrophy. Dictated and Authenticated by: Elmer Mendoza MD. Ordering:CARMEN Torres MD
[2024-01-28] MEDS: cefTRIAXone 1 GM/50 ML BAG IVPB (01:01)
--- NOTE | 2024-01-30 09:06 | NUR.NOTE ---
Accessed Pt chart to obtain the name of the antibiotic for the Specimen Report. Report was given to Dr Bejarano.
== END 2024-01-28 01:06 | disposition home or self-care (01) ==
PROVIDERS: Emergency Provider Emergency Medicine; PCP Nurse Practitioner Adult Health
DX: M54.6 Pain in thoracic spine (principal); N39.0 Urinary tract infection, site not specified; I48.91 Unspecified atrial fibrillation; I10 Essential (primary) hypertension; E78.2 Mixed hyperlipidemia; Z79.82 Long term (current) use of aspirin
CPT/HCPCS: 36415; 71275; 80053; 83690; 93005; 96374; 99285; 81003; 81015; 84484; 85025; 85379; 87086; 93010; 99284; J0696; J3490

== ENCOUNTER → 2024-02-18 13:34 | Outpatient (BNVA) | payer MEDICARE, OTHER, SELFPAY | PROVIDERS: PCP Nurse Practitioner Adult Health; Referring Provider Nurse Practitioner Adult Health; Visit Provider Internal Medicine Cardiovascular Disease | DX: I47.10 Supraventricular tachycardia, unspecified (principal); I10 Essential (primary) hypertension | CPT/HCPCS: 99214 ==

== ENCOUNTER → 2024-03-21 09:41 | Outpatient (BNVA) | payer MEDICARE, OTHER, SELFPAY | PROVIDERS: PCP Nurse Practitioner Adult Health; Referring Provider Nurse Practitioner Adult Health; Visit Provider Podiatrist | DX: L60.3 Nail dystrophy (principal); L84 Corns and callosities; N18.31 Chronic kidney disease, stage 3a; I87.2 Venous insufficiency (chronic) (peripheral); B35.1 Tinea unguium; R60.0 Localized edema; R20.2 Paresthesia of skin | CPT/HCPCS: 11056; 11721 ==

== ENCOUNTER 2024-06-22 13:09 | Outpatient (CLI) | payer MEDICARE, OTHER, SELFPAY ==
--- NOTE | 2024-06-22 12:27 | DI.RAD_ITS ---
Exam(s) XR CHEST 2V PA LATERAL EXAM: XR CHEST 2V PA LATERAL CLINICAL HISTORY: ? pneumonia R05.9 COUGH TECHNIQUE: 2D digital imaging was performed. Two views. COMPARISON: CR,XR XR CHEST 2V PA LATERAL from 11/17/[address] CHEST PE CTA from 01/27/2024 FINDINGS: HEART: Normal size. Aorta: Not dilated. PULMONARY VASCULATURE: Normal. MEDIASTINUM: Unremarkable. LUNGS: Clear. PLEURAL SPACE: No pleural effusion or pneumothorax. BONE:Unremarkable for age. SOFT TISSUES: Unremarkable. IMPRESSION: No acute abnormality. DATA REPOSITORY: RADIATION DOSE DELIVERED:
== END 2024-06-22 13:29 ==
LOC: DI 13:10
PROVIDERS: PCP Nurse Practitioner Adult Health; Visit Provider Nurse Practitioner
DX: R05.9 Cough, unspecified (principal)
CPT/HCPCS: 71046

== ENCOUNTER → 2024-07-04 09:44 | Outpatient (BNVA) | payer MEDICARE, OTHER, SELFPAY | PROVIDERS: PCP Nurse Practitioner Adult Health; Referring Provider Nurse Practitioner Adult Health; Visit Provider Podiatrist | DX: N18.31 Chronic kidney disease, stage 3a (principal); I73.89 Other specified peripheral vascular diseases; M85.89 Other specified disorders of bone density and structure, multiple sites; M17.0 Bilateral primary osteoarthritis of knee; R60.0 Localized edema; L65.9 Nonscarring hair loss, unspecified; L85.8 Other specified epidermal thickening; B35.3 Tinea pedis; L60.2 Onychogryphosis; L60.8 Other nail disorders; L84 Corns and callosities; I87.2 Venous insufficiency (chronic) (peripheral) | CPT/HCPCS: 11056; 11721 ==

== ENCOUNTER → 2024-08-01 09:44 | Outpatient (BNVA) | payer MEDICARE, OTHER, SELFPAY | PROVIDERS: PCP Nurse Practitioner Adult Health; Referring Provider Nurse Practitioner Adult Health; Visit Provider Registered Nurse | DX: I47.10 Supraventricular tachycardia, unspecified (principal); I10 Essential (primary) hypertension | CPT/HCPCS: 99214 ==

== ENCOUNTER 2024-08-18 06:45 | Emergency (ER) | payer MEDICARE, OTHER, SELFPAY ==
[2024-08-18 06:48] VITALS: BP 179/78; PULSE 100; RESP 17; TEMP 36.5; O2SAT 94
[2024-08-18 06:53] VITALS: BP 179/78; PULSE 100; RESP 17; TEMP 36.5; O2SAT 94
--- NOTE | 2024-08-18 07:00 | RT.EKG_ITS ---
APPROVED REPORT Exam: Resting ECG Reason for Exam: abd pain Patient Location: E HR:71 bpm ECG Measurements Heart Rate 71 AXIS AZ 221 P 45 QRSd 80 QRS 0 QT 386 T 36 QTc 419 Conclusion Sinus rhythm 71 normal axis 1st degree block no stemi d
--- NOTE | 2024-08-18 07:15 | DI.RAD_ITS ---
Exam(s) XR PORTABLE CHEST AP EXAM: XR PORTABLE CHEST AP CLINICAL HISTORY: abd pain TECHNIQUE: 2D digital imaging was performed of the chest. One image was obtained. An AP view was ob tained. COMPARISON: CR XR CHEST 2V PA LATERAL from 06/22/2024 FINDINGS: MEDIASTINUM: Normal. HEART: Normal. PULMONARY VASCULATURE: Normal. LUNGS: Clear. PLEURAL SPACE: No pleural effusion or pneumothorax. BONE:Within normal limits for the patient's age. OTHER FINDINGS:Normal. IMPRESSION: 1. No acute pulmonary findings. 2. The preliminary [facility] report was reviewed. DATA REPOSITORY: RADIATION DOSE DELIVERED:
[2024-08-18] MEDS: Ondansetron 4 MG/2 ML VIAL IVP (07:36)
[2024-08-18] MEDS: Ketorolac 15 MG/ML VIAL 10 MG IVP (07:36)
[2024-08-18 07:39] LABS: Abs Immature Grans 0.02 10^3/uL (0.0-0.06); Absolute Basophil Count 0.07 10^3/uL (0.0-0.2); Absolute Eosinophil Count 0.32 10^3/uL (0.0-0.7); Absolute Lymphocyte Count 1.59 10^3/uL (1.2-3.4); Absolute Monocyte Count 0.37 10^3/uL (0.1-0.8); Absolute Neutrophil Count 3.46 10^3/uL (1.2-6.7); Basophils % 1.2 %; Eosinophils % 5.5 %; HCT 41.3 % (36.0-46.0); HGB 13.5 g/dL (11.2-15.7); Immature Grans % 0.3 %; Lymphocytes % 27.3 %; MCHC 32.7 % (32.0-36.0); MCV 95 fL (80-95); MPV 9.5 fL (8.0-11.0); Monocytes % 6.3 %; Neutrophils % 59.4 %; Platelet Count 300 10^3/uL (130-400); RBC 4.36 10^6/uL (3.93-5.22); RDW 13.4 % (11.7-14.6); RDW-SD 47.8 fL; WBC 5.83 10^3/uL (4.4-10.8)
--- NOTE | 2024-08-18 07:52 | DI.VRAD_ITS ---
PROCEDURE INFORMATION: Exam: XR Chest Exam date and time: 08/18/2024 7:46 AM Age: 88 years old Clinical indication: Other: Abd pain; Abdominal pain TECHNIQUE: Imaging protocol: Radiologic exam of the chest. Views: 1 view. COMPARISON: CR XR CHEST 2V PA LATERAL 06/22/2024 12:18 PM FINDINGS: Lungs: No focal consolidation seen. Pleural spaces: No large pleural effusion seen. Heart/Mediastinum: No cardiomegaly. Bones/joints: No acute abnormality. IMPRESSION: No acute findings to explain reported symptoms. Dictated and Authenticated by: Mahogany Sanchez MD. Orderin Grace Heredia MD
[2024-08-18 07:54] LABS: ALT 25 U/L (14-59); AST 17 U/L (15-37); Albumin 3.7 g/dL (3.4-5.0); Alkaline Phosphatase 97 U/L (46-116); Anion Gap 7.9 mmol/L (3-11); BUN 15 mg/dL (7-18); Bilirubin, Total 0.5 mg/dL (0.2-1.0); CO2 28.1 mmol/L (21.0-32.0); CREATININE 1.2 mg/dL (0.55-1.02); Calcium 10.5 mg/dL (8.5-10.1); Chloride 104 mmol/L (98-107); Estimated GFR 43.54 (mL/min/1.73m2); Glucose 123 mg/dL (74-106); Lipase 36 U/L (<78); Sodium 140 mmol/L (136-145); Total Protein 8.5 g/dL (6.4-8.2)
--- NOTE | 2024-08-18 07:59 | ED.GENADUL_ITS ---
Discharge Plan Disposition Patient Disposition: Home Discharge Details Clinical Impression: Left sided abdominal pain Primary Care Provider: Ginette Vaca ED Provider: Halima Edwards Home Meds and New Rx's Prescriptions: No Action magnesium oxide 400 mg capsule 400 mg PO DAILY mirtazapine 7.5 mg tablet 7.5 mg PO QHS Qty: 90 3RF Rx Instructions: Anxiety & difficulty sleeping amlodipine 2.5 mg tablet 2.5 mg PO .bedtime Qty: 90 3RF Rx Instructions: For blood pressure omeprazole 20 mg capsule,delayed release(DR/EC) 20 mg PO DAILY Qty: 90 3RF Rx Instructions: Take in AM on empty stomach, 30min prior to food and other medications. metoprolol tartrate 37.5 mg tablet 37.5 mg PO BID Qty: 180 3RF losartan 50 mg tablet 50 mg PO DAILY Qty: 90 3RF acetaminophen 325 mg capsule 325 mg PO ONCE PRN (Reason: fever or pain) atorvastatin 20 mg tablet 20 mg PO DAILY cholecalciferol (vitamin D3) 1,000 UNIT tablet 1,000 unit PO DAILY dicyclomine 10 mg capsule See Rx Instructions .ROUTE .COMPLEX Qty: 180 3RF Dose Instruction: TAKE ONE CAPSULE BY MOUTH TWICE A DAY Rx Instructions: TAKE ONE CAPSULE BY MOUTH TWICE A DAY aspirin [Aspirin Low-Strength] 81 MG tablet,chewable 81 mg PO DAILY Fish Oil 500 MG capsule,delayed release(DR/EC) 1,000 mg PO DAILY Discharge Instructions Additional Instructions: Lab work, CT scan and urinalysis are unremarkable for any acute process Please monitor your symptoms closely and return to the emergency department with any worsening Can take Tylenol for pain Please follow-up with your primary care provider for reevaluation of any ongoing symptoms HPI General Date/Time Provider Initiated Documentation: 08/18/24 07:00 . Limitations to Documentation: no limitations . Information obtained by: patient . HPI Narrative: 88-year-old female with past medical history of CKD, hypertension, IBS, anxiety presents for evaluation of left-sided abdominal pain. She reports that this has been ongoing for several days. She reports that she talked to her doctor about it and that she is just not sure what is causing it. She reports that it is on the left side of the front of her abdomen. It does not radiate. It is not associated with nausea vomiting or diarrhea. She denies constipation. She denies any change in urination difficulty with urination pain with urination. She denies any chest pain. She does report that she has a light cough with a little bit of phlegm but this is not new. She states that she has not tried anything for relief of her symptoms. Related Data Home Medications ?Medication ?Instructions ?Recorded ?Confirmed aspirin 81 mg chewable tablet 81 mg PO DAILY 08/18/14 08/18/24 (Aspirin Low-Strength) omega 3-dha 60 mg-epa 90 mg-fish 1,000 mg PO DAILY 08/18/14 08/18/24 oil 500 mg capsule, delayed release (Fish Oil) cholecalciferol (vitamin D3) 25 1,000 unit PO DAILY 09/05/14 08/18/24 mcg (1,000 unit) tablet magnesium oxide 400 mg PO DAILY 07/12/18 08/18/24 losartan 50 mg tablet 50 mg PO DAILY #90 tabs 10/21/23 08/18/24 acetaminophen 325 mg capsule 325 mg PO ONCE PRN fever or pain 11/09/23 08/18/24 amlodipine 2.5 mg tablet 2.5 mg PO .bedtime #90 tabs 01/06/24 08/18/24 mirtazapine 7.5 mg tablet 7.5 mg PO QHS anxiety or diff 01/06/24 08/18/24 sleeping #90 tabs metoprolol tartrate 37.5 mg tablet 37.5 mg PO BID #180 tabs 02/29/24 08/18/24 omeprazole 20 mg capsule,delayed 20 mg PO DAILY #90 caps 02/29/24 08/18/24 release atorvastatin 20 mg tablet 20 mg PO DAILY 05/09/24 08/18/24 dicyclomine 10 mg capsule See Rx Instructions .Route 05/18/24 08/18/24 .COMPLEX #180 caps Previous Rx's ?Medication ?Instructions ?Recorded losartan 50 mg tablet 50 mg PO DAILY #90 tabs 10/21/23 amlodipine 2.5 mg tablet 2.5 mg PO .bedtime #90 tabs 01/06/24 mirtazapine 7.5 mg tablet 7.5 mg PO QHS anxiety or diff 01/06/24 sleeping #90 tabs metoprolol tartrate 37.5 mg tablet 37.5 mg PO BID #180 tabs 02/29/24 omeprazole 20 mg capsule,delayed 20 mg PO DAILY #90 caps 02/29/24 release dicyclomine 10 mg capsule See Rx Instructions .Route 05/18/24 .COMPLEX #180 caps Allergies Allergy/AdvReac Type Severity Reaction Status Date / Time No Known Allergies Allergy Verified 08/18/24 06:55 General Stated Complaint: Abd Prob RAJESH: 3 Exam Narrative Exam Narrative: Review of Systems: All systems reviewed & are unremarkable except as noted in HPI and below Well-developed, no acute distress NCAT PERRL, normal conjunctiva RRR Unlabored respiratory effort clear bilaterally Nondistended abdomen soft nontender, no CVA tenderness No rashes or lesions. Course Vital Signs Vital signs: Vital Signs Temperature 36.5 C 08/18/24 06:48 Pulse 100 H 08/18/24 06:48 Respiratory Rate 17 08/18/24 06:48 Blood Pressure 179/78 H 08/18/24 06:48 Pulse Oximetry 94 08/18/24 06:48 Temperature 36.5 C 08/18/24 06:53 Temperature Source Temporal Artery Scan 08/18/24 06:53 Pulse 100 H 08/18/24 06:53 Respiratory Rate 17 08/18/24 06:53 Blood Pressure 179/78 H 08/18/24 06:53 Blood Pressure Position Sitting 08/18/24 06:53 Pulse Oximetry 94 08/18/24 06:53 Oxygen Delivery Method Room Air 08/18/24 06:53 Oxygen Flow Rate 0 08/18/24 06:53 Pain Level 2 08/18/24 06:54 Lab/Test Results Lab/Test Results: Laboratory Tests Range/Units 08/18/24 07:25 WBC (4.4-10.8) 10^3/uL 5.83 RBC (3.93-5.22) 10^6/uL 4.36 Hgb (11.2-15.7) g/dL 13.5 Hct (36.0-46.0) % 41.3 MCV (80-95) fL 95 MCH (27.0-33.0) pg 31.0 MCHC (32.0-36.0) % 32.7 RDW (11.7-14.6) % 13.4 Plt Count (130-400) 10^3/uL 300 MPV (8.0-11.0) fL 9.5 Immature Gran % % 0.3 Neutrophils % % 59.4 Lymphocytes % % 27.3 Monocytes % % 6.3 Eosinophils % % 5.5 Basophils % % 1.2 Nucleated RBC % (0.0-0.3) % 0.0 Absolute Neutrophils (1.2-6.7) 10^3/uL 3.46 Absolute Lymphocytes (1.2-3.4) 10^3/uL 1.59 Absolute Monocytes (0.1-0.8) 10^3/uL 0.37 Absolute Eosinophils (0.0-0.7) 10^3/uL 0.32 Absolute Basophils (0.0-0.2) 10^3/uL 0.07 Sodium (136-145) mmol/L 140 Potassium (3.5-5.1) mmol/L 4.0 Chloride (98-107) mmol/L 104 Carbon Dioxide (21.0-32.0) mmol/L 28.1 Anion Gap (3-11) mmol/L 7.9 BUN (7-18) mg/dL 15 Creatinine (0.55-1.02) mg/dL 1.2 H Est GFR (CKD-EPI 2020) (mL/min/1.73m2) 43.54 Glucose (74-106) mg/dL 123 H Calcium (8.5-10.1) mg/dL 10.5 H Total Bilirubin (0.2-1.0) mg/dL 0.5 AST (15-37) U/L 17 ALT (14-59) U/L 25 Alkaline Phosphatase (46-116) U/L 97 Total Protein (6.4-8.2) g/dL 8.5 H Albumin (3.4-5.0) g/dL 3.7 Lipase (<78) U/L 36 Medical Decision Making Emergent evaluation of left-sided abdominal pain. Patient reports that she has had this symptoms previously and just does not know what causes it. Initial differential includes UTI, renal stone, constipation. She does report a mild cough, but I doubt pneumonia given the lack of concurrent sick symptoms. The patient was evaluated in the emergency department previously for left-sided abdominal pain that seem to be caused by UTI. EKG obtained and reviewed: Sinus 71 normal axis no STEMI. Will evaluate labs urine and chest x-ray. Lab work reviewed no leukocytosis or anemia. Renal function at baseline with creatinine of 1.2. There is no other electrolyte derangement. Her urinalysis did reveal some small amount of blood, no signs of infection. Given this blood, she was sent for a CT scan to evaluate for possible renal colic. There is no evidence of hydronephrosis or kidney stone on examination. At this time I do not have a an emergent condition identified causing her left flank pain. Her symptoms seem to have improved with medication given in the emergency department. I recommend continued Tylenol at home as needed for pain and put close follow-up with her PCP for any ongoing symptoms. Quality:[facility] Health Related Social Needs: No Data to Display PFSH All Active Problems (Updated 08/18/24 @ 10:57 by Halima Edwards MD) Left sided abdominal pain (Acute) Hypercalcemia (Acute) Urge incontinence of urine (Acute) CKD (chronic kidney disease) (Chronic 08/29/14) moderately decreased GFR from old records RH Hypertension (Chronic 08/29/14) SVT (supraventricular tachycardia) (Chronic ~2021) SVT Dr Aaron Balderas, Cardiology; [facility] 2021 SVT & PVCs & VTach run 8 beats max rate 203 Mixed hyperlipidemia (Acute ~10/2023) 11/16/23 Dr Balderas Corns and callosities (Acute) Nail dystrophy (Acute) Hyponatremia (Acute) Pain in sacrum (Acute) Arthritis of knee, left (Acute) Arthritis of knee, right (Acute) Most recent DEPO MEDROL: 10/05/23; 06/10/2023; 12/22/22 Irritable bowel syndrome with diarrhea (Chronic ~2019) Bentyl RX Osteopenia determined by x-ray (Acute ~06/2022) Right medial knee pain (Acute) depo medrol 07/11/22 Degenerative joint disease of right knee (Acute) Depo-Medrol injection: 07/08/2022; 05/30/2022 Posterior tibial tendonitis (Acute) Venous insufficiency of left lower extremity (Acute) Nervously anxious (Chronic) Gastro-esophageal reflux disease without esophagitis (Chronic) 01/23/21-[facility] GI note: unspecified whether esophagitis present. 03/14/16 reflux esophagitis- Dr Kaykay HANLEY. Tolerates TUMs. 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 Essential hypertension Heart disease Maternal Grandfather FH: mental illness Heart disease [facility] Maternal Aunt FH: mental illness anxiety and depression electric shock therapy Other Weakness Social History Smoking/Tobacco Use Status: Never Smoking risk assessment performed?: Yes Alcohol Intake: current Alcohol Intake frequency: holidays/special occasions only Drug use: Never Substance use type: does not use Household members: spouse and other Housing: house Communication Needs: Hard of Hearing Do you need help understanding health information?: Never Current gender identity: female What type of physical activity do you participate in: walking Frequency: 5-6 times per week Do you feel safe at home: Yes Do you feel safe in your relationship?: Yes
[2024-08-18 08:53] LABS: Bilirubin Negative (Negative); Blood Small (Negative); Clarity Clear (Clear); Glucose Negative (Negative); Ketones Negative (Negative); Leukocyte Esterase Trace (Negative); Nitrite Negative (Negative); Urobilinogen 0.2 mg/dL (Up to 0.2)
[2024-08-18 09:03] LABS: Bacteria Few HPF (Negative); C & S Indicated? No; Casts 0-2 Coarse Granular LPF (Negative); Crystals Negative HPF (Negative); Epithelial Cells Many HPF (Negative); Mucus Moderate (Negative); Other Cells Negative (Negative)
--- NOTE | 2024-08-18 09:40 | DI.CT_ITS ---
Exam(s) CT ABDOMEN PELVIS WO EXAM: CT ABDOMEN PELVIS WO CLINICAL HISTORY: left flank pain. TECHNIQUE: Imaging Protocol: Axial computed tomography images with coronal and sagittal reformatted images were created and reviewed. COMPARISON: CT CT ABDOMEN PELVIS W from 01/04/2024 FINDINGS: ABDOMEN: Lung Bases: Coronary artery calcifications are present. Liver: Normal density. No measurable mass. Gallbladder and biliary tract: No radiodense calculus or biliary ductal dilation. Pancreas: Normal density, no abnormal calcifications or inflammatory process. Spleen: Normal. Kidneys: Normal size, contour and axis.No radiodense stones or obstructive uropathy. No masses seen. Adrenal glands: No mass is seen. Lymph nodes: Within normal limits. Abdominal Aorta: Abdominal portion non-dilated. The sclerotic calcification is present. PELVIS: Bladder:Symmetric distention, no gross wall thickening. No evidence of a bladder stone. Bowel: No obstruction or bowel wall thickening. There is no evidence of acute diverticulitis. No pretty dence of appendicitis. Peritoneal cavity: No ascites, collection or mesenteric inflammatory response. No free air. Reproductive organs: Status post hysterectomy. Bones: Age-appropriate degenerative changes are present. There is grade 1 pseudo spondylolisthesis o f L4 on L5. No acute fractures or subluxations are seen. Soft Tissues: There is a fat containing left inguinal hernia. IMPRESSION: 1. No evidence of hydronephrosis or nephrolithiasis. 2. No evidence of acute diverticulitis. RADIATION DOSE DELIVERED: 485.46mGy.cm Total DLP DATA REPOSITORY: All CT scans at this facility are submitted to the National Radiology Data Registry (NRDR) Dose Index Registry (DIR) with the [employer] (A[employer]). RADIATION OPTIMIZATION: All CT scans at this facility use at least one of these dose optimization te chniques: automated exposure control; mA and/or kV adjustment per patient size (includes targeted exa ms where dose is matched to clinical indication); or iterative reconstruction.
[2024-08-18 11:05] VITALS: BP 156/51; PULSE 66; RESP 12; O2SAT 97
== END 2024-08-18 11:09 | disposition home or self-care (01) ==
PROVIDERS: Emergency Provider Emergency Medicine; PCP Nurse Practitioner Adult Health
DX: R10.12 Left upper quadrant pain (principal); I44.0 Atrioventricular block, first degree; I11.0 Hypertensive heart disease with heart failure; N18.9 Chronic kidney disease, unspecified; E78.2 Mixed hyperlipidemia; Z79.82 Long term (current) use of aspirin
CPT/HCPCS: 80053; 83690; 93005; 96374; 96376; 99285; 71045; 74176; 81003; 81015; 85025; 93010; 99284; J1885; J2405

== ENCOUNTER 2024-10-14 01:11 | Outpatient (CLI) | payer MEDICARE, OTHER, SELFPAY ==
[2024-10-14 09:34] LABS: Anion Gap 6.5 mmol/L (3-11); BUN 16 mg/dL (7-18); CO2 27.5 mmol/L (21.0-32.0); CREATININE 1.2 mg/dL (0.55-1.02); Calcium 9.7 mg/dL (8.5-10.1); Chloride 102 mmol/L (98-107); Estimated GFR 43.54 (mL/min/1.73m2); Glucose 120 mg/dL (74-106); Potassium 4.7 mmol/L (3.5-5.1); Sodium 136 mmol/L (136-145)
== END 2024-10-14 01:12 | disposition home or self-care (01) ==
LOC: LBO 01:11
PROVIDERS: PCP Nurse Practitioner Adult Health; Referring Provider Nurse Practitioner Adult Health; Visit Provider Nurse Practitioner Adult Health
DX: N18.31 Chronic kidney disease, stage 3a (principal); E83.52 Hypercalcemia; E87.1 Hypo-osmolality and hyponatremia; I10 Essential (primary) hypertension
CPT/HCPCS: 36415; 80048

== ENCOUNTER → 2024-10-17 09:43 | Outpatient (BNVA) | payer MEDICARE, OTHER, SELFPAY | PROVIDERS: PCP Nurse Practitioner Adult Health; Referring Provider Nurse Practitioner Adult Health; Visit Provider Podiatrist | DX: L60.3 Nail dystrophy (principal); B35.1 Tinea unguium; L84 Corns and callosities; N18.31 Chronic kidney disease, stage 3a; I87.2 Venous insufficiency (chronic) (peripheral); R60.0 Localized edema; I83.93 Asymptomatic varicose veins of bilateral lower extremities; L65.9 Nonscarring hair loss, unspecified; M79.672 Pain in left foot; M20.41 Other hammer toe(s) (acquired), right foot; M20.42 Other hammer toe(s) (acquired), left foot; M20.12 Hallux valgus (acquired), left foot; R23.8 Other skin changes; L60.2 Onychogryphosis; L60.8 Other nail disorders | CPT/HCPCS: 11056; 11721 ==

== ENCOUNTER → 2024-11-14 09:24 | Outpatient (BNVA) | payer MEDICARE, OTHER, SELFPAY | PROVIDERS: PCP Nurse Practitioner Adult Health; Referring Provider Nurse Practitioner Adult Health; Visit Provider Physician Assistant | DX: M17.11 Unilateral primary osteoarthritis, right knee (principal) | CPT/HCPCS: 20610; J1010 ==

== ENCOUNTER 2024-12-19 09:53 | Outpatient (CLI) | payer MEDICARE, OTHER, SELFPAY ==
--- NOTE | 2024-12-19 09:45 | RT.EKG_ITS ---
APPROVED REPORT Exam: Resting ECG Reason for Exam: elevated BP Patient Location: O HR:65 bpm ECG Measurements Heart Rate 65 AXIS GA 216 P 42 QRSd 91 QRS -14 QT 395 T 39 QTc 411 Conclusion Sinus rhythm...normal P axis, V-rate 50- 99 Borderline prolonged GA interval...GA >212, V-rate 50- 90 Otherwise normal ECG
== END 2024-12-19 09:54 | disposition home or self-care (01) ==
LOC: DI.KIM 09:54
PROVIDERS: PCP Nurse Practitioner Adult Health; Visit Provider Nurse Practitioner Adult Health
DX: I10 Essential (primary) hypertension (principal)
CPT/HCPCS: 93010

== ENCOUNTER 2024-12-31 19:08 | Emergency (ER) | payer MEDICARE, OTHER, SELFPAY ==
[2024-12-31] VITALS (27 sets, daily range): BP systolic 154–208; BP diastolic 63–107; PULSE 74–91; RESP 9–22; TEMP 37; O2SAT 94–98
--- NOTE | 2024-12-31 18:45 | RT.EKG_ITS ---
APPROVED REPORT Exam: Resting ECG Reason for Exam: dizziness Patient Location: E HR:86 bpm ECG Measurements Heart Rate 86 AXIS AZ 237 P 47 QRSd 86 QRS -6 QT 360 T 29 QTc 430 Conclusion Sinus rhythm...normal P axis, V-rate 60- 99 Prolonged AZ interval...AZ >220, V-rate 50- 90
--- NOTE | 2024-12-31 19:09 | W.ED.GENAD ---
Discharge Plan Disposition Patient Disposition: Home Condition: Stable Discharge Details Clinical Impression: Palpitations Primary Care Provider: Ginette Vaca ED Provider: Stanley Gonzalez Home Meds and New Rx's Prescriptions: Continued magnesium oxide 400 mg capsule 400 mg PO DAILY omeprazole 20 mg capsule,delayed release(DR/EC) 20 mg PO DAILY Qty: 90 3RF Rx Instructions: Take in AM on empty stomach, 30min prior to food and other medications. metoprolol tartrate 37.5 mg tablet 37.5 mg PO BID Qty: 180 3RF escitalopram oxalate [Lexapro] 5 mg tablet 5 mg PO DAILY Qty: 90 0RF Rx Instructions: Resuming medication for anxiety/worry/nerves acetaminophen 325 mg capsule 325 mg PO ONCE PRN (Reason: fever or pain) losartan 100 mg tablet 100 mg PO DAILY Qty: 90 3RF Rx Instructions: BP amlodipine 5 mg tablet 5 mg PO .bedtime Qty: 90 3RF Rx Instructions: Dose increase 12/19/2024 for BP mirtazapine 7.5 mg tablet 7.5 mg PO QHS Qty: 90 3RF Rx Instructions: Anxiety & difficulty sleeping nystatin-triamcinolone 100,000-0.1 unit/g-% cream 1 applic topical BID Qty: 30 0RF cholecalciferol (vitamin D3) 1,000 UNIT tablet 1,000 unit PO DAILY dicyclomine 10 mg capsule See Rx Instructions .ROUTE .COMPLEX Qty: 180 3RF Dose Instruction: TAKE ONE CAPSULE BY MOUTH TWICE A DAY Rx Instructions: TAKE ONE CAPSULE BY MOUTH TWICE A DAY atorvastatin 20 mg tablet See Rx Instructions .ROUTE .COMPLEX Qty: 90 3RF Dose Instruction: TAKE ONE TABLET BY MOUTH EVERY DAY Rx Instructions: TAKE ONE TABLET BY MOUTH EVERY DAY aspirin [Aspirin Low-Strength] 81 MG tablet,chewable 81 mg PO DAILY Fish Oil 500 MG capsule,delayed release(DR/EC) 1,000 mg PO DAILY Discharge Instructions Instructions: Palpitations (DC) Referrals: Ginette Vaca NP [Primary Care Provider, Medicine] - 01/02/25 Referral Note: They will call you for the heart monitor Discharge Data Discharge Physician: Stanley Gonzalez HPI General Date/Time Provider Initiated Documentation: 12/31/24 19:09. HPI Narrative: Patient presents to the emergency department for palpitations. She states that she was not feeling well and felt that her heart rate was going fast she called 911 and came to the emergency department. She went to the clinic and saw her doctor for the same reason last week and they told her it was anxiety. Here in the emergency department she states that she has no symptoms but she states she was alone in the house reason she called 911. Denies any chest pain denies any dizziness. She states that they gave her metoprolol to take but she has not really compliant with that and also an anxiety pill Related Data Home Medications ?Medication ?Instructions ?Recorded ?Confirmed aspirin 81 mg chewable tablet 81 mg PO DAILY 08/18/14 12/29/24 (Aspirin Low-Strength) omega 3-dha 60 mg-epa 90 mg-fish 1,000 mg PO DAILY 08/18/14 12/29/24 oil 500 mg capsule, delayed release (Fish Oil) cholecalciferol (vitamin D3) 25 1,000 unit PO DAILY 09/05/14 12/29/24 mcg (1,000 unit) tablet magnesium oxide 400 mg PO DAILY 07/12/18 12/29/24 acetaminophen 325 mg capsule 325 mg PO ONCE PRN fever or pain 11/09/23 12/29/24 metoprolol tartrate 37.5 mg tablet 37.5 mg PO BID #180 tabs 02/29/24 12/29/24 omeprazole 20 mg capsule,delayed 20 mg PO DAILY #90 caps 02/29/24 12/29/24 release dicyclomine 10 mg capsule See Rx Instructions .Route 05/18/24 12/29/24 .COMPLEX #180 caps atorvastatin 20 mg tablet See Rx Instructions .Route 11/16/24 12/29/24 .COMPLEX #90 tabs nystatin-triamcinolone 100,000 1 applic topical BID #30 grams 11/28/24 12/29/24 unit/g-0.1 % topical cream amlodipine 5 mg tablet 5 mg PO .bedtime #90 tabs 12/19/24 12/29/24 losartan 100 mg tablet 100 mg PO DAILY #90 tabs 12/19/24 12/29/24 mirtazapine 7.5 mg tablet 7.5 mg PO QHS anxiety or diff 12/19/24 12/29/24 sleeping #90 tabs escitalopram oxalate 5 mg tablet 5 mg PO DAILY #90 tabs 12/29/24 12/29/24 (Lexapro) Previous Rx's ?Medication ?Instructions ?Recorded metoprolol tartrate 37.5 mg tablet 37.5 mg PO BID #180 tabs 02/29/24 omeprazole 20 mg capsule,delayed 20 mg PO DAILY #90 caps 02/29/24 release dicyclomine 10 mg capsule See Rx Instructions .Route 05/18/24 .COMPLEX #180 caps atorvastatin 20 mg tablet See Rx Instructions .Route 11/16/24 .COMPLEX #90 tabs nystatin-triamcinolone 100,000 1 applic topical BID #30 grams 11/28/24 unit/g-0.1 % topical cream amlodipine 5 mg tablet 5 mg PO .bedtime #90 tabs 12/19/24 losartan 100 mg tablet 100 mg PO DAILY #90 tabs 12/19/24 mirtazapine 7.5 mg tablet 7.5 mg PO QHS anxiety or diff 12/19/24 sleeping #90 tabs escitalopram oxalate 5 mg tablet 5 mg PO DAILY #90 tabs 12/29/24 (Lexapro) Allergies Allergy/AdvReac Type Severity Reaction Status Date / Time bee pollen Allergy Severe Anaphylaxis Verified 12/29/24 11:42 General Stated Complaint: GenMedical RAJESH: 3 Review of Systems Narrative: Review of Systems: Constitutional: No fevers, chills, sweats Eye: No recent visual problems ENT: No ear pain, nasal congestion, sore throat Respiratory: No shortness of breath, cough Cardiovascular: No Chest pain,no syncope Gastrointestinal: No nausea, vomiting, diarrhea Genitourinary: No hematuria Colten/Lymph: Negative for bruising tendency, swollen lymph glands Endocrine: Negative for excessive thirst, excessive hunger Musculoskeletal: No back pain, neck pain, joint pain, muscle pain, decreased range of motion Integumentary: No rash, pruritus, abrasions Neurologic: Alert & oriented X 4 Psychiatric: No anxiety, depression Exam Narrative Exam Narrative: Exam; vitals signs as reported above normal Constitutional; In no acute distress, afebrile General: cooperative, healthy appearing, comfortable and no acute distress HEENT: Head: normal to inspection, no palpable skull fracture and normocephalic atraumatic Eyes: : appearance normal, both eyes and all related structures EOM intact bilaterally Pupils: PERRL : conjunctiva normal Direct ophthalmoscopy: normal light reflex, normal conjunctiva, normal visual acuity Ears: Normal TM, normal external canal Nose: normal no rhinorreha Neck no JVD, supple non tender Neck: normal visual inspection, full ROM and no lymphadenopathy Chest: normal inspection of the chest Respiratory : normal respiratory effort and able to speak in complete sentences no wheezing no rales Cardio Rate: regular rate, rhythm: regular rhythm normal heart sounds S1 and S2 no murmurs, gallops, or rubs GI : normal to inspection, normal bowel sounds, soft, non tender, non distended, no organomegaly Back/Spine/ no CVA tenderness Thoracic/Lumbar Spine: no tenderness or deformities Skin no rashes or lesions Neuro: patient alert oriented x 4 and no meningeal signs, Cranial Nerves: CN's II-XI intact bilaterally, Cognition: normal cognition, Speech: speech normal, Gait: normal gait, Depp tendon reflexes normal 2+ muscle strength 5/5 bilaterally Extremities, no edema, full range of motion, normal strength Course Vital Signs Vital signs: Vital Signs Pulse 91 H 12/31/24 18:54 Respiratory Rate 16 12/31/24 18:54 Blood Pressure 208/107 H 12/31/24 18:54 Pulse Oximetry 97 12/31/24 18:54 Pulse 91 H 12/31/24 18:54 Respiratory Rate 16 12/31/24 18:54 Blood Pressure 208/107 H 12/31/24 18:54 Blood Pressure Position Sitting 12/31/24 18:54 Pulse Oximetry 97 12/31/24 18:54 Oxygen Delivery Method Room Air 12/31/24 18:54 Oxygen Flow Rate 0 12/31/24 18:54 Pain Level 0 12/31/24 18:54 Medical Decision Making [facility]. Summary: Patient presented to the emergency department with palpitations but she did not ekg monitor and her heart rate is is about 85 bpm. EKG here shows normal sinus rhythm with a heart rate of [address]-T changes. Although patient is 89 she does not look at her stated age she looks like she is in her 70s. Here she denies any symptoms and does think that this might be anxiety. Blood pressure initially was a little high but now it is 174/65 and she states that she has not taking her antihypertensives. She had labs done which showed mild hyponatremia but otherwise unremarkable. I have arranged for her to get a Zio patch to monitor her heart rate but also told her to get a smart watch to monitor her heart rate Data Review Analysis All the data on this patient was reviewed by me including laboratory and imaging studies as well as bedside studies performed by me Independent review of Studies Imaging Lab: Labs show mild hyponatremia Risk Stratification: Patient with palpitations but no objective findings though she will have a Zio patch placed to make sure she does not have A-fib Differential Diagnosis: 1. Palpitations 2. Anxiety 3. Atrial fibrillation 4. Atrial flutter 5. Consultants: Shared disposition: Patient stands instructions told to monitor her blood pressure as well and will be discharged home Impression: Medical Records Medical records reviewed: Yes I reviewed the patient's medical records. Lab Data Lab results reviewed: Yes I reviewed the patient's lab results. ECG Data Attestation: I personally reviewed and interpreted this ECG (s) as follows: Prior ECG tracings: available for review Interpretation: Heart rate of 86 normal sinus rhythm no acute ST-T changes normal axis PFSH All Active Problems (Updated 12/31/24 @ 21:19 by Stanley Gonzalez MD) Palpitations (Acute) Numbness and tingling of both legs (Acute) Intermittent; not progressing, tolerable Left inguinal hernia (Acute ~08/2024) Spondylolisthesis, lumbar region (Acute ~08/2024) Hypercalcemia (Acute) Urge incontinence of urine (Acute) CKD (chronic kidney disease) (Chronic 08/29/14) moderately decreased GFR from old records RH Hypertension (Chronic 08/29/14) SVT (supraventricular tachycardia) (Chronic ~2021) SVT Dr Aaron Balderas, Cardiology; [facility] 2021 SVT & PVCs & VTach run 8 beats max rate 203 Mixed hyperlipidemia (Acute ~10/2023) 11/16/23 Dr Balderas Corns and callosities (Acute) Nail dystrophy (Acute) Hyponatremia (Acute) Pain in sacrum (Acute) Arthritis of knee, left (Acute) Arthritis of knee, right (Acute) Most recent DEPO MEDROL: 10/05/23; 06/10/2023; 12/22/22 Irritable bowel syndrome with diarrhea (Chronic ~2019) Bentyl RX Osteopenia determined by x-ray (Acute ~06/2022) Right medial knee pain (Acute) depo medrol 07/11/22 Degenerative joint disease of right knee (Acute) Depo-Medrol injection: 07/08/2022; 05/30/2022 Posterior tibial tendonitis (Acute) Venous insufficiency of left lower extremity (Acute) Nervously anxious (Chronic) Gastro-esophageal reflux disease without esophagitis (Chronic) 01/23/21-[facility] GI note: unspecified whether esophagitis present. 03/14/16 reflux esophagitis- Dr Mccracken EGD. Tolerates TUMs. 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 Essential hypertension Heart disease Maternal Grandfather FH: mental illness Heart disease spent life in [facility] Maternal Aunt FH: mental illness anxiety and depression electric shock therapy Other Weakness Social History Smoking/Tobacco Use Status: Never Smoking risk assessment performed?: Yes Alcohol Intake: current Alcohol Intake frequency: holidays/special occasions only Drug use: Never Substance use type: does not use Household members: spouse and other Housing: house Communication Needs: Hard of Hearing Do you need help understanding health information?: Never Current gender identity: female What type of physical activity do you participate in: walking Frequency: 5-6 times per week Do you feel safe at home: Yes Do you feel safe in your relationship?: Yes
[2024-12-31 19:41] LABS: Abs Immature Grans 0.04 10^3/uL (0.0-0.06); HCT 35.5 % (36.0-46.0); HGB 12.0 g/dL (11.2-15.7); Immature Grans % 0.5 %; MCH 30.5 pg (27.0-33.0); MCHC 33.8 % (32.0-36.0); MCV 90 fL (80-95); MPV 9.5 fL (8.0-11.0); Platelet Count 253 10^3/uL (130-400); RBC 3.94 10^6/uL (3.93-5.22); RDW 13.2 % (11.7-14.6); RDW-SD 43.9 fL; WBC 8.22 10^3/uL (4.4-10.8)
[2024-12-31 19:55] LABS: ALT 28 U/L (14-59); AST 18 U/L (15-37); Albumin 3.7 g/dL (3.4-5.0); Alkaline Phosphatase 92 U/L (46-116); Anion Gap 6.8 mmol/L (3-11); BUN 16 mg/dL (7-18); Bilirubin, Total 0.5 mg/dL (0.2-1.0); CO2 28.2 mmol/L (21.0-32.0); Calcium 9.9 mg/dL (8.5-10.1); Chloride 97 mmol/L (98-107); Estimated GFR 48.03 (mL/min/1.73m2); Glucose 141 mg/dL (74-106); Magnesium 2.1 mg/dL (1.8-2.4); Potassium 3.7 mmol/L (3.5-5.1); Sodium 132 mmol/L (136-145); Total Protein 7.7 g/dL (6.4-8.2)
== END 2024-12-31 21:33 | disposition home or self-care (01) ==
PROVIDERS: Emergency Provider Emergency Medicine Emergency Medical Services; PCP Nurse Practitioner Adult Health
DX: R00.2 Palpitations (principal)
CPT/HCPCS: 99284; 99283; 36415; 80053; 93005; 83735; 85025; 93010; 93225

== ENCOUNTER 2025-01-12 13:25 | Emergency (ER) | payer MEDICARE, OTHER, SELFPAY ==
[2025-01-12] VITALS (29 sets, daily range): BP systolic 161–178; BP diastolic 78–83; PULSE 89–124; RESP 18–20; TEMP 36.3; O2SAT 95–98
--- NOTE | 2025-01-12 13:15 | RT.EKG_ITS ---
APPROVED REPORT Exam: Resting ECG Reason for Exam: Dizziness, Heart Rate Patient Location: E HR:98 bpm ECG Measurements Heart Rate 98 AXIS ND 223 P 42 QRSd 86 QRS -12 QT 348 T 68 QTc 445 Conclusion Sinus rhythm...normal P axis, V-rate 60- 99 Ventricular premature complex...V complex w/ short R-R interval Prolonged ND interval...ND >215, V-rate 91-120 I have reviewed and interpreted ECG and agree with software generated interpretation.
[2025-01-12] MEDS: Normal Saline 1,000 ML 500 ML IV (14:26)
[2025-01-12 14:30] LABS: Abs Immature Grans 0.04 10^3/uL (0.0-0.06); HCT 37.3 % (36.0-46.0); HGB 12.5 g/dL (11.2-15.7); Immature Grans % 0.5 %; MCH 30.0 pg (27.0-33.0); MCHC 33.5 % (32.0-36.0); MCV 90 fL (80-95); MPV 9.5 fL (8.0-11.0); Platelet Count 288 10^3/uL (130-400); RBC 4.16 10^6/uL (3.93-5.22); RDW 13.4 % (11.7-14.6); RDW-SD 44.4 fL; WBC 7.67 10^3/uL (4.4-10.8)
[2025-01-12 14:38] LABS: Glucose Negative (Negative)
[2025-01-12 14:45] LABS: C & S Indicated? No; WBC Negative HPF (0-5)
[2025-01-12 15:04] LABS: ALT 30 U/L (14-59); AST 21 U/L (15-37); Albumin 4.1 g/dL (3.4-5.0); Alkaline Phosphatase 90 U/L (46-116); Anion Gap 10.9 mmol/L (3-11); BUN 13 mg/dL (7-18); Bilirubin, Total 0.5 mg/dL (0.2-1.0); CO2 25.1 mmol/L (21.0-32.0); Calcium 10.4 mg/dL (8.5-10.1); Chloride 94 mmol/L (98-107); Estimated GFR 48.03 (mL/min/1.73m2); Glucose 115 mg/dL (74-106); Magnesium 2.1 mg/dL (1.8-2.4); Potassium 3.8 mmol/L (3.5-5.1); Sodium 130 mmol/L (136-145); TSH (W/Ref FT4) 0.90 uIU/mL (0.36-3.74); Total Protein 8.3 g/dL (6.4-8.2); Troponin I 17 ng/L (<or=51)
--- NOTE | 2025-01-12 15:20 | DI.RAD_ITS ---
Exam(s) XR CHEST 2V PA LATERAL EXAM: XR CHEST 2V PA LATERAL CLINICAL HISTORY: weakness. TECHNIQUE: 2D digital imaging was performed. COMPARISON: CR,XR XR PORTABLE CHEST AP from 08/18/2024 FINDINGS: 2 views: Heart size is normal. The mediastinum is not widened. Lungs are clear. No infiltrates nor pleural effusions. IMPRESSION: No acute pulmonary findings. DATA REPOSITORY: RADIATION DOSE DELIVERED:
--- NOTE | 2025-01-12 15:31 | ED.GENADUL_ITS ---
<Statement entered by RAINA Longoria - 01/13/25 15:05> Patient signed out to me by Patricia Clarke, N/V/D - feeling better, written to go. Was not able to collect stool samples prior to discharge. Discharge Plan Disposition Patient Disposition: Home Condition: Stable Discharge Details Clinical Impression: Episodic lightheadedness, Acute hyponatremia, Hypercalcemia Primary Care Provider: Ginette Vaca ED Provider: Benjie Swann Home Meds and New Rx's Prescriptions: Continued magnesium oxide 400 mg capsule 400 mg PO DAILY omeprazole 20 mg capsule,delayed release(DR/EC) 20 mg PO DAILY Qty: 90 3RF Rx Instructions: Take in AM on empty stomach, 30min prior to food and other medications. metoprolol tartrate 37.5 mg tablet 37.5 mg PO BID Qty: 180 3RF escitalopram oxalate [Lexapro] 5 mg tablet 5 mg PO DAILY Qty: 90 0RF Rx Instructions: Resuming medication for anxiety/worry/nerves acetaminophen 325 mg capsule 325 mg PO ONCE PRN (Reason: fever or pain) losartan 100 mg tablet 100 mg PO DAILY Qty: 90 3RF Rx Instructions: BP amlodipine 5 mg tablet 5 mg PO .bedtime Qty: 90 3RF Rx Instructions: Dose increase 12/19/2024 for BP mirtazapine 7.5 mg tablet 7.5 mg PO QHS Qty: 90 3RF Rx Instructions: Anxiety & difficulty sleeping cholecalciferol (vitamin D3) 1,000 UNIT tablet 1,000 unit PO DAILY dicyclomine 10 mg capsule See Rx Instructions .ROUTE .COMPLEX Qty: 180 3RF Dose Instruction: TAKE ONE CAPSULE BY MOUTH TWICE A DAY Rx Instructions: TAKE ONE CAPSULE BY MOUTH TWICE A DAY atorvastatin 20 mg tablet See Rx Instructions .ROUTE .COMPLEX Qty: 90 3RF Dose Instruction: TAKE ONE TABLET BY MOUTH EVERY DAY Rx Instructions: TAKE ONE TABLET BY MOUTH EVERY DAY nystatin-triamcinolone 100,000-0.1 unit/g-% cream 1 applic topical BID Qty: 30 4RF aspirin [Aspirin Low-Strength] 81 MG tablet,chewable 81 mg PO DAILY Fish Oil 500 MG capsule,delayed release(DR/EC) 1,000 mg PO DAILY Discharge Instructions Additional Instructions: Sprinkle a little bit of salt on your food for the next several days Try not to take any additional loperamide at this time Make sure you are drinking eight 8 ounce glasses of water daily and have small frequent meals Please call your doctor for follow-up tomorrow and return earlier with new or worsening complaints Discharge Data Discharge Date/Time-TO BE ENTERED AT DEPARTURE: 01/12/25 18:19 HPI <RAINA Mayorga - Last Filed: 01/16/25 19:07> General Date/Time Provider Initiated Documentation: 01/12/25 13:45 . HPI Narrative: This is an 89-year-old female with history of hypercalcemia chronic kidney disease SVT hypertension mixed hyperlipidemia irritable bowel disease presenting with diarrhea for the past several days. She started feeling palpitations and lightheaded today. She states she felt like this in the past this started approximately 15 minutes after taking loperamide. She has taken this medication before and denies history of reaction such as this. She does have a history of palpitations and states this does not feel like SVT. She does any falls or injuries or dizziness. She denies any headache or nausea. She denies any blood in her stool. Related Data Home Medications ?Medication ?Instructions ?Recorded ?Confirmed aspirin 81 mg chewable tablet 81 mg PO DAILY 08/18/14 01/13/25 (Aspirin Low-Strength) omega 3-dha 60 mg-epa 90 mg-fish 1,000 mg PO DAILY 01/13/25 oil 500 mg capsule, delayed release (Fish Oil) cholecalciferol (vitamin D3) 25 1,000 unit PO DAILY 01/13/25 mcg (1,000 unit) tablet magnesium oxide 400 mg PO DAILY 07/12/18 acetaminophen 325 mg capsule 325 mg PO ONCE PRN fever or pain 11/09/23 01/13/25 metoprolol tartrate 37.5 mg tablet 37.5 mg PO BID #180 tabs 02/29/24 01/13/25 omeprazole 20 mg capsule,delayed 20 mg PO DAILY #90 ca ps 02/29/24 01/13/25 release dicyclomine 10 mg capsule See Rx Instructions .Route 0 05/18/24 01/13/25 .COMPLEX #180 caps atorvastatin 20 mg tablet See Rx Instructions .Route 0 11/16/24 01/13/25 .COMPLEX #90 tabs amlodipine 5 mg tablet 5 mg PO .bedtime #90 tabs 01/13/25 losartan 100 mg tablet 100 mg PO DAILY #90 tabs 01/13/25 mirtazapine 7.5 mg tablet 7.5 mg PO QHS anxiety or dif f 12/19/24 01/13/25 sleeping #90 tabs escitalopram oxalate 5 mg tablet 5 mg PO DAILY #90 tab s 12/29/24 01/13/25 (Lexapro) nystatin-triamcinolone 100,000 1 applic topical BID #3 0 grams 01/02/25 01/13/25 unit/g-0.1 % topical cream Previous Rx's ?Medication ?Instructions ?Recorded metoprolol tartrate 37.5 mg tablet 37.5 mg PO BID #180 tabs 02/29/24 omeprazole 20 mg capsule,delayed 20 mg PO DAILY #90 ca ps 02/29/24 release dicyclomine 10 mg capsule See Rx Instructions .Route 0 05/18/24 .COMPLEX #180 caps atorvastatin 20 mg tablet See Rx Instructions .Route 0 11/16/24 .COMPLEX #90 tabs amlodipine 5 mg tablet 5 mg PO .bedtime #90 tabs losartan 100 mg tablet 100 mg PO DAILY #90 tabs mirtazapine 7.5 mg tablet 7.5 mg PO QHS anxiety or dif f 12/19/24 sleeping #90 tabs escitalopram oxalate 5 mg tablet 5 mg PO DAILY #90 tab s 12/29/24 (Lexapro) nystatin-triamcinolone 100,000 1 applic topical BID #3 0 grams 01/02/25 unit/g-0.1 % topical cream Allergies Allergy/AdvReac Type Severity Reaction Status Date / Time bee pollen Allergy Severe Anaphylaxis Verified 01/12/25 13:33 General Stated Complaint: GenMedical RAJESH: 3 Exam <RAINA Mayorga - Last Filed: 01/16/25 19:07> Narrative Exam Narrative: This 89-year-old female is alert and oriented she is pale, pupils equal round reactive to light and accommodation extraocular muscles intact lungs clear to auscultation cardiac rate rhythm regular follows all basic commands no peripheral edema distal pulses intact, orthostatics negative Course <RAINA Mayorga - Last Filed: 01/16/25 19:07> Vital Signs Vital signs: Vital Signs Temperature 36.3 C L 01/12/25 13:31 Pulse 102 H 01/12/25 13:31 Respiratory Rate 18 01/12/25 13:31 Blood Pressure 178/83 H 01/12/25 13:31 Pulse Oximetry 98 01/12/25 13:31 Temperature 36.3 C L 01/12/25 13:34 Pulse 102 H 01/12/25 13:34 Pulse 104 H 01/12/25 14:20 Respiratory Rate 18 01/12/25 13:34 Blood Pressure 178/83 H 01/12/25 13:34 Pulse Oximetry 98 01/12/25 13:34 Lab/Test Results Lab/Test Results: Laboratory Tests Range/Units 01/12/25 01/12/25 14:20 14:25 WBC (4.4-10.8) 10^3/uL 7.67 RBC (3.93-5.22) 10^6/uL 4.16 Hgb (11.2-15.7) g/dL 12.5 Hct (36.0-46.0) % 37.3 MCV (80-95) fL 90 MCH (27.0-33.0) pg 30.0 MCHC (32.0-36.0) % 33.5 RDW (11.7-14.6) % 13.4 Plt Count (130-400) 10^3/uL 288 MPV (8.0-11.0) fL 9.5 Immature Gran % % 0.5 Neutrophils % % 70.5 Lymphocytes % % 20.2 Monocytes % % 6.8 Eosinophils % % 1.3 Basophils % % 0.7 Nucleated RBC % (0.0-0.3) % 0.0 Absolute Neutrophils (1.2-6.7) 10^3/uL 5.41 Absolute Lymphocytes (1.2-3.4) 10^3/uL 1.55 Absolute Monocytes (0.1-0.8) 10^3/uL 0.52 Absolute Eosinophils (0.0-0.7) 10^3/uL 0.10 Absolute Basophils (0.0-0.2) 10^3/uL 0.05 Sodium (136-145) mmol/L 130 L Potassium (3.5-5.1) mmol/L 3.8 Chloride (98-107) mmol/L 94 L Carbon Dioxide (21.0-32.0) mmol/L 25.1 Anion Gap (3-11) mmol/L 10.9 BUN (7-18) mg/dL 13 Creatinine (0.55-1.02) mg/dL 1.1 H Est GFR (CKD-EPI 2020) (mL/min/1.73m2) 48.03 Glucose (74-106) mg/dL 115 H Calcium (8.5-10.1) mg/dL 10.4 H Magnesium (1.8-2.4) mg/dL 2.1 Total Bilirubin (0.2-1.0) mg/dL 0.5 AST (15-37) U/L 21 ALT (14-59) U/L 30 Alkaline Phosphatase (46-116) U/L 90 Troponin I (<or=51) ng/L 17 Total Protein (6.4-8.2) g/dL 8.3 H Albumin (3.4-5.0) g/dL 4.1 TSH (0.36-3.74) uIU/mL 0.90 Urine Color (Yellow) Yellow Urine Clarity (Clear) Clear Urine pH (5-8) 6.[address] (1.005-1.025) 1.010 Urine Protein (Neg-Trace) mg/dL Negative Urine Ketones (Negative) mg/dL Trace H Urine Blood (Negative) Small H Urine Nitrite (Negative) Negative Urine Bilirubin (Negative) Negative Urine Urobilinogen (Up to 0.2) mg/dL 0.2 Ur Leukocyte Esterase (Negative) Negative Urine RBC (0-2) HPF 5-10 H Urine WBC (0-5) HPF Negative Ur Epithelial Cells (Negative) HPF Few Urine Crystals (Negative) HPF Negative Urine Bacteria (Negative) HPF Negative Urine Casts (Negative) LPF Negative Urine Mucus (Negative) Negative Ur Culture Indicated? No Urine Glucose (Negative) mg/dL Negative Medical Decision Making <RAINA Mayorga - Last Filed: 01/16/25 19:07> Results: Chest x-ray per radiology interpretation my review does not show evidence of acute abnormality and initial troponin within normal limits pending repeat troponin, hyponatremia, looks like this is baseline for patient hyperchloremia 94, creatinine 1.1 Assessment and plan: 88-year-old female presenting with lightheadedness and weakness. She states palpitations as well. EKG does not show acute ischemia or injury, diagnostic labs do not show significant acute change mild hypercalcemia consistent with prior, mild hyponatremia consistent with prior, hyperchloremia consistent with prior hyperglycemia very mild at 115. Patient is being administered 1 L of NS. She has a negative chest x-ray. Her orthostatics are negative on my assessment. She may be having a reaction to the loperamide which she took approximately 10 minutes 10 to 15 minutes prior to onset of symptoms, at this time she is pending repeat troponin I have ordered a lunch for her to eat, and she will need reassessment and ambulatory trial and likely disposition home. I encouraged her not to take any additional loperamide at this time. She does have some red blood cells in her urine she will need to have this rechecked by her doctor [facility] <RAINA Mayorga - Last Filed: 01/16/25 19:07> All Active Problems (Updated 01/12/25 @ 15:37 by RAINA Mayorga) Hypercalcemia (Acute) Acute hyponatremia (Acute) Episodic lightheadedness (Acute) Palpitations (Acute) Numbness and tingling of both legs (Acute) Intermittent; not progressing, tolerable Left inguinal hernia (Acute ~08/2024) Spondylolisthesis, lumbar region (Acute ~08/2024) Hypercalcemia (Acute) Urge incontinence of urine (Acute) CKD (chronic kidney disease) (Chronic 08/29/14) moderately decreased GFR from old records RH Hypertension (Chronic 08/29/14) SVT (supraventricular tachycardia) (Chronic ~2021) SVT Dr Aaron Balderas, Cardiology; [facility] 2021 SVT & PVCs & VTach run 8 beats max rate 203 Mixed hyperlipidemia (Acute ~10/2023) 11/16/23 Dr Balderas Corns and callosities (Acute) Nail dystrophy (Acute) Hyponatremia (Acute) Pain in sacrum (Acute) Arthritis of knee, left (Acute) Arthritis of knee, right (Acute) Most recent DEPO MEDROL: 10/05/23; 06/10/2023; 12/22/22 Irritable bowel syndrome with diarrhea (Chronic ~2019) Bentyl RX Osteopenia determined by x-ray (Acute ~06/2022) Right medial knee pain (Acute) depo medrol 07/11/22 Degenerative joint disease of right knee (Acute) Depo-Medrol injection: 07/08/2022; 05/30/2022 Posterior tibial tendonitis (Acute) Venous insufficiency of left lower extremity (Acute) Nervously anxious (Chronic) Gastro-esophageal reflux disease without esophagitis (Chronic) 01/23/21-[facility] GI note: unspecified whether esophagitis present. 03/14/16 reflux esophagitis- Dr Mccracken [facility]GR[facility]. Tolerates TUMs. 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 Essential hypertension Heart disease Maternal Grandfather FH: mental illness Heart disease spent life in [facility] Maternal Aunt FH: mental illness anxiety and depression electric shock therapy Other Weakness Social History Smoking/Tobacco Use Status: Never Smoking risk assessment performed?: Yes Alcohol Intake: current Alcohol Intake frequency: holidays/special occasions only Drug use: Never Substance use type: does not use Household members: spouse and other Housing: house Communication Needs: Hard of Hearing Do you need help understanding health information?: Never Current gender identity: female What type of physical activity do you participate in: walking Frequency: 5-6 times per week Do you feel safe at home: Yes Do you feel safe in your relationship?: Yes PAWSS <RAINA Mayorga - Last Filed: 01/16/25 19:07> Have you Been Recently Intoxicated or Drunk Within the Last 30 days?: No Have you Ever Experienced Previous Episodes of Alcohol Withdrawal?: No Have you ever Experienced Withdrawal Seizures?: No Have you ever Experienced Delirium Tremens(DT)s?: No Have you ever undergone Alcohol Rehabilitation Treatment (i.e, inpt ot outpatient treatment programs)?: No Have you ever Experienced Blackouts?: No Have you ever Combined Alcohol with other Downers within the last 90 days?: No Have you ever Combined Alcohol with any other Substance of Abuse during the last 90 days?: No Positive Blood Alcohol level on Presentation? [PCS.BAL]: No Evidence of Increased Autonomic Activity (i.e. HR>120, tremor, sweating, agitation, nausea)?: No Result: 0 <RAINA Longoria - Last Filed: 01/13/25 15:05> Result: 0
[2025-01-12 15:57] LABS: Troponin I 18 ng/L (<or=51)
== END 2025-01-12 18:19 | disposition home or self-care (01) ==
PROVIDERS: Physician Assistant; Emergency Provider Physician Assistant; PCP Nurse Practitioner Adult Health
DX: R00.2 Palpitations (principal); E87.1 Hypo-osmolality and hyponatremia; E83.52 Hypercalcemia; I12.9 Hypertensive chronic kidney disease with stage 1 through stage 4 chronic kidney disease, or unspecified chronic kidney disease; N18.9 Chronic kidney disease, unspecified; E78.5 Hyperlipidemia, unspecified; Z79.82 Long term (current) use of aspirin
CPT/HCPCS: 80053; 93005; 99285; 71046; 81003; 81015; 83735; 84443; 84484; 85025; 93010; 99284

== ENCOUNTER 2025-01-27 04:46 | Outpatient (CLI) | payer MEDICARE, OTHER, SELFPAY ==
[2025-01-27 09:17] LABS: Anion Gap 7.0 mmol/L (3-11); BUN 16 mg/dL (7-18); CO2 28.0 mmol/L (21.0-32.0); Calcium 10.0 mg/dL (8.5-10.1); Chloride 103 mmol/L (98-107); Estimated GFR 43.27 (mL/min/1.73m2); Glucose 102 mg/dL (74-106); Magnesium 2.3 mg/dL (1.8-2.4); Potassium 4.8 mmol/L (3.5-5.1); Sodium 138 mmol/L (136-145)
== END 2025-01-27 04:47 | disposition home or self-care (01) ==
LOC: LBO 04:46
PROVIDERS: PCP Nurse Practitioner Adult Health; Visit Provider Nurse Practitioner Adult Health
DX: F41.9 Anxiety disorder, unspecified (principal); E87.1 Hypo-osmolality and hyponatremia; E83.52 Hypercalcemia; R42 Dizziness and giddiness; R19.7 Diarrhea, unspecified
CPT/HCPCS: 36415; 80048; 83735

== ENCOUNTER → 2025-01-30 09:09 | Outpatient (BNVA) | payer MEDICARE, OTHER, SELFPAY | PROVIDERS: PCP Nurse Practitioner Adult Health; Visit Provider Registered Nurse | DX: I47.10 Supraventricular tachycardia, unspecified (principal); I10 Essential (primary) hypertension; Z79.02 Long term (current) use of antithrombotics/antiplatelets; Z79.899 Other long term (current) drug therapy | CPT/HCPCS: 99214 ==

== ENCOUNTER → 2025-01-31 10:13 | Outpatient (BNVA) | payer MEDICARE, OTHER, SELFPAY | PROVIDERS: PCP Nurse Practitioner Adult Health; Referring Provider Nurse Practitioner Adult Health; Visit Provider Podiatrist | DX: L60.3 Nail dystrophy (principal); B35.1 Tinea unguium; N18.31 Chronic kidney disease, stage 3a; L84 Corns and callosities; I87.2 Venous insufficiency (chronic) (peripheral); R60.0 Localized edema; I83.93 Asymptomatic varicose veins of bilateral lower extremities; L65.9 Nonscarring hair loss, unspecified; R23.4 Changes in skin texture; L60.2 Onychogryphosis; L60.8 Other nail disorders; R20.2 Paresthesia of skin | CPT/HCPCS: 11055; 11721 ==

== ENCOUNTER 2025-02-07 18:12 | Outpatient (REF) | payer MEDICARE, OTHER, SELFPAY | END 2025-02-07 18:13 | disposition home or self-care (01) | LOC: LBN 18:12 | PROVIDERS: PCP Nurse Practitioner Adult Health; Visit Provider Nurse Practitioner Adult Health | DX: R19.7 Diarrhea, unspecified (principal) | CPT/HCPCS: 83993 ==

== ENCOUNTER 2025-03-08 17:49 | Emergency (ER) | payer MEDICARE, OTHER, SELFPAY ==
--- NOTE | 2025-03-08 17:45 | RT.EKG_ITS ---
APPROVED REPORT Exam: Resting ECG Reason for Exam: Palpitations Patient Location: E HR:96 bpm ECG Measurements Heart Rate 96 AXIS TN 214 P 60 QRSd 79 QRS 5 QT 344 T 54 QTc 435 Conclusion Sinus rhythm...normal P axis, V-rate 60- 99 Borderline prolonged TN interval...TN >207, V-rate 91-120
[2025-03-08 18:44] VITALS: BP 160/71; PULSE 76; RESP 18; TEMP 36.5; O2SAT 97
== END 2025-03-08 19:25 | disposition left against medical advice (07) ==
LOC: ER 18:14
PROVIDERS: PCP Nurse Practitioner Adult Health; Visit Provider Physician Assistant
DX: R00.2 Palpitations (principal); Z53.21 Procedure and treatment not carried out due to patient leaving prior to being seen by health care provider
CPT/HCPCS: 93005; 99283; 93010

== ENCOUNTER → 2025-03-31 10:05 | Outpatient (BNVA) | payer MEDICARE, OTHER, SELFPAY | PROVIDERS: PCP Nurse Practitioner Adult Health; Referring Provider Nurse Practitioner Adult Health; Visit Provider Physical Therapy Assistant | DX: L98.9 Disorder of the skin and subcutaneous tissue, unspecified (principal) | CPT/HCPCS: 99213 ==

== ENCOUNTER 2025-04-09 19:17 | Emergency (ER) | payer MEDICARE, OTHER, SELFPAY ==
[2025-04-09 19:21] VITALS: BP 155/72; PULSE 106; RESP 16; TEMP 36.6; O2SAT 95
[2025-04-09 19:27] VITALS: BP 155/72; PULSE 106; RESP 16; RESP 18; TEMP 36.6; O2SAT 95
--- NOTE | 2025-04-09 19:30 | RT.EKG_ITS ---
APPROVED REPORT Exam: Resting ECG Reason for Exam: weakness Patient Location: E HR:99 bpm ECG Measurements Heart Rate 99 AXIS ME 212 P 52 QRSd 81 QRS -3 QT 334 T 48 QTc 430 Conclusion Sinus rhythm...normal P axis, V-rate 60- 99 Borderline prolonged ME interval...ME >207, V-rate 91-120 I have reviewed and interpreted ECG and agree with software generated interpretation.
--- NOTE | 2025-04-09 19:34 | W.ED.GENAD ---
Discharge Plan Disposition Patient Disposition: Home Condition: Good Discharge Details Clinical Impression: Urinary tract infection Primary Care Provider: Ginette Vaca ED Provider: Benjie Ash Home Meds and New Rx's Prescriptions: New cephalexin 500 mg capsule 500 mg PO QID 7 Days Qty: 28 0RF No Action magnesium oxide 400 mg capsule 400 mg PO DAILY metoprolol tartrate 37.5 mg tablet 37.5 mg PO BID Qty: 180 3RF psyllium husk [Fiber (psyllium husk)] 0.4 gram capsule 0.4 g PO DAILY PRN (Reason: bowel changes) Qty: 30 0RF Rx Instructions: Medication trial: May increase (2 per day) or decrease (every other day) according to bowels. Take with a glass of water. acetaminophen 325 mg capsule 325 mg PO ONCE PRN (Reason: fever or pain) losartan 100 mg tablet 100 mg PO DAILY Qty: 90 3RF Rx Instructions: BP amlodipine 5 mg tablet 5 mg PO .bedtime Qty: 90 3RF Rx Instructions: Dose increase 12/19/2024 for BP mirtazapine 7.5 mg tablet 7.5 mg PO QHS Qty: 90 3RF Rx Instructions: Anxiety & difficulty sleeping omeprazole 20 mg capsule,delayed release(DR/EC) 20 mg PO DAILY Qty: 90 3RF Rx Instructions: Take in AM on empty stomach, 30min prior to food and other medications. cholecalciferol (vitamin D3) 1,000 UNIT tablet 1,000 unit PO DAILY dicyclomine 10 mg capsule See Rx Instructions .ROUTE .COMPLEX Qty: 180 3RF Dose Instruction: TAKE ONE CAPSULE BY MOUTH TWICE A DAY Rx Instructions: TAKE ONE CAPSULE BY MOUTH TWICE A DAY atorvastatin 20 mg tablet See Rx Instructions .ROUTE .COMPLEX Qty: 90 3RF Dose Instruction: TAKE ONE TABLET BY MOUTH EVERY DAY Rx Instructions: TAKE ONE TABLET BY MOUTH EVERY DAY nystatin-triamcinolone 100,000-0.1 unit/g-% cream 1 applic topical BID Qty: 30 4RF aspirin [Aspirin Low-Strength] 81 MG tablet,chewable 81 mg PO DAILY Fish Oil 500 MG capsule,delayed release(DR/EC) 1,000 mg PO DAILY Discharge Instructions Instructions: Urinary Tract Infection, Adult ED Additional Instructions: At this time you have evidence of a urinary tract infection. Please drink plenty of fluids and stay well-hydrated. Please take cranberry or cranberry concentrate. Please take the antibiotic as prescribed for treatment of the infection. If you notice any worsening of your symptoms, or any new symptoms such as vomiting, diarrhea, fever, chills, shortness of breath, chest pain, numbness, weakness, or fainting , please return immediately to the emergency department for reevaluation. Please follow up with your primary care provider as soon as possible for reassessment and reevaluation. As always, it was a pleasure participating in your medical care today. Stand Alone Forms: Portal Information Referrals: Ginette Vaca NP [Primary Care Provider, Medicine] HPI General Date/Time Provider Initiated Documentation: 04/09/25 19:18. HPI Narrative: This is a pleasant 89-year-old female with a past medical history of arthritis, mild anxiety, GERD, hypertension, high cholesterol, chronic kidney disease, who presents today for feeling unwell. Patient states that she woke up feeling fine this morning, but then by mid afternoon she just felt notably unwell. She denies any chest pain, abdominal pain, nausea, vomiting, diarrhea, headache, neck pain, shortness of breath, dysuria, urinary frequency, or other complaint. She denies fever or chills. She just states that she does not feel well. She checked her blood pressure later this evening and noted it to be elevated and came in for further assessment. She states that she has been taking her medications as prescribed. No other complaints at this time. Related Data Home Medications ?Medication ?Instructions ?Recorded ?Confirmed aspirin 81 mg chewable tablet 81 mg PO DAILY 08/18/14 03/31/25 (Aspirin Low-Strength) omega 3-dha 60 mg-epa 90 mg-fish 1,000 mg PO DAILY 08/18/14 03/31/25 oil 500 mg capsule, delayed release (Fish Oil) cholecalciferol (vitamin D3) 25 1,000 unit PO DAILY 09/05/14 03/31/25 mcg (1,000 unit) tablet magnesium oxide 400 mg PO DAILY 07/12/18 03/31/25 acetaminophen 325 mg capsule 325 mg PO ONCE PRN fever or pain 11/09/23 03/31/25 dicyclomine 10 mg capsule See Rx Instructions .Route 05/18/24 03/31/25 Held on 01/25/25. .COMPLEX #180 caps Instructions: pt wants to stop atorvastatin 20 mg tablet See Rx Instructions .Route 11/16/24 03/31/25 .COMPLEX #90 tabs amlodipine 5 mg tablet 5 mg PO .bedtime #90 tabs 12/19/24 03/31/25 losartan 100 mg tablet 100 mg PO DAILY #90 tabs 12/19/24 03/31/25 mirtazapine 7.5 mg tablet 7.5 mg PO QHS anxiety or diff 12/19/24 03/31/25 sleeping #90 tabs nystatin-triamcinolone 100,000 1 applic topical BID #30 grams 01/02/25 03/31/25 unit/g-0.1 % topical cream metoprolol tartrate 37.5 mg tablet 37.5 mg PO BID #180 tabs 02/06/25 03/31/25 psyllium husk 0.4 gram capsule 0.4 g PO DAILY PRN bowel changes 02/06/25 03/31/25 (Fiber (psyllium husk)) #30 caps omeprazole 20 mg capsule,delayed 20 mg PO DAILY #90 caps 03/27/25 03/31/25 release cephalexin 500 mg capsule 500 mg PO QID 7 days #28 caps 04/09/25 Previous Rx's ?Medication ?Instructions ?Recorded dicyclomine 10 mg capsule See Rx Instructions .Route 05/18/24 Held on 01/25/25. .COMPLEX #180 caps Instructions: pt wants to stop atorvastatin 20 mg tablet See Rx Instructions .Route 11/16/24 .COMPLEX #90 tabs amlodipine 5 mg tablet 5 mg PO .bedtime #90 tabs 12/19/24 losartan 100 mg tablet 100 mg PO DAILY #90 tabs 12/19/24 mirtazapine 7.5 mg tablet 7.5 mg PO QHS anxiety or diff 12/19/24 sleeping #90 tabs nystatin-triamcinolone 100,000 1 applic topical BID #30 grams 01/02/25 unit/g-0.1 % topical cream metoprolol tartrate 37.5 mg tablet 37.5 mg PO BID #180 tabs 02/06/25 psyllium husk 0.4 gram capsule 0.4 g PO DAILY PRN bowel changes 02/06/25 (Fiber (psyllium husk)) #30 caps omeprazole 20 mg capsule,delayed 20 mg PO DAILY #90 caps 03/27/25 release cephalexin 500 mg capsule 500 mg PO QID 7 days #28 [facility] 04/09/25 Allergies Allergy/AdvReac Type Severity Reaction Status Date / Time bee pollen Allergy Severe Anaphylaxis Verified 03/27/25 09:50 General Stated Complaint: GenMedical RAJESH: 4 Exam Narrative Exam Narrative: 1.Const: Well-nourished, Well-developed, appearing stated age 2.Eyes: PERRL, no conjunctival injection, and symmetrical lids. 3.ENT: Atraumatic external nose and ears. Mildly dry MM. Neck: Symmetric, trachea midline, No thyromegaly. 4.CVS: +S1/S2, Peripheral pulses 2+ and equal in all extremities. Brisk capillary refill in all extremities. 5.RESP: Unlabored respiratory effort. Clear to auscultation bilaterally. No wheezes rales or rhonchi 6.GI: Soft, Nontender/Nondistended, No hepatosplenomegaly. No guarding or rebound. No flank or CVA tenderness 7.MSK: Normocephalic/Atraumatic, Extremities w/o deformity or ttp No cyanosis or clubbing, Normal movement of all extremities 8.Skin: Warm, Dry. No rashes or lesions. 9.Neuro: clinical social work aide II-XII grossly intact. Sensation grossly intact, no focal neurologic deficits. 10.Psych: (AAO) x3. Appropriate mood and affect Course Vital Signs Vital signs: Vital Signs Temperature 36.6 C 04/09/25 19:21 Pulse 106 H 04/09/25 19:21 Respiratory Rate 16 04/09/25 19:21 Blood Pressure 155/72 H 04/09/25 19:21 Pulse Oximetry 95 04/09/25 19:21 Temperature 36.6 C 04/09/25 19:27 Temperature Source Oral 04/09/25 19:27 Pulse 106 H 04/09/25 19:27 Respiratory Rate 18 04/09/25 19:27 Respiratory Effort Normal, Non-Labored 04/09/25 19:27 Respiratory Depth Normal 04/09/25 19:27 Respiratory Pattern Normal 04/09/25 19:27 Blood Pressure 155/72 H 04/09/25 19:27 Blood Pressure Position Sitting 04/09/25 19:27 Pulse Oximetry 95 04/09/25 19:27 Oxygen Delivery Method Room Air 04/09/25 19: Oxygen Flow Rate 0 04/09/25 19:27 Pain Level 0 04/09/25 19:27 Medical Decision Making This is a pleasant 89-year-old female with a past medical history of arthritis, mild anxiety, GERD, hypertension, high cholesterol, chronic kidney disease, who presents today for feeling unwell. Patient states that she woke up feeling fine this morning, but then by mid afternoon she just felt notably unwell. She denies any chest pain, abdominal pain, nausea, vomiting, diarrhea, headache, neck pain, shortness of breath, dysuria, urinary frequency, or other complaint. She denies fever or chills. She just states that she does not feel well. She checked her blood pressure later this evening and noted it to be elevated and came in for further assessment. She states that she has been taking her medications as prescribed. No other complaints at this time. Exam demonstrates a relatively well-appearing female, no abdominal tenderness, clear lung sounds, no cough. No clear cause of the patient's symptomatology is easily identified at this time. She is mildly tachycardic at heart rate of 106. She denies any pleuritic chest pain. She denies any vomiting or dysuria. Differential is broad but etiologies for her symptoms could include cardiac etiology ACS although unlikely, UTI, electrolyte disturbance, or dehydration. Will gently rehydrate evaluate for these etiologies, monitor closely and reassess. No pleuritic chest pain or shortness of breath to suggest PE. 8:47 PM Laboratory workup has returned, no white count bandemia or left shift. Electrolytes normal, renal function good, troponin normal, urinalysis shows 5-10 WBCs, positive leuk esterase. I suspect her symptomatology may be related to early urinary tract infection. After rehydration the patient feels well and she would like to go home. Will give her a dose of Keflex, and a prescription for home. Patient otherwise stable for discharge. No evidence to suggest pyelonephritis, or sepsis. No fever. COVID flu and RSV testing negative. 500 mg of Keflex given here. I have extensively reviewed the treatment plan and discharge instructions with the patient. I have addressed all patient concerns at this time. The patient was made aware of what symptoms to monitor for that would warrant a return to the emergency department. Discussed the plan with the patient, they demonstrate verbal understanding and agreement with our assessment and plan at this time. The documentation in this chart was dictated using [employer] dictation software. Please excuse any dictation errors. PFSH All Active Problems (Updated 04/09/25 @ 20:49 by Benjie Ash DO) Urinary tract infection (Acute) Numbness and tingling of both legs (Acute) Intermittent; not progressing, tolerable Left inguinal hernia (Acute ~08/2024) Spondylolisthesis, lumbar region (Acute ~08/2024) Urge incontinence of urine (Acute) CKD (chronic kidney disease) (Chronic 08/29/14) moderately decreased GFR from old records RH Hypertension (Chronic 08/29/14) SVT (supraventricular tachycardia) (Chronic ~2021) SVT Dr Aaron Balderas, Cardiology; o 2021 SVT & PVCs & VTach run 8 beats max rate 203 Mixed hyperlipidemia (Acute ~10/2023) 11/16/23 Dr Balderas Corns and callosities (Acute) Nail dystrophy (Acute) Pain in sacrum (Acute) Arthritis of knee, left (Acute) Arthritis of knee, right (Acute) Most recent DEPO MEDROL: 10/05/23; 06/10/2023; 12/22/22 Irritable bowel syndrome with diarrhea (Chronic ~2019) Bentyl RX Osteopenia determined by x-ray (Acute ~06/2022) Right medial knee pain (Acute) depo medrol 07/11/22 Degenerative joint disease of right knee (Acute) Depo-Medrol injection: 07/08/2022; 05/30/2022 Posterior tibial tendonitis (Acute) Venous insufficiency of left lower extremity (Acute) Nervously anxious (Chronic) Gastro-esophageal reflux disease without esophagitis (Chronic) 01/23/21-[facility] GI note: unspecified whether esophagitis present. 03/14/16 reflux esophagitis- Dr Kaykay HANLEY. Tolerates TUMs. 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 Essential hypertension Heart disease Maternal Grandfather FH: mental illness Heart disease spent life in [employer] [facility] [employer] [facility] [employer] Maternal Aunt FH: mental illness anxiety and depression electric shock therapy Other Weakness Social History Smoking/Tobacco Use Status: Never Smoking risk assessment performed?: Yes Alcohol Intake: current Alcohol Intake frequency: holidays/special occasions only Drug use: Never Substance use type: does not use Household members: spouse and other Housing: house Communication Needs: Hard of Hearing Do you need help understanding health information?: Never Current gender identity: female What type of physical activity do you participate in: walking Frequency: 5-6 times per week Do you feel safe at home: Yes Do you feel safe in your relationship?: Yes
[2025-04-09 19:59] LABS: Abs Immature Grans 0.04 10^3/uL (0.0-0.06); HCT 35.5 % (36.0-46.0); HGB 11.7 g/dL (11.2-15.7); Immature Grans % 0.5 %; MCH 31.0 pg (27.0-33.0); MCHC 33.0 % (32.0-36.0); MCV 94 fL (80-95); MPV 9.6 fL (8.0-11.0); Platelet Count 293 10^3/uL (130-400); RBC 3.78 10^6/uL (3.93-5.22); RDW 13.2 % (11.7-14.6); RDW-SD 45.1 fL; WBC 7.41 10^3/uL (4.4-10.8)
[2025-04-09] MEDS: Normal Saline 500 ML IV (20:01)
[2025-04-09 20:20] LABS: ALT 24 U/L (10-49); AST 24 U/L (<34); Albumin 4.5 g/dL (3.2-5.0); Alkaline Phosphatase 94 U/L (46-116); Anion Gap 7.7 mmol/L (3-11); BUN 21 mg/dL (9-23); Bilirubin, Total 0.4 mg/dL (0.2-1.2); CO2 26.3 mmol/L (20.0-31.0); Calcium 9.6 mg/dL (8.3-10.6); Chloride 104 mmol/L (98-107); Glucose 126 mg/dL (74-106); Potassium 4.2 mmol/L (3.5-5.1); Sodium 138 mmol/L (136-145); Total Protein 7.5 g/dL (5.7-8.2)
[2025-04-09 20:31] LABS: COVID-19 PCR Negative (Negative); RSV PCR Negative (Negative)
[2025-04-09 20:32] LABS: Glucose Negative (Negative)
[2025-04-09 20:37] LABS: C & S Indicated? No
[2025-04-09] MEDS: Cephalexin 500 MG CAP PO (20:55)
[2025-04-09 20:58] VITALS: BP 164/78; PULSE 89; RESP 19; TEMP 37.1; O2SAT 96
== END 2025-04-09 21:02 | disposition home or self-care (01) ==
PROVIDERS: Emergency Provider Student in an Organized Health Care Education/Training Program; PCP Nurse Practitioner Adult Health
DX: R53.81 Other malaise (principal)
CPT/HCPCS: 80053; 87637; 93005; 96360; 99283; 81003; 81015; 84484; 85025; 93010; 99282

== ENCOUNTER 2025-04-11 12:58 | Emergency (ER) | payer MEDICARE, OTHER, SELFPAY ==
[2025-04-11 13:01] VITALS: BP 176/82; PULSE 91; RESP 20; TEMP 36.4; O2SAT 97
[2025-04-11 13:04] VITALS: BP 176/82; PULSE 91; RESP 20; TEMP 36.4; O2SAT 97
--- NOTE | 2025-04-11 13:20 | W.ED.GENAD ---
Discharge Plan Disposition Patient Disposition: Home Discharge Details Clinical Impression: Feeling unwell Primary Care Provider: Ginette Vaca ED Provider: Ángel Mohan [place] Meds and New Rx's Prescriptions: Continued magnesium oxide 400 mg capsule 400 mg PO DAILY metoprolol tartrate 37.5 mg tablet 37.5 mg PO BID Qty: 180 3RF psyllium husk [Fiber (psyllium husk)] 0.4 gram capsule 0.4 g PO DAILY PRN (Reason: bowel changes) Qty: 30 0RF Rx Instructions: Medication trial: May increase (2 per day) or decrease (every other day) according to bowels. Take with a glass of water. acetaminophen 325 mg capsule 325 mg PO ONCE PRN (Reason: fever or pain) losartan 100 mg tablet 100 mg PO DAILY Qty: 90 3RF Rx Instructions: BP amlodipine 5 mg tablet 5 mg PO .bedtime Qty: 90 3RF Rx Instructions: Dose increase 12/19/2024 for BP mirtazapine 7.5 mg tablet 7.5 mg PO QHS Qty: 90 3RF Rx Instructions: Anxiety & difficulty sleeping omeprazole 20 mg capsule,delayed release(DR/EC) 20 mg PO DAILY Qty: 90 3RF Rx Instructions: Take in AM on empty stomach, 30min prior to food and other medications. cholecalciferol (vitamin D3) 1,000 UNIT tablet 1,000 unit PO DAILY dicyclomine 10 mg capsule See Rx Instructions .ROUTE .COMPLEX Qty: 180 3RF Dose Instruction: TAKE ONE CAPSULE BY MOUTH TWICE A DAY Rx Instructions: TAKE ONE CAPSULE BY MOUTH TWICE A DAY atorvastatin 20 mg tablet See Rx Instructions .ROUTE .COMPLEX Qty: 90 3RF Dose Instruction: TAKE ONE TABLET BY MOUTH EVERY DAY Rx Instructions: TAKE ONE TABLET BY MOUTH EVERY DAY nystatin-triamcinolone 100,000-0.1 unit/g-% cream 1 applic topical BID Qty: 30 4RF aspirin [Aspirin Low-Strength] 81 MG tablet,chewable 81 mg PO DAILY Fish Oil 500 MG capsule,delayed release(DR/EC) 1,000 mg PO DAILY cephalexin 500 mg capsule 500 mg PO QID 7 Days Qty: 28 0RF Discharge Instructions Additional Instructions: You are seen in the emergency department when you are feeling unwell. We discussed possibility of obtaining blood work but you declined. As we discussed if you develop nausea and cannot take your antibiotics or if you develop any fevers please return to the emergency department. Otherwise please follow-up with your primary care provider as needed next week. Stand Alone Forms: Portal Information Discharge Data Discharge Date/Time-TO BE ENTERED AT DEPARTURE: 04/11/25 13:51 HPI General Date/Time Provider Initiated Documentation: 04/11/25 13:19. HPI Narrative: MDM This is an overall quite well-appearing afebrile and not tachycardic 87-year-old female with prehospital ill feeling and quite reassuring exam and resolved symptoms for which patient will receive empiric trial of discharge with expectant outpatient management. Patient and I discussed at length whether or not to obtain blood work urinalysis ECG and other testing in the emergency department. She reported that she has not had any dysuria and is taking her antibiotics as directed. Her urinalysis did not reflex to culture it was nitrite negative. I advised her to continue taking her antibiotics as previously prescribed. She was having no shortness of breath to suggest PE and she was neither tachycardic nor hypoxic. She had no fevers to suggest sepsis I did not feel that she required broad-spectrum antibiotics. She had not been vomiting so I did not feel she required assessment of her electrolytes. She was having no focal weakness to suggest CVA so I did not feel she would be a TNK candidate. No tonic-clonic activity to suggest seizure. No black or bloody stools to suggest GI bleed so I did not feel that she required assessment however hemoglobin. Patient reports that she has been eating and drinking normally. She felt her symptoms were quite transient and improved. I offered her laboratory assessment and ED observation. She declined. She reports that she lives with the daughter who is below her in an apartment. She has a neighbor who is available to come pick her up today. We discussed that she should certainly return to the emergency department if she develops any symptoms of weakness nausea vomiting chest pain shortness of breath. I advised her that I would be happy to reassess her at any point. She understood her return indications of discharge with an empiric trial of expectant outpatient management. HPI This is an 89-year-old female arrived to the emerged by via EMS in setting of ill feeling and warm feeling earlier today. She is on outpatient cephalexin for urinary tract infection. She felt that her symptoms were quite transient and have subsequently improved. She has been eating and drinking normally. She denies dysuria frequency nausea vomiting fevers. She is not experiencing chest pain, respiratory distress, or abdominal discomfort. She also does not report any symptoms of fever, headache, or weakness. She is not thirsty or hungry. She attempted to contact her primary care physician today but was unsuccessful. Exam General: Well-appearing in no acute distress speaking in complete sentences. Head: Normocephalic, atraumatic. Eye: Extraocular eye movements intact. No conjunctival injection. No scleral icterus. Ear, nose, mouth, throat: Grossly normal inspection. Normal voice, handling secretions normally. Neck: Trachea midline. Cardiovascular: Well-perfused distal extremities. Regular rate and rhythm Respiratory: Nonlabored respiration. Clear lungs bilaterally Gastrointestinal: Nondistended abdomen. Soft. Nontender. Musculoskeletal: No edema. Moving all 4 extremities spontaneously. Skin: Normal for age and race, grossly normal temperature and turgor. No acute rash. Neurologic: Alert and appropriate, no apparent acute deficits. GCS 15. Psychiatric: Mood and manner are appropriate. Grooming and personal hygiene are appropriate. Related Data Home Medications ?Medication ?Instructions ?Recorded ?Confirmed aspirin 81 mg chewable tablet 81 mg PO DAILY 08/18/14 04/11/25 (Aspirin Low-Strength) omega 3-dha 60 mg-epa 90 mg-fish 1,000 mg PO DAILY 08/18/14 04/11/25 oil 500 mg capsule, delayed release (Fish Oil) cholecalciferol (vitamin D3) 25 1,000 unit PO DAILY 09/05/14 04/11/25 mcg (1,000 unit) tablet magnesium oxide 400 mg PO DAILY 07/12/18 04/11/25 acetaminophen 325 mg capsule 325 mg PO ONCE PRN fever or pain 11/09/23 04/11/25 dicyclomine 10 mg capsule See Rx Instructions .Route 05/18/24 04/11/25 .COMPLEX #180 caps atorvastatin 20 mg tablet See Rx Instructions .Route 11/16/24 04/11/25 .COMPLEX #90 tabs amlodipine 5 mg tablet 5 mg PO .bedtime #90 tabs 12/19/24 04/11/25 losartan 100 mg tablet 100 mg PO DAILY #90 tabs 12/19/24 04/11/25 mirtazapine 7.5 mg tablet 7.5 mg PO QHS anxiety or diff 12/19/24 04/11/25 sleeping #90 tabs nystatin-triamcinolone 100,000 1 applic topical BID #30 grams 01/02/25 04/11/25 unit/g-0.1 % topical cream metoprolol tartrate 37.5 mg tablet 37.5 mg PO BID #180 tabs 02/06/25 04/11/25 psyllium husk 0.4 gram capsule 0.4 g PO DAILY PRN bowel changes 02/06/25 04/11/25 (Fiber (psyllium husk)) #30 caps omeprazole 20 mg capsule,delayed 20 mg PO DAILY #90 caps 03/27/25 04/11/25 release cephalexin 500 mg capsule 500 mg PO QID 7 days #28 caps 04/09/25 04/11/25 Previous Rx's ?Medication ?Instructions ?Recorded dicyclomine 10 mg capsule See Rx Instructions .Route 05/18/24 .COMPLEX #180 caps atorvastatin 20 mg tablet See Rx Instructions .Route 11/16/24 .COMPLEX #90 tabs amlodipine 5 mg tablet 5 mg PO .bedtime #90 tabs 12/19/24 losartan 100 mg tablet 100 mg PO DAILY #90 tabs 12/19/24 mirtazapine 7.5 mg tablet 7.5 mg PO QHS anxiety or diff 12/19/24 sleeping #90 tabs nystatin-triamcinolone 100,000 1 applic topical BID #30 grams 01/02/25 unit/g-0.1 % topical cream metoprolol tartrate 37.5 mg tablet 37.5 mg PO BID #180 tabs 02/06/25 psyllium husk 0.4 gram capsule 0.4 g PO DAILY PRN bowel changes 02/06/25 (Fiber (psyllium husk)) #30 caps omeprazole 20 mg capsule,delayed 20 mg PO DAILY #90 caps 03/27/25 release cephalexin 500 mg capsule 500 mg PO QID 7 days #28 caps 04/09/25 Allergies Allergy/AdvReac Type Severity Reaction Status Date / Time bee pollen Allergy Severe Anaphylaxis Verified 04/11/25 13:05 General Stated Complaint: Urinary RAJESH: 3 Course Vital Signs Vital signs: Vital Signs Temperature 36.4 C L 04/11/25 13:01 Pulse 91 H 04/11/25 13:01 Respiratory Rate 20 04/11/25 13:01 Blood Pressure 176/82 H 04/11/25 13:01 Pulse Oximetry 97 04/11/25 13:01 Temperature 36.4 C L 04/11/25 13:04 Pulse 91 H 04/11/25 13:04 Respiratory Rate 20 04/11/25 13:04 Blood Pressure 176/82 H 04/11/25 13:04 Blood Pressure Position Sitting 04/11/25 13:04 Pulse Oximetry 97 04/11/25 13:04 Oxygen Delivery Method Room Air 04/11/25 13:04 Oxygen Flow Rate 0 04/11/25 13:04 PFSH All Active Problems (Updated 04/11/25 @ 13:31 by Ángel Mohan MD) Feeling unwell (Acute) Urinary tract infection (Acute) Numbness and tingling of both legs (Acute) Intermittent; not progressing, tolerable Left inguinal hernia (Acute ~08/2024) Spondylolisthesis, lumbar region (Acute ~08/2024) Urge incontinence of urine (Acute) CKD (chronic kidney disease) (Chronic 08/29/14) moderately decreased GFR from old records RH Hypertension (Chronic 08/29/14) SVT (supraventricular tachycardia) (Chronic ~2021) SVT Dr Aaron Balderas, Cardiology; o 2021 SVT & PVCs & VTach run 8 beats max rate 203 Mixed hyperlipidemia (Acute ~10/2023) 11/16/23 Dr Balderas Corns and callosities (Acute) Nail dystrophy (Acute) Pain in sacrum (Acute) Arthritis of knee, left (Acute) Arthritis of knee, right (Acute) Most recent DEPO MEDROL: 10/05/23; 06/10/2023; 12/22/22 Irritable bowel syndrome with diarrhea (Chronic ~2019) Bentyl RX Osteopenia determined by x-ray (Acute ~06/2022) Right medial knee pain (Acute) depo medrol 07/11/22 Degenerative joint disease of right knee (Acute) Depo-Medrol injection: 07/08/2022; 05/30/2022 Posterior tibial tendonitis (Acute) Venous insufficiency of left lower extremity (Acute) Nervously anxious (Chronic) Gastro-esophageal reflux disease without esophagitis (Chronic) 01/23/21-[facility] GI note: unspecified whether esophagitis present. 03/14/16 reflux esophagitis- Dr Mccracken EGD. Tolerates TUMs. 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 Essential hypertension Heart disease Maternal Grandfather FH: mental illness [facility] Maternal Aunt FH: mental illness anxiety and depression electric shock therapy Other Weakness Social History Smoking/Tobacco Use Status: Never Smoking risk assessment performed?: Yes Alcohol Intake: current Alcohol Intake frequency: holidays/special occasions only Drug use: Never Substance use type: does not use Household members: spouse and other Housing: house Communication Needs: Hard of Hearing Do you need help understanding health information?: Never Current gender identity: female What type of physical activity do you participate in: walking Frequency: 5-6 times per week Do you feel safe at home: Yes Do you feel safe in your relationship?: Yes
[2025-04-11 13:40] VITALS: BP 147/52
== END 2025-04-11 13:51 | disposition home or self-care (01) ==
PROVIDERS: Emergency Provider Emergency Medicine; PCP Nurse Practitioner Adult Health
DX: R53.81 Other malaise (principal); I12.9 Hypertensive chronic kidney disease with stage 1 through stage 4 chronic kidney disease, or unspecified chronic kidney disease; E78.2 Mixed hyperlipidemia
CPT/HCPCS: 99283

== ENCOUNTER 2025-04-17 18:35 | Emergency (ER) | payer MEDICARE, OTHER, SELFPAY ==
[2025-04-17] VITALS (13 sets, daily range): BP systolic 139–155; BP diastolic 57–79; PULSE 70–91; RESP 9–24; TEMP 36.6; O2SAT 97–100
--- NOTE | 2025-04-17 19:15 | RT.EKG_ITS ---
APPROVED REPORT Exam: Resting ECG Reason for Exam: weakness Patient Location: E HR:74 bpm ECG Measurements Heart Rate 74 AXIS [place] 242 P 42 QRSd 84 QRS -11 QT 379 T 20 QTc 420 Conclusion Sinus rhythm...normal P axis, V-rate 60- 99 Prolonged KY interval...KY >220, V-rate 50- 90
[2025-04-17 19:52] LABS: Glucose Negative (Negative)
[2025-04-17 19:54] LABS: C & S Indicated? No
[2025-04-17 19:57] LABS: Abs Immature Grans 0.03 10^3/uL (0.0-0.06); HCT 37.2 % (36.0-46.0); HGB 12.4 g/dL (11.2-15.7); Immature Grans % 0.4 %; MCH 31.3 pg (27.0-33.0); MCHC 33.3 % (32.0-36.0); MCV 94 fL (80-95); MPV 9.6 fL (8.0-11.0); Platelet Count 317 10^3/uL (130-400); RBC 3.96 10^6/uL (3.93-5.22); RDW 13.0 % (11.7-14.6); RDW-SD 45.0 fL; WBC 8.01 10^3/uL (4.4-10.8)
[2025-04-17 20:03] LABS: COVID-19 PCR Negative (Negative); RSV PCR Negative (Negative)
[2025-04-17 20:09] LABS: Magnesium 2.4 mg/dL (1.6-2.6); Troponin I 14 ng/L (<35)
[2025-04-17 20:11] LABS: ALT 29 U/L (10-49); AST 27 U/L (<34); Albumin 5.0 g/dL (3.2-5.0); Alkaline Phosphatase 103 U/L (46-116); Anion Gap 8 mmol/L (3-11); BUN 19 mg/dL (9-23); Bilirubin, Total 0.4 mg/dL (0.2-1.2); CO2 28.0 mmol/L (20.0-31.0); Calcium 10.0 mg/dL (8.3-10.6); Chloride 100 mmol/L (98-107); Glucose 99 mg/dL (74-106); Potassium 4.3 mmol/L (3.5-5.1); Sodium 136 mmol/L (136-145); Total Protein 8.4 g/dL (5.7-8.2)
[2025-04-17 20:13] LABS: TSH (W/Ref FT4) 1.77 uIU/mL (0.55-4.78)
--- NOTE | 2025-04-19 08:30 | W.ED.GENAD ---
Discharge Plan Disposition Patient Disposition: Home Condition: Stable Discharge Details Clinical Impression: Malaise Primary Care Provider: Ginette Vaca ED Provider: Patricia Clarke Home Meds and New Rx's Prescriptions: Continued magnesium oxide 400 mg capsule 400 mg PO DAILY metoprolol tartrate 37.5 mg tablet 37.5 mg PO BID Qty: 180 3RF psyllium husk [Fiber (psyllium husk)] 0.4 gram capsule 0.4 g PO DAILY PRN (Reason: bowel changes) Qty: 30 0RF Rx Instructions: Medication trial: May increase (2 per day) or decrease (every other day) according to bowels. Take with a glass of water. acetaminophen 325 mg capsule 325 mg PO ONCE PRN (Reason: fever or pain) losartan 100 mg tablet 100 mg PO DAILY Qty: 90 3RF Rx Instructions: BP amlodipine 5 mg tablet 5 mg PO .bedtime Qty: 90 3RF Rx Instructions: Dose increase 12/19/2024 for BP mirtazapine 7.5 mg tablet 7.5 mg PO QHS Qty: 90 3RF Rx Instructions: Anxiety & difficulty sleeping omeprazole 20 mg capsule,delayed release(DR/EC) 20 mg PO DAILY Qty: 90 3RF Rx Instructions: Take in AM on empty stomach, 30min prior to food and other medications. cholecalciferol (vitamin D3) 1,000 UNIT tablet 1,000 unit PO DAILY dicyclomine 10 mg capsule See Rx Instructions .ROUTE .COMPLEX Qty: 180 3RF Dose Instruction: TAKE ONE CAPSULE BY MOUTH TWICE A DAY Rx Instructions: TAKE ONE CAPSULE BY MOUTH TWICE A DAY atorvastatin 20 mg tablet See Rx Instructions .ROUTE .COMPLEX Qty: 90 3RF Dose Instruction: TAKE ONE TABLET BY MOUTH EVERY DAY Rx Instructions: TAKE ONE TABLET BY MOUTH EVERY DAY nystatin-triamcinolone 100,000-0.1 unit/g-% cream 1 applic topical BID Qty: 30 4RF aspirin [Aspirin Low-Strength] 81 MG tablet,chewable 81 mg PO DAILY Fish Oil 500 MG capsule,delayed release(DR/EC) 1,000 mg PO DAILY Discharge Instructions Instructions: Fatigue (DC) Additional Instructions: Your tests today are very reassuring Please make sure you are drinking at least eight 8 ounce glasses of water daily and having frequent meals Your flu COVID RSV are all negative, your complete blood count and chemistry panel are negative for acute abnormality Please follow-up with your primary care physician and return earlier should you have new or worsening complaints Stand Alone Forms: Portal Information Referrals: Ginette Vaca NP [Primary Care Provider, Medicine] Discharge Data Discharge Date/Time-TO BE ENTERED AT DEPARTURE: 04/17/25 20:45 HPI General Date/Time Provider Initiated Documentation: 04/17/25 18:36. HPI Narrative: This 89-year-old female presents with subjective fevers, tiredness, malaise. Denies chest pain, shortness of breath. States she was exposed to sick family member who potentially had the flu. She denies any nausea or vomiting. Denies any additional complaints at this time. Related Data Home Medications ?Medication ?Instructions ?Recorded ?Confirmed aspirin 81 mg chewable tablet 81 mg PO DAILY 08/18/14 04/17/25 (Aspirin Low-Strength) omega 3-dha 60 mg-epa 90 mg-fish 1,000 mg PO DAILY 08/18/14 04/17/25 oil 500 mg capsule, delayed release (Fish Oil) cholecalciferol (vitamin D3) 25 1,000 unit PO DAILY 09/05/14 04/17/25 mcg (1,000 unit) tablet magnesium oxide 400 mg PO DAILY 07/12/18 04/17/25 acetaminophen 325 mg capsule 325 mg PO ONCE PRN fever or pain 11/09/23 04/17/25 dicyclomine 10 mg capsule See Rx Instructions .Route 05/18/24 04/17/25 .COMPLEX #180 caps atorvastatin 20 mg tablet See Rx Instructions .Route 11/16/24 04/17/25 .COMPLEX #90 tabs amlodipine 5 mg tablet 5 mg PO .bedtime #90 tabs 12/19/24 04/17/25 losartan 100 mg tablet 100 mg PO DAILY #90 tabs 12/19/24 04/17/25 mirtazapine 7.5 mg tablet 7.5 mg PO QHS anxiety or diff 12/19/24 04/17/25 sleeping #90 tabs nystatin-triamcinolone 100,000 1 applic topical BID #30 grams 01/02/25 04/17/25 unit/g-0.1 % topical cream metoprolol tartrate 37.5 mg tablet 37.5 mg PO BID #180 tabs 02/06/25 04/17/25 psyllium husk 0.4 gram capsule 0.4 g PO DAILY PRN bowel changes 02/06/25 04/17/25 (Fiber (psyllium husk)) #30 caps omeprazole 20 mg capsule,delayed 20 mg PO DAILY #90 caps 03/27/25 04/17/25 release Previous Rx's ?Medication ?Instructions ?Recorded dicyclomine 10 mg capsule See Rx Instructions .Route 05/18/24 .COMPLEX #180 caps atorvastatin 20 mg tablet See Rx Instructions .Route 11/16/24 .COMPLEX #90 tabs amlodipine 5 mg tablet 5 mg PO .bedtime #90 tabs 12/19/24 losartan 100 mg tablet 100 mg PO DAILY #90 tabs 12/19/24 mirtazapine 7.5 mg tablet 7.5 mg PO QHS anxiety or diff 12/19/24 sleeping #90 tabs nystatin-triamcinolone 100,000 1 applic topical BID #30 grams 01/02/25 unit/g-0.1 % topical cream metoprolol tartrate 37.5 mg tablet 37.5 mg PO BID #180 tabs 02/06/25 psyllium husk 0.4 gram capsule 0.4 g PO DAILY PRN bowel changes 02/06/25 (Fiber (psyllium husk)) #30 caps omeprazole 20 mg capsule,delayed 20 mg PO DAILY #90 caps 03/27/25 release Allergies Allergy/AdvReac Type Severity Reaction Status Date / Time bee pollen Allergy Severe Anaphylaxis Verified 04/17/25 18:46 General Stated Complaint: RespSymp RAJESH: 3 Exam Narrative Exam Narrative: 89-year-old female, alert, oriented, ambulatory, no acute distress lungs clear to auscultation, cardiac rate rhythm regular answering questions appropriately no meningismus. No rashes or lesions Course Vital Signs Vital signs: Vital Signs Temperature 36.6 C 04/17/25 18:38 Pulse 91 H 04/17/25 18:38 Respiratory Rate 20 04/17/25 18:38 Blood Pressure 143/79 H 04/17/25 18:38 Pulse Oximetry 99 04/17/25 18:38 Temperature 36.6 C 04/17/25 18:44 Pulse 76 04/17/25 20:20 Pulse 75 04/17/25 20:20 Respiratory Rate 14 04/17/25 20:20 Respiratory Effort Normal 12/22/25 18:44 Respiratory Depth Normal 04/17/25 18:44 Blood Pressure 139/57 L 04/17/25 20:16 Blood Pressure Mean 87 04/17/25 20:16 Blood Pressure Position Sitting 04/17/25 18:44 Pulse Oximetry 98 04/17/25 20:20 Oxygen Delivery Method Room Air 04/17/25 18:44 Oxygen Flow Rate 0 04/17/25 18:44 Lab/Test Results Lab/Test Results: Laboratory Tests Range/Units 04/17/25 04/17/25 04/17/25 18:57 19:35 19:45 WBC (4.4-10.8) 10^3/uL 8.01 RBC (3.93-5.22) 10^6/uL 3.96 Hgb (11.2-15.7) g/dL 12.4 Hct (36.0-46.0) % 37.2 MCV (80-95) fL 94 MCH (27.0-33.0) pg 31.3 MCHC (32.0-36.0) % 33.3 RDW (11.7-14.6) % 13.0 Plt Count (130-400) 10^3/uL 317 MPV (8.0-11.0) fL 9.6 Immature Gran % % 0.4 Neutrophils % % 61.4 Lymphocytes % % 28.0 Monocytes % % 7.0 Eosinophils % % 2.6 Basophils % % 0.6 Nucleated RBC % (0.0-0.3) % 0.0 Absolute Neutrophils (1.2-6.7) 10^3/uL 4.92 Absolute Lymphocytes (1.2-3.4) 10^3/uL 2.24 Absolute Monocytes (0.1-0.8) 10^3/uL 0.56 Absolute Eosinophils (0.0-0.7) 10^3/uL 0.21 Absolute Basophils (0.0-0.2) 10^3/uL 0.05 Sodium (136-145) mmol/L 136 Potassium (3.5-5.1) mmol/L 4.3 Chloride (98-107) mmol/L 100 Carbon Dioxide (20.0-31.0) mmol/L 28.0 Anion Gap (3-11) mmol/L 8 BUN (9-23) mg/dL 19 Creatinine (0.55-1.02) mg/dL 1.26 H Est GFR (CKD-EPI 2020) (mL/min/1.73m2) 39.94 Glucose (74-106) mg/dL 99 Calcium (8.3-10.6) mg/dL 10.0 Magnesium (1.6-2.6) mg/dL 2.4 Total Bilirubin (0.2-1.2) mg/dL 0.4 AST (<34) U/L 27 ALT (10-49) U/L 29 Alkaline Phosphatase (46-116) U/L 103 Troponin I (<35) ng/L 14 Total Protein (5.7-8.2) g/dL 8.4 H Albumin (3.2-5.0) g/dL 5.0 TSH (0.55-4.78) uIU/mL 1.77 Urine Color (Yellow) Yellow Urine Clarity (Clear) Clear Urine pH (5-8) 5.5 Ur Specific [place] (1.005-1.025) 1.010 Urine Protein (Neg-Trace) mg/dL Negative Urine Ketones (Negative) mg/dL Negative Urine Blood (Negative) Small H Urine Nitrite (Negative) Negative Urine Bilirubin (Negative) Negative Urine Urobilinogen (Up to 0.2) mg/dL 0.2 Ur Leukocyte Esterase (Negative) Trace H Urine RBC (0-2) HPF 5-10 H Urine WBC (0-5) HPF 5-10 Ur Epithelial Cells (Negative) HPF Moderate Urine Crystals (Negative) HPF Negative Urine Bacteria (Negative) HPF Few Urine Casts (Negative) LPF Negative Urine Mucus (Negative) Negative Ur Culture Indicated? No Urine Glucose (Negative) mg/dL Negative COVID-19 Source Nasopharynx SARS-CoV-2 (PCR) (Negative) Negative Influenza Type A (PCR) (Negative) Negative Influenza Type B (PCR) (Negative) Negative RSV (PCR) (Negative) Negative Medical Decision Making Results: CBC, CMP, normal limits urinalysis does not show acute abnormality, EKG without obvious ischemia Assessment and plan: Patient has been evaluated on 3 separate occasions for similar complaints. Given her age and comorbidities I did perform complete assessment did not see any evidence of acute abnormality. Flu COVID and RSV, certainly patient may have a viral syndrome. Her lungs are clear to auscultation she is not hypoxic and her oxygen is 98%, respirations of 14 no tachycardia and stable blood pressure I see no indication for additional imaging. She is ambulatory and quite well in appearance. Patient is now requesting discharge home she feels improved. I recommend following up with her primary care physician early return precautions reviewed and patient expressed understanding [facility] All Active Problems (Updated 04/17/25 @ 20:44 by RAINA Mayorga) Malaise (Acute) Feeling unwell (Acute) Urinary tract infection (Acute) Numbness and tingling of both legs (Acute) Intermittent; not progressing, tolerable Left inguinal hernia (Acute ~08/2024) Spondylolisthesis, lumbar region (Acute ~08/2024) Urge incontinence of urine (Acute) CKD (chronic kidney disease) (Chronic 08/29/14) moderately decreased GFR from old records RH Hypertension (Chronic 08/29/14) SVT (supraventricular tachycardia) (Chronic ~2021) SVT Dr Aaron Balderas, Cardiology; o 2021 SVT & PVCs & VTach run 8 beats max rate 203 Mixed hyperlipidemia (Acute ~10/2023) 11/16/23 Dr Balderas Corns and callosities (Acute) Nail dystrophy (Acute) Pain in sacrum (Acute) Arthritis of knee, left (Acute) Arthritis of knee, right (Acute) Most recent DEPO MEDROL: 10/05/23; 06/10/2023; 12/22/22 Irritable bowel syndrome with diarrhea (Chronic ~2019) Bentyl RX Osteopenia determined by x-ray (Acute ~06/2022) Right medial knee pain (Acute) depo medrol 07/11/22 Degenerative joint disease of right knee (Acute) Depo-Medrol injection: 07/08/2022; 05/30/2022 Posterior tibial tendonitis (Acute) Venous insufficiency of left lower extremity (Acute) Nervously anxious (Chronic) Gastro-esophageal reflux disease without esophagitis (Chronic) 01/23/21-[facility] GI note: unspecified whether esophagitis present. 03/14/16 reflux esophagitis- Dr Mccracken EGD. Tolerates TUMs. 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 Essential hypertension Heart disease Maternal Grandfather FH: mental illness [facility] M[facility] Aunt FH: mental illness anxiety and depression electric shock therapy Other Weakness Social History Smoking/Tobacco Use Status: Never Smoking risk assessment performed?: Yes Alcohol Intake: current Alcohol Intake frequency: holidays/special occasions only Drug use: Never Substance use type: does not use Household members: spouse and other Housing: house Communication Needs: Hard of Hearing Do you need help understanding health information?: Never Current gender identity: female What type of physical activity do you participate in: walking Frequency: 5-6 times per week Do you feel safe at home: Yes Do you feel safe in your relationship?: Yes PAWSS Have you Been Recently Intoxicated or Drunk Within the Last 30 days?: No Have you Ever Experienced Previous Episodes of Alcohol Withdrawal?: No Have you ever Experienced Withdrawal Seizures?: No Have you ever Experienced Delirium Tremens(DT)s?: No Have you ever undergone Alcohol Rehabilitation Treatment (i.e, inpt ot outpatient treatment programs)?: No Have you ever Experienced Blackouts?: No Have you ever Combined Alcohol with other Downers within the last 90 days?: No Have you ever Combined Alcohol with any other Substance of Abuse during the last 90 days?: No Positive Blood Alcohol level on Presentation? [PCS.BAL]: No Evidence of Increased Autonomic Activity (i.e. HR>120, tremor, sweating, agitation, nausea)?: No Result: 0
== END 2025-04-17 20:45 | disposition home or self-care (01) ==
PROVIDERS: Emergency Provider Physician Assistant; PCP Nurse Practitioner Adult Health
DX: R53.81 Other malaise (principal)
CPT/HCPCS: 99283; 99284; 36415; 80053; 87637; 93005; 81003; 81015; 83735; 84443; 84484; 85025; 93010